=== PATIENT | male | born 1975 | race Caucasian/White ===

== ENCOUNTER 2022-03-26 04:30 | Observation (INO) ==
--- NOTE | 2022-03-26 04:44 | Emergency Department Note ---
History of Present Illness General Chief complaint: Cardiac Assessment Stated complaint: CHEST TIGHTNESS/PAIN RADIATING INTO L ARM Time Seen by Provider: 03/26/22 04:38 History of Present Illness Maximum Pain Intensity: 7 46-year-old male presents emergency department with 1 hour history of increased heart rate palpitations chest pressure that radiates into his left axilla. Patient has a history of sleep apnea and is on CPAP tonight. Patient states he woke up around 3:30 AM with palpitations chest pain that radiated to his left arm and armpit. Patient states that he has tingling and is present as well. Patient denies vomiting diaphoresis. There are no other mitigating or saud viating factors Past Med/Surg History Social History Smoking Status: Former smoker Preferred Language: Filipino Feels Safe at Home: Yes Review of Systems A total of 10 systems reviewed and were otherwise negative Constitutional: no fever Respiratory: no cough Cardiovascular: + chest pain and + palpitations Gastrointestinal: no abdominal pain Physical Exam Vital Signs Vital Signs - 24 hr 03/26/22 04:34 03/26/22 05:13 03/26/22 04:31 Temperature 36.3 C L Temperature Source Temporal Artery Scan Pulse Rate 121 H Pulse Rate from SpO2 Sensor Respiratory Rate 24 Respiratory Effort / Characteristics Non-Labored Spontaneous Respiratory Depth Normal Blood Pressure 166/96 H Blood Pressure Mean 119 Pulse Oximetry 96 95 Oxygen Delivery Method Room Air Sepsis New/Unexplained Change in Mental Status N/A Sepsis Action Taken by Nursing No Action Required 03/26/22 04:53 03/26/22 05:00 03/26/22 05:10 Temperature Temperature Source Pulse Rate 106 H 102 H 105 H Pulse Rate from SpO2 Sensor Respiratory Rate 13 22 Respiratory Effort / Characteristics Respiratory Depth Blood Pressure Blood Pressure Mean Pulse Oximetry Oxygen Delivery Method Sepsis New/Unexplained Change in Mental Status Sepsis Action Taken by Nursing 03/26/22 05:20 03/26/22 05:30 03/26/22 05:30 Temperature Temperature Source Pulse Rate 101 H 101 H Pulse Rate from SpO2 Sensor 99 H 102 H Respiratory Rate 14 14 Respiratory Effort / Characteristics Respiratory Depth Blood Pressure 155/91 H Blood Pressure Mean 112 Pulse Oximetry 94 95 Oxygen Delivery Method Sepsis New/Unexplained Change in Mental Status Sepsis Action Taken by Nursing VITAL SIGNS - Vital signs and nursing notes were reviewed. GENERAL - no acute distress. Communicates well with provider and answers questions appropriately. SKIN - Without rashes. HEAD - NC/AT. EYES - PERRL with EOMI bilaterally. Sclera anicteric. Palpebral conjunctiva pink and moist with no injection noted. EARS - No deformities of external structures noted on gross examination bilaterally. NOSE - Midline and without cyanosis. No epistaxis or purulent drainage noted. Septum midline without deviation or septal hematoma noted. MOUTH/OROPHARYNX - Without perioral cyanosis. Buccal mucosa pink and moist and without leukoplakia. Tongue midline with equal elevation of palate bilaterally. No tonsillar hypertrophy, erythema, or exudates noted. NECK - Neck with FROM. Supple to palpation; No nuchal rigidity. LUNGS - Chest wall symmetric without accessory muscle use, intercostals retractions, or central cyanosis. Normal vesicular breath sounds CTA B/L. No wheezes, rales, or rhonchi appreciated. CARDIAC - Tachycardic with S1/S2. No murmur, rubs, or gallops appreciated. ABDOMEN - Abdominal contour soft without pulsations or visible masses. BS normoactive all four quadrants. No tenderness, palpable masses, hepatosplenom egaly, or ascites noted. EXTREMITIES - No clubbing or peripheral cyanosis. No pretibial edema present. Calves are nontender. +5/5 strength noted in UE/LE bilaterally. NEUROLOGIC - Cranial nerves II through XII grossly intact. . PSYCH - A&Ox3 and cooperates fully with examiner. Pt is very pleasant and interacts well with examiner. Course Reevaluation(s) Reevaluation #1: Patient's heart rate is less than 100. Patient had intermittent chest tightness at times. Patient's INR is 2.0. I discussed evaluation with the patient the patient's family at bedside Time: 06:29 Consultations [facility] Administered Medications Discontinued Medications Aspirin (Aspirin Chew 324 Mg) 324 mg PO NOW STA Stop: 03/26/22 04:54 Last Admin: 03/26/22 05:20 Dose: 324 mg Documented By: ROBERTO Medical Decision Making Medical Records Attestation: I reviewed the patient's medical records. Home Medications Current Medication List: was personally reviewed by me Laboratory Data Attestation: I reviewed the patient's lab results. Result diagrams: 03/26/22 05:10 03/26/22 05:10 Lab Results 03/26/22 03/26/22 03/26/22 Range/Units 05:10 05:10 05:10 WBC 8.42 (4.8-10.8) K/ul RBC 4.52 L (4.63-6.08) M/uL Hgb 14.6 (14.0-18.0) g/dl Hct 42.5 (40.1-51.0) % MCV 94.0 (80.0-100.0) fL MCH 32.3 (25.0-34.0) pg MCHC 34.4 (32.0-36.0) g/dL RDW Std Deviation 58.3 H (36.4-46.3) fL RDW Coeff of Nba 16.8 H (11.5-14.5) % Plt Count 234 (130-400) K/uL MPV 10.4 (9.4-12.4) fL Immature Gran % (Auto) 2.6 % Neut % (Auto) 65.6 % Lymph % (Auto) 16.2 % [place] % (Auto) 10.8 % Eos % (Auto) 3.4 % Baso % (Auto) 1.4 % Neut # (Auto) 5.52 (1.4-6.5) K/uL Lymph # (Auto) 1.36 (1.2-3.4) K/uL [place] # (Auto) 0.91 H (0.24-0.82) K/uL Eos # (Auto) 0.29 (0-0.50) K/uL Baso # (Auto) 0.12 (0-0.2) K/uL Immature Gran # (Auto) 0.22 H (0.00-0.02) K/uL PT 20.3 H (9.0-12.0) Seconds INR 2.0 H (0.9-1.1) APTT 38.6 H (21.0-31.0) Seconds PTT Ratio 1.4 Sodium 135 L (136-145) mmol/L Potassium 4.1 (3.5-5.1) mmol/L Chloride 103 (98-107) mmol/L Carbon Dioxide 22 (21-32) mmol/L Anion Gap 10 (3-11) BUN 21 (6-23) mg/dl Creatinine 1.19 (0.6-1.4) mg/dl Est Cr Clr Drug Dosing Not Reportable Est GFR ( Amer) 84.4 ml/min Est GFR (Non-Af Amer) 72.8 ml/min BUN/Creatinine Ratio 17.6 (10-20) Glucose 101 H (70-99(Fasting)) mg/dl Calcium 9.0 (8.5-10.1) mg/dl Total Bilirubin 0.5 (0.2-1.0) mg/dl AST 17 (13-39) U/L ALT 37 (7-52) U/L Alkaline Phosphatase 74 (34-104) U/L Troponin I High Sens 5.8 (0-20) pg/ml Total Protein 7.3 (6.0-8.3) gm/dl Albumin 4.1 (3.4-5.0) gm/dl Globulin 3.2 (2.5-4.0) gm/dl Albumin/Globulin Ratio 1.3 (0.9-2) Lipase 60 (11-82) U/L Imaging Data Attestation: I personally reviewed and interpreted this imaging study as follows: My Impression: Chest x-ray negative for infiltrate MDM Narrative Medical decision making differential diagnosis angina unstable angina acute ME acute coronary syndrome cardiac dysrhythmia metabolic derangement anxiety. Plan is to check cardiac work-up Impression & Plan Chest pain Discharge Plan Visit Data Chief Complaint: Cardiac Assessment Stated Complaint: CHEST TIGHTNESS/PAIN RADIATING INTO L ARM ED Provider: Kan Olea Discharge Problem: Chest pain Patient Disposition: Being Evaluated by Hospitalist Forms Stand Alone Forms: My [facility] Referrals Referrals: PCP,NO [Primary Care Provider] -
[2022-03-26] MEDS ORDERED: ASPIRIN CHEW 324 MG PO STA (04:53)
[2022-03-26 05:43] LABS: Basophils # (auto) 0.12 K/uL (0-0.2); Basophils % (auto) 1.4 %; Eosinophils # (auto) 0.29 K/uL (0-0.50); Eosinophils % (auto) 3.4 %; Hematocrit (blood only) 42.5 % (40.1-51.0); Hemoglobin 14.6 g/dl (14.0-18.0); Immature Granulocytes # (auto) 0.22 K/uL (0.00-0.02); Immature Granulocytes % (auto) 2.6 %; Lymphocytes # (auto) 1.36 K/uL (1.2-3.4); Lymphocytes % (auto) 16.2 %; Mean Corpuscular Hemoglobin 32.3 pg (25.0-34.0); Mean Corpuscular Hgb Conc 34.4 g/dL (32.0-36.0); Mean Platelet Volume 10.4 fL (9.4-12.4); Monocytes # (auto) 0.91 K/uL (0.24-0.82); Monocytes % (auto) 10.8 %; Neutrophils # (auto) 5.52 K/uL (1.4-6.5); Neutrophils % (auto) 65.6 %; Platelet Count 234 K/uL (130-400); RDW Coefficient of Variation 16.8 % (11.5-14.5); RDW Standard Deviation 58.3 fL (36.4-46.3); Red Blood Count 4.52 M/uL (4.63-6.08); White Blood Count 8.42 K/ul (4.8-10.8)
[2022-03-26 05:44] LABS: Partial Thromboplastin Ratio 1.4; Partial Thromboplastin Time 38.6 Seconds (21.0-31.0); Prothrombin Time 20.3 Seconds (9.0-12.0)
[2022-03-26 05:53] LABS: Alanine Aminotransferase 37 U/L (7-52); Albumin Globulin Ratio 1.3 (0.9-2); Albumin Level 4.1 gm/dl (3.4-5.0); Alkaline Phosphatase 74 U/L (34-104); Anion Gap 10 (3-11); Aspartate Aminotransferase 17 U/L (13-39); BUN Creatinine Ratio 17.6 (10-20); Bilirubin,Total 0.5 mg/dl (0.2-1.0); Blood Urea Nitrogen 21 mg/dl (6-23); Carbon Dioxide 22 mmol/L (21-32); Chloride 103 mmol/L (98-107); Est GFR (African American) 84.4 ml/min; Est GFR (Non-African American) 72.8 ml/min; Globulin 3.2 gm/dl (2.5-4.0); Glucose 101 mg/dl (70-99(Fasting)); Lipase 60 U/L (11-82); Potassium 4.1 mmol/L (3.5-5.1); Sodium 135 mmol/L (136-145); Total Protein 7.3 gm/dl (6.0-8.3)
[2022-03-26 06:00] LABS: Troponin I High Sensitivity 5.8 pg/ml (0-20)
--- NOTE | 2022-03-26 06:29 | XRay Report ---
XR chest 1V portable CLINICAL HISTORY: Atypical chest pain. COMPARISON STUDY: No previous studies for comparison. FINDINGS: Lung volumes are normal. Lungs are clear. There is no pneumothorax or pleural effusion. The re is borderline cardiomegaly. Mediastinal contours are normal. There is no evidence for pulmonary ed arthur. IMPRESSION: No acute cardiopulmonary findings. ACT 112: Negative or not required by law. Electronically signed by: Alec Agee M.D. 03/26/2022 6:28 AM
[2022-03-26] MEDS ORDERED: lisinopril 2.5 MG TAB PO ONE (06:31)
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
[2022-03-26] MEDS ORDERED: LORazepam 0.5 MG TAB PO PRN (07:27)
[2022-03-26] MEDS ORDERED: oxyCODONE HCL IR 5 MG TAB (IMMEDIATE RELEASE) PO PRN (07:27)
[2022-03-26] MEDS ORDERED: MoRPHine SULFATE 4 MG/ML 1 ML CARP\\VIAL IV PRN (07:27)
[2022-03-26] MEDS ORDERED: PROMETHAZINE HCL 12.5 MG in SODIUM CHLORIDE 0.9% 50 ML IV PRN (07:27)
[2022-03-26] MEDS ORDERED: SODIUM CHLORIDE 0.9% 1000ML 1,000 ML IV ONE (07:27)
[2022-03-26 07:46] LABS: Troponin I High Sensitivity 6.3 pg/ml (0-20)
[2022-03-26] MEDS ORDERED: GLUCOSE 10 TAB/TUBE PO PRN (07:52)
[2022-03-26] MEDS ORDERED: DEXTROSE 50% 50 ML SYRINGE IV PRN (07:52)
[2022-03-26] MEDS ORDERED: GLUCAGON FOR INJ 1 MG VIAL SQ PRN (07:52)
[2022-03-26] MEDS ORDERED: CARBOHYDRATES FOR HYPOGLYCEMIA PO PRN (07:52)
[2022-03-26] MEDS ORDERED: GLUCOSE 40% GEL 15 GM TUBE PO PRN (07:52)
[2022-03-26 08:29] LABS: Estimated Average Glucose 123 mg/dl; Hemoglobin A1C 5.9 % (4.5-5.6)
[2022-03-26] MEDS ORDERED: NITROGLYCERIN SL 0.4 MG/TAB TAB SL PRN (08:56)
[2022-03-26] MEDS ORDERED: ACETAMINOPHEN 325 MG TAB PO PRN (08:56)
[2022-03-26] MEDS: ATORVASTATIN 40 MG TAB PO SCH (10:21)
--- NOTE | 2022-03-26 11:22 | Cardiology Consultation ---
Date of Consultation March 26, 2022 Assessment & Plan (1) Palpitation: (2) Chest pain at rest: (3) Family history of ischemic heart disease: (4) Obesity: (5) Dyslipidemia: Plan 46-year-old male seen in consultation, evaluation of palpitations awaking patient from sleep with associated upper chest/jaw discomfort. EKG without acute changes. High-sensitivity troponin negative x2. Troponin #3 pending along with resting echocardiography which will likely be limited technically as discussed. Outpatient Sleep Medicine referral, likely requiring adjustment to PAP treatment Serial high-sensitivity Troponins x 3 Resting echocardiography Bilateral carotid duplex Trial low-dose beta-jimena therapy while an inpatient, metoprolol succinate 12.5 mg once per day, for heart rate and blood pressure. Continue aspirin, statin, risk factor, and lifestyle modification Supervising Physician Co-Signing Physician Notes Patient seen and examined with Gerald Drake PA-C. Agree with findings and assessment as above. History of Present Illness Reason for Consultation: Chest pain Requesting Physician: Oliver Attending Physician: [place] History of Present Illness Mr. Nicola Pineda is a pleasant 46-year-old male who presented to the [facility] emergency room after awaking from sleep around 3 AM with a feeling of his heart pounding fast that was associated with some upper anterior chest/anterior neck pain that seemed radiate into the jaw. He notes sitting on the edge of the bed, removing his CPAP mask, and wondering if he was having a crazy dream. 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 She checked his pulse and noted it to be fast, recommending further evaluation. He also notes having some pain in the left axilla/left shoulder, fingers falling asleep on the left side, and his toes falling asleep last couple of days. He reports a history of CVA in 2017, prescribed chronic Coumadin anticoagulation for factor V. INRs have been therapeutic with patient reporting an INR 3.1 last month, 2.0 on presentation today. Patient reports a history of asthma that requires regular use of inhaler regimen. Notes increased exertional dyspnea especially when hot and humid. No exertional chest pain. No other bouts of palpitations. No difficulty breathing at rest. No significant fluid retention. No dizziness or syncope. No fevers or chills. No melena or hematochezia. Past Medical and Surgical History Central venous thrombosis, January 2017 Factor V Leiden mutation Chronic Coumadin anticoagulation COPD/asthma Hypertension Dyslipidemia Depression Morbid obesity Right heart failure Type 2 diabetes mellitus Vertigo Obstructive sleep apnea, prescribed CPAP therapy 5 or 6 years ago, without ongoing evaluation Restless leg syndrome Degenerative joint disease, bilateral knees Family History: Father had CAD/NC, passing after a second CVA at the age of 73. Mother is alive with "everything under the sun." Only child. Social History: Smoked in his 20s. No significant alcohol. No illegal drug use. Originally from [facility]. 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 Allergies Allergy/AdvReac Type Severity Reaction Status Date / Time No Known Allergies Allergy Verified 03/26/22 06:35 Home Medications Medication Instructions Recorded Confirmed Type Lipitor 40 mg PO DAILY 03/26/22 03/26/22 History Requip 4 mg PO HS 03/26/22 03/26/22 History Trulicity 0.75 mg SC WK 03/26/22 03/26/22 History albuterol 2 puff inhalation QID PRN 03/26/22 03/26/22 History Bronchospasm bupropion HCl 150 mg PO DAILY 03/26/22 03/26/22 History celecoxib 200 mg PO DAILY 03/26/22 03/26/22 History furosemide 40 mg PO BID 03/26/22 03/26/22 History lisinopril 2.5 mg PO DAILY 03/26/22 03/26/22 History metformin 500 mg PO DAILY 03/26/22 03/26/22 History warfarin 10 mg PO HS 03/26/22 03/26/22 History Patient History Social History Smoking Status: Former smoker Second Hand Exposure: No; Do You Dip or Chew Tobacco: No; Hx Alcohol Use: No Hx Substance Use: No Preferred Language: Slovenian Communication Ability: Effective Marketing Clerk Required: No Beliefs That Will Affect Care: None Current Living Situation: Family Other Information That Helps Us Care for You: No Feels Safe at Home: Yes Safety Concerns: Feels Safe At This Time Assistive Devices: CPAP and Walker Review of Systems Review of Systems: Complete review of systems is otherwise as stated above, negative, noncontributory Physical Exam Physical Exam: General: A&Ox3. NAD. Elevated BMI HEENT: Normocephalic. Atraumatic. PER. Conjunctiva pink, sclera clear. Neck: No carotid bruits. Veins not appreciated. Heart: Regular at 96 bpm. No murmurs appreciated. No rub. Lungs: Faint right lower expiratory wheeze. No Rales. No rhonchi. Abdomen: +BS. Soft. Nontender. No masses or organomegaly. Extremities: Thick, with mild lymphedematous changes, without overt edema. No clubbing. No cyanosis. Limited neurological examination is without focal deficits. Pulses: radial=2/4, posterior tibial=2/4. Results & Data ([facility]) Vital Signs (Past 12 Hours) Vital Signs Temp Pulse Pulse Resp BP BP Pulse Ox 03/26/22 09:18 95 H 03/26/22 08:58 36.4 C L 90 18 152/85 H 94 03/26/22 08:07 36.6 C 95 H 18 160/95 H 96 03/26/22 05:30 101 H 14 95 03/26/22 05:30 155/91 H 03/26/22 05:20 101 H 14 94 03/26/22 05:10 105 H 22 03/26/22 05:00 102 H 03/26/22 04:53 106 H 13 03/26/22 04:31 95 03/26/22 04:34 36.3 C L 121 H 24 166/96 H 96 O2 Del Method 03/26/22 09:18 03/26/22 08:58 Room Air 03/26/22 08:07 Room Air 03/26/22 05:30 03/26/22 05:30 03/26/22 05:20 03/26/22 05:10 03/26/22 05:00 03/26/22 04:53 03/26/22 04:31 Room Air 03/26/22 04:34 Laboratory Results Cardiac Enzymes 03/26/22 03/26/22 Range/Units 05:10 07:13 AST 17 (13-39) U/L Troponin I High Sens 5.8 6.3 (0-20) pg/ml Coagulation 03/26/22 Range/Units 05:10 PT 20.3 H (9.0-12.0) Seconds APTT 38.6 H (21.0-31.0) Seconds CBC 03/26/22 Range/Units 05:10 WBC 8.42 (4.8-10.8) K/ul RBC 4.52 L (4.63-6.08) M/uL Hgb 14.6 (14.0-18.0) g/dl Hct 42.5 (40.1-51.0) % Plt Count 234 (130-400) K/uL Neut # (Auto) 5.52 (1.4-6.5) K/uL Lymph # (Auto) 1.36 (1.2-3.4) K/uL [place] # (Auto) 0.91 H (0.24-0.82) K/uL Eos # (Auto) 0.29 (0-0.50) K/uL Baso # (Auto) 0.12 (0-0.2) K/uL Comprehensive Metabolic Panel 03/26/22 Range/Units 05:10 Sodium 135 L (136-145) mmol/L Potassium 4.1 (3.5-5.1) mmol/L Chloride 103 (98-107) mmol/L Carbon Dioxide 22 (21-32) mmol/L BUN 21 (6-23) mg/dl Creatinine 1.19 (0.6-1.4) mg/dl Glucose 101 H (70-99(Fasting)) mg/dl Calcium 9.0 (8.5-10.1) mg/dl AST 17 (13-39) U/L ALT 37 (7-52) U/L Alkaline Phosphatase 74 (34-104) U/L Total Protein 7.3 (6.0-8.3) gm/dl Albumin 4.1 (3.4-5.0) gm/dl Intake and Output 03/25/22 03/26/22 03/26/22 22:59 06:59 14:59 Other: Weight 187 kg 186.2 kg Weight Measurement [facility] Patient Weight 03/27/22 06:59 Weight 186.2 kg Diagnostic Findings EKG on presentation revealed sinus tachycardia at 112 bpm with left axis dev iation, pulmonary disease pattern. Cannot rule out an old inferior infarct. QTc 434 ms. Continuous telemetry monitoring since admission has revealed sinus rhythm, currently in the 90s. Chest x-ray on admission showed no acute cardiopulmonary findings.
[2022-03-26] MEDS ORDERED: INSULIN ASPART PER UNIT SC SCH (12:00)
[2022-03-26] MEDS: METOPROLOL SUCC 25MG EXT REL TAB PO SCH (12:44)
[2022-03-26] MEDS: buPROPion XL 150 MG TABCR PO SCH (12:44)
--- NOTE | 2022-03-26 14:28 | Electrocardiogram Report ---
Test Reason : Blood Pressure : / mmHG Vent. Rate : 112 BPM Atrial Rate : 112 BPM P-R Int : 146 ms QRS Dur : 092 ms QT Int : 318 ms P-R-T Axes : 063 -41 018 degrees QTc Int : 434 ms Sinus tachycardia Left axis deviation Inferior infarct , age undetermined Abnormal ECG No previous ECGs available Confirmed by Anuel Narvaez ([id number]) on 03/26/2022 2:28:37 PM Referred By: Confirmed By:Anuel Narvaez
--- NOTE | 2022-03-26 14:29 | Ultrasound Report ---
CAROTID ARTERY ULTRASOUND CLINICAL HISTORY: left sided numbness COMPARISON STUDY: None. TECHNIQUE: Real-time, grayscale, and color Doppler sonography of the carotid and vertebral arteries w as performed. Images were viewed in the transverse and longitudinal planes. FINDINGS: This study is compromised by suboptimal penetration. There is no significant atherosclerotic plaque. Velocity measurements are listed below. COMMON CAROTID PEAK SYSTOLIC VELOCITY (CM/S): RIGHT 109 LEFT 100 ICA PEAK SYSTOLIC VELOCITY (CM/S): RIGHT 108 LEFT 96 Systolic ratios between the internal to common carotid arteries are normal. Antegrade flow is seen in the vertebral arteries. The external carotid arteries are patent. IMPRESSION: No evidence for a hemodynamically significant stenosis. Exam mildly compromised by subop timal penetration. ACT 112: Negative or not required by law. Electronically signed by: Alec Agee M.D. 03/26/2022 2:27 PM
[2022-03-26] MEDS ORDERED: Nursing to Pharmacy Communication SCH (14:45)
--- NOTE | 2022-03-26 16:52 | Communication Note ---
Date of Service: March 26, 2022 Patient seen and examined at bedside. He is comfortable; not in any distress. Still has chest pain but pain is improved compared to presentation. Troponin negative X 3. Echo- EF of 60-65%; no wall montion abnormalities. Lisinopril increased to 10mg for high BP. Also on metoprolol fo hypertension. plan is to monitor on tele overnight. Possible DC in am.
[2022-03-26] MEDS ORDERED: WARFARIN SOD 10 MG TAB PO SCH (17:00)
[2022-03-26] MEDS: INSULIN ASPART PER UNIT SC SCH ×2 (17:50→20:27)
[2022-03-26] MEDS ORDERED: rOPINIRole HCL 2 MG TABLET PO SCH (21:00)
[2022-03-27 06:20] LABS: Basophils % (auto) 1.3 %; Eosinophils # (auto) 0.33 K/uL (0-0.50); Eosinophils % (auto) 4.4 %; Hematocrit (blood only) 41.2 % (40.1-51.0); Hemoglobin 13.9 g/dl (14.0-18.0); Immature Granulocytes # (auto) 0.16 K/uL (0.00-0.02); Immature Granulocytes % (auto) 2.1 %; Lymphocytes # (auto) 1.45 K/uL (1.2-3.4); Lymphocytes % (auto) 19.2 %; Mean Corpuscular Hemoglobin 31.7 pg (25.0-34.0); Mean Corpuscular Hgb Conc 33.7 g/dL (32.0-36.0); Mean Corpuscular Volume 94.1 fL (80.0-100.0); Mean Platelet Volume 10.5 fL (9.4-12.4); Monocytes # (auto) 0.79 K/uL (0.24-0.82); Monocytes % (auto) 10.5 %; Neutrophils # (auto) 4.72 K/uL (1.4-6.5); Neutrophils % (auto) 62.5 %; Platelet Count 232 K/uL (130-400); RDW Coefficient of Variation 16.8 % (11.5-14.5); RDW Standard Deviation 57.8 fL (36.4-46.3); Red Blood Count 4.38 M/uL (4.63-6.08); White Blood Count 7.55 K/ul (4.8-10.8)
[2022-03-27 06:49] LABS: BUN Creatinine Ratio 16.1 (10-20); Calcium 8.9 mg/dl (8.5-10.1); Chol HDL Ratio 5.6 (0-5); Creatinine Clr Calc Pharmacy 120.2 ml/min; Est GFR (African American) 80.3 ml/min; Est GFR (Non-African American) 69.3 ml/min; Potassium 4.1 mmol/L (3.5-5.1)
[2022-03-27 07:05] LABS: INR 1.9 (0.9-1.1); Prothrombin Time 19.7 Seconds (9.0-12.0)
[2022-03-27] MEDS: INSULIN ASPART PER UNIT SC SCH (08:11)
[2022-03-27] MEDS: METOPROLOL SUCC 25MG EXT REL TAB PO SCH (08:17)
[2022-03-27] MEDS: buPROPion XL 150 MG TABCR PO SCH (08:18)
[2022-03-27] MEDS: ATORVASTATIN 40 MG TAB PO SCH (08:18)
[2022-03-27] MEDS ORDERED: lisinopril 10 MG TAB PO SCH (09:00)
[2022-03-27] MEDS ORDERED: lisinopril 2.5 MG TAB PO SCH (09:00)
[2022-03-27] MEDS ORDERED: ASPIRIN 81 MG ECTAB PO SCH (09:00)
--- NOTE | 2022-03-27 09:56 | Cardiology Progress Note ---
Date of Service March 27, 2022 Assessment & Plan (1) Palpitation: (2) Chest pain at rest: (3) Family history of ischemic heart disease: (4) Obesity: (5) Dyslipidemia: Plan 46-year-old male admitted after experiencing tachypalpitations awaking patient from sleep, with associated upper chest/jaw discomfort. EKG without acute changes. High-sensitivity troponin negative x3. Limited resting echocardiography without wall motions abnormalities, preserved LV systolic function. Continue low-dose beta-jimena therapy, aspirin, statin, risk factor, and lifestyle modification Outpatient two day Lexiscan nuclear stress test; consider ongoing use of ASA pending stress test results. Outpatient Sleep Medicine referral, likely requiring adjustment to PAP treatment Admission and Anticipated Discharge Date Admission Date: March 26, 2022 Supervising Physician Co-Signing Physician Notes Patient seen and examined with Gerald Drake PA-C. Agree with findings and assessment as above. Subjective Patient seen and examined. Chart, medications, and telemetry reviewed. Feeling better. No complaints or concerns. No chest pain, palpitations, unusual shortness of breath, orthopnea, PND, edema, or dizziness. March 26, 2022 TTE Interpretation Summary ([facility], Dr. Fan): Normal LV chamber size. Mild concentric LVH. Normal LV systolic function. EF 60-65%. No segmental LV WMA's. Grade I diastolic dysfunction. Poorly visualized valvular structures without significant stenosis or regurgitation by Doppler. Telemetry: Sinus rhythm in the 70's and 80's. March 26, 2022 Carotid Duplex: No evidence for hemodynamically significant stenosis. Exam mildly compromised by suboptimal penetration. Review of Systems Review of Systems: Complete review of systems is otherwise as stated above, negative, noncontributory Physical Exam Physical Exam: General: NAD. HEENT: Normocephalic. Atraumatic. PER. Conjunctiva pink, sclera clear. Neck: Veins not appreciated. Heart: Regular at 80 bpm. Lungs: Clear. No audible wheeze. Extremities: Thick, with mild lymphedematous changes, without overt edema. No clubbing. No cyanosis. Limited neurological examination is without focal deficits. Results & Data ([facility]) Vital Signs (Past 12 Hours) Vital Signs Temp Pulse Pulse Resp BP BP Pulse Ox 03/27/22 08:56 89 03/27/22 08:56 03/27/22 07:16 36.4 C L 83 20 123/76 96 03/27/22 03:13 36.3 C L 82 20 120/80 97 03/27/22 03:40 80 19 95 03/26/22 22:30 87 03/26/22 22:55 36.4 C L 82 18 129/79 95 O2 Del Method FiO2 03/27/22 08:56 03/27/22 08:56 Room Air 03/27/22 07:16 Room Air 03/27/22 03:13 CPAP 03/27/22 03:40 21 03/26/22 22:30 03/26/22 22:55 CPAP Laboratory Results Cardiac Enzymes 03/26/22 03/26/22 Range/Units 12:20 12:59 Troponin I High Sens Cancelled 6.4 Coagulation 03/27/22 Range/Units 05:33 PT 19.7 H (9.0-12.0) Seconds Lipids 03/27/22 Range/Units 05:33 Triglycerides 348 H (0-150) mg/dl Cholesterol 161 (0-200) mg/dl HDL Cholesterol 29 mg/dl Cholesterol/HDL Ratio 5.6 H (0-5) CBC 03/27/22 Range/Units 05:33 WBC 7.55 (4.8-10.8) K/ul RBC 4.38 L (4.63-6.08) M/uL Hgb 13.9 L (14.0-18.0) g/dl Hct 41.2 (40.1-51.0) % Plt Count 232 (130-400) K/uL Neut # (Auto) 4.72 (1.4-6.5) K/uL Lymph # (Auto) 1.45 (1.2-3.4) K/uL [place] # (Auto) 0.79 (0.24-0.82) K/uL Eos # (Auto) 0.33 (0-0.50) K/uL Baso # (Auto) 0.10 (0-0.2) K/uL Comprehensive Metabolic Panel 03/27/22 Range/Units 05:33 Sodium 135 L (136-145) mmol/L Potassium 4.1 (3.5-5.1) mmol/L Chloride 103 (98-107) mmol/L Carbon Dioxide 23 (21-32) mmol/L BUN 20 (6-23) mg/dl Creatinine 1.24 (0.6-1.4) mg/dl Glucose 89 (70-99(Fasting)) mg/dl Calcium 8.9 (8.5-10.1) mg/dl Intake and Output 03/26/22 03/27/22 03/27/22 22:59 06:59 14:59 Intake Total 1270.833 / 1320.833 50 / 1320.833 Balance 1270.833 / 1320.833 50 / 1320.833 Intake: IV 570.833 / 570.833 Sodium Chloride 0.9% 1000ML 1, 570.833 / 570.833 000 ml @ 50 mls/hr IV .Q20H ONE Rx#:[id number] Oral 700 / 750 50 / 750 Other: # Unmeasured Voids 2 1 Weight 186.2 kg Weight Measurement Method Standing Scale
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
== END 2022-03-27 13:00 | disposition home health service (06) ==
LOC: 4W 04:30 → ED 04:30 → 4W 08:07

== ENCOUNTER 2022-10-09 06:21 | Inpatient (IN) ==
--- NOTE | 2022-10-09 07:07 | Emergency Department Note ---
Impression & Plan AMS (altered mental status) ADMIT ED Provider Note HPI: The patient is a 47-year-old male with morbid obesity (BMI 57) history of stroke, history of factor V Leiden currently on Eliquis, presents to the emergency department with his son at the bedside over concern for confusion. Patient's son states that when the patient woke up from sleep this morning he was very confused, he did not seem to know where he was, he was giving an coherent history, states he did not remember going to work yesterday. On arrival here to the ED the patient is oriented to place, alert to self, he is unsure what the year is, he does not know how old he is. Patient's son states that he went to bed last night and seemed to be in his normal state of health. On arrival here to the ED the patient is hypertensive at 174/92, he is otherwise saturating well on room air, heart rate is within normal limits, he does not have any focal motor deficits on arrival. ROS: - Per HPI *Outpatient medications and allergy history reviewed. *Pertinent external medical records reviewed. PE: General: Alert oriented to place but not time HEENT: Normocephalic, trachea midline Eyes: Extraocular eye movement is intact, no scleral erythema Pulmonary: Clear to auscultation bilaterally, no wheezing Cardio: Regular rate and rhythm GI: Abdomen is soft to palpation : No suprapubic tenderness MSK: No evidence of trauma or malformation of the extremities, no edema Skin: No evidence of rash Neuro: Alert, no focal deficits, follows commands appropriately, symmetrical facial movements are appreciated, ambulates all extremities spontaneously without issue Psychiatric: Cooperative, not aggressive case monitor: (As interpreted by myself): - An order was placed for continuous cardiac monitoring - Patient was noted to be in sinus rhythm with a rate of 90 EKG: (As interpreted by myself): Rate: 98 Rhythm: Normal sinus rhythm Intervals: QTc 45 ms, otherwise within normal limits ST changes: No ST elevation Time: 06 Interventions provided in ED: -IV labetalol, BiPAP, DuoNeb breathing treatment, IV Tylenol Differential Diagnosis: Hypertensive encephalopathy, hypertensive emergency, acute ischemic stroke, subarachnoid hemorrhage, epidural hematoma, intraparenchymal bleed, meningitis, encephalitis, dural venous sinus thrombosis, COVID-19 encephalopathy, amongst other potential pathologies. Medical Decision Making: Patient presented to the emergency department with altered mentation, last noted to be well last night before he went to bed according to his son. He does live with his son who is at the bedside. Patient's son states that the patient seemed very confused this morning, on arrival here to the ED the patient does exhibit confusion, he is oriented to place but he cannot tell me the year, he does not know how old he is. He is able to follow commands appropriately and does not exhibit any focal deficits. Patient is afebrile on arrival. IV was established and lab work obtained, patient was given labetalol for hypertension, Tylenol for headache, CT imaging of the head and neck were obtained with angiography that did not show any evidence of intracranial bleeding, no evidence of large vessel occlusion. Patient's lab work does not show any leukocytosis, hemoglobin is stable, venous blood gas does not show any evidence of hypercarbic respiratory failure. Patient was placed on BiPAP while here in the ED as he did exhibit some wheezing, he was given a dose of IV steroids as well. On my reassessment the patient remains at his baseline on BiPAP, he remains alert to verbal stimuli and still responds to commands, his COVID-19 testing did return positive. I suspect this might be playing a role in his altered mentation. Given his age and comorbidities, I did recommend admission and family is in agreement. He has been compliant with his Eliquis therefore I have low suspicion for intracranial venous thrombosis however he may benefit from MRI despite his COVID-19 test being positive as he does have a history of altered mentation and CVA. Case was discussed with the [facility] midlevel provider, Gianna Ochoa, and the patient was placed for admission in stable condition to the care of Dr. Ballesteros. Consultants: Hospitalist service, Dr. Ballesteros Disposition discussion held by myself with: Patient and son at the bedside Diagnosis: 1. COVID-19 infection 2. Altered mental status, acute 3. Morbid obesity with BMI greater than 57 Disposition: Admission Gerald Pérez DO Emergency Medicine Past Med/Surg History Medical History (Updated 10/09/22 @ 10:52 by Paulina Ochoa PA-C) Chest pain at rest Factor V Leiden Hx of cerebral thrombosis Morbid obesity with BMI of 50.0-59.9, adult QUENTIN on CPAP Osteoarthritis Palpitation Surgical History (Updated 10/09/22 @ 10:43 by Paulina Ochoa PA-C) Hx of eye surgery Left eyelid surgery Family History Other Asthma COPD (chronic obstructive pulmonary disease) Heart disease Hypertension Social History (Updated 10/09/22 @ 10:45 by Paulina Ochoa PA-C) Smoking Status: Former smoker Tobacco Type: Cigarettes Age Started Using Tobacco: 17; Age Quit Using Tobacco: 25; packs per day: 1; Second Hand Exposure: No; Hx Alcohol Use: No Hx Substance Use: No Preferred Language: Bengali Communication Ability: Effective Tumor Registrar Required: No Beliefs That Will Affect Care: None Current Living Situation: Family Feels Safe at Home: Yes Assistive Devices: Walker Allergies Allergies Allergy/AdvReac Type Severity Reaction Status Date / Time No Known Allergies Allergy Verified 03/26/22 06:35 Home Meds Home Medications Medication Instructions Recorded Confirmed Lipitor 40 mg PO DAILY 03/26/22 10/09/22 Requip 4 mg PO HS 03/26/22 10/09/22 Trulicity 0.75 mg SC WK 03/26/22 10/09/22 albuterol 2 puff inhalation QID PRN 03/26/22 10/09/22 Bronchospasm bupropion HCl 150 mg PO DAILY 03/26/22 10/09/22 furosemide 40 mg PO BID 03/26/22 10/09/22 lisinopril 2.5 mg PO DAILY 03/26/22 10/09/22 metformin 500 mg PO BID 03/26/22 10/09/22 apixaban 5 mg tablet (Eliquis) 5 mg PO BID 10/09/22 10/09/22 celecoxib 200 mg capsule (Celebrex) 200 mg PO DAILY 10/09/22 10/09/22 fenofibrate nanocrystallized 48 mg 48 mg PO DAILY 10/09/22 10/09/22 tablet multivitamin 1 tab PO DAILY 10/09/22 10/09/22 vitamin B complex 1 cap PO DAILY 10/09/22 10/09/22 Results & Data (ED) Vital Signs Vital Signs - 24 hr 10/09/22 06:25 10/09/22 06:33 10/09/22 06:44 Temperature 36.5 C Temperature Source Oral Pulse Rate 100 H 96 H 70 Pulse Rate [Apical] Pulse Rhythm Regular Regular Pulse Strength Normal Respiratory Rate 18 18 Respiratory Effort / Characteristics Non-Labored Spontaneous Respiratory Depth Normal Respiratory Pattern Regular Blood Pressure 174/92 H Blood Pressure [Left Arm] Blood Pressure Mean 119 Blood Pressure Mean [Left Arm] Pulse Oximetry 97 97 Oxygen Delivery Method Room Air Room Air Fraction of Inspired Oxygen Sepsis Recent Fever Within 48 Hours No Sepsis New/Unexplained Change in Mental Status N/A Sepsis Action Taken by Nursing No Action Required 10/09/22 07:31 10/09/22 08:30 10/09/22 09:00 Temperature Temperature Source Pulse Rate 84 Pulse Rate [Apical] 84 Pulse Rhythm Pulse Strength Respiratory Rate 16 27 H 14 Respiratory Effort / Characteristics Spontaneous Labored Short of Breath Respiratory Depth Normal Respiratory Pattern Tachypnea Blood Pressure Blood Pressure [Left Arm] 181/83 H Blood Pressure Mean Blood Pressure Mean [Left Arm] 115 Pulse Oximetry 94 99 Oxygen Delivery Method Fraction of Inspired Oxygen 30 Sepsis Recent Fever Within 48 Hours Sepsis New/Unexplained Change in Mental Status Sepsis Action Taken by Nursing 10/09/22 10:22 10/09/22 10:24 10/09/22 10:38 Temperature Temperature Source Pulse Rate 89 86 Pulse Rate [Apical] 88 Pulse Rhythm Pulse Strength Respiratory Rate 20 20 Respiratory Effort / Characteristics Respiratory Depth Respiratory Pattern Blood Pressure Blood Pressure [Left Arm] 170/87 H Blood Pressure Mean Blood Pressure Mean [Left Arm] 114 Pulse Oximetry 96 97 Oxygen Delivery Method CPAP Fraction of Inspired Oxygen 28 Sepsis Recent Fever Within 48 Hours Sepsis New/Unexplained Change in Mental Status Sepsis Action Taken by Nursing Laboratory Data 10/09/22 06:59 10/09/22 06:59 Lab Results 10/09/22 10/09/22 10/09/22 Range/Units 06:59 06:59 06:59 WBC 8.10 (4.8-10.8) K/ul RBC 3.94 L (4.70-6.10) M/uL Hgb 12.9 L (14.0-18.0) g/dl Hct 37.5 L (42.0-52.0) % MCV 95.2 (80.0-100.0) fL MCH 32.7 (25.0-34.0) pg MCHC 34.4 (32.0-36.0) g/dL RDW Std Deviation 58.8 H (36.4-46.3) fL RDW Coeff of Nba 16.9 H (11.5-14.5) % Plt Count 238 (130-400) K/uL MPV 10.3 (9.4-12.4) fL Immature Gran % (Auto) 2.0 % Neut % (Auto) 67.5 % Lymph % (Auto) 13.6 % [place] % (Auto) 11.0 % Eos % (Auto) 4.8 % Baso % (Auto) 1.1 % Neut # (Auto) 5.47 (1.40-6.50) K/uL Lymph # (Auto) 1.10 L (1.2-3.4) K/uL [place] # (Auto) 0.89 H (0.11-0.59) K/uL Eos # (Auto) 0.39 (0-0.50) K/uL Baso # (Auto) 0.09 (0-0.2) K/uL Immature Gran # (Auto) 0.16 (0.01-0.20) K/uL PT 11.1 (9.0-12.0) Seconds INR 1.0 (0.9-1.1) VBG pH (7.36-7.41) VBG pCO2 (38-50) mmHg VBG pO2 mmHg VBG HCO3 mmol/L VBG O2 Saturation % VBG Base Excess mEq/L Sodium 136 (136-145) mmol/L Potassium 3.4 L (3.5-5.1) mmol/L Chloride 103 (98-107) mmol/L Carbon Dioxide 23 (21-32) mmol/L Anion Gap 10 (3-11) BUN 25 H (6-23) mg/dl Creatinine 1.35 (0.6-1.4) mg/dl Est Cr Clr Drug Dosing 118.4 ml/min Est GFR ( Amer) 71.9 ml/min Est GFR (Non-Af Amer) 62.1 ml/min BUN/Creatinine Ratio 18.5 (10-20) Glucose 127 H (70-99(Fasting)) mg/dl Calcium 8.5 (8.5-10.1) mg/dl Total Bilirubin 0.7 (0.2-1.0) mg/dl AST 26 (13-39) U/L ALT 39 (7-52) U/L Alkaline Phosphatase 59 (34-104) U/L Ammonia (18-72) umol/L Troponin I High Sens 8.9 (0-20) pg/ml Total Protein 6.8 (6.0-8.3) gm/dl Albumin 4.0 (3.4-5.0) gm/dl Globulin 2.8 (2.5-4.0) gm/dl Albumin/Globulin Ratio 1.4 (0.9-2) Lipase 21 (11-82) U/L Ethyl Alcohol mg/dL (<10.0) mg/dl SARS-CoV-2 (PCR) (Negative) Influenza Type A (PCR) (Neg) Influenza Type B (PCR) (Neg) RSV (RT-PCR) (Neg) 10/09/22 10/09/22 10/09/22 Range/Units 06:59 07:08 08:20 WBC (4.8-10.8) K/ul RBC (4.70-6.10) M/uL Hgb (14.0-18.0) g/dl Hct (42.0-52.0) % MCV (80.0-100.0) fL MCH (25.0-34.0) pg MCHC (32.0-36.0) g/dL RDW Std Deviation (36.4-46.3) fL RDW Coeff of Nba (11.5-14.5) % Plt Count (130-400) K/uL MPV (9.4-12.4) fL Immature Gran % (Auto) % Neut % (Auto) % Lymph % (Auto) % [place] % (Auto) % Eos % (Auto) % Baso % (Auto) % Neut # (Auto) (1.40-6.50) K/uL Lymph # (Auto) (1.2-3.4) K/uL [place] # (Auto) (0.11-0.59) K/uL Eos # (Auto) (0-0.50) K/uL Baso # (Auto) (0-0.2) K/uL Immature Gran # (Auto) (0.01-0.20) K/uL PT (9.0-12.0) Seconds INR (0.9-1.1) VBG pH 7.42 H (7.36-7.41) VBG pCO2 37 L (38-50) mmHg VBG pO2 55 mmHg VBG HCO3 24 mmol/L VBG O2 Saturation 91.6 % VBG Base Excess -0.2 mEq/L Sodium (136-145) mmol/L Potassium (3.5-5.1) mmol/L Chloride (98-107) mmol/L Carbon Dioxide (21-32) mmol/L Anion Gap (3-11) BUN (6-23) mg/dl Creatinine (0.6-1.4) mg/dl Est Cr Clr Drug Dosing ml/min Est GFR ( Amer) ml/min Est GFR (Non-Af Amer) ml/min BUN/Creatinine Ratio (10-20) Glucose (70-99(Fasting)) mg/dl Calcium (8.5-10.1) mg/dl Total Bilirubin (0.2-1.0) mg/dl AST (13-39) U/L ALT (7-52) U/L Alkaline Phosphatase (34-104) U/L Ammonia 38.0 (18-72) umol/L Troponin I High Sens (0-20) pg/ml Total Protein (6.0-8.3) gm/dl Albumin (3.4-5.0) gm/dl Globulin (2.5-4.0) gm/dl Albumin/Globulin Ratio (0.9-2) Lipase (11-82) U/L Ethyl Alcohol mg/dL < 10.0 (<10.0) mg/dl SARS-CoV-2 (PCR) (Negative) Influenza Type A (PCR) (Neg) Influenza Type B (PCR) (Neg) RSV (RT-PCR) (Neg) 10/09/22 Range/Units 09:04 WBC (4.8-10.8) K/ul RBC (4.70-6.10) M/uL Hgb (14.0-18.0) g/dl Hct (42.0-52.0) % MCV (80.0-100.0) fL MCH (25.0-34.0) pg MCHC (32.0-36.0) g/dL RDW Std Deviation (36.4-46.3) fL RDW Coeff of Nba (11.5-14.5) % Plt Count (130-400) K/uL MPV (9.4-12.4) fL Immature Gran % (Auto) % Neut % (Auto) % Lymph % (Auto) % [place] % (Auto) % Eos % (Auto) % Baso % (Auto) % Neut # (Auto) (1.40-6.50) K/uL Lymph # (Auto) (1.2-3.4) K/uL [place] # (Auto) (0.11-0.59) K/uL Eos # (Auto) (0-0.50) K/uL Baso # (Auto) (0-0.2) K/uL Immature Gran # (Auto) (0.01-0.20) K/uL PT (9.0-12.0) Seconds INR (0.9-1.1) VBG pH (7.36-7.41) VBG pCO2 (38-50) mmHg VBG pO2 mmHg VBG HCO3 mmol/L VBG O2 Saturation % VBG Base Excess mEq/L Sodium (136-145) mmol/L Potassium (3.5-5.1) mmol/L Chloride (98-107) mmol/L Carbon Dioxide (21-32) mmol/L Anion Gap (3-11) BUN (6-23) mg/dl Creatinine (0.6-1.4) mg/dl Est Cr Clr Drug Dosing ml/min Est GFR ( Amer) ml/min Est GFR (Non-Af Amer) ml/min BUN/Creatinine Ratio (10-20) Glucose (70-99(Fasting)) mg/dl Calcium (8.5-10.1) mg/dl Total Bilirubin (0.2-1.0) mg/dl AST (13-39) U/L ALT (7-52) U/L Alkaline Phosphatase (34-104) U/L Ammonia (18-72) umol/L Troponin I High Sens (0-20) pg/ml Total Protein (6.0-8.3) gm/dl Albumin (3.4-5.0) gm/dl Globulin (2.5-4.0) gm/dl Albumin/Globulin Ratio (0.9-2) Lipase (11-82) U/L Ethyl Alcohol mg/dL (<10.0) mg/dl SARS-CoV-2 (PCR) POSITIVE A* (Negative) Influenza Type A (PCR) Negative (Neg) Influenza Type B (PCR) Negative (Neg) RSV (RT-PCR) Negative (Neg) Administered Medications Discontinued Medications Acetaminophen (Ofirmev) 1,000 mg in 100 mls @ 400 mls/hr IV NOW STA Stop: 10/09/22 08:45 Last Infusion: 10/09/22 09:13 Dose: 0 mls/hr Documented By: Admin: 10/09/22 08:46 Dose: 400 mls/hr Documented By: MANI Ioversol (Optiray 320 500ml) 108 ml IV ONCE ONE Stop: 10/09/22 08:18 Last Admin: 10/09/22 08:18 Dose: 108 ml Documented By: BUD Labetalol HCl (Labetalol Hcl Iv 5 Mg/Ml 20ml) 10 mg IV NOW STA Stop: 10/09/22 07:09 Last Admin: 10/09/22 07:15 Dose: 10 mg Documented By: MANI Co-signed By: THEA Methylprednisolone (Methylprednisolone 125 Mg/2 Ml Vial) 125 mg IV NOW STA Stop: 10/09/22 08:16 Last Admin: 10/09/22 08:24 Dose: 125 mg Documented By: MANI Imaging Data Radiologist's Impression: Chest X-Ray 10/09/22 06:39 XR chest 1V portable CLINICAL HISTORY: Chest pain, nonspecific COMPARISON STUDY: Chest radiograph March 26, 2022. FINDINGS: Cardiomegaly is noted. There is no pneumothorax or pleural effusion. There is no consolidation to suggest pneumonia. No evidence for overt pulmonary edema. IMPRESSION: No acute cardiopulmonary findings. Cardiomegaly. ACT 112: Negative or not required by law. Electronically signed by: Alec Agee M.D. 10/09/2022 8:13 AM Head CTA 10/09/22 07:05 HEAD & NECK CTA HISTORY: Altered mental status. TECHNIQUE: Multiaxial CT images of the head were performed both before and after the intravenous administration of contrast to evaluate the major cerebral vessels. Multiaxial CT images of the neck were also performed following the intravenous administration of contrast to evaluate the major cervical vessels. Maximum intensity projection images were also obtained. A dose lowering technique was utilized adhering to the principles of ALARA. COMPARISON: Carotid Doppler 03/26/2022. FINDINGS: HEAD CT: There is no mass, hematoma, midline shift, or acute infarct. The calvarium and skull base are intact. The paranasal sinuses and mastoid air cells are clear. HEAD CTA: Visualized intracranial internal carotid arteries, distal vertebral arteries, and basilar artery are widely patent. There is no significant stenosis, occlusion, or aneurysm seen within the bilateral ACAs, MCAs, or lighting specialist. The major dural venous sinuses are patent. NECK CTA: The aortic arch and proximal great vessels are widely patent. There is no significant stenosis, occlusion, or dissection identified within the bilateral common carotid, internal carotid, or vertebral arteries. IMPRESSION: 1. No significant stenosis, occlusion, or aneurysm within the [place]. 2. No significant stenosis, occlusion, or dissection identified within the carotid or vertebral arteries. 3. No acute intracranial abnormality. ACT 112: Negative or not required by law. Electronically signed by: Arsenio Torres M.D. 10/09/2022 8:33 AM Neck CTA 10/09/22 07:05 HEAD & NECK CTA HISTORY: Altered mental status. TECHNIQUE: Multiaxial CT images of the head were performed both before and after the intravenous administration of contrast to evaluate the major cerebral vessels. Multiaxial CT images of the neck were also performed following the intravenous administration of contrast to evaluate the major cervical vessels. Maximum intensity projection images were also obtained. A dose lowering technique was utilized adhering to the principles of ALARA. COMPARISON: Carotid Doppler 03/26/2022. FINDINGS: HEAD CT: There is no mass, hematoma, midline shift, or acute infarct. The calvarium and skull base are intact. The paranasal sinuses and mastoid air cells are clear. HEAD CTA: Visualized intracranial internal carotid arteries, distal vertebral arteries, and basilar artery are widely patent. There is no significant stenosis, occlusion, or aneurysm seen within the bilateral ACAs, MCAs, or lighting specialist. The major dural venous sinuses are patent. NECK CTA: The aortic arch and proximal great vessels are widely patent. There is no significant stenosis, occlusion, or dissection identified within the bilateral common carotid, internal carotid, or vertebral arteries. IMPRESSION: 1. No significant stenosis, occlusion, or aneurysm within the [place]. 2. No significant stenosis, occlusion, or dissection identified within the carotid or vertebral arteries. 3. No acute intracranial abnormality. ACT 112: Negative or not required by law. Electronically signed by: Arsenio Torres M.D. 10/09/2022 8:33 AM Discharge Plan Visit Data Chief Complaint: Altered Mental Status Stated Complaint: ALTERED, HEAD PAIN ED Provider: Gerald Pérez Discharge Problem: AMS (altered mental status) Forms Stand Alone Forms: My [facility] Prescriptions Prescriptions: No Action Lipitor 40 mg PO DAILY Requip 4 mg PO HS Trulicity 0.75 mg SC WK albuterol 2 puff inhalation QID PRN (Reason: Bronchospasm) bupropion HCl 150 mg PO DAILY furosemide 40 mg PO BID lisinopril 2.5 mg PO DAILY metformin 500 mg PO BID multivitamin Tablet 1 tab PO DAILY celecoxib [Celebrex] 200 mg Capsule 200 mg PO DAILY vitamin B complex [B Complex] Capsule 1 cap PO DAILY fenofibrate nanocrystallized 48 mg Tablet 48 mg PO DAILY Eliquis 5 mg Tablet 5 mg PO BID Referrals Referrals: Massiel Hansen PA-C [Primary Care Provider] - AMS (altered mental status) Qualifiers: Altered mental status type: unspecified Qualified Code(s): R41.82 - Altered mental status, unspecified
[2022-10-09] MEDS ORDERED: LABETALOL HCL IV 5 MG/ML 20ML IV STA (07:08)
[2022-10-09 07:23] LABS: Basophils # (auto) 0.09 K/uL (0-0.2); Basophils % (auto) 1.1 %; Eosinophils # (auto) 0.39 K/uL (0-0.50); Eosinophils % (auto) 4.8 %; Hematocrit (blood only) 37.5 % (42.0-52.0); Hemoglobin 12.9 g/dl (14.0-18.0); Immature Granulocytes # (auto) 0.16 K/uL (0.01-0.20); Lymphocytes % (auto) 13.6 %; Mean Corpuscular Hemoglobin 32.7 pg (25.0-34.0); Mean Corpuscular Hgb Conc 34.4 g/dL (32.0-36.0); Mean Corpuscular Volume 95.2 fL (80.0-100.0); Mean Platelet Volume 10.3 fL (9.4-12.4); Monocytes # (auto) 0.89 K/uL (0.11-0.59); Neutrophils # (auto) 5.47 K/uL (1.40-6.50); Neutrophils % (auto) 67.5 %; Platelet Count 238 K/uL (130-400); RDW Coefficient of Variation 16.9 % (11.5-14.5); RDW Standard Deviation 58.8 fL (36.4-46.3); Red Blood Count 3.94 M/uL (4.70-6.10)
[2022-10-09 07:43] LABS: Albumin Globulin Ratio 1.4 (0.9-2); BUN Creatinine Ratio 18.5 (10-20); Bilirubin,Total 0.7 mg/dl (0.2-1.0); Calcium 8.5 mg/dl (8.5-10.1); Creatinine Clr Calc Pharmacy 118.4 ml/min; Est GFR (African American) 71.9 ml/min; Est GFR (Non-African American) 62.1 ml/min; Globulin 2.8 gm/dl (2.5-4.0); Potassium 3.4 mmol/L (3.5-5.1); Total Protein 6.8 gm/dl (6.0-8.3)
[2022-10-09 07:49] LABS: Troponin I High Sensitivity 8.9 pg/ml (0-20)
[2022-10-09 07:52] LABS: Prothrombin Time 11.1 Seconds (9.0-12.0)
[2022-10-09] MEDS ORDERED: methylPREDNISolone 125 MG/2 ML VIAL IV STA (08:15)
--- NOTE | 2022-10-09 08:15 | XRay Report ---
XR chest 1V portable CLINICAL HISTORY: Chest pain, nonspecific COMPARISON STUDY: Chest radiograph March 26, 2022. FINDINGS: Cardiomegaly is noted. There is no pneumothorax or pleural effusion. There is no consolidat ion to suggest pneumonia. No evidence for overt pulmonary edema. IMPRESSION: No acute cardiopulmonary findings. Cardiomegaly. ACT 112: Negative or not required by law. Electronically signed by: Alec Agee M.D. 10/09/2022 8:13 AM
[2022-10-09] MEDS ORDERED: OPTIRAY 320 500ml IV ONE (08:17)
[2022-10-09] MEDS ORDERED: ACETAMINOPHEN 1,000 MG/100 ML VIAL IV STA (08:31)
--- NOTE | 2022-10-09 08:35 | CT Scan Report ---
HEAD & NECK CTA HISTORY: Altered mental status. TECHNIQUE: Multiaxial CT images of the head were performed both before and after the intravenous admi nistration of contrast to evaluate the major cerebral vessels. Multiaxial CT images of the neck were also performed following the intravenous administration of contrast to evaluate the major cervical ve ssels. Maximum intensity projection images were also obtained. A dose lowering technique was utilized adhering to the principles of ALARA. COMPARISON: Carotid Doppler 03/26/2022. FINDINGS: HEAD CT: There is no mass, hematoma, midline shift, or acute infarct. The calvarium and skull base ar e intact. The paranasal sinuses and mastoid air cells are clear. HEAD CTA: Visualized intracranial internal carotid arteries, distal vertebral arteries, and basilar a rtery are widely patent. There is no significant stenosis, occlusion, or aneurysm seen within the [place] ateral ACAs, MCAs, or zig zag spring machine operator. The major dural venous sinuses are patent. NECK CTA: The aortic arch and proximal great vessels are widely patent. There is no significant breanna nosis, occlusion, or dissection identified within the bilateral common carotid, internal carotid, or vertebral arteries. IMPRESSION: 1. No significant stenosis, occlusion, or aneurysm within the [place]. 2. No significant stenosis, occlusion, or dissection identified within the carotid or vertebral arter ies. 3. No acute intracranial abnormality. ACT 112: Negative or not required by law. Electronically signed by: Arsenio Torres M.D. 10/09/2022 8:33 AM
--- NOTE | 2022-10-09 08:35 | CT Scan Report ---
HEAD & NECK CTA HISTORY: Altered mental status. TECHNIQUE: Multiaxial CT images of the head were performed both before and after the intravenous admi nistration of contrast to evaluate the major cerebral vessels. Multiaxial CT images of the neck were also performed following the intravenous administration of contrast to evaluate the major cervical ve ssels. Maximum intensity projection images were also obtained. A dose lowering technique was utilized adhering to the principles of ALARA. COMPARISON: Carotid Doppler 03/26/2022. FINDINGS: HEAD CT: There is no mass, hematoma, midline shift, or acute infarct. The calvarium and skull base ar e intact. The paranasal sinuses and mastoid air cells are clear. HEAD CTA: Visualized intracranial internal carotid arteries, distal vertebral arteries, and basilar a rtery are widely patent. There is no significant stenosis, occlusion, or aneurysm seen within the [place] ateral ACAs, MCAs, or dispensing optician. The major dural venous sinuses are patent. NECK CTA: The aortic arch and proximal great vessels are widely patent. There is no significant breanna nosis, occlusion, or dissection identified within the bilateral common carotid, internal carotid, or vertebral arteries. IMPRESSION: 1. No significant stenosis, occlusion, or aneurysm within the [place]. 2. No significant stenosis, occlusion, or dissection identified within the carotid or vertebral arter ies. 3. No acute intracranial abnormality. ACT 112: Negative or not required by law. Electronically signed by: Arsenio Torres M.D. 10/09/2022 8:33 AM
[2022-10-09 08:51] LABS: Base Excess VBG -0.2 mEq/L; HCO3 VBG 24 mmol/L; Oxygen Saturation VBG 91.6 %; PCO2 VBG 37 mmHg (38-50); PO2 VBG 55 mmHg; pH VBG 7.42 (7.36-7.41)
--- NOTE | 2022-10-09 09:43 | History & Physical Report ---
Date of Service October 09, 2022 Assessment & Plan (1) COVID-19: (2) AMS (altered mental status): Plan: Metabolic encephalopathy likely due to Covid (3) QUENTIN on CPAP: Plan: - Admit to PCU -COVID-19 positive - Pt is currently on bipap which we can maintain for now - CXR reviewed without acute abnormalities, consider CTA chest for eval of covid and to r/o PE with being on eliquis, possible eliquis failure with BME of 57.7 - O2 sats 88%, titrate for 92-94% - WBC8.10 - Decadron 6 mg IV daily. - Alcohol, ammonia negative on admission. Checking urine drug screen to rule out - CT head and neck negative - MRI of the brain ordered to r/o acute CVA with hx of such in the thalamic and cerebral artery in 2017 - ABG appeared within normal limits, no hypercarbia (4) Factor V Leiden: Plan: - Hx of such, continue eliquis for now (5) Morbid obesity with BMI of 50.0-59.9, adult: Plan: - BMI of 57.5, weight of 425 lbs - Diet and exercise will need to be encouraged (6) Dyslipidemia: Plan: - Increase statin therapy to atorvastatin 80 mg daily DVT ppx - teds, scds, Eliquis CODE: Full code Dispo: From home, likely to remain in the hospital x 1-2 days A total of 78 minutes were spent with greater than 50% of that time face to face with the patient, personally reviewing all current laboratories, imaging studies, past medication reconciliation, outpatient chart review, and discussion with specialists to collaborate care for the patient with attending. Please see attending documentation for corrections and/or additions. History of Present Illness Chief Complaint: Altered Mental Status Primary Care Provider: Massiel Hansen PA-C This is a 47-year-old male with PMHx of morbid obesity with a BMI of 57.7, Factor V Leiden on Eliquis, history of cerebral venous thrombosis ( bilateral thalamic and basal ganglia infarcts) in January 2017, CHF, obstructive sleep apnea with CPAP, restless leg syndrome, who presents to the hospital today with altered mental status. Pt is unable to participate in conversation as he is on Bipap, and also unable to tell me the name of the town, year, or the president. His son and daughter in law are present at bedside and supports the history. Reports are that he has had increasing cough and congestion for the past 3 days, feeling increased fatigue. 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 This morning upon waking at 4:30a he was very confused, thinking it was night time, couldnt remember he was working yesterday, and had difficulty lifting his legs complaining of feeling lightheaded and dizziness. Allergies Allergy/AdvReac Type Severity Reaction Status Date / Time No Known Allergies Allergy Verified 03/26/22 06:35 Home Medications Medication Instructions Recorded Confirmed Type Lipitor 40 mg PO DAILY 03/26/22 10/09/22 History Requip 4 mg PO HS 03/26/22 10/09/22 History Trulicity 0.75 mg SC WK 03/26/22 10/09/22 History albuterol 2 puff inhalation QID PRN 03/26/22 10/09/22 History Bronchospasm bupropion HCl 150 mg PO DAILY 03/26/22 10/09/22 History furosemide 40 mg PO BID 03/26/22 10/09/22 History lisinopril 2.5 mg PO DAILY 03/26/22 10/09/22 History metformin 500 mg PO BID 03/26/22 10/09/22 History apixaban 5 mg tablet (Eliquis) 5 mg PO BID 10/09/22 10/09/22 History celecoxib 200 mg capsule (Celebrex) 200 mg PO DAILY 10/09/22 10/09/22 History fenofibrate nanocrystallized 48 mg 48 mg PO DAILY 10/09/22 10/09/22 History tablet multivitamin 1 tab PO DAILY 10/09/22 10/09/22 History vitamin B complex 1 cap PO DAILY 10/09/22 10/09/22 History Past Med/Surg History Medical History (Updated 10/09/22 @ 10:52 by Paulina Ochoa PA-C) Chest pain at rest Factor V Leiden Hx of cerebral thrombosis Morbid obesity with BMI of 50.0-59.9, adult QUENTIN on CPAP Osteoarthritis Palpitation Surgical History (Updated 10/09/22 @ 10:43 by Paulina Ochoa PA-C) Hx of eye surgery Left eyelid surgery Family History Other Asthma COPD (chronic obstructive pulmonary disease) Heart disease Hypertension Social History (Updated 10/09/22 @ 10:45 by Paulina Ochoa PA-C) Smoking Status: Former smoker Tobacco Type: Cigarettes Age Started Using Tobacco: 17; Age Quit Using Tobacco: 25; packs per day: 1; Second Hand Exposure: No; Hx Alcohol Use: No Hx Substance Use: No Preferred Language: Persian Communication Ability: Effective 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: No Beliefs That Will Affect Care: None Current Living Situation: Spouse Other Information That Helps Us Care for You: No Feels Safe at Home: Yes Safety Concerns: Feels Safe At This Time Assistive Devices: Cane and CPAP Review of Systems Review of Systems: Unobtainable due to cognitive status Physical Exam Physical Exam: General: awake, alert, no apparent distress, + morbidly obese BMI 57.7 Head: Normocephalic, atraumatic ENT: PERRL, EOMI, no pharyngeal exudate, mucous membranes moist Chest: On Bipap, + coarse breath sounds throughout, no wheeze or rales Cardiac: Regular rate and rhythm, no murmur, no JVD, normal peripheral pulses, good capillary refill Abdominal: NABS x 4 quadrants, morbidly obese, soft, nondistended, nontender to palpation, no rebound or guarding Extremities: Normal inspection, +cracked and calloused feet, no signs of infection, no peripheral edema or erythema, calfs nontender to palpation Psych: Normal mood and affect Neuro: awake, oriented to self and family but not to place, time, or president, strength intact bilaterally and rated 4/5, no motor deficits, speech is clear, no peripheral sensory deficits Results & Data Results & Data ([facility]) Vital Signs (Past 12 Hours) Vital Signs Temp Pulse Pulse Resp BP BP Pulse Ox 10/09/22 09:00 14 10/09/22 08:30 84 27 H 99 10/09/22 07:31 84 16 181/83 H 94 10/09/22 06:44 70 18 97 10/09/22 06:33 96 H 10/09/22 06:25 36.5 C 100 H 18 174/92 H 97 O2 Del Method FiO2 10/09/22 09:00 10/09/22 08:30 30 10/09/22 07:31 10/09/22 06:44 Room Air 10/09/22 06:33 10/09/22 06:25 Room Air Laboratory Results 10/09/22 07:27 Aerobic Blood Culture - Pending Blood Anaerobic Blood Culture - Pending 10/09/22 07:31 Aerobic Blood Culture - Pending Blood Anaerobic Blood Culture - Pending 10/09/22 10/09/22 10/09/22 09:04 08:20 07:08 WBC RBC Hgb Hct MCV MCH MCHC RDW Std Deviation RDW Coeff of Nba Plt Count MPV Immature Gran % (Auto) Neut % (Auto) Lymph % (Auto) King % (Auto) Eos % (Auto) Baso % (Auto) Neut # (Auto) Lymph # (Auto) King # (Auto) Eos # (Auto) Baso # (Auto) Immature Gran # (Auto) PT INR VBG pH 7.42 H VBG pCO2 37 L VBG pO2 55 VBG HCO3 24 VBG O2 Saturation 91.6 VBG Base Excess -0.2 Sodium Potassium Chloride Carbon Dioxide Anion Gap BUN Creatinine Est Cr Clr Drug Dosing Est GFR ( Amer) Est GFR (Non-Af Amer) BUN/Creatinine Ratio Glucose Calcium Total Bilirubin AST ALT Alkaline Phosphatase Ammonia 38.0 Troponin I High Sens Total Protein Albumin Globulin Albumin/Globulin Ratio Lipase Ethyl Alcohol mg/dL SARS-CoV-2 (PCR) POSITIVE A* Influenza Type A (PCR) Negative Influenza Type B (PCR) Negative RSV (RT-PCR) Negative 10/09/22 10/09/22 10/09/22 06:59 06:59 06:59 WBC RBC Hgb Hct MCV MCH MCHC RDW Std Deviation RDW Coeff of Nba Plt Count MPV Immature Gran % (Auto) Neut % (Auto) Lymph % (Auto) King % (Auto) Eos % (Auto) Baso % (Auto) Neut # (Auto) Lymph # (Auto) King # (Auto) Eos # (Auto) Baso # (Auto) Immature Gran # (Auto) PT 11.1 INR 1.0 VBG pH VBG pCO2 VBG pO2 VBG HCO3 VBG O2 Saturation VBG Base Excess Sodium 136 Potassium 3.4 L Chloride 103 Carbon Dioxide 23 Anion Gap 10 BUN 25 H Creatinine 1.35 Est Cr Clr Drug Dosing 118.4 Est GFR ( Amer) 71.9 Est GFR (Non-Af Amer) 62.1 BUN/Creatinine Ratio 18.5 Glucose 127 H Calcium 8.5 Total Bilirubin 0.7 AST 26 ALT 39 Alkaline Phosphatase 59 Ammonia Troponin I High Sens 8.9 Total Protein 6.8 Albumin 4.0 Globulin 2.8 Albumin/Globulin Ratio 1.4 Lipase 21 Ethyl Alcohol mg/dL < 10.0 SARS-CoV-2 (PCR) Influenza Type A (PCR) Influenza Type B (PCR) RSV (RT-PCR) 10/09/22 06:59 WBC 8.10 RBC 3.94 L Hgb 12.9 L Hct 37.5 L MCV 95.2 MCH 32.7 MCHC 34.4 RDW Std Deviation 58.8 H RDW Coeff of Nba 16.9 H Plt Count 238 MPV 10.3 Immature Gran % (Auto) 2.0 Neut % (Auto) 67.5 Lymph % (Auto) 13.6 King % (Auto) 11.0 Eos % (Auto) 4.8 Baso % (Auto) 1.1 Neut # (Auto) 5.47 Lymph # (Auto) 1.10 L King # (Auto) 0.89 H Eos # (Auto) 0.39 Baso # (Auto) 0.09 Immature Gran # (Auto) 0.16 PT INR VBG pH VBG pCO2 VBG pO2 VBG HCO3 VBG O2 Saturation VBG Base Excess Sodium Potassium Chloride Carbon Dioxide Anion Gap BUN Creatinine Est Cr Clr Drug Dosing Est GFR ( Amer) Est GFR (Non-Af Amer) BUN/Creatinine Ratio Glucose Calcium Total Bilirubin AST ALT Alkaline Phosphatase Ammonia Troponin I High Sens Total Protein Albumin Globulin Albumin/Globulin Ratio Lipase Ethyl Alcohol mg/dL SARS-CoV-2 (PCR) Influenza Type A (PCR) Influenza Type B (PCR) RSV (RT-PCR) Diagnostic Findings Chest X-Ray 10/09/22 06:39 XR chest 1V portable CLINICAL HISTORY: Chest pain, nonspecific COMPARISON STUDY: Chest radiograph March 26, 2022. FINDINGS: Cardiomegaly is noted. There is no pneumothorax or pleural effusion. There is no consolidation to suggest pneumonia. No evidence for overt pulmonary edema. IMPRESSION: No acute cardiopulmonary findings. Cardiomegaly. ACT 112: Negative or not required by law. Electronically signed by: Alec Agee M.D. 10/09/2022 8:13 AM Head CTA 10/09/22 07:05 HEAD & NECK CTA HISTORY: Altered mental status. TECHNIQUE: Multiaxial CT images of the head were performed both before and after the intravenous administration of contrast to evaluate the major cerebral vessels. Multiaxial CT images of the neck were also performed following the intravenous administration of contrast to evaluate the major cervical vessels. Maximum intensity projection images were also obtained. A dose lowering technique was utilized adhering to the principles of ALARA. COMPARISON: Carotid Doppler 03/26/2022. FINDINGS: HEAD CT: There is no mass, hematoma, midline shift, or acute infarct. The calvarium and skull base are intact. The paranasal sinuses and mastoid air cells are clear. HEAD CTA: Visualized intracranial internal carotid arteries, distal vertebral arteries, and basilar artery are widely patent. There is no significant stenosis, occlusion, or aneurysm seen within the bilateral ACAs, MCAs, or operations support representative. The major dural venous sinuses are patent. NECK CTA: The aortic arch and proximal great vessels are widely patent. There is no significant stenosis, occlusion, or dissection identified within the bilateral common carotid, internal carotid, or vertebral arteries. IMPRESSION: 1. No significant stenosis, occlusion, or aneurysm within the [place]. 2. No significant stenosis, occlusion, or dissection identified within the carotid or vertebral arteries. 3. No acute intracranial abnormality. ACT 112: Negative or not required by law. Electronically signed by: Arsenio Torres M.D. 10/09/2022 8:33 AM Neck CTA 10/09/22 07:05 HEAD & NECK CTA HISTORY: Altered mental status. TECHNIQUE: Multiaxial CT images of the head were performed both before and after the intravenous administration of contrast to evaluate the major cerebral vessels. Multiaxial CT images of the neck were also performed following the intravenous administration of contrast to evaluate the major cervical vessels. Maximum intensity projection images were also obtained. A dose lowering technique was utilized adhering to the principles of ALARA. COMPARISON: Carotid Doppler 03/26/2022. FINDINGS: HEAD CT: There is no mass, hematoma, midline shift, or acute infarct. The calvarium and skull base are intact. The paranasal sinuses and mastoid air cells are clear. HEAD CTA: Visualized intracranial internal carotid arteries, distal vertebral arteries, and basilar artery are widely patent. There is no significant stenosis, occlusion, or aneurysm seen within the bilateral ACAs, MCAs, or operations support representative. The major dural venous sinuses are patent. NECK CTA: The aortic arch and proximal great vessels are widely patent. There is no significant stenosis, occlusion, or dissection identified within the bilateral common carotid, internal carotid, or vertebral arteries. IMPRESSION: 1. No significant stenosis, occlusion, or aneurysm within the [place]. 2. No significant stenosis, occlusion, or dissection identified within the carotid or vertebral arteries. 3. No acute intracranial abnormality. ACT 112: Negative or not required by law. Electronically signed by: Arsenio Torres M.D. 10/09/2022 8:33 AM Code Status & VTE Plan Code Status Full code - discussed with family at bedside Supervising Physician Co-Signing Physician Notes Patient is a 47-year-old male with history of right-sided heart failure, COPD, restrictive lung disease secondary to morbid obesity, diabetes mellitus, obstructive sleep apnea on CPAP, factor V Leiden, history of CVA with no significant focal deficits and other medical problems presents with history of altered mental status since 1 day duration. Patient unable to provide any history currently, currently on CPAP and most of the history is obtained from patient's family at bedside. Patient has been unwell since about 1 week duration as per family. He has been not been working for a couple of years but started to work yesterday and had significant generalized weakness yesterday. His mental status was at baseline yesterday night at bedtime. Patient/family admits to have some cough, shortness of breath with exertion and headache. Headache currently improving as per patient. Patient's son was sick with similar respiratory symptoms 2 weeks ago. Patient is vaccinated for COVID X2 per family. Currently he is on CPAP and feels his breathing is better. Please review HPI for complete details of presentation. I personally reviewed blood work, imaging studies, EKG. Urinalysis currently pending. Is tested positive for COVID. Negative for influenza, RSV. Chest x-ray showed no acute cardiopulmonary findings. Head/Neck CTA showed no acute findings. On exam patient is morbidly obese, no apparent distress, normocephalic/atraumatic, EOMI, decreased breath sounds, clear to auscultation, S1-S2, no murmur, no pedal edema, abdomen soft, nontender, normal bowel sounds, alert, awake, oriented to person and place only, grossly moves all extremities. Patient is admitted for management of altered mental status likely acute metabolic encephalopathy secondary to COVID-19 infection, ? Hypoxic state, hypertensive encephalopathy. Will obtain MRI brain to rule out CVA. Started on dexamethasone, nebs. Continue CPAP with 2 L supplemental oxygen(uses at baseline) at bedtime. Check CRP, procalcitonin. Empirically will start on doxycycline. No indication for remdesivir given symptom onset about 1 week ago. Blood cultures obtained. We will request neurology evaluation. Neurochecks requested. Obtain tox screen, TSH, B12 levels. Ammonia within normal limits. VBG not suggestive of hypercarbia. Urine analysis currently pending. We will hold ropinirole, bup ropion for now as could contribute to confusion. We will increase lisinopril to 5 mg daily. IV labetalol as needed for hypertensive urgency. I personally reviewed the record. Patient is interviewed and examined at bedside. Patient's care is coordinated with Paulina Ochoa PA-C. Please refer to the documentation above for details of patient's presentation and for discussion of other issues. (2) AMS (altered mental status) Altered mental status type: unspecified Qualified Code(s): R41.82 - Altered mental status, unspecified
[2022-10-09 09:57] LABS: Influenza A virus by PCR Negative (Neg); Influenza B virus by PCR Negative (Neg); RSV by PCR Negative (Neg)
[2022-10-09 10:02] LABS: SARS CoV2 RNA(COVID-19) Ceph POSITIVE (Negative)
[2022-10-09] MEDS ORDERED: GLUCOSE 10 TAB/TUBE PO PRN (12:13)
[2022-10-09] MEDS ORDERED: GLUCOSE 40% GEL 15 GM TUBE PO PRN (12:13)
[2022-10-09] MEDS ORDERED: LABETALOL HCL IV 5 MG/ML 20ML IV PRN (12:13)
[2022-10-09] MEDS ORDERED: ACETAMINOPHEN 325 MG TAB PO PRN (12:13)
[2022-10-09] MEDS ORDERED: POTASSIUM CHLORIDE CRTAB 20 MEQ TABCR PO ONE (12:13)
[2022-10-09] MEDS ORDERED: CARBOHYDRATES FOR HYPOGLYCEMIA PO PRN (12:13)
[2022-10-09] MEDS ORDERED: DEXTROSE 50% 50 ML SYRINGE IV PRN (12:13)
[2022-10-09] MEDS ORDERED: PHARMACIST DISCHARGE MED REC CONSULT PRN (12:13)
[2022-10-09] MEDS ORDERED: GLUCAGON FOR INJ 1 MG VIAL SQ PRN (12:13)
[2022-10-09] MEDS ORDERED: ONDANSETRON INJ 2 MG/ML 2 ML VIAL IV PRN (12:13)
--- NOTE | 2022-10-09 12:49 | Neurology Consultation ---
Date of Consultation October 09, 2022 Assessment & Plan (1) COVID-19: Plan NEUROLOGY CONSULTATION Assessment & Plan: Impression: pt with transient confusion in setting of covid infection and severe QUENTIN/respiratory difficulty. ddx including TIA vs respiratory distress causing his symptoms. Recommendations: -agree with mri brain, if negative, no need for further stroke evaluation. ok with continuing eliquis. avoid hypoxia continue tx for covid. continue supportive care as now. Dr. Antony Medina MD [facility] Neurology Chief Complaint: confusion History of Present Illness: pt with brief confusion. this morning much better. able to speak and recognize . CT head negative. pt with +covid infection. pt with severe QUENTIN. no limb weakness. Admission/Initial HPI documentation: This is a 47-year-old male with PMHx of morbid obesity with a BMI of 57.7, Factor V Leiden on Eliquis, history of cerebral venous thrombosis ( bilateral thalamic and basal ganglia infarcts) in January 2017, CHF, obstructive sleep apnea with CPAP, restless leg syndrome, who presents to the hospital today with altered mental status. Pt is unable to participate in conversation as he is on Bipap, and also unable to tell me the name of the town, year, or the president. His son and daughter in law are present at bedside and supports the history. Reports are that he has had increasing cough and congestion for the past 3 days, feeling increased fat igue. 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 This morning upon waking at 4:30a he was very confused, thinking it was night time, couldnt remember he was working yesterday, and had difficulty lifting his legs complaining of feeling lightheaded and dizziness. Past Medical History: See chart Meds: See chart I personally reviewed all of the medications Social & Family History: See chart Review of Systems: Per initial HPI on admission. Physical Exam: GEN: NAD HEENT: Normocephalic Neuro: Mental status:A & O x 3.No dysarthria or aphasia.No neglect. Fluent speech. No apraxia. pt with SOB, on bipap. Cranial Nerves:II-XII intact Motor:Normal bulk and tone,5/5 strength x 4 extremities grossly. Coordination:Intact grossly. Reflexes: down going toes gerson Sensation: Intact x 4 extremities to touch Chart reviewed I have spent more than 50% educating patient about potential diagnosis and neurological evaluation and coordinating care with patient's treatment team. Total time spent (including chart review and coordination of care): 80 min (this includes chart review). History of Present Illness Attending Physician: Colton Ballesteros MD Allergies Allergy/AdvReac Type Severity Reaction Status Date / Time No Known Allergies Allergy Verified 03/26/22 06:35 Home Medications Medication Instructions Recorded Confirmed Type Lipitor 40 mg PO DAILY 03/26/22 10/09/22 History Requip 4 mg PO HS 03/26/22 10/09/22 History Trulicity 0.75 mg SC WK 03/26/22 10/09/22 History albuterol 2 puff inhalation QID PRN 03/26/22 10/09/22 History Bronchospasm bupropion HCl 150 mg PO DAILY 03/26/22 10/09/22 History furosemide 40 mg PO BID 03/26/22 10/09/22 History lisinopril 2.5 mg PO DAILY 03/26/22 10/09/22 History metformin 500 mg PO BID 03/26/22 10/09/22 History apixaban 5 mg tablet (Eliquis) 5 mg PO BID 10/09/22 10/09/22 History celecoxib 200 mg capsule (Celebrex) 200 mg PO DAILY 10/09/22 10/09/22 History fenofibrate nanocrystallized 48 mg 48 mg PO DAILY 10/09/22 10/09/22 History tablet multivitamin 1 tab PO DAILY 10/09/22 10/09/22 History vitamin B complex 1 cap PO DAILY 10/09/22 10/09/22 History Patient History Medical History (Updated 10/09/22 @ 10:52 by Paulina Ochoa PA-C) Chest pain at rest Factor V Leiden Hx of cerebral thrombosis Morbid obesity with BMI of 50.0-59.9, adult QUENTIN on CPAP Osteoarthritis Palpitation Surgical History (Updated 10/09/22 @ 10:43 by Paulina Ochoa PA-C) Hx of eye surgery Left eyelid surgery Family History Other Asthma COPD (chronic obstructive pulmonary disease) Heart disease Hypertension Social History (Updated 10/09/22 @ 10:45 by Paulina Ochoa PA-C) Smoking Status: Former smoker Tobacco Type: Cigarettes Age Started Using Tobacco: 17; Age Quit Using Tobacco: 25; packs per day: 1; Second Hand Exposure: No; Hx Alcohol Use: No Hx Substance Use: No Preferred Language: Pashto Communication Ability: Effective Data Management Required: No Beliefs That Will Affect Care: None Current Living Situation: Spouse Other Information That Helps Us Care for You: No Feels Safe at Home: Yes Safety Concerns: Feels Safe At This Time Assistive Devices: Cane and CPAP Results & Data Vital Signs (Past 12 Hours) Vital Signs Temp Pulse Pulse Resp BP BP Pulse Ox 10/09/22 12:31 36.6 C 90 20 146/75 H 10/09/22 11:35 91 H 19 96 10/09/22 11:00 91 H 19 95 10/09/22 11:00 150/69 H 10/09/22 10:50 90 24 97 10/09/22 10:40 88 23 97 10/09/22 10:30 87 19 95 10/09/22 10:30 170/87 H 10/09/22 10:20 88 22 97 10/09/22 10:10 88 21 97 10/09/22 10:00 86 22 98 10/09/22 10:00 175/86 H 10/09/22 09:50 89 21 98 10/09/22 09:40 86 19 98 10/09/22 09:30 83 21 97 10/09/22 09:30 160/75 H 10/09/22 09:20 82 20 97 10/09/22 09:10 84 21 98 10/09/22 09:00 82 20 97 10/09/22 09:00 149/80 H 10/09/22 08:50 83 20 97 10/09/22 08:40 82 25 H 99 10/09/22 08:30 85 29 H 98 10/09/22 08:30 168/78 H 10/09/22 08:20 86 20 93 10/09/22 08:14 85 20 94 10/09/22 08:14 148/58 H 10/09/22 08:12 96 10/09/22 07:50 83 16 93 10/09/22 07:40 83 26 H 96 03/15/23 07:38 129/54 L 10/09/22 07:38 85 26 H 95 10/09/22 07:30 84 25 H 96 10/09/22 07:20 92 H 27 H 97 10/09/22 07:10 91 H 17 96 10/09/22 07:00 95 H 26 H 98 10/09/22 07:00 181/83 H 10/09/22 06:51 162/86 H 10/09/22 06:51 107 H 35 H 94 10/09/22 06:50 108 H 24 96 10/09/22 06:40 94 H 13 95 10/09/22 06:32 97 H 19 97 10/09/22 11:06 10/09/22 10:38 88 20 170/87 H 97 10/09/22 10:24 86 20 96 10/09/22 10:22 89 10/09/22 09:00 14 10/09/22 08:30 84 27 H 99 10/09/22 07:31 84 16 181/83 H 94 10/09/22 06:44 70 18 97 10/09/22 06:33 96 H 10/09/22 06:25 36.5 C 100 H 18 174/92 H 97 O2 Del Method O2 Flow Rate FiO2 10/09/22 12:31 CPAP 10/09/22 11:35 2 10/09/22 11:00 10/09/22 11:00 10/09/22 10:50 10/09/22 10:40 10/09/22 10:30 10/09/22 10:30 10/09/22 10:20 10/09/22 10:10 10/09/22 10:00 10/09/22 10:00 10/09/22 09:50 10/09/22 09:40 10/09/22 09:30 10/09/22 09:30 10/09/22 09:20 10/09/22 09:10 10/09/22 09:00 10/09/22 09:00 10/09/22 08:50 10/09/22 08:40 10/09/22 08:30 10/09/22 08:30 10/09/22 08:20 10/09/22 08:14 10/09/22 08:14 10/09/22 08:12 10/09/22 07:50 10/09/22 07:40 10/09/22 07:38 10/09/22 07:38 10/09/22 07:30 10/09/22 07:20 10/09/22 07:10 10/09/22 07:00 10/09/22 07:00 10/09/22 06:51 10/09/22 06:51 10/09/22 06:50 10/09/22 06:40 10/09/22 06:32 10/09/22 11:06 CPAP 10/09/22 10:38 CPAP 10/09/22 10:24 28 10/09/22 10:22 10/09/22 09:00 10/09/22 08:30 30 10/09/22 07:31 10/09/22 06:44 Room Air 10/09/22 06:33 10/09/22 06:25 Room Air
[2022-10-09] MEDS: INSULIN ASPART PER UNIT SC SCH ×3 (14:12→20:29)
[2022-10-09] MEDS: DOXYCYCLINE HYCLATE 100 MG CAP PO SCH ×2 (14:12→22:01)
[2022-10-09] MEDS: buPROPion HCl 75 MG TABLET PO SCH (14:12)
[2022-10-09] MEDS: ALBUTEROL HFA 8 GM INHALER INH SCH (14:13)
[2022-10-09] MEDS: ALBUT/IPRATROP 3MG/0.5MG NEB 3 ML VIAL NEB SCH ×2 (14:32→19:28)
[2022-10-09 15:09] LABS: Creatinine Clr Calc Pharmacy 136.6 ml/min; Est GFR (African American) 85.5 ml/min; Est GFR (Non-African American) 73.8 ml/min
[2022-10-09] MEDS: FUROSEMIDE 40 MG TAB PO SCH (17:40)
[2022-10-09] MEDS ORDERED: REQUIP 4 MG PO SCH (21:00)
[2022-10-09] MEDS ORDERED: FUROSEMIDE 40 MG TAB PO SCH (21:00)
--- NOTE | 2022-10-09 21:41 | Magnetic Resonance Report ---
MRI OF THE BRAIN WITHOUT IV CONTRAST CLINICAL HISTORY: Strokelike symptoms. COMPARISON STUDY: CT of the brain dated 10/09/2022. TECHNIQUE: MRI of the brain was performed utilizing various T1 and T2-weighted sequences in the axial , sagittal, and coronal planes. IV contrast was not administered for this examination. FINDINGS: Brain parenchyma: Foci of hemosiderin deposition are noted in the bilateral thalami and in the right periventricular white matter. This is likely chronic. There is a small chronic lacunar infarct in the left thalamus. No acute hemorrhage or mass effect is seen. There is no restricted diffusion to sugge st acute ischemia. Romero-white matter differentiation is preserved. No extra-axial fluid collection is seen. The cerebellar tonsils are normal in configuration. Ventricles, sulci, and cisterns: Normal in configuration. Pituitary and sella: Unremarkable. Intracranial vasculature: Normal flow voids are maintained at the skull base. Orbits: The bony orbits are grossly intact. Orbital contents are normal in appearance. Sinuses and mastoids: Clear. Calvarium: Unremarkable. Cervical cord: Partially visualized cervical spinal cord is normal in morphology and signal intensity . IMPRESSION: Chronic changes as above with no acute intracranial abnormality identified. ACT 112: Negative or not required by law. Electronically signed by: Carmelo Kohler M.D. 10/09/2022 9:39 PM
[2022-10-09] MEDS: POTASSIUM CHLORIDE 10 MEQ TABCR PO SCH (22:02)
[2022-10-09] MEDS: rOPINIRole HCL 2 MG TABLET PO SCH (22:02)
[2022-10-09] MEDS: APIXABAN 5 MG TABLET PO SCH (22:03)
[2022-10-09] MEDS: guaiFENesin 600 MG TABCR PO SCH (22:03)
[2022-10-10] MEDS: ALBUT/IPRATROP 3MG/0.5MG NEB 3 ML VIAL NEB SCH ×4 (03:20→11:33)
[2022-10-10 08:13] LABS: Hematocrit (blood only) 37.4 % (42.0-52.0); Hemoglobin 12.9 g/dl (14.0-18.0); Mean Corpuscular Hemoglobin 32.8 pg (25.0-34.0); Mean Corpuscular Hgb Conc 34.5 g/dL (32.0-36.0); Mean Corpuscular Volume 95.2 fL (80.0-100.0); Mean Platelet Volume 10.5 fL (9.4-12.4); Platelet Count 247 K/uL (130-400); RDW Standard Deviation 59.1 fL (36.4-46.3); Red Blood Count 3.93 M/uL (4.70-6.10); White Blood Count 11.17 K/ul (4.8-10.8)
[2022-10-10 08:21] LABS: Base Excess VBG 1.7 mEq/L; HCO3 VBG 27 mmol/L; Oxygen Saturation VBG 84.3 %; PCO2 VBG 42 mmHg (38-50); PO2 VBG 46 mmHg; pH VBG 7.41 (7.36-7.41)
[2022-10-10] MEDS: buPROPion HCl 75 MG TABLET PO SCH (08:32)
[2022-10-10] MEDS: guaiFENesin 600 MG TABCR PO SCH ×2 (08:32→20:27)
[2022-10-10] MEDS: POTASSIUM CHLORIDE 10 MEQ TABCR PO SCH ×2 (08:32→20:27)
[2022-10-10] MEDS: APIXABAN 5 MG TABLET PO SCH ×2 (08:32→20:27)
[2022-10-10] MEDS: DOXYCYCLINE HYCLATE 100 MG CAP PO SCH ×2 (08:33→20:28)
[2022-10-10] MEDS: ATORVASTATIN 40 MG TAB PO SCH (08:33)
[2022-10-10] MEDS: FUROSEMIDE 40 MG TAB PO SCH ×2 (08:33→17:07)
[2022-10-10] MEDS: lisinopril 5 MG TAB PO SCH (08:33)
[2022-10-10] MEDS: VITAMIN B COMPLEX TAB PO SCH (08:33)
[2022-10-10] MEDS: INSULIN ASPART PER UNIT SC SCH ×4 (08:34→20:30)
[2022-10-10 08:45] LABS: Estimated Average Glucose 120 mg/dl; Hemoglobin A1C 5.8 % (4.5-5.6)
[2022-10-10 08:51] LABS: A calco-baum cmplx NotReported Not Detected (NotDetected); Bact fragilis Not Reported Not Detected (NotDetected); C auris Not Reported Not Detected (NotDetected); Calbicans Not Reported Not Detected (NotDetected); Candida glabrata Not Reported Not Detected (NotDetected); Candida krusei Not Reported Not Detected (NotDetected); Cneoformans/gatti Not Reported Not Detected (NotDetected); Cparapsilosis Not Reported Not Detected (NotDetected); Ctropicalis Not Reported Not Detected (NotDetected); E cloacae compx Not Reported Not Detected (NotDetected); Efaecalis Not Reported Not Detected (NotDetected); Efaecium Not Reported Not Detected (NotDetected); Enterobacterales Not Reported Not Detected (NotDetected); Escherichia coli Not Reported Not Detected (NotDetected); H influenzae Not Reported Not Detected (NotDetected); K aerogenes Not Reported Not Detected (NotDetected); Koxytoca Not Reported Not Detected (NotDetected); Kpneumoniae grp Not Reported Not Detected (NotDetected); Lmonocyt Not Reported Not Detected (NotDetected); N meningitidis Not Reported Not Detected (NotDetected); P aeruginosa Not Reported Not Detected (NotDetected); Proteus spp Not Reported Not Detected (NotDetected); Salmonella spp Not Reported Not Detected (NotDetected); Smarcescens Not Reported Not Detected (NotDetected); Staph lugdunensis Not Reported Not Detected (NotDetected); Staph spp. Not Reported DETECTED (NotDetected); Staphaureus Not Reported Not Detected (NotDetected); Staphepi Not Reported DETECTED (NotDetected); Staphylococcus spp. DETECTED (NotDetected); Stenmaltophilia Not Reported Not Detected (NotDetected); Strep agal(GrpB) Not Reported Not Detected (NotDetected); Strep pneum Not Reported Not Detected (NotDetected); Strep pyog (GrpA) Not Reported Not Detected (NotDetected); Strep spp Not Reported Not Detected (NotDetected); mecAC Resistant Gene DETECTED (NotDetected)
[2022-10-10 09:00] LABS: Staphylococcus epidermidis DETECTED (NotDetected)
[2022-10-10] MEDS ORDERED: dexAMETHasone 6 MG in SYRINGE 0 ML IV SCH (09:00)
[2022-10-10] MEDS ORDERED: FUROSEMIDE 40 MG TAB PO SCH (09:00)
[2022-10-10] MEDS ORDERED: NON-FORMULARY MEDICATION (Bupropion Hcl 150 MG) PO SCH (09:00)
[2022-10-10] MEDS ORDERED: LIPITOR 40 MG PO SCH (09:00)
[2022-10-10 09:04] LABS: BUN Creatinine Ratio 19.7 (10-20); C Reactive Protein 2.61 mg/dl (0-0.5); Calcium 8.7 mg/dl (8.5-10.1); Est GFR (African American) 81.3 ml/min; Est GFR (Non-African American) 70.2 ml/min; Magnesium 2.3 mg/dl (1.7-2.4); Potassium 3.6 mmol/L (3.5-5.1)
[2022-10-10] MEDS: ALBUTEROL HFA 8 GM INHALER INH SCH (11:30)
--- NOTE | 2022-10-10 12:06 | Hospitalist Progress Note ---
Date of Service October 10, 2022 Assessment & Plan (1) COVID-19: (2) AMS (altered mental status): Plan: Metabolic encephalopathy likely due to Covid (3) QUENTIN on CPAP: Plan: Past medical history of morbid obesity, QUENTIN on CPAP, factor V Leiden on Eliquis Presents to the hospital with altered mental status. Reports recent cough and congestion and increasing fatigue. He also returned back to work a day prior to presentation Found to be COVID-positive in the ED Chest x-rayno infiltrates. CTA chestno PE. ABG does not show any hypercarbia MRI brain does not show any stroke. Blood culture 1 out of 4 bottles showed Staph epidermidis; likely contaminant. Monitor for now. Repeat cultures ordered. PT OT pending. Discontinue Decadron as this x-ray does not show any infiltrate; Maintain CPAP at bedtime. (4) Factor V Leiden: Plan: - Hx of such, continue eliquis for now (5) Morbid obesity with BMI of 50.0-59.9, adult: Plan: - BMI of 57.5, weight of 425 lbs - Diet and exercise encouraged (6) Dyslipidemia: Plan: - Increase statin therapy to atorvastatin 80 mg daily DVT ppx - teds, scds, Eliquis CODE: Full code Dispo: From home, likely to remain in the hospital x 1-2 days Admission and Anticipated Discharge Date Admission Date: October 09, 2022 Subjective Patient seen and examined at bedside. He is awake, alert orient x3. He says that he remembers bits and pieces of the events yesterday. He reports that he had chest congestion recently and has been feeling very tired. He also returned back to work recently. He denies any fever, chills, chest pain, abdominal pain or urinary symptoms Review of Systems Review of Systems: All systems reviewed & are unremarkable except as noted in Subjective Physical Exam Physical Exam: Constitutional: Awake, alert orient x3; not in any distress. Morbidly obese. Respiratory: normal respiratory effort, lungs clear to auscultation, no wheeze, rales, rhonchi. Normal insp/exp effort, no accessory muscle use Cardiovascular: RRR, no murmur, no edema Vessels: no JVD or carotid bruit Chest: normal inspection of chest Abdomen: normal bowel sounds, soft, nontender, no hepatosplenomegaly Musculoskeletal: no cyanosis or clubbing, extremities motor strength 5/5 Skin: no rashes, warm and dry normal turgor Neurologic: PERRL, EOMI, accommodation nl, no face palsy, no dysarthria CN's II- XI intact bilaterally and moves all extremities Psychiatric: A+Ox3, euthymic affect Lymphatic: no cervical or axillary lymphadenopathy : deferred Results & Data Results & Data Vital Signs (Past 12 Hours) Vital Signs Temp Pulse Pulse Pulse Resp BP BP 10/10/22 11:41 36.6 C 93 H 18 133/74 10/10/22 11:33 87 14 10/10/22 08:00 88 10/10/22 07:55 36.8 C 92 H 20 122/61 10/10/22 07:27 95 H 15 10/10/22 03:22 87 19 10/10/22 03:21 87 19 10/10/22 02:50 37.1 C 85 20 150/95 H Pulse Ox O2 Del Method O2 Flow Rate FiO2 10/10/22 11:41 95 Room Air 10/10/22 11:33 94 Room Air 21 10/10/22 08:00 10/10/22 07:55 99 Room Air 10/10/22 07:27 99 Room Air 21 10/10/22 03:22 95 CPAP 2 10/10/22 03:21 95 2 10/10/22 02:50 96 CPAP 3 Laboratory Results Laboratory Results WBC 11.17 K/ul (4.8-10.8) H 10/10/22 07:49 RBC 3.93 M/uL (4.70-6.10) L 10/10/22 07:49 Hgb 12.9 g/dl (14.0-18.0) L 10/10/22 07:49 Hct 37.4 % (42.0-52.0) L 10/10/22 07:49 MCV 95.2 fL (80.0-100.0) 10/10/22 07:49 MCH 32.8 pg (25.0-34.0) 10/10/22 07:49 MCHC 34.5 g/dL (32.0-36.0) 10/10/22 07:49 RDW Std Deviation 59.1 fL (36.4-46.3) H 10/10/22 07:49 RDW Coeff of Nba 17.0 % (11.5-14.5) H 10/10/22 07:49 Plt Count 247 K/uL (130-400) 10/10/22 07:49 MPV 10.5 fL (9.4-12.4) 10/10/22 07:49 Immature Gran % (Auto) 2.0 % 10/09/22 06:59 Neut % (Auto) 67.5 % 10/09/22 06:59 Lymph % (Auto) 13.6 % 10/09/22 06:59 Whiteside % (Auto) 11.0 % 10/09/22 06:59 Eos % (Auto) 4.8 % 10/09/22 06:59 Baso % (Auto) 1.1 % 10/09/22 06:59 Neut # (Auto) 5.47 K/uL (1.40-6.50) 10/09/22 06:59 Lymph # (Auto) 1.10 K/uL (1.2-3.4) L 10/09/22 06:59 Whiteside # (Auto) 0.89 K/uL (0.11-0.59) H 10/09/22 06:59 Eos # (Auto) 0.39 K/uL (0-0.50) 10/09/22 06:59 Baso # (Auto) 0.09 K/uL (0-0.2) 10/09/22 06:59 Immature Gran # (Auto) 0.16 K/uL (0.01-0.20) 10/09/22 06:59 PT 11.1 Seconds (9.0-12.0) 10/09/22 06:59 INR 1.0 (0.9-1.1) 10/09/22 06:59 VBG pH 7.41 (7.36-7.41) 10/10/22 07:49 VBG pCO2 42 mmHg (38-50) 10/10/22 07:49 VBG pO2 46 mmHg 10/10/22 07:49 VBG HCO3 27 mmol/L 10/10/22 07:49 VBG O2 Saturation 84.3 % 10/10/22 07:49 VBG Base Excess 1.7 mEq/L 10/10/22 07:49 Sodium 138 mmol/L (136-145) 10/10/22 07:49 Potassium 3.6 mmol/L (3.5-5.1) 10/10/22 07:49 Chloride 104 mmol/L (98-107) 10/10/22 07:49 Carbon Dioxide 22 mmol/L (21-32) 10/10/22 07:49 Anion Gap 12 (3-11) H 10/10/22 07:49 BUN 24 mg/dl (6-23) H 10/10/22 07:49 Creatinine 1.22 mg/dl (0.6-1.4) 10/10/22 07:49 Est Cr Clr Drug Dosing 131.0 ml/min 10/10/22 07:49 Est GFR ( Amer) 81.3 ml/min 10/10/22 07:49 Est GFR (Non-Af Amer) 70.2 ml/min 10/10/22 07:49 BUN/Creatinine Ratio 19.7 (10-20) 10/10/22 07:49 Glucose 116 mg/dl (70-99(Fasting)) H 10/10/22 07:49 POC Glucose 165 mg/dl (70-99) H 10/10/22 11:40 Estimat Average Glucose 120 mg/dl 10/10/22 07:49 Hemoglobin A1c 5.8 % (4.5-5.6) H 10/10/22 07:49 Calcium 8.7 mg/dl (8.5-10.1) 10/10/22 07:49 Magnesium 2.3 mg/dl (1.7-2.4) 10/10/22 07:49 Total Bilirubin 0.7 mg/dl (0.2-1.0) 10/09/22 06:59 AST 26 U/L (13-39) 10/09/22 06:59 ALT 39 U/L (7-52) 10/09/22 06:59 Alkaline Phosphatase 59 U/L (34-104) 10/09/22 06:59 Ammonia 38.0 umol/L (18-72) 10/09/22 07:08 Troponin I High Sens 8.9 pg/ml (0-20) 10/09/22 06:59 C-Reactive Protein 2.61 mg/dl (0-0.5) H 10/10/22 07:49 Total Protein 6.8 gm/dl (6.0-8.3) 10/09/22 06:59 Albumin 4.0 gm/dl (3.4-5.0) 10/09/22 06:59 Globulin 2.8 gm/dl (2.5-4.0) 10/09/22 06:59 Albumin/Globulin Ratio 1.4 (0.9-2) 10/09/22 06:59 Triglycerides 324 mg/dl (0-150) H 10/10/22 07:49 Cholesterol 170 mg/dl (0-200) 10/10/22 07:49 LDL Cholesterol, Calc 71 mg/dl 10/10/22 07:49 VLDL Cholesterol, Calc 65 mg/dl (0-30) H 10/10/22 07:49 HDL Cholesterol 34 mg/dl 10/10/22 07:49 Cholesterol/HDL Ratio 5.0 (0-5) 10/10/22 07:49 Lipase 21 U/L (11-82) 10/09/22 06:59 Vitamin B12 714 pg/ml (180-914) 10/10/22 07:49 Procalcitonin 0.20 ng/ml (0-0.5) 10/10/22 07:49 TSH 2.248 uIu/ml (0.300-4.500) 10/10/22 07:48 Ethyl Alcohol mg/dL < 10.0 mg/dl (<10.0) 10/09/22 06:59 SARS-CoV-2 (PCR) POSITIVE (Negative) A* 10/09/22 09:04 Influenza Type A (PCR) Negative (Neg) 10/09/22 09:04 Influenza Type B (PCR) Negative (Neg) 10/09/22 09:04 RSV (RT-PCR) Negative (Neg) 10/09/22 09:04 Staphylococcus sp PCR DETECTED (NotDetected) A 10/09/22 07:27 mecA/C-Methicil Resis Gene DETECTED (NotDetected) A 10/09/22 07:27 Staph epidermidis (PCR) DETECTED (NotDetected) A 10/09/22 07:27 Bld Cult ID Panel PCR See PCR Comment (NotDetected) 10/09/22 07:27 Impressions Chest X-Ray 10/09/22 06:39 XR chest 1V portable CLINICAL HISTORY: Chest pain, nonspecific COMPARISON STUDY: Chest radiograph March 26, 2022. FINDINGS: Cardiomegaly is noted. There is no pneumothorax or pleural effusion. There is no consolidation to suggest pneumonia. No evidence for overt pulmonary edema. IMPRESSION: No acute cardiopulmonary findings. Cardiomegaly. ACT 112: Negative or not required by law. Electronically signed by: Alec Agee M.D. 10/09/2022 8:13 AM Head CTA 10/09/22 07:05 HEAD & NECK CTA HISTORY: Altered mental status. TECHNIQUE: Multiaxial CT images of the head were performed both before and after the intravenous administration of contrast to evaluate the major cerebral vessels. Multiaxial CT images of the neck were also performed following the intravenous administration of contrast to evaluate the major cervical vessels. Maximum intensity projection images were also obtained. A dose lowering technique was utilized adhering to the principles of ALARA. COMPARISON: Carotid Doppler 03/26/2022. FINDINGS: HEAD CT: There is no mass, hematoma, midline shift, or acute infarct. The calvarium and skull base are intact. The paranasal sinuses and mastoid air cells are clear. HEAD CTA: Visualized intracranial internal carotid arteries, distal vertebral arteries, and basilar artery are widely patent. There is no significant stenosis, occlusion, or aneurysm seen within the bilateral ACAs, MCAs, or urban and regional planner. The major dural venous sinuses are patent. NECK CTA: The aortic arch and proximal great vessels are widely patent. There is no significant stenosis, occlusion, or dissection identified within the bilateral common carotid, internal carotid, or vertebral arteries. IMPRESSION: 1. No significant stenosis, occlusion, or aneurysm within the [place]. 2. No significant stenosis, occlusion, or dissection identified within the carotid or vertebral arteries. 3. No acute intracranial abnormality. ACT 112: Negative or not required by law. Electronically signed by: Arsenio Torres M.D. 10/09/2022 8:33 AM Neck CTA 10/09/22 07:05 HEAD & NECK CTA HISTORY: Altered mental status. TECHNIQUE: Multiaxial CT images of the head were performed both before and after the intravenous administration of contrast to evaluate the major cerebral vessels. Multiaxial CT images of the neck were also performed following the intravenous administration of contrast to evaluate the major cervical vessels. Maximum intensity projection images were also obtained. A dose lowering technique was utilized adhering to the principles of ALARA. COMPARISON: Carotid Doppler 03/26/2022. FINDINGS: HEAD CT: There is no mass, hematoma, midline shift, or acute infarct. The calvarium and skull base are intact. The paranasal sinuses and mastoid air cells are clear. HEAD CTA: Visualized intracranial internal carotid arteries, distal vertebral arteries, and basilar artery are widely patent. There is no significant stenosis, occlusion, or aneurysm seen within the bilateral ACAs, MCAs, or urban and regional planner. The major dural venous sinuses are patent. NECK CTA: The aortic arch and proximal great vessels are widely patent. There is no significant stenosis, occlusion, or dissection identified within the bilateral common carotid, internal carotid, or vertebral arteries. IMPRESSION: 1. No significant stenosis, occlusion, or aneurysm within the [place]. 2. No significant stenosis, occlusion, or dissection identified within the carotid or vertebral arteries. 3. No acute intracranial abnormality. ACT 112: Negative or not required by law. Electronically signed by: Arsenio Torres M.D. 10/09/2022 8:33 AM Brain MRI 10/09/22 11:30 MRI OF THE BRAIN WITHOUT IV CONTRAST CLINICAL HISTORY: Strokelike symptoms. COMPARISON STUDY: CT of the brain dated 10/09/2022. TECHNIQUE: MRI of the brain was performed utilizing various T1 and T2-weighted sequences in the axial, sagittal, and coronal planes. IV contrast was not administered for this examination. FINDINGS: Brain parenchyma: Foci of hemosiderin deposition are noted in the bilateral thalami and in the right periventricular white matter. This is likely chronic. There is a small chronic lacunar infarct in the left thalamus. No acute hemorrhage or mass effect is seen. There is no restricted diffusion to suggest acute ischemia. Romero-white matter differentiation is preserved. No extra-axial fluid collection is seen. The cerebellar tonsils are normal in configuration. Ventricles, sulci, and cisterns: Normal in configuration. Pituitary and sella: Unremarkable. Intracranial vasculature: Normal flow voids are maintained at the skull base. Orbits: The bony orbits are grossly intact. Orbital contents are normal in appearance. Sinuses and mastoids: Clear. Calvarium: Unremarkable. Cervical cord: Partially visualized cervical spinal cord is normal in morphology and signal intensity. IMPRESSION: Chronic changes as above with no acute intracranial abnormality identified. ACT 112: Negative or not required by law. Electronically signed by: Carmelo Kohler M.D. 10/09/2022 9:39 PM (2) AMS (altered mental status) Altered mental status type: unspecified Qualified Code(s): R41.82 - Altered mental status, unspecified
[2022-10-10] MEDS ORDERED: ALBUTEROL HFA 8 GM INHALER INH PRN (12:46)
[2022-10-10] MEDS: rOPINIRole HCL 2 MG TABLET PO SCH (20:26)
--- NOTE | 2022-10-11 06:17 | Electrocardiogram Report ---
Test Reason : Blood Pressure : / mmHG Vent. Rate : 098 BPM Atrial Rate : 098 BPM P-R Int : 140 ms QRS Dur : 100 ms QT Int : 380 ms P-R-T Axes : 052 006 011 degrees QTc Int : 485 ms Normal sinus rhythm Prolonged QT Nonspecific T wave abnormality Abnormal ECG When compared with ECG of 26-MAR-2022 04:41, Minimal criteria for Inferior infarct are no longer Present QT has lengthened Confirmed by Anuel Narvaez ([id number]) on 10/11/2022 6:17:08 AM Referred By: REFERRED SELF Confirmed By:Anuel Narvaez
[2022-10-11 07:27] LABS: Basophils # (auto) 0.11 K/uL (0-0.2); Basophils % (auto) 1.2 %; Eosinophils # (auto) 0.09 K/uL (0-0.50); Hemoglobin 13.9 g/dl (14.0-18.0); Immature Granulocytes # (auto) 0.18 K/uL (0.01-0.20); Lymphocytes # (auto) 1.84 K/uL (1.2-3.4); Mean Corpuscular Hemoglobin 32.7 pg (25.0-34.0); Mean Corpuscular Hgb Conc 33.9 g/dL (32.0-36.0); Mean Corpuscular Volume 96.5 fL (80.0-100.0); Mean Platelet Volume 10.5 fL (9.4-12.4); Monocytes # (auto) 0.79 K/uL (0.11-0.59); Monocytes % (auto) 8.6 %; Neutrophils # (auto) 6.21 K/uL (1.40-6.50); Neutrophils % (auto) 67.2 %; Platelet Count 256 K/uL (130-400); RDW Coefficient of Variation 17.2 % (11.5-14.5); RDW Standard Deviation 60.2 fL (36.4-46.3); Red Blood Count 4.25 M/uL (4.70-6.10); White Blood Count 9.22 K/ul (4.8-10.8)
[2022-10-11 07:50] LABS: Albumin Globulin Ratio 1.5 (0.9-2); Albumin Level 4.5 gm/dl (3.4-5.0); BUN Creatinine Ratio 17.6 (10-20); Bilirubin,Total 0.6 mg/dl (0.2-1.0); Calcium 8.8 mg/dl (8.5-10.1); Creatinine Clr Calc Pharmacy 117.5 ml/min; Est GFR (African American) 71.3 ml/min; Est GFR (Non-African American) 61.5 ml/min; Globulin 3.1 gm/dl (2.5-4.0); Potassium 3.6 mmol/L (3.5-5.1); Total Protein 7.6 gm/dl (6.0-8.3)
[2022-10-11] MEDS: INSULIN ASPART PER UNIT SC SCH (08:19)
[2022-10-11] MEDS: buPROPion HCl 75 MG TABLET PO SCH (08:25)
[2022-10-11] MEDS: ATORVASTATIN 40 MG TAB PO SCH (08:25)
[2022-10-11] MEDS: APIXABAN 5 MG TABLET PO SCH (08:25)
[2022-10-11] MEDS: DOXYCYCLINE HYCLATE 100 MG CAP PO SCH (08:26)
[2022-10-11] MEDS: guaiFENesin 600 MG TABCR PO SCH (08:27)
[2022-10-11] MEDS: FUROSEMIDE 40 MG TAB PO SCH (08:27)
[2022-10-11] MEDS: POTASSIUM CHLORIDE 10 MEQ TABCR PO SCH (08:28)
[2022-10-11] MEDS: lisinopril 5 MG TAB PO SCH (08:28)
[2022-10-11] MEDS: VITAMIN B COMPLEX TAB PO SCH (08:29)
[2022-10-11] MEDS ORDERED: STROKE PATIENT DISCHARGE STA (09:19)
--- NOTE | 2022-10-11 16:07 | Discharge Summary ---
Date of Service October 11, 2022 Admission HPI Per Admitting Provider This is a 47-year-old male with PMHx of morbid obesity with a BMI of 57.7, Factor V Leiden on Eliquis, history of cerebral venous thrombosis ( bilateral thalamic and basal ganglia infarcts) in January 2017, CHF, obstructive sleep apnea with CPAP, restless leg syndrome, who presents to the hospital today with altered mental status. Pt is unable to participate in conversation as he is on Bipap, and also unable to tell me the name of the town, year, or the president. His son and daughter in law are present at bedside and supports the history. Reports are that he has had increasing cough and congestion for the past 3 days, feeling increased fatigue. 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 This morning upon waking at 4:30a he was very confused, thinking it was night time, couldnt remember he was working yesterday, and had difficulty lifting his legs complaining of feeling lightheaded and dizziness. Admission Exam Per Admitting Provider General: awake, alert, no apparent distress, + morbidly obese BMI 57.7 Head: Normocephalic, atraumatic ENT: PERRL, EOMI, no pharyngeal exudate, mucous membranes moist Chest: On Bipap, + coarse breath sounds throughout, no wheeze or rales Cardiac: Regular rate and rhythm, no murmur, no JVD, normal peripheral pulses, good capillary refill Abdominal: NABS x 4 quadrants, morbidly obese, soft, nondistended, nontender to palpation, no rebound or guarding Extremities: Normal inspection, +cracked and calloused feet, no signs of infection, no peripheral edema or erythema, calfs nontender to palpation Psych: Normal mood and affect Neuro: awake, oriented to self and family but not to place, time, or president, strength intact bilaterally and rated 4/5, no motor deficits, speech is clear, no peripheral sensory deficits Principal Diagnosis COVID-19 infection Altered mental status; metabolic encephalopathy likely due to COVID. Discharge Exam Constitutional: Alert orient x3; morbidly obese. Respiratory: normal respiratory effort, lungs clear to auscultation, no wheeze, rales, rhonchi. Normal insp/exp effort, no accessory muscle use Cardiovascular: RRR, no murmur, no edema Vessels: no JVD or carotid bruit Chest: normal inspection of chest Abdomen: normal bowel sounds, soft, nontender, no hepatosplenomegaly Musculoskeletal: no cyanosis or clubbing, extremities motor strength 5/5 Skin: no rashes, warm and dry normal turgor Neurologic: PERRL, EOMI, accommodation nl, no face palsy, no dysarthria CN's II- XI intact bilaterally and moves all extremities Psychiatric: A+Ox3, euthymic affect Lymphatic: no cervical or axillary lymphadenopathy : deferred Discharge Data Allergies Allergy/AdvReac Type Severity Reaction Status Date / Time No Known Allergies Allergy Verified 03/26/22 06:35 Consultations 10/09/22 09:37 ED Decision to Admit Stat 10/09/22 12:13 Consult Neurology Routine Ordered Studies 10/09/22 07:05 CT angio head wo/w Stat CT angio neck with con Stat 10/09/22 11:30 MR brain wo con Routine Hospital Course (1) COVID-19: (2) AMS (altered mental status): Metabolic encephalopathy likely due to Covid (3) QUENTIN on CPAP: (4) Factor V Leiden: (5) Morbid obesity with BMI of 50.0-59.9, adult: (6) Dyslipidemia: Plan Patient is a 47-year-old male past medical history of morbid obesity, QUENTIN on CPAP, factor V Leiden on Eliquis. He presented to the hospital with altered mental status. He reported reports recent cough and congestion and increasing fatigue. He also returned back to work a day prior to presentation. He was found to be COVID-positive in the ED. Chest x-ray did not show no infiltrates.. CTA chest did not show no PE..ABG does not show any hypercarbia. He was then admitted to PCU for closer monitoring. MRI brain does not show any stroke. Neurology was consulted; no further neurologic work-up was recommended. Patient mentation improved overnight. 1 out of 4 bottle on admission of blood cultures were positive for Staph epidermidis. Repeat blood culture negative at discharge. Patient was discharged home with instruction to follow-up with his primary care doctor. Total Time Total Time Spent Total Time Spent (In Minutes): 35 Total Time Includes: Examination of the Patient, Discharge Planning, Medication Reconciliation, Communication With Other Providers and Other Discharge Plan Discharge Items Patient Disposition: Home - Self-Care Reason For Visit: AMS Discharge Diagnosis: (1) COVID-19: (2) AMS (altered mental status): Activity: Resume your previous activity Non-emergency contact: Primary Care Provider Call non-emergency contact if: you have any medication questions and your symptoms worsen Follow-up/Referrals: Massiel Hansen PA-C [Primary Care Provider] - (Date & Time 10/15/2022 9:00 AM Provider Massiel Hansen PA-C Department [facility] ) Diet: Regular Addtl Attending Provider Instructions: You were admitted here with altered mental status. The likely reason for it is combination of COVID 19 infection and fatigue. Please continue to take all your medication as prescribed before. A prescription for albuterol inhaler and nebulization solution is sent to your pharmacy. Please follow-up with your primary care doctor. An appointment will be set up for you. Pending Studies at Discharge: No Stand-Alone Forms: My [facility] [employer], Work/School Release, Smoking Cessation Medications and DC Order Prescriptions: New albuterol sulfate [Ventolin HFA] 90 mcg/actuation Hfa Aerosol Inhaler 2 puff inhalation QIDR PRN (Reason: shortness of breath or wheezing) Qty: 6.7 0RF ipratropium-albuterol 0.5 mg-3 mg(2.5 mg base)/3 mL solution for nebulization 3 ml inhalation Q8H PRN (Reason: wheezing) Qty: 90 0RF Continued Lipitor 40 mg PO DAILY Requip 4 mg PO HS Trulicity 0.75 mg SC WK albuterol 2 puff inhalation QID PRN (Reason: Bronchospasm) bupropion HCl 150 mg PO DAILY furosemide 40 mg PO BID lisinopril 2.5 mg PO DAILY metformin 500 mg PO BID multivitamin Tablet 1 tab PO DAILY celecoxib [Celebrex] 200 mg Capsule 200 mg PO DAILY vitamin B complex Capsule 1 cap PO DAILY fenofibrate nanocrystallized 48 mg Tablet 48 mg PO DAILY Eliquis 5 mg Tablet 5 mg PO BID Discharge Orders: Discharge Order (Routine); Ordered 10/11/22 Ordered By: Robert Mcmanus Admission Data Admit Date/Time: 10/09/22 10:20 Attending Provider: Devkota,Robert Admit Provider: Colton Ballesteros Primary Care Provider: Massiel Hansen Other Providers: Colton Ballesteros ; Antony Medina Other Interventions: Discharge Summary Assessment (RN) Last Done: 10/11/22 09:55
== END 2022-10-11 10:37 | disposition home or self-care (01) | DRG 177 ==
LOC: ED 06:21 → 2S 10:20 → SUATTDRO 10:20 → 2S 11:06

== ENCOUNTER 2023-02-25 10:48 | Inpatient (IN) ==
[2023-02-25] MEDS ORDERED: FUROSEMIDE 40 MG/4 ML VIAL IV STA (12:10)
--- NOTE | 2023-02-25 12:11 | Emergency Department Note ---
Impression & Plan SOB (shortness of breath), Exertional dyspnea, Fluid overload, Pedal edema ED Provider Note NAME: JARON SARGENT AGE: 47 SEX: M : 1975 ARRIVES VIA: Walk-In INFORMANT: [Patient][family] ED PROVIDER(S): [Carmelo Rios MD] CHIEF COMPLAINT: Shortness of breath HISTORY OF PRESENT ILLNESS: The patient is a 47-year-old male who presents to the ER with increasing dyspnea for the last several weeks. The shortness of breath had been with exertion, today, he feels very short of breath even at rest. He was referred in by his sleep physician. The patient states that he did try a nebulizer earlier today, this did not help. He has noticed increasing pedal edema. The patient does take Lasix daily, he is on Eliquis twice a day. He has no history of PE or DVT. He states he is on the Eliquis for a clot that had developed in the brain. The patient denies cough or congestion. There has been no fever. No chest pain. He believes that despite the swelling to the legs, his weight is maintaining. The patient states that he had an issue like this before and had to be hospital ized for diuresis. PMHx/PSHx: See Below SOCIAL HISTORY: See Below. PHYSICAL EXAM: GENERAL: Patient is in mild respiratory distress. HEENT: No acute trauma, normocephalic atraumatic, mucous membranes moist, no nasal congestion. NECK: No stridor, no adenopathy, no meningismus, trachea is midline. LUNGS: Clear to auscultation bilaterally, no wheeze, no rhonchi, breath sounds equal. Increased respiratory rate. Mild respiratory distress noted. HEART: Without murmurs gallops or rubs, regular rate and rhythm. ABDOMEN: Soft, nontender, bowel sounds positive, no peritonitis. EXTREMITIES: No cyanosis, moderate bilateral pedal edema, full range of motion of all the joints without pain or difficulty, no signs for acute trauma. NEUROLOGIC: Oriented x 3, no acute motor or sensory deficits, no focal weakness. SKIN: No rash, no jaundice, no diaphoresis. DIFFERENTIAL DIAGNOSIS: CHF, fluid overload, PE, pneumonia, exacerbation of asthma/COPD, anemia, renal failure, electrolyte imbalance, [place], among others. EMERGENCY DEPARTMENT COURSE/PROCEDURES: Prior/Outside records reviewed: Most recent discharge summary. ECG per my interpretation: Indication was shortness of breath. The ECG shows a sinus tachycardia with a rate of 107. There is no ST elevation, no PVCs. The QTc is 443. Continuous Cardiac Monitoring per my interpretation: An order was placed for continuous cardiac monitoring. The monitor shows a rate of 116 with sinus tachycardia. MEDICAL DECISION MAKING: There is no leukocytosis or concerning anemia. There is a normal platelet count. No coagulopathy. No significant electrolyte abnormality or renal failure. No concerning liver enzyme elevation. BNP was not elevated making CHF less likely. ECG shows a sinus tachycardia, no obvious ischemia. Cardiac enzyme testing x1 was not consistent with acute cardiac injury. COVID test returned negative. Chest film per my review did not show mediastinal widening, CHF or pneumonia. Chest CT did not show PE or pneumonia, no CHF. On exam, the patient appeared short of breath, he was tachypneic. There was pedal edema noted. Patient received IV Lasix, 60 mg, he has diuresed significantly. Patient is still dyspneic. He has had worsening shortness of breath over the last month. I believe he is quite fluid overloaded. He has had issues like this in the past and has done well with hospitalization and diuresis. I did speak with the patient at length, I spoke with case management, the on- call hospitalist was consulted. DISPOSITION: Patient's presentation and findings warrant a hospital stay. Past Med/Surg History Medical History Chest pain at rest Depression Diastolic CHF DM type 2 (diabetes mellitus, type 2) Factor V Leiden Hx of cerebral thrombosis Morbid obesity with BMI of 50.0-59.9, adult QUENTIN on CPAP Osteoarthritis Palpitation Surgical History (Updated 10/09/22 @ 10:43 by Paulina Ochoa PA-C) Hx of eye surgery Left eyelid surgery Family History Other Asthma COPD (chronic obstructive pulmonary disease) Heart disease Hypertension Social History Smoking Status: Former smoker Tobacco Type: Cigarettes Age Started Using Tobacco: 17; Age Quit Using Tobacco: 25; packs per day: 1; Second Hand Exposure: No; Do You Dip or Chew Tobacco: No; Hx Alcohol Use: No Hx Substance Use: No Preferred Language: [place] Communication Ability: Effective 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 Beliefs That Will Affect Care: None Current Living Situation: Spouse Feels Safe at Home: Yes Assistive Devices: Cane, CPAP and Oxygen - at Night Allergies Allergies Allergy/AdvReac Type Severity Reaction Status Date / Time No Known Allergies Allergy Verified 02/25/23 16:59 Home Meds Home Medications Medication Instructions Recorded Confirmed albuterol sulfate 90 mcg/actuation 2 puff inhalation BID PRN 02/25/23 02/25/23 aerosol inhaler Shortness Of Breath Or Wheezing apixaban 5 mg tablet (Eliquis) 5 mg PO BID 02/25/23 02/25/23 bupropion HCl 150 mg 24 hr tablet, 150 mg PO BID 02/25/23 02/25/23 extended release celecoxib 200 mg capsule 200 mg PO DAILY 02/25/23 02/25/23 dulaglutide 0.75 mg/0.5 mL 0.75 mg subcut WE 02/25/23 02/25/23 subcutaneous pen injector (Trulicity) fenofibrate nanocrystallized 48 mg 48 mg PO DAILY 02/25/23 02/25/23 tablet furosemide 40 mg tablet 40 mg PO BID 02/25/23 02/25/23 ipratropium 0.5 mg-albuterol 3 mg 3 ml inhalation Q8 PRN Wheezing 02/25/23 02/25/23 (2.5 mg base)/3 mL nebulization soln lisinopril 2.5 mg tablet 2.5 mg PO HS 02/25/23 02/25/23 metformin 500 mg tablet 500 mg PO BID 02/25/23 02/25/23 multivitamin 1 tab PO DAILY 02/25/23 02/25/23 ropinirole 4 mg tablet 4 mg PO HS 02/25/23 02/25/23 vitamin B complex 1 tab PO DAILY 02/25/23 02/25/23 Results & Data (ED) Vital Signs Vital Signs - 24 hr 02/25/23 10:52 02/25/23 12:47 02/25/23 14:55 Temperature 36.6 C Temperature Source Temporal Artery Scan Pulse Rate 116 H Pulse Rate [Apical] 96 H Respiratory Rate 28 H 18 Respiratory Effort / Characteristics Labored Short of Breath SOB on Exertion Respiratory Pattern Tachypnea Blood Pressure 149/82 H Blood Pressure [Right Arm] 124/76 Blood Pressure Mean 104 Blood Pressure Mean [Right Arm] 92 Pulse Oximetry 98 96 96 Oxygen Delivery Method Room Air Room Air Room Air Sepsis Recent Fever Within 48 Hours No Sepsis New/Unexplained Change in Mental Status No Sepsis Action Taken by Nursing No Action Required 02/25/23 16:00 Temperature Temperature Source Pulse Rate Pulse Rate [Apical] 86 Respiratory Rate 18 Respiratory Effort / Characteristics Labored Short of Breath SOB on Exertion Respiratory Pattern Tachypnea Blood Pressure Blood Pressure [Right Arm] 124/76 Blood Pressure Mean Blood Pressure Mean [Right Arm] 92 Pulse Oximetry 96 Oxygen Delivery Method Room Air Sepsis Recent Fever Within 48 Hours Sepsis New/Unexplained Change in Mental Status Sepsis Action Taken by Retirement Medications Current Medication List: was personally reviewed by me Laboratory Data Attestation: I reviewed the patient's lab results. 02/25/23 Unknown 02/25/23 Unknown Lab Results 02/25/23 02/25/23 02/25/23 Range/Units 17:02 Unknown Unknown WBC 7.87 (4.8-10.8) K/ul RBC 4.37 L (4.70-6.10) M/uL Hgb 14.0 (14.0-18.0) g/dl Hct 41.6 L (42.0-52.0) % MCV 95.2 (80.0-100.0) fL MCH 32.0 (25.0-34.0) pg MCHC 33.7 (32.0-36.0) g/dL RDW Std Deviation 56.1 H (36.4-46.3) fL RDW Coeff of Nba 16.0 H (11.5-14.5) % Plt Count 243 (130-400) K/uL MPV 10.8 (9.4-12.4) fL Immature Gran % (Auto) 2.2 % Neut % (Auto) 63.3 % Lymph % (Auto) 19.1 % Bollinger % (Auto) 9.5 % Eos % (Auto) 4.6 % Baso % (Auto) 1.3 % Neut # (Auto) 4.99 (1.40-6.50) K/uL Lymph # (Auto) 1.50 (1.2-3.4) K/uL Bollinger # (Auto) 0.75 H (0.11-0.59) K/uL Eos # (Auto) 0.36 (0-0.50) K/uL Baso # (Auto) 0.10 (0-0.2) K/uL Immature Gran # (Auto) 0.17 (0.01-0.20) K/uL PT 10.3 (9.0-12.0) Seconds INR 0.9 (0.9-1.1) APTT 25.6 (21.0-31.0) Seconds PTT Ratio 0.9 ABG pH 7.47 H (7.35-7.45) ABG pCO2 31 L (35-46) mmHg ABG pO2 85 (80-95) mmHg ABG HCO3 23 (19-24) mmol/L ABG O2 Saturation 98.1 H (90-95) % ABG Base Excess -0.2 (-9-1.8) mEq/L Rajat Test POS (Pos) Oxygen Given ROOM AIR Sodium (136-145) mmol/L Potassium (3.5-5.1) mmol/L Chloride (98-107) mmol/L Carbon Dioxide (21-32) mmol/L Anion Gap (3-11) BUN (6-23) mg/dl Creatinine (0.6-1.4) mg/dl Est Cr Clr Drug Dosing Est GFR ( Amer) ml/min Est GFR (Non-Af Amer) ml/min BUN/Creatinine Ratio (10-20) Glucose (70-99(Fasting)) mg/dl Calcium (8.6-10.3) mg/dl Magnesium (1.7-2.4) mg/dl Total Bilirubin (0.2-1.0) mg/dl AST (13-39) U/L ALT (7-52) U/L Alkaline Phosphatase (34-104) U/L Troponin I High Sens (0-20) pg/ml B-Natriuretic Peptide (0-100) pg/ml Total Protein (6.0-8.3) gm/dl Albumin (3.4-5.0) gm/dl Globulin (2.5-4.0) gm/dl Albumin/Globulin Ratio (0.9-2) SARS-CoV-2, RNA, NAAT (NEGATIVE) 02/25/23 02/25/2302/25/23 Range/Units Unknown Unknown Unknown WBC (4.8-10.8) K/ul RBC (4.70-6.10) M/uL Hgb (14.0-18.0) g/dl Hct (42.0-52.0) % MCV (80.0-100.0) fL MCH (25.0-34.0) pg MCHC (32.0-36.0) g/dL RDW Std Deviation (36.4-46.3) fL RDW Coeff of Nba (11.5-14.5) % Plt Count (130-400) K/uL MPV (9.4-12.4) fL Immature Gran % (Auto) % Neut % (Auto) % Lymph % (Auto) % Bollinger % (Auto) % Eos % (Auto) % Baso % (Auto) % Neut # (Auto) (1.40-6.50) K/uL Lymph # (Auto) (1.2-3.4) K/uL Bollinger # (Auto) (0.11-0.59) K/uL Eos # (Auto) (0-0.50) K/uL Baso # (Auto) (0-0.2) K/uL Immature Gran # (Auto) (0.01-0.20) K/uL PT (9.0-12.0) Seconds INR (0.9-1.1) APTT (21.0-31.0) Seconds PTT Ratio ABG pH (7.35-7.45) ABG pCO2 (35-46) mmHg ABG pO2 (80-95) mmHg ABG HCO3 (19-24) mmol/L ABG O2 Saturation (90-95) % ABG Base Excess (-9-1.8) mEq/L Rajat Test (Pos) Oxygen Given Sodium 134 L (136-145) mmol/L Potassium 4.1 (3.5-5.1) mmol/L Chloride 102 (98-107) mmol/L Carbon Dioxide 24 (21-32) mmol/L Anion Gap 8 (3-11) BUN 18 (6-23) mg/dl Creatinine 1.22 (0.6-1.4) mg/dl Est Cr Clr Drug Dosing Not Reportable Est GFR ( Amer) 81.3 ml/min Est GFR (Non-Af Amer) 70.2 ml/min BUN/Creatinine Ratio 14.8 (10-20) Glucose 174 H (70-99(Fasting)) mg/dl Calcium 9.5 (8.6-10.3) mg/dl Magnesium 1.9 (1.7-2.4) mg/dl Total Bilirubin 0.4 (0.2-1.0) mg/dl AST 23 (13-39) U/L ALT 51 (7-52) U/L Alkaline Phosphatase 70 (34-104) U/L Troponin I High Sens 5.0 (0-20) pg/ml B-Natriuretic Peptide 5 (0-100) pg/ml Total Protein 7.9 (6.0-8.3) gm/dl Albumin 4.4 (3.4-5.0) gm/dl Globulin 3.5 (2.5-4.0) gm/dl Albumin/Globulin Ratio 1.3 (0.9-2) SARS-CoV-2, RNA, NAAT NEGATIVE (NEGATIVE) Administered Medications Discontinued Medications Furosemide (Furosemide 40 Mg/4 Ml Vial) 60 mg IV NOW STA Stop: 02/25/23 12:11 Last Admin: 02/25/23 13:47 Dose: 60 mg Documented By: SUZY Ioversol (Ioversol 350 Mg 125ml Prefilled Syringe) 119 ml IV ONCE ONE Stop: 02/25/23 16:14 Last Admin: 02/25/23 16:13 Dose: 119 ml Documented By: CTF Imaging Data Radiologist's Impression: Chest X-Ray 02/25/23 10:56 XR chest 1V portable CLINICAL HISTORY: Chest pain, nonspecific COMPARISON STUDY: Chest radiograph October 09, 2022. FINDINGS: Lung volumes are normal. Lungs are clear. There is no pneumothorax or pleural effusion. Cardiomegaly is unchanged. Mediastinal contours are normal. There is no evidence for pulmonary edema. IMPRESSION: No acute cardiopulmonary findings. No change in appearance of the chest. ACT 112: Negative or not required by law. Electronically signed by: Alec Agee M.D. 02/25/2023 12:41 PM Chest CTA 02/25/23 12:10 CT ANGIOGRAM OF THE CHEST CLINICAL HISTORY: Dyspnea. COMPARISON STUDY: Chest x-ray dated 02/25/2023. TECHNIQUE: Following the IV administration of 119 cc of Optiray 350, CT angiogram of the chest was performed from the upper abdomen to the thoracic inlet utilizing the pulmonary embolus protocol. Images are reviewed in the axial, sagittal, and coronal planes. 3-D MIPS images are created and assessed. IV contrast was administered without complication. A dose lowering technique was utilized adhering to the principles of ALARA. The examination is degraded by motion artifact. CT DOSE: 1124.31 mGy.cm FINDINGS: Thyroid: Imaged portions of the thyroid gland are normal in size and attenuation. Thoracic aorta: The thoracic aorta is normal in caliber and demonstrates standard 3-vessel arch anatomy. No dissection is seen. Pulmonary vasculature: The pulmonary trunk is normal in caliber. There are no filling defects identified in main, lobar, or segmental pulmonary branches to suggest pulmonary embolus. Evaluation of the peripheral branches is degraded by motion artifact. Heart: The heart is top normal in size and without pericardial effusion. Lungs and pleural spaces: Evaluation of the lung parenchyma is degraded by motion artifact. Dependent atelectasis is seen bilaterally. No airspace consolidation or pleural effusion is identified. The trachea and central airways are clear. Mediastinum: There is no mediastinal lymphadenopathy. Lissy: Clear. Axillae: There is no axillary lymphadenopathy. Upper abdomen: The liver is enlarged and steatotic. A small hiatal hernia is noted. Skeletal structures: Degenerative change and mild scoliosis is noted in the thoracic spine. Arthritic change is seen in the shoulders. No lytic or blastic b cal lesions are seen. IMPRESSION: 1. There is no evidence of pulmonary embolus in the main, lobar, or segmental pulmonary arteries. 2. There is no airspace consolidation typical for pneumonia or pleural effusion. 3. Severe hepatic steatosis. ACT 112: Negative or not required by law. Electronically signed by: Carmelo Kohler M.D. 02/25/2023 4:21 PM Discharge Plan Visit Data Chief Complaint: Shortness of Breath/Dyspnea Stated Complaint: DOC REF,SOB, ED Provider: Carmelo Rios Discharge Problem: SOB (shortness of breath), Exertional dyspnea, Fluid overload, Pedal edema Patient Disposition: Admitted As Inpatient Condition: Fair Forms Stand Alone Forms: My [facility] Prescriptions Prescriptions: No Action multivitamin Tablet 1 tab PO DAILY celecoxib 200 mg capsule 200 mg PO DAILY furosemide 40 mg tablet 40 mg PO BID metformin 500 mg tablet 500 mg PO BID ipratropium-albuterol 0.5 mg-3 mg(2.5 mg base)/3 mL solution for nebulization 3 ml INHALATION Q8 PRN (Reason: Wheezing) vitamin B complex Tablet 1 tab PO DAILY albuterol sulfate 90 mcg/actuation HFA aerosol inhaler 2 puff INHALATION BID PRN (Reason: Shortness Of Breath Or Wheezing) lisinopril 2.5 mg tablet 2.5 mg PO HS ropinirole 4 mg tablet 4 mg PO HS bupropion HCl 150 mg tablet extended release 24 hr 150 mg PO BID fenofibrate nanocrystallized 48 mg tablet 48 mg PO DAILY Eliquis 5 mg tablet 5 mg PO BID Trulicity 0.75 mg/0.5 mL pen injector 0.75 mg SUBCUT WE Rx Instructions: Sat Referrals Referrals: Massiel Hansen PA-C [Primary Care Provider] -
--- NOTE | 2023-02-25 12:43 | XRay Report ---
XR chest 1V portable CLINICAL HISTORY: Chest pain, nonspecific COMPARISON STUDY: Chest radiograph October 09, 2022. FINDINGS: Lung volumes are normal. Lungs are clear. There is no pneumothorax or pleural effusion. Car diomegaly is unchanged. Mediastinal contours are normal. There is no evidence for pulmonary edema. IMPRESSION: No acute cardiopulmonary findings. No change in appearance of the chest. ACT 112: Negative or not required by law. Electronically signed by: Alec Agee M.D. 02/25/2023 12:41 PM
[2023-02-25 13:48] LABS: Basophils % (auto) 1.3 %; Eosinophils # (auto) 0.36 K/uL (0-0.50); Eosinophils % (auto) 4.6 %; Hematocrit (blood only) 41.6 % (42.0-52.0); Immature Granulocytes # (auto) 0.17 K/uL (0.01-0.20); Immature Granulocytes % (auto) 2.2 %; Lymphocytes % (auto) 19.1 %; Mean Corpuscular Hgb Conc 33.7 g/dL (32.0-36.0); Mean Corpuscular Volume 95.2 fL (80.0-100.0); Mean Platelet Volume 10.8 fL (9.4-12.4); Monocytes # (auto) 0.75 K/uL (0.11-0.59); Monocytes % (auto) 9.5 %; Neutrophils # (auto) 4.99 K/uL (1.40-6.50); Neutrophils % (auto) 63.3 %; Platelet Count 243 K/uL (130-400); RDW Standard Deviation 56.1 fL (36.4-46.3); Red Blood Count 4.37 M/uL (4.70-6.10); White Blood Count 7.87 K/ul (4.8-10.8)
[2023-02-25 14:04] LABS: Alanine Aminotransferase 51 U/L (7-52); Albumin Globulin Ratio 1.3 (0.9-2); Albumin Level 4.4 gm/dl (3.4-5.0); Alkaline Phosphatase 70 U/L (34-104); Anion Gap 8 (3-11); Aspartate Aminotransferase 23 U/L (13-39); BUN Creatinine Ratio 14.8 (10-20); Bilirubin,Total 0.4 mg/dl (0.2-1.0); Blood Urea Nitrogen 18 mg/dl (6-23); Calcium 9.5 mg/dl (8.6-10.3); Carbon Dioxide 24 mmol/L (21-32); Chloride 102 mmol/L (98-107); Est GFR (African American) 81.3 ml/min; Est GFR (Non-African American) 70.2 ml/min; Globulin 3.5 gm/dl (2.5-4.0); Glucose 174 mg/dl (70-99(Fasting)); Magnesium 1.9 mg/dl (1.7-2.4); Potassium 4.1 mmol/L (3.5-5.1); Sodium 134 mmol/L (136-145); Total Protein 7.9 gm/dl (6.0-8.3)
[2023-02-25 14:23] LABS: INR 0.9 (0.9-1.1); Partial Thromboplastin Ratio 0.9; Partial Thromboplastin Time 25.6 Seconds (21.0-31.0); Prothrombin Time 10.3 Seconds (9.0-12.0)
[2023-02-25] MEDS ORDERED: IOVERSOL 350 MG 125mL Prefilled Syringe IV ONE (16:13)
--- NOTE | 2023-02-25 16:21 | History & Physical Report ---
Date of Service February 25, 2023 Assessment & Plan (1) Diastolic CHF: Plan: -Admit to [facility] telemetry -Check 2D echo -Trend troponins -Patient weight of 215 kg on admission, daily weights ordered, strict I's and O's, heart healthy diet with a fluid restriction of 1200 mL/day -Lasix 60 mg IV given in the ER, outs of 650 mL so far, continue with Lasix 40 mg IV push twice daily as he takes p.o. at home -Consider cardiology consultation pending echo results -Education on heart healthy diet and sodium restriction, diet modification was held at bedside with the patient -Encouraged exercise and ambulation with activity modification held at bedside -Patient may continue lisinopril 2.5 mg at bedtime -Creatinine of 1.2 on admission, trend with a.m. labs with aggressive diuresis and receiving contrast today -Consider initiation of Jardiance for cardioprotective effects as well as diabetes (2) DM type 2 (diabetes mellitus, type 2): Plan: -Hold metformin 500 twice daily, holding Trulicity which he takes on Saturdays -ISS with Accu-Cheks ACHS -A1c ordered with a.m. labs (3) Morbid obesity with BMI of 50.0-59.9, adult: Plan: -Diet and exercise encouraged as above (4) QUENTIN on CPAP: Plan: -Patient uses 2L with CPAP at bedtime, reports that he has been using it for 1 to 2 hours/day secondary to progressive shortness of breath over the past 3 weeks -Follows with sleep study at [facility] routinely, was sent there from routine office visit this morning (5) Factor V Leiden: Plan: -History of such, continue Eliquis 5 mg twice daily -CT of the chest is negative for acute PE (6) Dyslipidemia: Plan: -Continue fenofibrate (7) Depression: Plan: -May continue Wellbutrin 150 mg twice daily DVT PPx: - teds, scds, Eliquis CODE: Conditional, agreeable to intubation in the setting of acute respiratory decompensation but no CPR Dispo: From home, likely to remain in the hospital x 1-2 days A total of 77 minutes were spent with greater than 50% of that time face to face with the patient, personally reviewing all current laboratories, imaging stud ies, past medication reconciliation, outpatient chart review, and discussion with specialists to collaborate care for the patient with attending. Please see attending documentation for corrections and/or additions. History of Present Illness Chief Complaint: Shortness of breath Primary Care Provider: Massiel Hansen PA-C This is a 47 yo M with PMhx of morbid obesity with a BMI of 57.7, diastolic CHF with LVEF of 60-65%, Factor V Leiden on Eliquis, history of cerebral venous thrombosis ( bilateral thalamic and basal ganglia infarcts) in January 2017, Dm II, obstructive sleep apnea with CPAP, restless leg syndrome, depression, who presents to the hospital today with worsening shortness of breath. He was hospitalized earlier this year due to metabolic encephalopathy from COVID, hypercarbia and required being placed on Bipap which resulted in improvement after a overnight stay. He follows with sleep study group at [facility] and saw them this morning as routinely scheduled for sleep apnea and then was sent here to the ER due to tachypnea, RR in the 30s, edema in BLE. Pt was given lasix 60 mg IV in the ER with 650 mL out so far. He wears 2 L O2 with CPAP HS, but does not have a prescription to wear it during the day. In the past month he has needed to wear CPAP during the day for about 1-2 hrs daily due to increased shortness of breath and he rests during this timeframe. He admits to chest heaviness and radiates into the left armpit with exertion in the past 1-2 days. He has temporal headache for the past 1-2 days as well. Weight today at outpatient sleep study clinic was 424 lbs, he thinks he is maintaining his weight, does not weigh himself daily due to being too heavy for in home scales. He feels swollen in his abdomen as well as his legs. Pt has been taking lasix 40 mg BID and has not missed meds. Pt reports trying to loose weight but has not been dieting or exercising routinely due to SOB. He does not drink soda, and states he tries to limit salt consumption as well as some sugar. He does not smoke. Pt lives at home with his and son. Allergies Allergy/AdvReac Type Severity Reaction Status Date / Time No Known Allergies Allergy Verified 02/25/23 16:59 Home Medications Medication Instructions Recorded Confirmed Type albuterol sulfate 90 mcg/actuation 2 puff inhalation BID PRN 02/25/23 02/25/23 History aerosol inhaler Shortness Of Breath Or Wheezing apixaban 5 mg tablet (Eliquis) 5 mg PO BID 02/25/23 02/25/23 History bupropion HCl 150 mg 24 hr tablet, 150 mg PO BID 02/25/23 02/25/23 History extended release celecoxib 200 mg capsule 200 mg PO DAILY 02/25/23 02/25/23 History dulaglutide 0.75 mg/0.5 mL 0.75 mg subcut WE 02/25/23 02/25/23 History subcutaneous pen injector (Trulicity) fenofibrate nanocrystallized 48 mg 48 mg PO DAILY 02/25/23 02/25/23 History tablet furosemide 40 mg tablet 40 mg PO BID 02/25/23 02/25/23 History ipratropium 0.5 mg-albuterol 3 mg 3 ml inhalation Q8 PRN Wheezing 02/25/23 02/25/23 History (2.5 mg base)/3 mL nebulization soln lisinopril 2.5 mg tablet 2.5 mg PO HS 02/25/23 02/25/23 History metformin 500 mg tablet 500 mg PO BID 02/25/23 02/25/23 History multivitamin 1 tab PO DAILY 02/25/23 02/25/23 History ropinirole 4 mg tablet 4 mg PO HS 02/25/23 02/25/23 History vitamin B complex 1 tab PO DAILY 02/25/23 02/25/23 History Past Med/Surg History Medical History (Updated 02/25/23 @ 17:36 by Paulina Ochoa PA-C) Chest pain at rest Depression Diastolic CHF DM type 2 (diabetes mellitus, type 2) Factor V Leiden Hx of cerebral thrombosis Morbid obesity with BMI of 50.0-59.9, adult QUENTIN on CPAP Osteoarthritis Palpitation Surgical History (Updated 10/09/22 @ 10:43 by Paulina Ochoa PA-C) Hx of eye surgery Left eyelid surgery Family History Other Asthma COPD (chronic obstructive pulmonary disease) Heart disease Hypertension Social History (Updated 10/09/22 @ 10:45 by Paulina Ochoa PA-C) Smoking Status: Former smoker Tobacco Type: Cigarettes Age Started Using Tobacco: 17; Age Quit Using Tobacco: 25; packs per day: 1; Second Hand Exposure: No; Do You Dip or Chew Tobacco: No; Hx Alcohol Use: No Hx Substance Use: No Preferred Language: Arabic Communication Ability: Effective Rehabilitation Services Counselor Required: No Beliefs That Will Affect Care: None Current Living Situation: Spouse Feels Safe at Home: Yes Assistive Devices: Cane, CPAP and Oxygen - at Night Review of Systems Review of Systems: Constitutional: No fever, sweats or chills Eyes: No diplopia, no worsening or blurred vision ENT: normal hearing, no trouble swallowing Respiratory: No cough, sputum, +dyspnea at rest and with minimal exertion Cardiovascular: As per HPI with intermittent chest heaviness, no tightness or palpitations currently Abdomen: No pain, nausea, vomiting, diarrhea or constipation Musculoskeletal: No joint pain, calf pain, swelling Neurologic: No weakness, numbness/tingling, or balance problems Psychiatric: +depression on wellbutrin Skin: No rash or itch Physical Exam Physical Exam: General: awake, alert, no apparent distress, morbidly obese, weight 215 kg Head: Normocephalic, atraumatic ENT: PERRL, EOMI, no pharyngeal exudate, mucous membranes moist, Chest: Clear to auscultation, on room air, respiratory rate in mid 30s sitting at rest, no adventitious breath sounds Cardiac: Regular rate and rhythm, no murmur, cannot assess JVD secondary to neck habitus, normal peripheral pulses, good capillary refill Abdominal: NABS x 4 quadrants, morbidly obese abdomen, soft, nondistended, nontender to palpation, no rebound or guarding Extremities: Normal inspection, + nonpitting peripheral edema, no erythema, calfs nontender to palpation Psych: Normal mood and affect Neuro: AAO x 3, strength intact bilaterally and rated 5/5, no motor deficits, speech is clear, no peripheral sensory deficits Results & Data Results & Data Vital Signs (Past 12 Hours) Vital Signs Temp Pulse Pulse Resp BP BP Pulse Ox 02/25/23 16:00 86 18 124/76 96 02/25/23 14:55 96 H 18 124/76 96 02/25/23 12:47 96 02/25/23 10:52 36.6 C 116 H 28 H 149/82 H 98 O2 Del Method 02/25/23 16:00 Room Air 02/25/23 14:55 Room Air 02/25/23 12:47 Room Air 02/25/23 10:52 Room Air Laboratory Results 02/25/23 02/25/23 02/25/23 Unknown Unknown Unknown WBC RBC Hgb Hct MCV MCH MCHC RDW Std Deviation RDW Coeff of Nba Plt Count MPV Immature Gran % (Auto) Neut % (Auto) Lymph % (Auto) Villalba % (Auto) Eos % (Auto) Baso % (Auto) Neut # (Auto) Lymph # (Auto) Villalba # (Auto) Eos # (Auto) Baso # (Auto) Immature Gran # (Auto) PT INR APTT PTT Ratio ABG pH ABG pCO2 ABG pO2 ABG HCO3 ABG O2 Saturation ABG Base Excess Rajat Test Oxygen Given Sodium 134 L Potassium 4.1 Chloride 102 Carbon Dioxide 24 Anion Gap 8 BUN 18 Creatinine 1.22 Est Cr Clr Drug Dosing Not Reportable Est GFR ( Amer) 81.3 Est GFR (Non-Af Amer) 70.2 BUN/Creatinine Ratio 14.8 Glucose 174 H Calcium 9.5 Magnesium 1.9 Total Bilirubin 0.4 AST 23 ALT 51 Alkaline Phosphatase 70 Troponin I High Sens 5.0 B-Natriuretic Peptide 5 Total Protein 7.9 Albumin 4.4 Globulin 3.5 Albumin/Globulin Ratio 1.3 SARS-CoV-2, RNA, NAAT NEGATIVE 02/25/23 02/25/23 02/25/23 Unknown Unknown 17:02 WBC 7.87 RBC 4.37 L Hgb 14.0 Hct 41.6 L MCV 95.2 MCH 32.0 MCHC 33.7 RDW Std Deviation 56.1 H RDW Coeff of Nba 16.0 H Plt Count 243 MPV 10.8 Immature Gran % (Auto) 2.2 Neut % (Auto) 63.3 Lymph % (Auto) 19.1 Villalba % (Auto) 9.5 Eos % (Auto) 4.6 Baso % (Auto) 1.3 Neut # (Auto) 4.99 Lymph # (Auto) 1.50 Villalba # (Auto) 0.75 H Eos # (Auto) 0.36 Baso # (Auto) 0.10 Immature Gran # (Auto) 0.17 PT 10.3 INR 0.9 APTT 25.6 PTT Ratio 0.9 ABG pH 7.47 H ABG pCO2 31 L ABG pO2 85 ABG HCO3 23 ABG O2 Saturation 98.1 H ABG Base Excess -0.2 Rajat Test POS Oxygen Given ROOM AIR Sodium Potassium Chloride Carbon Dioxide Anion Gap BUN Creatinine Est Cr Clr Drug Dosing Est GFR ( Amer) Est GFR (Non-Af Amer) BUN/Creatinine Ratio Glucose Calcium Magnesium Total Bilirubin AST ALT Alkaline Phosphatase Troponin I High Sens B-Natriuretic Peptide Total Protein Albumin Globulin Albumin/Globulin Ratio SARS-CoV-2, RNA, NAAT Diagnostic Findings Chest X-Ray 02/25/23 10:56 XR chest 1V portable CLINICAL HISTORY: Chest pain, nonspecific COMPARISON STUDY: Chest radiograph October 09, 2022. FINDINGS: Lung volumes are normal. Lungs are clear. There is no pneumothorax or pleural effusion. Cardiomegaly is unchanged. Mediastinal contours are normal. There is no evidence for pulmonary edema. IMPRESSION: No acute cardiopulmonary findings. No change in appearance of the chest. ACT 112: Negative or not required by law. Electronically signed by: Alec Agee M.D. 02/25/2023 12:41 PM Chest CTA 02/25/23 12:10 CT ANGIOGRAM OF THE CHEST CLINICAL HISTORY: Dyspnea. COMPARISON STUDY: Chest x-ray dated 02/25/2023. TECHNIQUE: Following the IV administration of 119 cc of Optiray 350, CT angiogram of the chest was performed from the upper abdomen to the thoracic inlet utilizing the pulmonary embolus protocol. Images are reviewed in the axial, sagittal, and coronal planes. 3-D MIPS images are created and assessed. IV contrast was administered without complication. A dose lowering technique was utilized adhering to the principles of ALARA. The examination is degraded by motion artifact. CT DOSE: 1124.31 mGy.cm FINDINGS: Thyroid: Imaged portions of the thyroid gland are normal in size and attenuation. Thoracic aorta: The thoracic aorta is normal in caliber and demonstrates standard 3-vessel arch anatomy. No dissection is seen. Pulmonary vasculature: The pulmonary trunk is normal in caliber. There are no filling defects identified in main, lobar, or segmental pulmonary branches to suggest pulmonary embolus. Evaluation of the peripheral branches is degraded by motion artifact. Heart: The heart is top normal in size and without pericardial effusion. Lungs and pleural spaces: Evaluation of the lung parenchyma is degraded by motion artifact. Dependent atelectasis is seen bilaterally. No airspace consolidation or pleural effusion is identified. The trachea and central airways are clear. Mediastinum: There is no mediastinal lymphadenopathy. Lissy: Clear. Axillae: There is no axillary lymphadenopathy. Upper abdomen: The liver is enlarged and steatotic. A small hiatal hernia is noted. Skeletal structures: Degenerative change and mild scoliosis is noted in the thoracic spine. Arthritic change is seen in the shoulders. No lytic or blastic bony lesions are seen. IMPRESSION: 1. There is no evidence of pulmonary embolus in the main, lobar, or segmental pulmonary arteries. 2. There is no airspace consolidation typical for pneumonia or pleural effusion. 3. Severe hepatic steatosis. ACT 112: Negative or not required by law. Electronically signed by: Carmelo Kohler M.D. 02/25/2023 4:21 PM ECG Additional Comments: Reviewed personally, no acute EKG changes or ST wave inversions or signs of ischemia 25-FEB-2023 11:22:00 [facility]-EDSTAT ROUTINE RETRIEVAL Sinus tachycardia Otherwise normal ECG When compared with ECG of 09-OCT-2022 06:26, QRS axis Shifted left Nonspecific T wave abnormality no longer evident in Anterior leads 25mm/s10mm/[id number] 243CID: 19Unconfirmed Vent. rate 107 BPM NE interval 150 ms QRS duration 90 ms QT/QTc 332/443 ms Code Status & VTE Plan Code Status Conditional -Patient is agreeable to intubation in the setting of shortness of breath -No CPR Supervising Physician Co-Signing Physician Notes I have seen and examined the patient and have discussed the case with the provider above. I agree with the assessment and plan as stated with the following exceptions. 47-year-old man who is morbidly obese with a history of diastolic CHF, factor V Leiden on Eliquis with history of VTE, diabetes, obstructive sleep apnea with CPAP, depression presenting with worsening dyspnea on exertion over 3 weeks. He describes the exhaustion he has been experiencing just by taking a shower states that his has to have his CPAP ready for him to use and help him recover. He used to be able to walk across his house and is now no longer able to walk 10 steps without becoming significantly short of breath. He does report some chest discomfort when he becomes very short of breath. He is not sure of any weight gain or swelling as he is not able to regularly check his weight. He does report paroxysmal nocturnal dyspnea despite CPAP use and has a 2 pillow orthopnea. Today he was sent in from his follow-up with his sleep physician. In the ER a chest CTA revealed no evidence of pulmonary embolus and no airspace consolidation or pleural effusion. There is no evidence of pulmonary edema. He was started on Lasix IV 60 mg and feels about the same. He denies any active chest pain and troponin is negative with no acute changes on EKG. He is a former smoker with no active wheezing on exam. He denies any other respiratory symptoms. On exam he is morbidly obese and significantly short of breath with minimal exertion mild conversational dyspnea. Lungs are clear to auscultation throughout. There is no significant pitting edema in the lower extremities however this is difficult to gauge given level of obesity. He also has a very protuberant abdomen that is soft nontender nondistended. Cardiac exam reveals S1-S2 heard with no evidence of murmur. Regular rate and rhythm was observed. He is mentating clearly and oxygenating well on room air. Work-up includes a CBC within normal limits, CHEM panel that is unremarkable with a creatinine at baseline. Liver panel is unremarkable. CT scan did reveal severe hepatic steatosis and patient was counseled about fatty liver disease and how this can transition into cirrhosis. Chest x-ray was clear as noted above. 1. Acute diastolic CHF 2. DM 2, controlled 3. Obstructive sleep apnea on CPAP 4. Morbid obesity 5. Factor V Leiden on anticoagulation 6. Depression 7. Obstructive sleep apnea on CPAP 8. Morbid obesity 9. Factor V Leiden. 10. Severe hepatic steatosis Patient was extensively counseled by the provider above and myself regarding the importance of treating his morbid obesity. He is on Trulicity, but has not been counseled about using a GLP-1 agonist for weight loss. He is planning to request a referral for bariatric surgery consideration. He does report that his depression is not well controlled and has contributed to 100 pound weight gain after the loss of his second . He is not in counseling and was encouraged to consider this. He describes a CHF picture for the last 3 weeks. He does appear fluid overloaded although this is difficult to ascertain given his level of obesity. His lungs are clear, updated echocardiogram pending. If no improvement with diuresis, consider pulmonology consult. DO Dennis
[2023-02-25 17:12] LABS: Base Excess ABG -0.2 mEq/L (-9-1.8); HCO3 ABG 23 mmol/L (19-24); Oxygen Saturation ABG 98.1 % (90-95); PCO2 ABG 31 mmHg (35-46); PO2 ABG 85 mmHg (80-95); pH ABG 7.47 (7.35-7.45)
[2023-02-25 17:13] LABS: Allen Test POS (Pos)
[2023-02-25] MEDS ORDERED: ALBUTEROL HFA 8 GM INHALER INH PRN (22:40)
[2023-02-25] MEDS ORDERED: ACETAMINOPHEN 325 MG TAB PO PRN (22:40)
[2023-02-25] MEDS ORDERED: ONDANSETRON INJ 2 MG/ML 2 ML VIAL IV PRN (22:40)
[2023-02-25] MEDS ORDERED: CARBOHYDRATES FOR HYPOGLYCEMIA PO PRN (22:40)
[2023-02-25] MEDS ORDERED: GLUCAGON FOR INJ 1 MG VIAL SQ PRN (22:40)
[2023-02-25] MEDS ORDERED: DEXTROSE 50% 50 ML SYRINGE IV PRN (22:40)
[2023-02-25] MEDS ORDERED: ALBUT/IPRATROP 3MG/0.5MG NEB 3 ML VIAL INH PRN (22:40)
[2023-02-25] MEDS ORDERED: GLUCOSE 10 TAB/TUBE PO PRN (22:40)
[2023-02-25] MEDS ORDERED: GLUCOSE 40% GEL 15 GM TUBE PO PRN (22:40)
[2023-02-25] MEDS: FUROSEMIDE 40 MG/4 ML VIAL IV SCH (23:54)
[2023-02-25] MEDS: INSULIN ASPART PER UNIT CHARGE SC SCH (23:55)
[2023-02-25] MEDS: lisinopril 2.5 MG TAB PO SCH (23:55)
[2023-02-25] MEDS: rOPINIRole HCL 2 MG TABLET PO SCH (23:56)
[2023-02-25] MEDS: APIXABAN 5 MG TABLET PO SCH (23:56)
[2023-02-26 07:10] LABS: Hematocrit (blood only) 41.5 % (42.0-52.0); Hemoglobin 14.3 g/dl (14.0-18.0); Mean Corpuscular Hemoglobin 32.4 pg (25.0-34.0); Mean Corpuscular Hgb Conc 34.5 g/dL (32.0-36.0); Mean Corpuscular Volume 94.1 fL (80.0-100.0); Mean Platelet Volume 11.1 fL (9.4-12.4); Platelet Count 239 K/uL (130-400); RDW Coefficient of Variation 16.5 % (11.5-14.5); RDW Standard Deviation 57.1 fL (36.4-46.3); Red Blood Count 4.41 M/uL (4.70-6.10)
[2023-02-26 07:24] LABS: Anion Gap 10 (3-11); BUN Creatinine Ratio 15.2 (10-20); Blood Urea Nitrogen 21 mg/dl (6-23); Calcium 9.1 mg/dl (8.6-10.3); Carbon Dioxide 23 mmol/L (21-32); Chloride 104 mmol/L (98-107); Cholesterol 158 mg/dl (0-200); Creatinine Clr Calc Pharmacy 108.1 ml/min; Est GFR (African American) 70.1 ml/min; Est GFR (Non-African American) 60.5 ml/min; Glucose 145 mg/dl (70-99(Fasting)); HDL Cholesterol 30 mg/dl; Potassium 3.9 mmol/L (3.5-5.1); Sodium 137 mmol/L (136-145); Triglycerides 473 mg/dl (0-150)
[2023-02-26 08:32] LABS: Estimated Average Glucose 143 mg/dl; Hemoglobin A1C 6.6 % (4.5-5.6)
[2023-02-26] MEDS: INSULIN ASPART PER UNIT CHARGE SC SCH ×4 (08:42→20:37)
[2023-02-26] MEDS: APIXABAN 5 MG TABLET PO SCH ×2 (08:43→20:37)
[2023-02-26] MEDS: buPROPion XL 150 MG TABCR PO SCH ×3 (08:43→20:36)
[2023-02-26] MEDS: VITAMIN B COMPLEX TAB PO SCH (08:43)
[2023-02-26] MEDS: FUROSEMIDE 40 MG/4 ML VIAL IV SCH ×2 (08:44→16:59)
[2023-02-26] MEDS: CeleBREX 200 MG CAP PO SCH (08:44)
[2023-02-26] MEDS: MULTIVITAMIN TAB PO SCH (08:44)
[2023-02-26] MEDS: FENOFIBRATE NANOCRYSTALLIZED 48 MG TABLET PO SCH (08:44)
[2023-02-26 10:50] LABS: Chol HDL Ratio 5.3 (0-5)
--- NOTE | 2023-02-26 15:37 | Hospitalist Progress Note ---
Date of Service February 26, 2023 Assessment & Plan (1) Diastolic CHF: Plan: -Remains stable in medical telemetry unit -Serial troponins have been negative for any ACS -Patient weight of 215 kg on admission, daily weights ordered, strict I's and O's, heart healthy diet with a fluid restriction of 1200 mL/day -Lasix 60 mg IV given in the ER, outs of 650 mL so far, continue with Lasix 40 mg IV push twice daily as he takes p.o. at home -Education on heart healthy diet and sodium restriction, diet modification was held at bedside with the patient -Encouraged exercise and ambulation with activity modification held at bedside -Patient may continue lisinopril 2.5 mg at bedtime -Has been feeling much better since admission with a negative balance of 3219 mL so far -Echo of the heart showed: Mild concentric LVH with hyperdynamic left ventricle, EF of more than 70%, no regional motion abnormalities, RV is normal in size, RV is hyperdynamic, grade 1 diastolic dysfunction and mild tricuspid regurgitation -We will continue current furosemide of 40 mg IV twice daily -Continue intake output and monitor electrolytes (2) DM type 2 (diabetes mellitus, type 2): Plan: -Hold metformin 500 twice daily, holding Trulicity which he takes on Saturdays -ISS with Accu-Cheks ACHS -A1c ordered with a.m. labs--hemoglobin A1c 6.6 -Discussed with the patient about Jardiance (3) Morbid obesity with BMI of 50.0-59.9, adult: Plan: -Diet and exercise encouraged as above (4) QUENTIN on CPAP: Plan: -Patient uses 2L with CPAP at bedtime, reports that he has been using it for 1 to 2 hours/day secondary to progressive shortness of breath over the past 3 weeks -Follows with sleep study at [facility] routinely, was sent there from routine office visit this morning (5) Factor V Leiden: Plan: -History of such, continue Eliquis 5 mg twice daily -CT of the chest is negative for acute PE (6) Dyslipidemia: Plan: -Continue fenofibrate (7) Depression: Plan: -May continue Wellbutrin 150 mg twice daily DVT PPx: - teds, scds, Eliquis CODE: Conditional, agreeable to intubation in the setting of acute respiratory decompensation but no CPR Dispo: From home, likely to remain in the hospital x 1-2 days Admission and Anticipated Discharge Date Admission Date: February 25, 2023 Subjective 02/26/2023 The patient was seen and examined in medical telemetry unit He was admitted with increasing shortness of breath for the last 2-month Noted to have acute diastolic failure and has been getting better since admission Denies any significant symptoms at rest Review of Systems Review of Systems: All systems reviewed and are unremarkable except as noted below Physical Exam Physical Exam: Lying in bed comfortably Constitutional: well developed, well nourished, + ill appearing and + morbidly obese Eyes: PERRL, conjunctivae normal, anicteric sclerae ENMT: external ear and nose normal, oropharynx normal Neck: trachea midline, no thyromegaly Respiratory: no respiratory distress Auscultation: + diminished lung sounds and + crackles (At the bases) Cardiovascular: Rate/Rhythm: regular rate, regular rhythm and + tachycardic Heart Sounds: normal S1 and normal S2; no murmur Extremities: + edema (1+ edema bilaterally) Gastrointestinal (Abdomen): Inspection/Auscultation: normal bowel sounds; abdomen not distended Percussion/Palpation: abdomen soft; abdomen nontender Musculoskeletal: No acute arthritis involving any joint Neurologic: normal touch/pain/proprioception and moves all extremities; no focal motor deficits Psychiatric: A+Ox3, euthymic affect Lymphatic: no cervical or axillary lymphadenopathy Results & Data Results & Data Vital Signs (Past 12 Hours) Vital Signs Temp Pulse Pulse Pulse Resp BP Pulse Ox 02/26/23 14:57 02/26/23 11:32 36.3 C L 105 H 16 108/75 94 02/26/23 07:40 36.6 C 108 H 18 108/68 95 02/26/23 07:48 109 H 02/26/23 05:59 105 H 02/26/23 07:12 108 H Pulse Ox Pulse Ox O2 Del Method 02/26/23 14:57 92 94 02/26/23 11:32 Room Air 02/26/23 07:40 Room Air 02/26/23 07:48 02/26/23 05:59 02/26/23 07:12 Laboratory Results Short CBC 02/26/23 Range/Units 06:02 WBC 8.00 (4.8-10.8) K/ul Hgb 14.3 (14.0-18.0) g/dl Hct 41.5 L (42.0-52.0) % Plt Count 239 (130-400) K/uL BMP 02/26/23 06:02 Sodium 137 Potassium 3.9 Chloride 104 Carbon Dioxide 23 BUN 21 Creatinine 1.38 Glucose 145 H Calcium 9.1 Medications Administered Current Inpatient Medications Acetaminophen (Acetaminophen 325 Mg Tab) 650 mg PO Q4H PRN PRN Reason: Moderate Pain (Scale 4, 5, 6) Stop: 03/27/23 22:39 Albuterol (Albuterol Hfa 8 Gm Inhaler) 2 puffs INH BID PRN PRN Reason: Shortness Of Breath Or Wheezin Stop: 03/27/23 22:39 Albuterol (Albut/Ipratrop 3mg/0.5mg Neb 3 Ml Vial) 3 ml INH Q8 PRN; Protocol PRN Reason: Wheezing Stop: 03/27/23 22:39 Apixaban (Apixaban 5 Mg Tablet) 5 mg PO BID MIRIAM Stop: 03/27/23 22:39 Last Admin: 02/26/23 08:43 Dose: 5 mg Bupropion HCl (Bupropion Xl 150 Mg Tabcr) 150 mg PO BID MIRIAM Stop: 03/27/23 22:39 Last Admin: 02/26/23 08:43 Dose: 150 mg Celecoxib (Celebrex 200 Mg Cap) 200 mg PO DAILY MIRIAM Stop: 03/28/23 08:59 Last Admin: 02/26/23 08:44 Dose: 200 mg Dextrose (Dextrose 50% 50 Ml Syringe) 25 - 50 ml IV UD PRN; Protocol PRN Reason: Hypoglycemia Protocol Stop: 03/27/23 22:39 Fenofibrate (Fenofibrate Nanocrystallized 48 Mg Tablet) 48 mg PO DAILY MIRIAM Stop: 03/28/23 08:59 Last Admin: 02/26/23 08:44 Dose: 48 mg Furosemide (Furosemide 40 Mg/4 Ml Vial) 40 mg IV [id number] MIRIAM Stop: 03/27/23 22:39 Last Admin: 02/26/23 08:44 Dose: 40 mg Glucagon (Glucagon For Inj 1 Mg Vial) 1 mg SQ UD PRN; Protocol PRN Reason: Hypoglycemia Protocol Stop: 03/27/23 22:39 Glucose (Glucose 10 Tab/Tube) 4 - 8 tab PO UD PRN; Protocol PRN Reason: Hypoglycemia Treatment Stop: 03/27/23 22:39 Glucose (Glucose 40% Gel 15 Gm Tube) 15 - 30 gm PO UD PRN; Protocol PRN Reason: Hypoglycemia Protocol Stop: 03/27/23 22:39 Insulin Aspart (Insulin Aspart Per Unit Charge) 0 units SC ACHS [facility] Stop: 03/27/23 22:39 Last Admin: 02/26/23 12:42 Dose: 4 units Lisinopril (Lisinopril 2.5 Mg Tab) 2.5 mg PO HS [facility] Stop: 03/27/23 22:39 Last Admin: 02/25/23 23:55 Dose: 2.5 mg Miscellaneous (Carbohydrates For Hypoglycemia ) 15 - 30 gm PO UD PRN PRN Reason: Hypoglycemia Protocol Stop: 03/27/23 22:39 Multivitamins (Multivitamin Tab) 1 tab PO DAILY [facility] Stop: 03/28/23 08:59 Last Admin: 02/26/23 08:44 Dose: 1 tab Ondansetron HCl (Ondansetron Inj 2 Mg/Ml 2 Ml Vial) 4 mg IV Q4H PRN PRN Reason: Nausea And Vomiting Stop: 03/27/23 22:39 Ropinirole HCl (Ropinirole Hcl 2 Mg Tablet) 4 mg PO HS MIRIAM Stop: 03/27/23 22:39 Last Admin: 02/25/23 23:56 Dose: 4 mg Vitamin B Complex (Vitamin B Complex Tab) 1 tab PO DAILY [facility] Stop: 03/28/23 08:59 Last Admin: 02/26/23 08:43 Dose: 1 tab
[2023-02-26] MEDS: lisinopril 2.5 MG TAB PO SCH (20:36)
[2023-02-26] MEDS: rOPINIRole HCL 2 MG TABLET PO SCH (20:36)
--- NOTE | 2023-02-27 06:11 | Electrocardiogram Report ---
Test Reason : Blood Pressure : / mmHG Vent. Rate : 107 BPM Atrial Rate : 107 BPM P-R Int : 150 ms QRS Dur : 090 ms QT Int : 332 ms P-R-T Axes : 046 -29 010 degrees QTc Int : 443 ms Sinus tachycardia Inferior infarct When compared with ECG of 09-OCT-2022 06:26, QRS axis Shifted left Nonspecific T wave abnormality no longer evident in Anterior leads Inferior infarct is now present Confirmed by Anuel Narvaez ([id number]) on 02/27/2023 6:10:55 AM Referred By: Confirmed By:Anuel Narvaez
[2023-02-27 08:08] LABS: BUN Creatinine Ratio 18.9 (10-20); Calcium 9.3 mg/dl (8.6-10.3); Est GFR (African American) 73.9 ml/min; Est GFR (Non-African American) 63.8 ml/min; Magnesium 2.3 mg/dl (1.7-2.4); Potassium 3.6 mmol/L (3.5-5.1)
[2023-02-27] MEDS: FENOFIBRATE NANOCRYSTALLIZED 48 MG TABLET PO SCH (08:45)
[2023-02-27] MEDS: FUROSEMIDE 40 MG/4 ML VIAL IV SCH (08:45)
[2023-02-27] MEDS: APIXABAN 5 MG TABLET PO SCH (08:45)
[2023-02-27] MEDS: buPROPion XL 150 MG TABCR PO SCH (08:45)
[2023-02-27] MEDS: INSULIN ASPART PER UNIT CHARGE SC SCH ×2 (08:45→12:53)
[2023-02-27] MEDS: CeleBREX 200 MG CAP PO SCH (08:45)
[2023-02-27] MEDS: MULTIVITAMIN TAB PO SCH (08:46)
[2023-02-27] MEDS: VITAMIN B COMPLEX TAB PO SCH (08:46)
--- NOTE | 2023-02-27 12:34 | Hospitalist Progress Note ---
Date of Service February 27, 2023 Assessment & Plan (1) Diastolic CHF: Plan: -Remains stable in medical telemetry unit -Serial troponins have been negative for any ACS -Patient weight of 215 kg on admission, daily weights ordered, strict I's and O's, heart healthy diet with a fluid restriction of 1200 mL/day -Lasix 60 mg IV given in the ER, outs of 650 mL so far, continue with Lasix 40 mg IV push twice daily as he takes p.o. at home -Education on heart healthy diet and sodium restriction, diet modification was held at bedside with the patient -Encouraged exercise and ambulation with activity modification held at bedside -Patient may continue lisinopril 2.5 mg at bedtime -Has been feeling much better since admission with a negative balance of 3219 mL so far -Echo of the heart showed: Mild concentric LVH with hyperdynamic left ventricle, EF of more than 70%, no regional motion abnormalities, RV is normal in size, RV is hyperdynamic, grade 1 diastolic dysfunction and mild tricuspid regurgitation -We will continue current furosemide of 40 mg IV twice daily -Continue intake output and monitor electrolytes -Clinically much better and denies any symptoms at rest or with ambulation -Will be discharged home this afternoon (2) DM type 2 (diabetes mellitus, type 2): Plan: -Hold metformin 500 twice daily, holding Trulicity which he takes on Saturdays -ISS with Accu-Cheks ACHS -A1c ordered with a.m. labs--hemoglobin A1c 6.6 -Discussed with the patient about Jardiance -Advised to discuss about Jardiance with his primary care physician (3) Morbid obesity with BMI of 50.0-59.9, adult: Plan: -Diet and exercise encouraged as above (4) QUENTIN on CPAP: Plan: -Patient uses 2L with CPAP at bedtime, reports that he has been using it for 1 to 2 hours/day secondary to progressive shortness of breath over the past 3 weeks -Follows with sleep study at [facility] routinely, was sent there from routine office visit this morning (5) Factor V Leiden: Plan: -History of such, continue Eliquis 5 mg twice daily -CT of the chest is negative for acute PE (6) Dyslipidemia: Plan: -Continue fenofibrate (7) Depression: Plan: -May continue Wellbutrin 150 mg twice daily DVT PPx: - teds, scds, Eliquis CODE: Conditional, agreeable to intubation in the setting of acute respiratory decompensation but no CPR Dispo: From home, likely to remain in the hospital x 1-2 days Has had 2 steps O2 saturation test and he does not need any oxygen To be discharged home this afternoon Admission and Anticipated Discharge Date Admission Date: February 25, 2023 Subjective 02/26/2023 The patient was seen and examined in medical telemetry unit He was admitted with increasing shortness of breath for the last 2-month Noted to have acute diastolic failure and has been getting better since admission Denies any significant symptoms at rest 02/27/2023 The patient was seen and examined in medical telemetry unit He has been feeling much better and denies any shortness of breath at rest He has had physical therapy and recommended home with home PT but the patient declined He wants to go home this afternoon Review of Systems Review of Systems: All systems reviewed and are unremarkable except as noted below Physical Exam Physical Exam: Lying in bed comfortably Constitutional: well developed, well nourished and + morbidly obese; not ill appearing Eyes: PERRL, conjunctivae normal, anicteric sclerae ENMT: external ear and nose normal, oropharynx normal Neck: trachea midline, no thyromegaly Respiratory: no respiratory distress Auscultation: + diminished lung tate nds; no crackles (At the bases) Cardiovascular: Rate/Rhythm: regular rate, regular rhythm and + tachycardic Heart Sounds: normal S1 and normal S2; no murmur Extremities: + edema (1+ edema bilaterally) Gastrointestinal (Abdomen): Inspection/Auscultation: normal bowel sounds; abdomen not distended Percussion/Palpation: abdomen soft; abdomen nontender Musculoskeletal: No acute arthritis involving any joint Neurologic: normal touch/pain/proprioception and moves all extremities; no focal motor deficits Psychiatric: A+Ox3, euthymic affect Lymphatic: no cervical or axillary lymphadenopathy Results & Data Results & Data Vital Signs (Past 12 Hours) Vital Signs Temp Pulse Pulse Pulse Pulse Pulse Resp 02/27/23 11:35 109 H 138 H 113 H 02/27/23 11:22 36.9 C 101 H 20 02/27/23 08:00 97 H 02/27/23 07:36 36.3 C L 99 H 16 02/27/23 03:32 36.9 C 102 H 20 Resp Resp Resp BP Pulse Ox Pulse Ox Pulse Ox 02/27/23 11:35 22 20 18 95 96 02/27/23 11:22 129/85 93 02/27/23 08:00 02/27/23 07:36 127/78 95 02/27/23 03:32 165/72 H 95 Pulse Ox O2 Del Method 02/27/23 11:35 95 02/27/23 11:22 Room Air 02/27/23 08:00 02/27/23 07:36 Room Air 02/27/23 03:32 Room Air, CPAP Laboratory Results [facility] 02/27/23 06:58 Sodium 138 Potassium 3.6 Chloride 105 Carbon Dioxide 23 BUN 25 H Creatinine 1.32 Glucose 136 H Calcium 9.3 Medications Administered Current Inpatient Medications Acetaminophen (Acetaminophen 325 Mg Tab) 650 mg PO Q4H PRN PRN Reason: Moderate Pain (Scale 4, 5, 6) Stop: 03/27/23 22:39 Albuterol (Albuterol Hfa 8 Gm Inhaler) 2 puffs INH BID PRN PRN Reason: Shortness Of Breath Or Wheezin Stop: 03/27/23 22:39 Albuterol (Albut/Ipratrop 3mg/0.5mg Neb 3 Ml Vial) 3 ml INH Q8 PRN; Protocol PRN Reason: Wheezing Stop: 03/27/23 22:39 Apixaban (Apixaban 5 Mg Tablet) 5 mg PO BID MIRIAM Stop: 03/27/23 22:39 Last Admin: 02/27/23 08:45 Dose: 5 mg Bupropion HCl (Bupropion Xl 150 Mg Tabcr) 150 mg PO BID MIRIAM Stop: 03/27/23 22:39 Last Admin: 02/27/23 08:45 Dose: 150 mg Celecoxib (Celebrex 200 Mg Cap) 200 mg PO DAILY MIRIAM Stop: 03/28/23 08:59 Last Admin: 02/27/23 08:45 Dose: 200 mg Dextrose (Dextrose 50% 50 Ml Syringe) 25 - 50 ml IV UD PRN; Protocol PRN Reason: Hypoglycemia Protocol Stop: 03/27/23 22:39 Fenofibrate (Fenofibrate Nanocrystallized 48 Mg Tablet) 48 mg PO DAILY MIRIAM Stop: 03/28/23 08:59 Last Admin: 02/27/23 08:45 Dose: 48 mg Furosemide (Furosemide 40 Mg/4 Ml Vial) 40 mg IV BID17 MIRIAM Stop: 03/27/23 22:39 Last Admin: 02/27/23 08:45 Dose: 40 mg Glucagon (Glucagon For Inj 1 Mg Vial) 1 mg SQ UD PRN; Protocol PRN Reason: Hypoglycemia Protocol Stop: 03/27/23 22:39 Glucose (Glucose 10 Tab/Tube) 4 - 8 tab PO UD PRN; Protocol PRN Reason: Hypoglycemia Treatment Stop: 03/27/23 22:39 Glucose (Glucose 40% Gel 15 Gm Tube) 15 - 30 gm PO UD PRN; Protocol PRN Reason: Hypoglycemia Protocol Stop: 03/27/23 22:39 Insulin Aspart (Insulin Aspart Per Unit Charge) 0 units SC ACHS MIRIAM Stop: 03/27/23 22:39 Last Admin: 02/27/23 08:45 Dose: 5 units Lisinopril (Lisinopril 2.5 Mg Tab) 2.5 mg PO HS MIRIAM Stop: 03/27/23 22:39 Last Admin: 02/26/23 20:36 Dose: 2.5 mg Miscellaneous (Carbohydrates For Hypoglycemia ) 15 - 30 gm PO UD PRN PRN Reason: Hypoglycemia Protocol Stop: 03/27/23 22:39 Multivitamins (Multivitamin Tab) 1 tab PO DAILY MIRIAM Stop: 03/28/23 08:59 Last Admin: 02/27/23 08:46 Dose: 1 tab Ondansetron HCl (Ondansetron Inj 2 Mg/Ml 2 Ml Vial) 4 mg IV Q4H PRN PRN Reason: Nausea And Vomiting Stop: 03/27/23 22:39 Ropinirole HCl (Ropinirole Hcl 2 Mg Tablet) 4 mg PO HS MIRIAM Stop: 03/27/23 22:39 Last Admin: 02/26/23 20:36 Dose: 4 mg Vitamin B Complex (Vitamin B Complex Tab) 1 tab PO DAILY MIRIAM Stop: 03/28/23 08:59 Last Admin: 02/27/23 08:46 Dose: 1 tab
--- NOTE | 2023-02-28 17:14 | Discharge Summary ---
Date of Service February 27, 2023 Admission HPI Per Admitting Provider This is a 47 yo M with PMhx of morbid obesity with a BMI of 57.7, diastolic CHF with LVEF of 60-65%, Factor V Leiden on Eliquis, history of cerebral venous thrombosis ( bilateral thalamic and basal ganglia infarcts) in January 2017, Dm II, obstructive sleep apnea with CPAP, restless leg syndrome, depression, who presents to the hospital today with worsening shortness of breath. He was hospitalized earlier this year due to metabolic encephalopathy from COVID, hypercarbia and required being placed on Bipap which resulted in improvement after a overnight stay. He follows with sleep study group at [facility] this morning as routinely scheduled for sleep apnea and then was sent here to the ER due to tachypnea, RR in the 30s, edema in BLE. Pt was given lasix 60 mg IV in the ER with 650 mL out so far. He wears 2 L O2 with CPAP HS, but does not have a prescription to wear it during the day. In the past month he has needed to wear CPAP during the day for about 1-2 hrs daily due to increased shortness of breath and he rests during this timeframe. He admits to chest heaviness and radiates into the left armpit with exertion in the past 1-2 days. He has temporal headache for the past 1-2 days as well. Weight today at outpatient sleep study clinic was 424 lbs, he thinks he is maintaining his weight, does not weigh himself daily due to being too heavy for in home scales. He feels swollen in his abdomen as well as his legs. Pt has been taking lasix 40 mg BID and has not missed meds. Pt reports trying to loose weight but has not been dieting or exercising routinely due to SOB. He does not drink soda, and states he tries to limit salt consumption as well as some sugar. He does not smoke. Pt lives at home with his and son. Admission Exam Per Admitting Provider Physical Exam: General: awake, alert, no apparent distress, morbidly obese, weight 215 kg Head: Normocephalic, atraumatic ENT: PERRL, EOMI, no pharyngeal exudate, mucous membranes moist, Chest: Clear to auscultation, on room air, respiratory rate in mid 30s sitting at rest, no adventitious breath sounds Cardiac: Regular rate and rhythm, no murmur, cannot assess JVD secondary to neck habitus, normal peripheral pulses, good capillary refill Abdominal: NABS x 4 quadrants, morbidly obese abdomen, soft, nondistended, nontender to palpation, no rebound or guarding Extremities: Normal inspection, + nonpitting peripheral edema, no erythema, calfs nontender to palpation Psych: Normal mood and affect Neuro: AAO x 3, strength intact bilaterally and rated 5/5, no motor deficits, speech is clear, no peripheral sensory deficits Principal Diagnosis Acute diastolic CHF, type 2 diabetes, QUENTIN, factor V Leiden with, obesity Discharge Exam Lying in bed comfortably Constitutional well developed, well nourished and + morbidly obese; not ill appearing Eyes PERRL, conjunctivae normal, anicteric sclerae ENMT external ear and nose normal, oropharynx normal Neck trachea midline, no thyromegaly Respiratory no respiratory distress Auscultation: + diminished lung sounds; no crackles (At the bases) Cardiovascular Rate/Rhythm: regular rate, regular rhythm and + tachycardic Heart Sounds: normal S1 and normal S2; no murmur Extremities: + edema (1+ edema bilaterally) Gastrointestinal (Abdomen) Inspection/Auscultation: normal bowel sounds; abdomen not distended Percussion/Palpation: abdomen soft; abdomen nontender Neurologic normal touch/pain/proprioception and moves all extremities; no focal motor deficits Psychiatric A+Ox3, euthymic affect Lymphatic no cervical or axillary lymphadenopathy Discharge Data Allergies Allergy/AdvReac Type Severity Reaction Status Date / Time No Known Allergies Allergy Verified 02/25/23 16:59 Consultations 02/25/23 16:23 ED Decision to Admit Stat Ordered Studies 02/25/23 12:10 CT angio chest PE protocol Stat Hospital Course (1) Diastolic CHF: -Remains stable in medical telemetry unit -Serial troponins have been negative for any ACS -Patient weight of 215 kg on admission, daily weights ordered, strict I's and O's, heart healthy diet with a fluid restriction of 1200 mL/day -Lasix 60 mg IV given in the ER, outs of 650 mL so far, continue with Lasix 40 mg IV push twice daily as he takes p.o. at home -Education on heart healthy diet and sodium restriction, diet modification was held at bedside with the patient -Encouraged exercise and ambulation with activity modification held at bedside -Patient may continue lisinopril 2.5 mg at bedtime -Has been feeling much better since admission with a negative balance of 3219 mL so far -Echo of the heart showed: Mild concentric LVH with hyperdynamic left ventricle, EF of more than 70%, no regional motion abnormalities, RV is normal in size, RV is hyperdynamic, grade 1 diastolic dysfunction and mild tricuspid regurgitation -We will continue current furosemide of 40 mg IV twice daily -Continue intake output and monitor electrolytes -Clinically much better and denies any symptoms at rest or with ambulation -Will be discharged home this afternoon (2) DM type 2 (diabetes mellitus, type 2): -Hold metformin 500 twice daily, holding Trulicity which he takes on Saturdays -ISS with Accu-Cheks ACHS -A1c ordered with a.m. labs--hemoglobin A1c 6.6 -Discussed with the patient about Jardiance -Advised to discuss about Jardiance with his primary care physician (3) Morbid obesity with BMI of 50.0-59.9, adult: -Diet and exercise encouraged as above (4) QUENTIN on CPAP: -Patient uses 2L with CPAP at bedtime, reports that he has been using it for 1 to 2 hours/day secondary to progressive shortness of breath over the past 3 weeks -Follows with sleep study at [facility] routinely, was sent there from routine office visit this morning (5) Factor V Leiden: -History of such, continue Eliquis 5 mg twice daily -CT of the chest is negative for acute PE (6) Dyslipidemia: -Continue fenofibrate (7) Depression: -May continue Wellbutrin 150 mg twice daily DVT PPx: - teds, scds, Eliquis CODE: Conditional, agreeable to intubation in the setting of acute respiratory decompensation but no CPR Dispo: From home, likely to remain in the hospital x 1-2 days Has had 2 steps O2 saturation test and he does not need any oxygen To be discharged home this afternoon Total Time Total Time Spent Total Time Spent (In Minutes): 35 minutes Discharge Plan Discharge Items Patient Disposition: Home - Self-Care Reason For Visit: SHORTNESS OF BREATH Discharge Diagnosis: Acute diastolic CHF, type 2 diabetes, QUENTIN, factor V Leiden with, obesity Condition on Discharge: Fair Activity: Resume your previous activity Non-emergency contact: Primary Care Provider Call non-emergency contact if: you have any medication questions and your symptoms worsen Follow-up/Referrals: Massiel Hansen PA-C [Primary Care Provider] - (Date & Time 03/05/2023 11:40 AM Provider Massiel Hansen PA-C Department [facility] ) Diet: Carb Consistent or DM2 and Heart Healthy Addtl Attending Provider Instructions: Please take precautions to avoid falls Take your medications as advised Please a follow-up appointment with your healthcare providers You can discuss with your PCP about taking Jardiance for diabetes which will help your heart problem Pending Studies at Discharge: No Stand-Alone Forms: My [facility] [employer], Smoking Cessation Medications and DC Order Prescriptions: Continued multivitamin Tablet 1 tab PO DAILY celecoxib 200 mg capsule 200 mg PO DAILY furosemide 40 mg tablet 40 mg PO BID metformin 500 mg tablet 500 mg PO BID ipratropium-albuterol 0.5 mg-3 mg(2.5 mg base)/3 mL solution for nebulization 3 ml INHALATION Q8 PRN (Reason: Wheezing) vitamin B complex Tablet 1 tab PO DAILY albuterol sulfate 90 mcg/actuation HFA aerosol inhaler 2 puff INHALATION BID PRN (Reason: Shortness Of Breath Or Wheezing) lisinopril 2.5 mg tablet 2.5 mg PO HS ropinirole 4 mg tablet 4 mg PO HS bupropion HCl 150 mg tablet extended release 24 hr 150 mg PO BID fenofibrate nanocrystallized 48 mg tablet 48 mg PO DAILY Eliquis 5 mg tablet 5 mg PO BID Trulicity 0.75 mg/0.5 mL pen injector 0.75 mg SUBCUT WE Rx Instructions: Sat Discharge Orders: Discharge Order (Routine); Ordered 02/27/23 Ordered By: Todd Caceres/Other Patient Handouts: Managing Type 2 Diabetes, Special Foot Care for Diabetes Admission Data Admit Date/Time: 02/25/23 17:28 Attending Provider: Todd Peacock Admit Provider: Paulina Ochoa Primary Care Provider: Massiel Hansen Other Providers: Analilia Collins Other Interventions: Discharge Summary Assessment (RN) Last Done: 02/27/23 13:16
== END 2023-02-27 14:09 | disposition home or self-care (01) | DRG 292 ==
LOC: ED 10:48 → 2N 17:28 → SUATTDRO 17:28 → 2N 21:59

== ENCOUNTER 2023-10-12 18:53 | Inpatient (IN) ==
--- OUTSIDE RECORDS SUMMARY | 2023-10-12 18:58 | External Medical Summary | Summary of Care ---
Author Name Unknown Organization [facility] Address [address] [place] [address] Phone [phone] Care Team Providers Care Contracting Officer Name Role Phone Massiel Solorio PA-C Primary Care Provider [phone] Reason for Visit * Reason Onset Date Comments Medication Refill 09/11/2023 Encounter Details Date Type Department Care Team (Late st Contact Info) Description 09/11/2023 Refill Family Practice [facility] [address] [place] [address] Massiel Solorio PA-C [address] [place] [address] Systolic heart failure, unspecified HF chronicity (HCC); Hypertriglyceridemia Allergies No known active allergiesdocumented as of this encounter (statuses as of 09/11/2023) Medications Medication Sig Dispensed Refills Start Date End Date Status Aspirin-Acetaminoph en-Caffeine 250-250-65 MG Oral Tablet Take 2 Tablets by mouth daily as needed. Per 24 hours 0 Active B Complex Vitamins (VITAMIN B COMPLEX) Tablet Take 1 Tablet by mouth in the morning. 0 Active Melatonin 5 MG Oral Tablet Take 2 Tablets by mouth at bedtime. 0 Active oxygen IN GAS 2 LPM bled through CPAP during all hours of sleep 1 Each 0 05/03/2022 Active Albuterol Sulfate HFA 108 (90 Base) MCG/ACT Inhalation Aerosol SolutionIndications :Wheezing Inhale 2 Puffs by mouth 4 times a day as needed for Shortness of Breath. 54 g 1 10/20/2022 Active Ipratropium-Albuter ol 0.5-2.5 (3) MG/3ML Inhalation Solution (Duoneb) 3 mL. 0 10/11/2022 Active Multivitamin Adult Oral Tablet Chewable 1 Tablet. 0 10/09/2022 Active FreeStyle Abdulkadir 2 [place] DeviceIndications:T ype 2 diabetes mellitus without complication, without long-term current use of insulin (HCC) Use as directed. 1 Each 0 03/05/2023 Active predniSONE 20 MG Oral Tablet (Deltasone) NEEDED RESCUE KIT. Take 2 tabs by mouth for 5 days 10 Tablet 1 05/29/2023 Active metOLazone 2.5 MG Oral Tablet (Zaroxolyn)Indicati ons:Chronic heart failure with preserved ejection fraction (HCC) Take 1 Tablet by mouth in the morning. As needed for weight gain protocol. 90 Tablet 5 06/17/2023 Active metFORMIN HCl 500 MG Oral Tablet (Glucophage)Indicat ions:Type 2 diabetes mellitus without complication, unspecified whether adjunct faculty for medical terminology insulin use (HCC) TAKE 1 TABLET BY MOUTH TWICE A DAY WITH MORNING AND EVENING MEALS 180 Tablet 2 08/06/2023 Active FreeStyle Abdulkadir 2 SensorIndications:T ype 2 diabetes mellitus without complication, without long-term current use of insulin (HCC) Use as directed. 3 Each 3 08/06/2023 Active Empagliflozin 25 MG Oral Tablet (Jardiance)Indicati ons:Type 2 diabetes mellitus without complication, without long-term current use of insulin (HCC) Take 1 Tablet by mouth in the morning. 90 Tablet 2 08/06/2023 Active Potassium Chloride ER 10 MEQ Oral Capsule Extended Release Take 1 Capsule by mouth in the morning and 1 Capsule before bedtime. 60 Capsule 5 08/12/2023 Active Ozempic (1 MG/DOSE) 4 MG/3ML Subcutaneous Solution Pen-injector (Semaglutide (1 MG/DOSE))Indication s:Type 2 diabetes mellitus without complication, without long-term current use of insulin (HCC) Inject 1 mg under the skin once a week. 9 mL 1 08/13/2023 Active Atorvastatin Calcium 40 MG Oral Tablet (Lipitor) Take 1 Tablet by mouth in the morning. 30 Tablet 8 08/18/2023 Active rOPINIRole HCl 2 MG Oral Tablet (Requip) Take 1 Tablet by mouth every night at bedtime. 0 08/20/2023 Active Diclofenac Sodium 1 % External Gel (Voltaren)Indicatio ns:Primary osteoarthritis of both knees Apply 4 g topically to affected area 4 times a day as needed (pain). To knees as needed 350 g 1 08/22/2023 Active Acetaminophen 325 MG Oral Tablet (Tylenol)Indication s:Primary osteoarthritis of both knees Take 2 Tablets by mouth in the morning and 2 Tablets at noon and 2 Tablets before bedtime. 0 08/22/2023 Active DIURETIC TITRATION PLANIndications:Chr onic diastolic CHF (congestive heart failure) (HCC) If no improvement on day 3, contact heart failure managing provider. 1 Each 0 08/22/2023 Active Gabapentin 100 MG Oral Capsule (Neurontin) Take 1 Capsule by mouth in the morning and 1 Capsule at noon and 1 Capsule before bedtime. 90 Capsule 1 08/27/2023 Active Furosemide 40 MG Oral Tablet (Lasix) Take 1 tablet by mouth twice daily in the morning and at bedtime. 180 Tablet 1 09/01/2023 Active Eliquis 5 MG Oral Tablet (Apixaban) Take 1 tablet by mouth in the morning and 1 tablet before bedtime. 180 Tablet 1 09/01/2023 Active Lisinopril 2.5 MG Oral Tablet (Prinivil)Indicatio ns:Systolic heart failure, unspecified HF chronicity (HCC) TAKE 1 TABLET BY MOUTH EVERY DAY BEFORE BEDTIME 90 Tablet 2 09/11/2023 Active Fenofibrate 48 MG Oral Tablet (Tricor)Indications :Hypertriglyceridem ia Take 1 Tablet by mouth in the morning. 90 Tablet 2 09/11/2023 Active Lisinopril 2.5 MG Oral Tablet (Prinivil)Indicatio ns:Systolic heart failure, unspecified HF chronicity (HCC) TAKE 1 TABLET BY MOUTH EVERY DAY BEFORE BEDTIME 90 Tablet 2 08/06/2023 4 Discontinu ed(Refill) Fenofibrate 48 MG Oral Tablet (Tricor)Indications :Hypertriglyceridem ia Take 1 Tablet by mouth in the morning. 90 Tablet 2 08/06/2023 4 Discontinu ed(Refill) documented as of this encounter (statuses as of 09/11/2023) Active Problems Problem Noted Date Diagnosed Date Food insecurity 09/08/2023 Overview: Per [facility] Protocol Chronic diastolic CHF (congestive heart failure) 08/22/2023 Last Assessment & Plan: "RED FLAG" HF Symptoms: Leg Swelling (Examples: "I can't wear certain socks or shoes", "My pants feel tight") Increased dyspnea on exertion (Example: "I can't walk to the kitchen or up the stairs") Medication Regimen: Beta Ming Therapy: No beta-ming JO Inhibitor/ARB Therapy: Lisinopril Diuretic therapy: Lasix SGLT2 Inhibitor: empagliflozin (ex. Jardiance) Remote Patient Monitoring Vendor: [facility] Device(s): Connected Scale Connected Pulse Ox Connected BP Cuff Self - Management Plan Add metolazone (Zaroxolyn) 2.5-5mg for 1 days. If using a potassium supplement, double the dose of the supplement will be given on the day of and on the day after the metolazone Exacerbation Plan BMP Additional Comments: Euvolemic today [facility] ordered Rewiewed red flag reportable symptoms. History of stroke 08/22/2023 Last Assessment & Plan: No residuals BP at goal Hgba1c at goal Following wt mgmt/nutrition for wt loss Continue eliquis, atorvastatin and apixaban Type 2 diabetes mellitus wit h hemoglobin A1c goal of less than 7.0% 08/22/2023 Last Assessment & Plan: "RED FLAG" Diabetic symptoms: Generalized Weakness Goal HgbA1c <7 Diabetic Complications Vascular (examples: PVD, PAD, CAD, CVA) Medication Regimen Metformin GLP-1 Agonist (ex: Victoza, Trulicity, Ozempic) SGLT (ex: Jardiance) DM Secondary Prevention JO Inhibitor / ARB Moderate-High Intensity Statin Additional Comments Hgba1c 7.0 Moderate persistent asthma without complication 08/22/2023 Last Assessment & Plan: No recent PFTs--last done in 2017. Consider updating test in future. Has rescue inhaler to use prn. Had pred rescue kit in the past. Advised to call [facility] immediately for eval if he feels he is having exac. Consider maintenance inhaler in future if needed. Fatty (change of) liver, not elsewhere classifie d 07/29/2023 Right heart failure, unspecified 12/21/2021 Mixed dyslipidemia 11/17/2020 Last Assessment & Plan: Atorvastatin 40mg daily and fenofibrate Due for lipid recheck--ordered Body mass index (BMI) of 60.0 to 69.9 in adult 0 11/06/2020 Overview: Per Obesity protocol - Major depressive disorder wi th single episode, in full remission 04/17/2018 Chronic nonspecific lung disease 04/17/2018 Abnormal PFT 06/20/2017 Overview: Restrictive spirometry with normal TLC. + Air trapping. Vertigo 06/07/2017 Heterozygous factor V Leiden mutation 02/14/2017 Last Assessment & Plan: Continues apixaban Anticoagulated by anticoagulation treatment 01/26 Cerebral vein thrombosis 02/05/2017 Osteoarthritis of both knees 12/20/2016 Last Assessment & Plan: Discussed risk vs benefit celebrex (CHF and on AC) Willing to try topical diclofenac to knees and tylenol 650mg q8hrs. Stop celebrex for now. Will have nurse follow up. 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 12/21/2021 08/22/2023 Type 2 diabetes mellitus without complication 12/22/19 22 08/22/2023 Food insecurity 03/05/2021 01/10/2022 Overview: Per [facility] Protocol Prediabetes 11/06/2020 01/10/2022 Overview: Per Prediabetes protocol COPD, group B, by GOLD 2017 classification 10/02/2020 08/22/2023 Overview: Per COPD GOLD Classification Obstructive lung disease 07/20/201805/2021 Overview: Per COPD GOLD Classification Hemiplegia and hemiparesis f ollowing unspecified cerebrovascular disease affecting unspecified side 04/17/2018 07/20/2018 DAY (dyspnea on exertion) 06/20/2017 Body mass index (BMI) of 50. 0 to 59.9 in adult 04/28/2017 11/09/2020 Overview: Per Obesity protocol #1 Vasogenic cerebral edema 02/10/201704/2017 Encephalopathy acute 02/05/2017 017 Acute respiratory failure 02/05/2017 Major depressive disorder wi th single episode, in full remission 12/27/2015 03/06/2017 Morbid obesity due to excess calories 12/27/2015 04/17/2018 documented as of this encounter (statuses as of 09/11/2023) Immunizations Name Administration Dates Next Due COVID-19 mRNA, LNP-s, No Pre serve, 2-Dose Series (Nephros) 11/30/2020,11/06/2020 Pneumococcal Polysaccharide PPV23 (Pneumovax) 05/22/2021 Seasonal Influenza Virus Vac cine, Unspecified Formulation 04/10/2022,05/22/2021,04/07/2020,05/28,05/28/2017,05/28/2016,10/03/2015 ,05/25/2012 Seasonal Influenza, PF, 6 M & above, IM , (FluLaval or Fluzone) 04/10/2022,05/22/2021,04/07/2020 Seasonal Influenza, Quadriva lent, No Preserve, IM 05/28/2017 Seasonal Influenza, Split, I IV3, With Preserve, Inj 05/28/2018,05/28/2016,05/25/2012 TDAP (age 10 and older)(Boostrix) 05/25/2012 documented as of this encounter Social History Tobacco Use Types Packs/Day Years Used Date Smoking Tobacco: Former Cigarettes 1 Smokeless Tobacco: Never Comments:Quit at age 24 Alcohol Use Standard Drinks/Week Comments No 0 (1 standard drink = 0.6 oz pur e alcohol) PHQ-2 Answer Date Recorded PHQ Adult Total Score 2 08/15/2023 Hunger Vital Sign Answer Date Recorded Within the past 12 months, y ou worried that your food would run out before you got the money to buy more. Sometimes true Within the past 12 months, t he food you bought just didn't last and you didn't have money to get more. Never true 03/2024 Sex and Gender Information Value Date Recorded Sex Assigned at Male 02/21/2021 10:55 AM EDT Gender Identity Male 02/21/2021 10:55 AM EDT Sexual Orientation Straight 02/21/2021 10 :55 AM EDT Job Start Date Occupation Industry Not on file Not on file Not on file documented as of this encounter Functional Status Functional Status Response Date of Assess ment Are you deaf or do you have serious difficulty h earing? No 05/16/2017 Are you blind or do you have serious difficulty seeing, even when wearing glasses? No 05/16/2017 Do you have serious difficul ty walking or climbing stairs? (5 years old or older) No 05/16/2017 Do you have difficulty dress ing or bathing? (5 years old or older) No 05/16/2017 Because of a physical, menta l, or emotional condition, do you have difficulty doing errands alone such as visiting a doctor s office or shopping? (15 years old or older) No 05/16/20 17 Cognitive Status Response Date of Assessm ent Because of a physical, menta l, or emotional condition, do you have serious difficulty concentrating, remembering, or making decisions? (5 years old or older) Yes 05/16/2017 documented as of this encounter Miscellaneous Notes * Telephone Encounter - Massiel Solorio PA-C - 09/11/2023 8:43 PM ESTSigned Prescriptions: Disp Refills Lisinopril 2.5 MG Oral Tablet (Prinivil) 90 Tab*2 Sig: TAKE 1 TABLET BY MOUTH EVERY DAY BEFORE BEDTIME Authorizing Provider: MASSIEL SOLORIO Fenofibrate 48 MG Oral Tablet (Tricor) 90 Tab*2 Sig: Take 1 Tablet by mouth in the morning. Authorizing Provider: MASSIEL SOLORIO - * Telephone Encounter - Toya Jackson MED ASSIST - 09/11/2023 3:06 PM EST Pending Prescriptions: Disp Refills Lisinopril 2.5 MG Oral Tablet (Prinivil) 90 Tab*2 Sig: TAKE 1 TABLET BY MOUTH EVERY DAY BEFORE BEDTIME Fenofibrate 48 MG Oral Tablet (Tricor) 90 Tab*2 Sig: Take 1 Tablet by mouth in the morning. * Telephone Encounter - Toya Jackson MED ASSIST - 09/11/2023 3:05 PM EST Did you pend patient's preferred pharmacy and medication before forwarding?yes Pharmacy: [facility] [address] Pending Prescriptions: Disp Refills Lisinopril 2.5 MG Oral Tablet (Prinivil) 90 Tab*2 Sig: TAKE 1 TABLET BY MOUTH EVERY DAY BEFORE BEDTIME Fenofibrate 48 MG Oral Tablet (Tricor) 90 Tab*2 Sig: Take 1 Tablet by mouth in the morning. Last Visit: 03/05/2023 (in office), 07/29/2023 (telemedicine) Next Visit: Visit date not found If no future appointments scheduled, and last appointment is greater than a year ago, please schedule patient for a follow-up appointment Last date the medication was ordered: Is this request for a controlled substance?No Urine Drug Screen: Results for orders placed or performed during the hospital encounter of 02/05/17 TOX SCREEN, URINE, W/O CONFIRMATION Result Value Amphetamine NEGATIVE Barbiturates NEGATIVE Benzodiazepines NEGATIVE Cannabinoids NEGATIVE Cocaine Metabolite NEGATIVE Morphine / Codeine NEGATIVE METHADONE METABOLITE NEGATIVE OXYCODONE NEGATIVE NOTE: THE ABOVE SCREENING RESULTS ARE PRESUMPTIVE AND CAN ONLY BE USED FOR MEDICAL PURPOSES. CONFIRMATORY TESTING IS AVAILABLE UPON REQUEST. Cutoff Concentration Patient Phone Numbers Labs: Lab Results Component Value Date/Time CREAT 1.5 (H) 08/11/2023 08:51 AM CREAT 1.1 06/16/2020 04:11 PM POTASSIUM 3.9 08/11/2023 08:51 AM POTASSIUM 4.2 06/16/2020 04:11 PM TSH 2.08 02/06/2017 02:50 AM LDLCALC 84 02/06/2017 02:50 AM LDLDIRECT 97 07/16/2022 09:19 AM ALT 49 07/16/2022 09:19 AM ALT 41 06/16/2020 04:11 PM HGBA1C 7.0 (H) 03/05/2023 08:44 AM HGBA1C 5.8 (H) 06/16/2020 04:11 PM * Telephone Encounter - Michele Arias OSA - 09/11/2023 1:55 PM EST Did you pend patient's preferred pharmacy and medication before forwarding?yes Pharmacy: [facility] [address] Pending Prescriptions: Disp Refills Lisinopril 2.5 MG Oral Tablet (Prinivil) 90 Tab*2 Sig: TAKE 1 TABLET BY MOUTH EVERY DAY BEFORE BEDTIME Fenofibrate 48 MG Oral Tablet (Tricor) 90 Tab*2 Sig: Take 1 Tablet by mouth in the morning. Last Visit: 03/05/2023 (in office), 07/29/2023 (telemedicine) Next Visit: Visit date not found If no future appointments scheduled, and last appointment is greater than a year ago, please schedule patient for a follow-up appointment Last date the medication was ordered: 08/06/2023 Is this request for a controlled substance?No Urine Drug Screen: Results for orders placed or performed during the hospital encounter of 02/05/17 TOX SCREEN, URINE, W/O CONFIRMATION Result Value Amphetamine NEGATIVE Barbiturates NEGATIVE Benzodiazepines NEGATIVE Cannabinoids NEGATIVE Cocaine Metabolite NEGATIVE Morphine / Codeine NEGATIVE METHADONE METABOLITE NEGATIVE OXYCODONE NEGATIVE NOTE: THE ABOVE SCREENING RESULTS ARE PRESUMPTIVE AND CAN ONLY BE USED FOR MEDICAL PURPOSES. CONFIRMATORY TESTING IS AVAILABLE UPON REQUEST. Cutoff Concentration Patient Phone Numbers Labs: Lab Results Component Value Date/Time CREAT 1.5 (H) 08/11/2023 08:51 AM CREAT 1.1 06/16/2020 04:11 PM POTASSIUM 3.9 08/11/2023 08:51 AM POTASSIUM 4.2 06/16/2020 04:11 PM TSH 2.08 02/06/2017 02:50 AM LDLCALC 84 02/06/2017 02:50 AM LDLDIRECT 97 07/16/2022 09:19 AM ALT 49 07/16/2022 09:19 AM ALT 41 06/16/2020 04:11 PM HGBA1C 7.0 (H) 03/05/2023 08:44 AM HGBA1C 5.8 (H) 06/16/2020 04:11 PM documented in this encounter Plan of Treatment Upcoming Encounters Date Type Department Care Team (Late st Contact Info) Description 09/17/2023 7:00 AM EST Telemedicine Sleep Disorders Ctr [facility] [address] [place] [phone] Kelly Moore CRNP [address] [id number] 09/24/2023 1:00 PM EST Telemedicine [facility] [address] [place] [address] Tatyana Lawson CRNP [address] [place] [address] Celia Weems, Community Health Loss Prevention Leader [address] [place] [id number] 09/29/2023 10:30 AM EST Office Visit Cardiology, [facility] [address] [place] [address] Lauren Song CRNP [address] [place] [address] 10/07/2023 8:00 AM EDT Office Visit Nutrition & Weight Management, [facility] [address] [place] [address] Chelsea Wolfe [facility] [address] [place] [address] Annie Jones PA-C [address] [place] [address] Lluvia Plaza RDN [address] [place] [address] 10/07/2023 2:30 PM EDT Home Visit [facility], [facility] [address] [place] [address] Liya Jc, RN [address] [place] [address] 10/17/2023 2:30 PM EDT Telemedicine Psychology, [place] [address] [place] [address] Lynette Carpenter, TANKAGE SUPERVISOR [address] [facility] [place] [address] 12/03/2023 9:00 AM EDT Procedure Only Endoscopy, [place] [address] [facility] [place] [address] Berenice Chiu MD [address] [place] [address] Health Maintenance Due Date Last Done Comments Hepatitis B (1 of 3 - 3-dose series) 1975 Diabetic Foot Exam 1993 Cologuard 2020 Colonoscopy 2020 Colorectal Cancer Screening 2020 Fecal Occult Blood Test 2020 Sigmoidoscopy 2020 Pneumococcal Vaccine: Pediatrics (0 to 5 Years) and At-Risk Patients (6 to 64 Years) (2 - PCV) 05/22/2022 05/22/2021 DTaP,Tdap,and Td Vaccines (2 - Td or Tdap) 05/25/2022 05/25/2012 COVID-19 Vaccine (3 - 2022- season) 2023 11/30/2020, 11/06/2020 Influenza Vaccine (FLU shot) (#1) 2023 04/10/2022, 04/10/2022, 05/22/2021, Additional history exists Albumin/Creatinine Ratio 07/16/2023 07/16/2022 HbA1c 09/05/2023 03/05/2023, 06/28, 09/05/2021, Additional history exists Diabetic Eye Exam 12/20/2023 12/19/2022, , 12/21/2021 GFR 08/11/2024 08/11/2023, 08/0 03/2023, 07/16/2022, Additional history exists Depression Screening 08/15/2024 08/15/2023 Lipid Panel 07/16/2027 07/16/2022, 02/0 03/2022, 10/24/2020, Additional history exists GARDASIL-HPV IMMUNIZATION SERIES Aged Out No longer eligible based on patient's age to complete this topic MENINGOCOCCAL (MENACTRA/MENVEO) Aged Out No longer eligible based on patient's age to complete this topic documented as of this encounter Medical Devices Not on filedocumented as of this encounter Visit Diagnoses Diagnosis Systolic heart failure, unspecified HF chronicity (HCC) Hypertriglyceridemia Pure hyperglyceridemia documented in this encounter Advance Directives Latest Code Status on File Code Status Date Activated Date Inactivated Comments Full Code 06/07/2017 9:31 PM 06/08/2017 8:03 PM Thi s order reflects the patients wishes and were consensually agreed upon. Question Answer Comments Discussion of Advance Directives occurred with: Patient Does the patient have a Living Will? No Does the patient have Health Care Power of Party Supply Specialist? No Code Status History Code Status Date Activated Date Inactivated Comments Full Code 02/05/2017 7:44 PM 02/19/2017 10:16 PM This order reflects the patients wishes and were consensually agreed upon. Question Answer Comments Discussion of Advance Directives occurred with: Not Discussed Care Teams Contracting Officer Relationship Specialty Start Date End Date Massiel Solorio PA-C [address] [place] [address] PCP - General Physician Loss Prevention Leader 04/03/22 documented as of this encounter
--- OUTSIDE RECORDS SUMMARY | 2023-10-12 18:58 | External Medical Summary | Summary of Care ---
Author Name Unknown Organization [facility] Address [address] [place] [address] Phone [phone] Care Team Providers Care Case Reviewer Name Role Phone Danielle October PAAnilC Primary Care Provider [phone] Reason for Visit * Reason Onset Date Comments [facility]: Maintenance 10/05/2023 Encounter Details Date Type Department Care Team (Late st Contact Info) Description 10/05/2023 Telephone [facility], [facility] [address] [place] [address] Tatyana Lawson CRNP [address] [place] [address] [facility]: Maintenance Allergies No known active allergiesdocumented as of this encounter (statuses as of 10/06/2023) Medications Medication Sig Dispensed Refills Start Date End Date Status Aspirin-Acetaminophe n-Caffeine 250-250-65 MG Oral Tablet Take 2 Tablets [...] HFA 108 (90 Base) MCG/ACT Inhalation Aerosol SolutionIndications: Wheezing Inhale 2 Puffs by mouth 4 times a day as needed for Shortness of Breath. 54 g 1 10/20/2022 Active Ipratropium-Albutero l 0.5-2.5 (3) MG/3ML Inhalation Solution (Duoneb) 3 mL. 0 10/11/2022 Active Multivitamin Adult Oral Tablet Chewable 1 Tablet. 0 10/09/2022 Acti ve FreeStyle Abdulkadir 2 [place] DeviceIndications:Ty pe 2 diabetes mellitus without complication, without long-term current use of insulin (HCC) Use as directed. 1 Each 0 03/05/2023 Active predniSONE 20 MG Oral Tablet (Deltasone) NEEDED RESCUE KIT. Take 2 tabs by mouth for 5 days 10 Tablet 1 05/29/2023 Active metOLazone 2.5 MG Oral Tablet (Zaroxolyn)Indicatio ns:Chronic heart failure with preserved ejection fraction (HCC) Take 1 Tablet by mouth in the morning. As needed for weight gain protocol. 90 Tablet 5 06/17/2023 Active FreeStyle Abdulkadir 2 SensorIndications:Ty pe 2 diabetes mellitus without complication, without long-term current use of insulin (HCC) Use as directed. 3 Each 3 08/06/2023 Active Empagliflozin 25 MG Oral Tablet (Jardiance)Indicatio ns:Type 2 diabetes mellitus without complication, without long-term current use of insulin (HCC) Take 1 Tablet by mouth in the morning. 90 Tablet 2 08/06/2023 Active Potassium Chloride ER 10 MEQ Oral Capsule Extended Release Take 1 Capsule by mouth in the morning and 1 Capsule before bedtime. 60 Capsule 5 08/12/2023 Active Ozempic (1 MG/DOSE) 4 MG/3ML Subcutaneous Solution Pen-injector (Semaglutide (1 MG/DOSE))Indications :Type 2 diabetes mellitus without complication, without long-term current use of insulin (HCC) Inject 1 mg under the skin once a week. 9 mL 1 08/13/2023 Active Atorvastatin Calcium 40 MG Oral Tablet (Lipitor) Take 1 Tablet by mouth in the morning. 30 Tablet 8 08/18/2023 Active Diclofenac Sodium 1 % External Gel (Voltaren)Indication s:Primary osteoarthritis of both knees Apply 4 g topically to affected area 4 times a day as needed (pain). To knees as needed 350 g 1 08/22/2023 Active Acetaminophen 325 MG Oral Tablet (Tylenol)Indications :Primary osteoarthritis of both knees Take 2 Tablets by mouth in the morning and 2 Tablets at noon and 2 Tablets before bedtime. 0 08/22/2023 Active DIURETIC TITRATION PLANIndications:Belt Cutter ethan diastolic CHF (congestive heart failure) (HCC) If [...] 09/01/2023 Active Lisinopril 2.5 MG Oral Tablet (Prinivil)Indication s:Systolic heart failure, unspecified HF chronicity (HCC) TAKE 1 TABLET BY MOUTH EVERY DAY BEFORE BEDTIME 90 Tablet 2 09/11/2023 Active Fenofibrate 48 MG Oral Tablet (Tricor)Indications: Hypertriglyceridemia Take 1 Tablet by mouth in the morning. 90 Tablet 2 09/11/2023 Active Potassium Chloride ER 10 MEQ Oral Capsule Extended Release take 1 capsule by mouth twice a day in the morning and before bedtime 60 Capsule 4 08/12/2023 Active CPAP every night at bedtime. 0 Active rOPINIRole HCl 3 MG Oral Tablet Take one-half tablet (1.5 mg) 60-90 minutes prior to typical onset of RLS nightly. Take with 0.25 mg dose as prescribed. 45 Tablet 1 09/17/2023 Active rOPINIRole HCl 0.25 MG Oral Tablet (Requip) Take one tablet (0.25mg) nightly with 1.5 mg dose (to total 1.75 mg) 60-90 minutes prior to typical onset of RLS nightly. Take an additional 0.25mg tablet at night as needed. 120 Tablet 0 09/17/2023 Active metFORMIN HCl ER 500 MG Oral Tablet Extended Release 24 Hour (Glucophage XR) Take 1 Tablet by mouth in the morning. 90 Tablet 1 09/24/2023 Active Vitamin D3 1.25 MG (89459 UT) Oral Capsule (Cholecalciferol) Take 1 Capsule by mouth once a week. 8 Capsule 0 10/05/2023 4 Active documented as of this encounter (statuses as of 10/06/2023) Active Problems Problem Noted Date Diagnosed Date Type 2 diabetes mellitus with diabetic mononeuro mathew 09/24/2023 Last Assessment & Plan: Improved on gabapentin Diarrhea 09/24/2023 Last Assessment & Plan: Suspect this could be secondary to metformin-as noted he will stop short-acting formulation for now. Will start ER formulation when he receives it via mail order pharmacy. Can not rule out infectious process-orders placed for C diff culture/SOLITARIO we will leave specimen cup. If diarrhea persists or worsens through the end of the week or next week despite stopping metformin we will need to get C diff culture and consider complete stool cultures. Contusion of left great toe without damage to na il 09/24/2023 Last Assessment & Plan: Appears nail plate likely cut into the nail fold causing some bleeding. Advised to monitor closely, apply topical antibiotic ointment. If develops any redness or swelling to contact [place] right away. Food insecurity 09/08/2023 Overview: Per [employer] [...] empagliflozin (ex. Jardiance) Remote Patient [place] Vendor[place] [facility] [place](s): Connected Scale Connected Pulse Ox Connected BP Cuff Self - Management Plan Add metolazone (Zaroxolyn) 2.5-5mg for 1 days. If using a potassium supplement, double the dose of the supplement will be given on the day of and on the day after the metolazone Exacerbation Plan BMP Additional Comments: Euvolemic today Needs large BP cuff, RPM referral placed with request History of stroke 08/22/2023 Last Assessment & [...] Moderate-High Intensity Statin Additional Comments Hgba1c 7.0 Reports diarrhea for the past 3 weeks and feels it secondary to metformin. We will hold metformin for now. Extended-release formulation sent to mail order. He will start that when he med arrives at 500 mg at supper to see if this helps. Continue to monitor blood sugars. May need med adjustment if he continues to have hypoglycemia in the evening. Mobile lab unsuccessful with getting his blood with last visit. Placed another referral to try to get blood again to get updated hemoglobin A1c. Moderate persistent asthma without complication 08/22/2023 Last Assessment & Plan: No recent PFTs--last done in 2017. Consider updating test in future. Has rescue inhaler to use prn. Had pred rescue kit in the past. Advised to call [facility] immediately for eval if he feels he [...] as of this encounter (statuses as of 10/06/2023) Resolved Problems Problem Noted Date Diagnosed Date [...] as of this encounter (statuses as of 10/06/2023) Immunizations Name Administration Dates Next Due COVID-19 mRNA, LNP-s, No Pre serve, 2-Dose Series ([employer]) 11/30/2020,11/06/2020 Pneumococcal Polysaccharide PPV23 (Pneumovax) 05/22/2021 Seasonal [...] Years Used Date Smoking Tobacco: Former Cigarettes Smokeless Tobacco: Never Comments:Quit at age 24 [...] encounter Miscellaneous Notes * Telephone Encounter - Ladan Rosenbaum RN - 10/06/2023 9:49 AM EDT Called patient, aware of lab results and medication orders. Reviewed meds and need to purchase OTC Vit D 2000 units and take one daily after the 8 weeks of prescription is completed Padmini Rosenbaum RN, BSN [facility] Intake Triage Coordinator [phone] * Telephone Encounter - Tatyana Lawson CRNP - 10/05/2023 8:41 AM EDT Intake, Please notify pt that his Vit D level is low at 12. I sent Vit D 21969 to be taken ONCE WEEKLY for 8 weeks. When he completes this 8 weeks, he will then start Vit D 2000 units daily (can be purchasedOT.) TSH normal ISII Liya documented in this encounter Plan of Treatment Upcoming Encounters Date Type Department Care Team (Late st Contact Info) Description 10/06/2023 2:15 PM EDT Scheduled Telephone [facility], [facility] [address] [place] [address] Coordinator, [facility] [address] [place] [address] 10/07/2023 2:30 PM EDT Home Visit [facility], [facility] [address] [place] [address] Liya Jc RN [address] [place] [address] 10/17/2023 2:30 PM EDT Telemedicine [facility] [address] [place] [address] Lynette Carpenter LCSW [address] [place] [address] 11/25/2023 1:00 PM EDT Telemedicine [facility], [facility] [address] [place] [address] Tatyana Lawson CRNP [address] [place] [address] Celia Weems, Community Health Laboratory Courier [address] [place] [address] 12/03/2023 9:00 AM EDT Procedure Only Endoscopy, [facility] [address] [place] [address] Berenice Chiu MD [address] [place] [address] Health Maintenance Due Date Last Done Comments Diabetic Foot Exam 1993 Hepatitis B (1 of 3 - 19+ 3-dose series) 1994 Cologuard 2020 Colonoscopy 2020 Colorectal Cancer Screening 2020 Fecal Occult Blood Test 2020 Sigmoidoscopy 2020 Pneumococcal Vaccine: Pediatrics (0 to 5 Years) and At-Risk Patients (6 to 64 Years) (2 of 2 - PCV) 05/22/2022 05/22/2021 DTaP,Tdap,and Td Vaccines (2 - Td or Tdap) 05/25/2022 05/25/2012 COVID-19 Vaccine (3 - season) 2023 11/30/2020, 11/06/2020 Influenza Vaccine (FLU [...] Not on filedocumented as of this encounter Advance Directives Latest Code Status on File Code Status Date Activated Date Inactivated Comments Full Code 06/07/2017 9:31 PM 06/08/2017 8:03 PM Thi s order reflects the patients wishes and were consensually agreed upon. Question Answer Comments Discussion of Advance Directives occurred with: Patient Does the patient have a Living Will? No Does the patient have Health Care Power of Steam Roller Operator? No Code Status History Code Status Date Activated Date Inactivated Comments Full Code 02/05/2017 7:44 PM 02/19/2017 10:16 PM This order reflects the patients wishes and were consensually agreed upon. Question Answer Comments Discussion of Advance Directives occurred with: Not Discussed Care Teams Case Reviewer Relationship Specialty Start Date End Date Tyrone Massiel CELENA Soriano [address] [place] [address] PCP - General Physician Laboratory Courier 04/03/22 documented as of this encounter
--- OUTSIDE RECORDS SUMMARY | 2023-10-12 18:58 | External Medical Summary | Summary of Care ---
Author Name Unknown Organization [facility] Address [address] [place] [address] Phone [phone] Care Team Providers Care Black And White Printer Operator Name Role Phone Danielleoctober PAAnilC Primary Care Provider [phone] Reason for Visit * Reason Onset Date Comments Follow Up 10/06/2023 Encounter Details Date Type Department Care Team (Late st Contact Info) Description 10/06/2023 2:15 PM EDT Scheduled Telephone [facility], [facility] [address] [place] [address] Coordinator, [facility] [address] [place] [address] Allergies No known active allergiesdocumented as of [...] 0 10/09/2022 Acti ve FreeStyle Abdulkadir 2 [place] DeviceIndications:Ty pe 2 diabetes mellitus without complication, [...] before bedtime. 0 08/22/2023 Active DIURETIC TITRATION PLANIndications:Nail Expert ethan diastolic CHF (congestive heart failure) (HCC) [...] 1 09/24/2023 Active Vitamin D3 1.25 MG (45338 UT) Oral Capsule (Cholecalciferol) Take 1 Capsule [...] develops any redness or swelling to contact [facility] right away. Food insecurity 09/08/2023 Overview: Per [...] empagliflozin (ex. Jardiance) Remote Patient Monitoring Vendor: [facility] Device(s): Connected Scale Connected Pulse Ox Connected [...] kit in the past. Advised to call [facility] immediately for eval if he feels [...] mRNA, LNP-s, No Pre serve, 2-Dose Series ([employer]) 11/30/2020,11/06/2020 Pneumococcal Polysaccharide PPV23 (Pneumovax) 05/22/2021 Seasonal [...] encounter Miscellaneous Notes * Telephone Encounter - Larry Castillo RN - 10/06/2023 3:34 PM EDT Follow up phone call to patient, spoke with Nicola, he tells me he does not have diarrhea anymore. He stopped ozempic this weekend and that is when diarrhea stopped. He states his blood sugar this morning was 99. He tells me he received his [facility] cuff but he is not sure if it is transmitting. Will send an email to [facility] to troubleshoot. Nicola made aware of same. documented in this encounter Plan of Treatment Upcoming Encounters Date Type Department Care Team (Late st Contact Info) Description 10/07/2023 2:30 PM EDT Home Visit [facility], [facility] [address] [place] [address] Liya Jc RN [address] [place] [address] 10/17/2023 2:30 PM EDT Telemedicine [facility], [place] [address] [place] [address] Lynette Carpenter, MANAGER RESEARCH [address] [place], [place] [id number] 11/25/2023 1:00 PM EDT Telemedicine [facility], [facility] [address] [place] [address] Tatyana Lawson CRNP [address] [place] [address] Celia Weems, Community Health Desk Reporter [address] [place] [address] 12/03/2023 9:00 AM EDT Procedure Only Endoscopy, [facility] [address] [place] [address] Berenice Chiu MD [address] [place] [address] Health Maintenance Due Date Last Done Comments [...] the patient have Health Care Power of Labor Utilization Superintendent? No Code Status History Code Status Date Activated Date Inactivated Comments Full Code 02/05/2017 7:44 PM 02/19/2017 10:16 PM This order reflects the patients wishes and were consensually agreed upon. Question Answer Comments Discussion of Advance Directives occurred with: Not Discussed Care Teams Black And White Printer Operator Relationship Specialty Start Date End Date Massiel Hansen PA-C [address] [place] [address] PCP - General Physician Desk Reporter 04/03/22 documented as of this encounter
--- OUTSIDE RECORDS SUMMARY | 2023-10-12 18:58 | External Medical Summary ---
Author Name Unknown Address Unknown Organization K01:[facility] [place] - [address] [place] [address] Laboratory Report Ordering Provider Test Date Status MARYCHUY HERNÁNDEZ 09/30/2023 09:23:00 Final Deficient: <20 ng/mL
Ins ufficient: 20-29 ng/mL
Recommended/Optimum:30-50 ng/mL

Vitamin D intoxication is rare. If suspicious of Vitamin D toxicity, evaluation of serum Calcium and PTH is recommended. Observation Date Value Abnormality Reference (Units ) Status 25-OH Vitamin D total 09/30/2023 09:23:00 12 Below low normal >19 (ng/mL) Final Performing Location [facility] [place] - [address] [place] [address]
--- OUTSIDE RECORDS SUMMARY | 2023-10-12 18:58 | External Medical Summary | Summary of Care ---
Author Name Unknown Organization [facility] Address [address] [place] [address] Phone [phone] Care Team Providers Care Electrocardiogram Technician Name Role Phone Daniellelaura October ANMOLC Primary Care Provider [phone] Reason for Referral * Ancillary Services (Within 10 days (routine)) - Pending Review Specialty Diagnoses / Procedures Referred By Susie garvey Referred To Contact Torch Shearer Diagnoses Type 2 diabetes mellitus with diabetic mononeuropathy, unspecified whether terminal carman insulin use (HCC) Tatyana Lawson CRNP [address] [place] [address] Referral ID Status Reason Start Date Expiration Date Visits Requested Visits Authorized [id number] Pending Review Ancillary Services Required 09/24/[phone] Question Answer Referral Priority Within 10 days (routine) Where should this appointment be scheduled? Yosvany Comments Is Patient homebound? Yes All sections of this form must be filled out completely. Forms with missing or illegible information will be returned for completion. This form should not be modified in any way. Forms that have been modified will be returned. This form may not be submitted by a home health agency. It must be complete and submitted by the ordering provider. One full business day lead time is required and service will be scheduled based on the next service day for the [facility] Home Phlebotomy does not service every geographical location on a daily basis. Contact [facility] Client Services at to find out service days for a specific location. Medical Laboratory [address] [place] [id number] [address] Maguire M.D. Director and Accounting Methods Analyst Patient Name: Nicola Pineda : 1975 Sex: male Address [address] [place] [address] [place] [address] Provider: Self? Massiel Hansen PA-C? Diagnosis: R19.7 Diarrhea, unspecified type (primary encounter diagnosis) E11.41 Type 2 diabetes mellitus with diabetic mononeuropathy, unspecified whether assisted insulin use (HCC) Tests Requested CMP, CBC, hgba1c,lipids in 2 weeks * Evaluate & Treat - Unlimited Visits (Within 3 days (urgent)) - Pending Review Specialty Diagnoses / Procedures Referred By Susie garvey Referred To Contact Store Gift Wrap Associate Diagnoses Type 2 diabetes mellitus with diabetic mononeuropathy, unspecified whether terminal carman insulin use (HCC) Tatyana Lawson CRNP [address] [place] [address] Referral ID Status Reason Start Date Expiration Date Visits Requested Visits Authorized [id number] Pending Review Specialty Services Required 09/24/[phone] Question Answer Referral Priority Within 3 days (urgent) Program Type [facility] Health Device(s) Requested Pulse Ox, BP Cuff, Scale Where should this appointment be scheduled? [facility] Standard per protocol Comments Pt need large BP cuff (has small,please send.) Reason for Visit * Reason Comments [facility]: Telehealth Encounter Details Date Type Department Care Team (Late st Contact Info) Description 09/24/2023 1:00 PM EST [facility]medicine [facility], [facility] [address] [place] [address] Tatyana Lawson CRNP [address] [employer] [place] [address] Celia Weems, [facility] Floor Tech [address] [place] [address] Diarrhea, unspecified type*; Type 2 diabetes mellitus with diabetic mononeuropathy, unspecified whether assisted insulin use ([facility]); Chronic diastolic CHF (congestive heart failure) ([facility]); Type 2 diabetes mellitus with hemoglobin A1c goal of less than 7.0% ([facility]); Screening for thyroid disorder; Encounter for vitamin deficiency screening; Contusion of left great toe without damage to nail, initial encounter Allergies No known active allergiesdocumented as of this encounter (statuses as of 09/24/2023) Medications Medication Sig Dispensed Refills Start Date [...] Tablet. 0 10/09/2022 Active FreeStyle Abdulkadir 2 [place] DeviceIndications:T ype 2 diabetes mellitus without complication, without long-term current use of insulin ([facility]) Use as directed. 1 Each 0 03/05/2023 [...] Tablet 5 06/17/2023 Active FreeStyle Abdulkadir 2 SensorIndications:T ype 2 [...] the morning. 90 Tablet 1 09/24/2023 Active metFORMIN HCl 500 MG Oral Tablet (Glucophage)Indicat ions:Type 2 diabetes mellitus without complication, unspecified whether terminal carman insulin use (HCC) TAKE 1 TABLET BY MOUTH TWICE A DAY WITH MORNING AND EVENING MEALS 180 Tablet 2 08/06/2023 4 Discontinu ed(Medicat ion/Dose Changed) documented as of this encounter (statuses as of 09/24/2023) Active Problems Problem Noted Date Diagnosed Date [...] empagliflozin (ex. Jardiance) Remote Patient Monitoring Vendor: [facility] Device(s): Connected Scale Connected Pulse Ox Connected [...] & Plan: No recent PFTs--last done in 2016. Consider updating test in future. Has rescue inhaler to use prn. Had pred rescue kit in the past. 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 12/21/2021 08/22/2023 Type 2 diabetes mellitus without complication 12/22/1908/22/2023 Food insecurity 03/05/2021 01/10/2022 Overview: Per Fresh [...] as of this encounter (statuses as of 09/24/2023) Immunizations Name Administration Dates Next Due COVID-19 mRNA, LNP-s, No Pre serve, 2-Dose Series (Pfizer) 11/30/2020,11/06/2020 Pneumococcal Polysaccharide PPV23 (Pneumovax) 05/22/2021 Seasonal [...] on file documented as of this encounter Last Filed Vital Signs Vital Sign Reading Time Taken Comments Blood Pressure 120/60 09/24/2023 1:09 PM EST Pulse 82 09/24/2023 1:09 PM EST Temperature 35.9 C (96.7 F) 09/24/2023 1:09 PM ES T Respiratory Rate - - Oxygen Saturation 97% 09/24/2023 1:09 PM EST Inhaled Oxygen Concentration - - Weight 173.3 kg (382 lb) 09/24/2023 1:09 PM EST Height - - Body Mass Index 59.83 09/17/2023 6:48 AM EST documented in this encounter Functional Status Functional Status Response [...] Yes 05/16/2017 documented as of this encounter Progress Notes * Jacinda Childers, RN - 09/24/2023 3:42 PM EST Follow up phone call scheduled for next week to see if diarrhea improved from stopping metformin, or does pt need stool specimen for C diff? Jacinda Childers tyre builderCt Technician [facility] * Celia Weems, [facility] Floor Tech - 09/24/2023 1:08 PM EST Telemedicine visit: Yes Patient location: HOME. I was not in a hospital or clinic location. After connecting through televideo, patient was verified with two unique identifiers. Patient (or authorized legal installation service representative) was then informed that this was a Telemedicine visit and being conducted confidentially over secure lines. Methods to assure confidentiality were taken. Patient acknowledged consent and understanding of privacy and security of the Telemedicine visit. The patient agreed to participate. [facility] Floor Tech (SOLITAR[employer]) documentation: [employer] facilitated telehealth visit with provider Tatyana Weems- [facility] Support Services/[facility] [employer] Plan [email or web address] Electronically signed by Celia Weems [facility] Floor Tech at 09/24/2023 2:03 PM EST * Tatyana Lawson CRNP - 09/24/2023 1:00 PM EST Images from the original note were not included. [facility] Problem Oriented Charting Provider Visit Date: 09/24/2023 Time: 1:21 PM [facility] Sub-Program: Focused Care Management (3-9 months) Assessment and Plan #1 Diarrhea, unspecified type (Primary) - Clostridium Difficile, PCR; Future; Expected date: 10/01/2023 #2 Type 2 diabetes mellitus with diabetic mononeuropathy, unspecified whether assisted insulin use([facility]) Assessment & Plan: Improved on gabapentin Orders: - Remote Patient Monitoring Referral - Home Phlebotomy Referral OP #3 Chronic diastolic CHF (congestive heart failure) ([facility]) Assessment & Plan: "RED FLAG" HF Symptoms: Leg Swelling (Examples: "I can't wear certain socks or shoes", "My pants feel tight") Increased dyspnea on exertion (Example: "I can't walk to the kitchen or up the stairs") Medication Regimen: Beta Ming Therapy: No beta-ming JO Inhibitor/ARB Therapy: Lisinopril Diuretic therapy: Lasix SGLT2 Inhibitor: empagliflozin (ex. Jardiance) Remote Patient Monitoring Vendor: [facility] Device(s): Connected Scale Connected Pulse Ox Connected BP Cuff Self - Management Plan Add metolazone (Zaroxolyn) 2.5-5mg for 1 days. If using a potassium supplement, double the dose of the supplement will be given on the day of and on the day after the metolazone Exacerbation Plan BMP Additional Comments: Euvolemic today Needs large BP cuff, RPM referral placed with request #4 Type 2 diabetes mellitus with hemoglobin A1c goal of less than 7.0% ([facility]) Assessment & Plan: "RED FLAG" Diabetic symptoms: [...] blood again to get updated hemoglobin A1c. #5 Screening for thyroid disorder - TSH with Free T4 if indicated; Future; Expected date: 09/24/2023 #6 Encounter for vitamin deficiency screening - 25-Hydroxy Vitamin D; Future; Expected date: 09/24/2023 Other orders - metFORMIN HCl ER; Take 1 Tablet by mouth in the morning. Dispense: 90 Tablet; Refill: 1 Additional Medical Decision Making: Stable. Plan as above. RN will continue to monitor and will recheck again in October. Check-out note: [facility] scheduling--please schedule telemedicine recheck end of October [facility] intake--please call pt next week and follow up if diarrhea improved with stopping short acting meformin. If not, needs stool for C diff (order placed) may also need complete stool cx. LIN Nickerson This dictation was verbally transcribed via Dictation system. Occasional Errors, spelling flaws andomissions are inherent in digital transcriptions. Please contact the undersigned for any clarification/correction in the dictated transcript as needed. Scheduled appointments in the next 60 days: Future Appointments-next 60 days Date/Time Provider Specialty Dept Phone 09/24/2023 1:00 PM Celia Weems, [facility] Floor Tech; Tatyana Lawson CRNP [facility] [phone] 09/29/2023 10:30 AM (Arrive by 10:15 AM) Lauren Song CRNP Cardiology [phone] 10/07/2023 8:00 AM (Arrive by 7:45 AM) Lluvia Plaza RDN; Annie Jones PA-C; Chelsea Wolfe; DAHIANA GAVIRIA EVAL EXC HANNA MCCOY Gastroenterology [phone] 10/07/2023 2:30 PM Liya Jc RN [facility] [phone] 10/17/2023 2:30 PM Lynette Carpenter LCSW Psychology [phone] 12/03/2023 9:00 AM Berenice Chiu MD Endoscopy [phone] A total of 27 minutes was spent face to face (via video-based telemedicine if designated as a telemedicine visit) Subjective Subjective Is this a Telemedicine Visit? Yes, Patient location: HOME. I was not in a hospital or clinic location. After connecting through televideo, patient was verified with two unique identifiers. Patient (or authorized legal installation service representative) was then informed that this was a Telemedicine visit and being conducted confidentially over secure lines. Methods to assure confidentiality were taken. Patient acknowledged consent and understanding of privacy and security of the Telemedicine visit. The patient agreed to participate. Reason For [facility] Visit: Follow-Up one month Current Concerns: Nicola Pineda is a 48 year old male seen today for a [facility] provider visit. PMH--morbid obesity, chronic diastolic CHF, LVEF 60-65%, Factor V Leiden on eliquis, h/o cerebral venous thrombosis, DM 2, QUENTIN on CPAP, mod persistent asthma At last visit, meloxicam was stopped and added diclofenac for bilateral knee pain. RN did follow-up call on 08/27 and patient reported the pain in his knees and legs was worse and reported it felt like bugs running around in his feet and some pinching. He was started on gabapentin Following with comprehensive weight management clinic with last appointment 09/02. Also followed by psych as well. Follow-up with sleep medicine 09/17 Today's concerns are: Lowering requip per sleep medicine. Checking wt daily via [facility]--running 380lb. Reports he used to be 450lb. Denies any swelling. Gabapentin helped pain 50%. Also reports diarrhea past 3 weeks-had incontinence during night. 4-5 times a day "and that is conservative." No recent antibiotic use. No N/V. He thinks related to metformin because he forgot to take it one day and did not have diarrhea. Also reports blood sugars dropping low at night 50-60. Drinks apple juice and feels better. Hit the L great toe on bedpost on Friday and bled. No redness or swelling. cuts toenails. Mobile lab came to draw his blood and were unsuccessful with venipuncture. Additional Review of Systems Constitutional: Negative for activity change, appetite change and chills. Respiratory: Positive for shortness of breath. Cardiovascular: Negative for chest pain and leg swelling. Gastrointestinal: Positive for diarrhea. Negative for abdominal pain and nausea. Genitourinary: Negative for difficulty urinating. Musculoskeletal: Positive for arthralgias. Skin: Positive for wound. Neurological: Negative for dizziness and light-headedness. Objective Objective Vitals: 09/24/23 1309 Temp: 35.9 C (96.7 F) Pulse: 82 SpO2: 97% BP: 120/60 Last Weights: Wt Readings from Last 3 Encounters: 09/24/23 (!) 173.3 kg (382 lb) 09/01/23 (!) 176.4 kg (389 lb) 08/20/23 (!) 174.8 kg (385 lb 4.8 oz) Last BPs: BP Readings from Last 4 Encounters: 09/24/23 120/60 09/01/23 118/70 08/20/23 130/80 08/19/23 102/60 Physical Exam Constitutional: General: He is not in acute distress. Appearance: He is not toxic-appearing. HENT: Head: Normocephalic. Cardiovascular: Rate and Rhythm: Normal rate and regular rhythm. Pulmonary: Effort: Pulmonary effort is normal. No respiratory distress. Breath sounds: Normal breath sounds. Musculoskeletal: Right lower leg: No edema. Left lower leg: No edema. Feet: Comments: L great toenail medial fold with dried blood., no redness or swelling. Skin: Coloration: Skin is not pale. Neurological: General: No focal deficit present. Mental Status: He is alert. Psychiatric: Mood and Affect: Mood normal. Thought Content: Thought content normal. Judgment: Judgment normal. Lab Review: I have reviewed the following results: [facility] results Recent Labs Units 08/11/23 0851 03/05/23 0844 07/16/22 0919 SODIUM - [facility] mmol/L 136 136 139 POTASSIUM - [facility] mmol/L 3.9 4.8 4.7 CHLORIDE - [facility] mmol/L 90* 102 103 CO2 - [facility] mmol/L 26 20* 22 CREATININE - [facility] mg/dL 1.5* 1.3* 1.1 BUN - [facility] mg/dL 38* 18 28* Component Latest Ref Rng 07/16/2022 LDL Cholesterol (Direct Measure) <=129 mg/dL 97 Lipid panel results Recent Labs Units 07/16/22 0919 CHOLESTEROL - [facility] mg/dL 210* HDL CHOLESTEROL - [facility] mg/dL 38* TRIGLYCERIDES - [facility] mg/dL 509* CBC results Recent Labs Units 07/16/22 0919 HGB - [facility] g/dL 14.6 HbA1c results Recent Labs Units 03/05/23 0844 07/16/22 0919 HEMOGLOBIN A1C - [facility] % 7.0* 5.8* TSH results No results for input(s): "TSH" in the last 84251 hours. Vitamin D results No results for input(s): "25OHVITAMIND" in the last 22461 hours. Hepatic panel results Recent Labs Units 07/16/22 0919 PROTEIN - [facility] g/dL 7.4 BILIRUBIN, TOTAL - [facility] mg/dL 0.3 ALKALINE PHOSPHATASE - [facility] U/L 94 AST - [facility] U/L 24 ALT - [facility] U/L 49 Protein/cr ratio results No results for input(s): "PROCRRATIO" in the last 30337 hours. Medication Review "Bottles Out" medication review not performed today SALLY Cade 9:06 AM *Communication sent to PCP (via autofax if [facility]), [facility] [place] [facility] Care Team members,relevant Specialty Care Physicians* documented in this encounter Miscellaneous Notes * Assessment & Plan Note - Tatyana Lawson CRNP - 09/24/2023 2:02 PM EST Associated Problem(s): Contusion of left great toe without damage to nail Appears nail plate likely cut into the nail fold causing some bleeding. Advised to monitor closely,apply topical antibiotic ointment. If develops any redness or swelling to contact [facility] right away. * Assessment & Plan Note - Tatyana Lawson CRNP - 09/24/2023 2:02 PM EST Associated Problem(s): Diarrhea Suspect this could be secondary to metformin-as [...] diff culture and consider complete stool cultures. * Assessment & Plan Note - Tatyana Lawson CRNP - 09/24/2023 1:56 PM EST Associated Problem(s): Type 2 diabetes mellitus with hemoglobin A1c goal of less than 7.0% (HCC) "RED FLAG" Diabetic symptoms: Generalized Weakness Goal [...] blood again to get updated hemoglobin A1c. * Assessment & Plan Note - Tatyana Lawson CRNP - 09/24/2023 1:55 PM EST Associated Problem(s): Type 2 diabetes mellitus with diabetic mononeuropathy (HCC) Improved on gabapentin * Assessment & Plan Note - Tatyana Lawson CRNP - 09/24/2023 1:54 PM EST Associated Problem(s): Chronic diastolic CHF (congestive heart failure) (HCC) "RED FLAG" HF Symptoms: Leg Swelling (Examples: "I can't wear certain socks or shoes", "My pants feel tight") Increased dyspnea on exertion (Example: "I can't walk to the kitchen or up the stairs") Medication Regimen: Beta Ming Therapy: No beta-ming JO Inhibitor/ARB Therapy: Lisinopril Diuretic therapy: Lasix SGLT2 Inhibitor: empagliflozin (ex. Jardiance) Remote Patient Monitoring Vendor: [facility] Device(s): Connected Scale Connected Pulse Ox Connected BP Cuff Self - Management Plan Add metolazone (Zaroxolyn) 2.5-5mg for 1 days. If using a potassium supplement, double the dose of the supplement will be given on the day of and on the day after the metolazone Exacerbation Plan BMP Additional Comments: Euvolemic today Needs large BP cuff, RPM referral placed with request documented in this encounter Plan of Treatment Upcoming Encounters Date Type Department Care Team (Late st Contact Info) Description 09/29/2023 10:30 AM EST Office Visit Cardiology, [facility] [address] [place] [address] Lauren Song CRNP [address] [place] [address] 10/06/2023 2:15 PM EDT Scheduled Telephone [facility] [place], [facility] [address] [place] [address] Coordinator, [facility] [address] [place] [address] 10/07/2023 8:00 AM EDT Office Visit Nutrition & Weight Management, [facility] [address] [place] [address] EvinstveeChelsea Sonja [facility] [address] [place] [address] Annie Jones PA-C [address] [place] [address] Lluvia Plaza RDN [address] [place] [address] 10/07/2023 2:30 PM EDT Home Visit [facility] [place], [facility] [address] [place] [address] Liya Jc RN [address] [place] [place] [address] 10/17/2023 2:30 PM EDT Telemedicine [facility] [address] [place] [address] Lynette Carpenter LCSW [address], [place] [id number] 11/25/2023 1:00 PM EDT [facility] [address] [facility] [place] [address] Tatyana Lawson CRNP [address] [place] [address] Celia Weems, [facility] Floor Tech [address] [place] [address] 12/03/2023 9:00 AM EDT Procedure Only Endoscopy, [facility] [address] [place] [address] Berenice Chiu MD [address] [place] [address] Scheduled Orders Name Type Priority Associated Diagnoses Orde r Schedule CLOSTRIDIUM DIFFICILE, PCR Lab Routine Diarrhea, unspecified type Expected: 10/01/2023 (Approximate), Expires: 09/23/2024 TSH WITH FREE T4 IF INDICATED Lab Routine Screening for thyroid disorder Expected: 09/24/2023 (Approximate), Expires: 09/23/2024 25-HYDROXY VITAMIN D Lab Routine Encounter for vitamin deficiency screening Expected: 09/24/2023 (Approximate), Expires: 09/23/2024 Scheduled Referrals Name Type Priority Associated Diagnoses Orde r Schedule REMOTE PATIENT MONITORING REFERRAL Referral Within 3 days (urgent) Type 2 diabetes mellitus with diabetic mononeuropathy, unspecified whether terminal carman insulin use (HCC) Ordered: 09/24/2023 HOME PHLEBOTOMY REFERRAL OP Referral Within 10 days (routine) Type 2 diabetes mellitus with diabetic mononeuropathy, unspecified whether assisted insulin use (HCC) Ordered: 09/24/2023 Health Maintenance Due Date Last Done Comments [...] as of this encounter Visit Diagnoses Diagnosis Diarrhea, unspecified type- Primary Type 2 diabetes mellitus with diabetic mononeuropathy, unspecified whether terminal carman insulin use (HCC) Chronic diastolic CHF (congestive heart failure) (HCC) Chronic diastolic heart failure Screening for thyroid disorder Encounter for vitamin deficiency screening Screening for other and unspecified endocrine, nutritional, metabolic, and immunity disorders Contusion of left great toe without damage to nail, initial encounter documented in this encounter Advance Directives Latest [...] the patient have Health Care Power of Lathe Mechanic? No Code Status History Code Status Date Activated Date Inactivated Comments Full Code 02/05/2017 7:44 PM 02/19/2017 10:16 PM This order reflects the patients wishes and were consensually agreed upon. Question Answer Comments Discussion of Advance Directives occurred with: Not Discussed Care Teams Electrocardiogram Technician Relationship Specialty Start Date End Date Tyrone Massiel CELENA Soriano [address] [facility] [place] [address] PCP - General Physician Environmental Services Floor Tech 04/03/22 documented as of this encounter
--- OUTSIDE RECORDS SUMMARY | 2023-10-12 18:58 | External Medical Summary | Summary of Care ---
Author Name Unknown Organization [facility] Address [address] [place] [address] Phone [phone] Care Team Providers Care Case Preparer And Liner Name Role Phone Tyrone October CELENA Primary Care Provider [phone] Reason for Visit * Reason Onset Date Comments Appointment 09/24/2023 Encounter Details Date Type Department Care Team (Late st Contact Info) Description 09/24/2023 Telephone [facility], [facility] [address] [facility] [place] [address] Nessa Nguyen, Community Health Campus Supervisor [address] [place] [address] Appointment Allergies No known active allergiesdocumented as of [...] 0 10/09/2022 Acti ve FreeStyle Abdulkadir 2 [place] DeviceIndications:Ty pe 2 diabetes mellitus without complication, [...] before bedtime. 0 08/22/2023 Active DIURETIC TITRATION PLANIndications:Systems Development Manager ethan diastolic CHF (congestive heart failure) (HCC) [...] the morning. 90 Tablet 1 09/24/2023 Active documented as of this encounter (statuses [...] develops any redness or swelling to contact [facility] right away. Food insecurity 09/08/2023 Overview: [...] empagliflozin (ex. Jardiance) Remote Patient Monitoring Vendor: [facility] Device(s): Connected Scale Connected Pulse Ox Connected [...] kit in the past. Advised to call [facility] immediately for eval if he feels [...] mRNA, LNP-s, No Pre serve, 2-Dose Series ([employer]) 11/30/2020,11/06/2020 Pneumococcal Polysaccharide PPV23 (Pneumovax) 05/22/2021 Seasonal [...] encounter Miscellaneous Notes * Telephone Encounter - Nessa Nguyen Community Health Assistant - 09/24/2023 2:35 PM EST Per request from Elsie Lawson to schedule a telemed appt for the end october. Scheduled for 11/25/23 @1pm with Giovanny. Called and left detailed message for Pt asking to call back to confirm appt. documented in this encounter Plan of Treatment Upcoming Encounters Date Type Department Care Team (Late st Contact Info) Description 09/29/2023 10:30 AM EST Office Visit Cardiology, [facility] [address] [place] [address] Lauren Song CRNP [address] [place] [address] 10/07/2023 8:00 AM EDT Office Visit Nutrition & Weight Management, [facility] [address] [place] [address] [facility] [address] [place] [address] Annie Jones PA-C [address] [place] [address] Lluvia Plaza RDN [address] [place] [address] 10/07/2023 2:30 PM EDT [facility] Visit [facility], [facility] [address] [facility] [place] [address] Liya Jc RN [address] [place] [address] 10/17/2023 2:30 PM EDT Telemedicine [facility] [address] [place] [address] Lynette Carpenter, [facility] [address] [place], [place] [id number] 11/25/2023 1:00 PM EDT Telemedicine [facility] [place], [facility] [address] [facility] [place] [address] Tatyana Lawson CRNP [address] [place] [address] Celia Weems, Community Health Campus Supervisor [address] [place] [address] 12/03/2023 9:00 AM EDT Procedure Only Endoscopy, [...] the patient have Health Care Power of Store Clerk Checker? No Code Status History Code Status Date Activated Date Inactivated Comments Full Code 02/05/2017 7:44 PM 02/19/2017 10:16 PM This order reflects the patients wishes and were consensually agreed upon. Question Answer Comments Discussion of Advance Directives occurred with: Not Discussed Care Teams Case Preparer And Liner Relationship Specialty Start Date End Date Tyrone October CELENA Soriano [address] [place] [address] PCP - General Physician Campus Supervisor 04/03/22 documented as of this encounter
--- OUTSIDE RECORDS SUMMARY | 2023-10-12 18:58 | External Medical Summary | Summary of Care ---
Author Name Unknown Organization [facility] Address [address] [place] [address] Phone [phone] Care Team Providers Care Rotary Driller Prospecting Name Role Phone Massiel Hansen PA-C Primary Care Provider [phone] Reason for Visit * Reason Onset Date Comments Med Request 06/17/2023 Encounter Details Date Type Department Care Team (Late st Contact Info) Description 06/17/2023 Telephone Family Practice [facility] [address] [facility] [address] Massiel Hansen PA-C [address] [place] [place] [address] Med Request Allergies No known active allergiesdocumented as of this encounter (statuses as of 09/16/2023) Medications Medication Sig Dispensed Refills Start Date [...] 0 10/09/2022 Acti ve FreeStyle Abdulkadir 2 [place] DeviceIndications:Ty pe 2 diabetes mellitus without complication, without long-term current use of insulin (HCC) Use as directed. 1 Each 0 03/05/2023 Active predniSONE 20 MG Oral Tablet (Deltasone) NEEDED RESCUE KIT. Take 2 tabs by mouth for 5 days 10 Tablet 1 05/29/2023 Active documented as of this encounter (statuses as of 09/16/2023) Active Problems Problem Noted Date Diagnosed Date Food insecurity 09/08/2023 Overview: Per [facility] Protocol Chronic diastolic CHF (congestive [...] empagliflozin (ex. Jardiance) Remote Patient Monitoring Vendor: [facility] Device(s): Connected Scale Connected Pulse Ox Connected BP Cuff Self - Management Plan Add metolazone (Zaroxolyn) 2.5-5mg for 1 days. If using a potassium supplement, double the dose of the supplement will be given on the day of and on the day after the metolazone Exacerbation Plan BMP Additional Comments: Euvolemic today [facility] ordered Rewiewed red flag reportable symptoms. History [...] kit in the past. Advised to call [facility] immediately for eval if he feels [...] as of this encounter (statuses as of 09/16/2023) Resolved Problems Problem Noted Date Diagnosed Date [...] as of this encounter (statuses as of 09/16/2023) Immunizations Name Administration Dates Next Due COVID-19 [...] encounter Miscellaneous Notes * Telephone Encounter - Phyllis Resendez CPhT - 06/17/2023 11:26 AM EST [employer] pill pack calling for a refill, transferred to speciality line. Thank you, Phyllis Resendez, [facility] [employer] [facility]Former[facility]pharm[facility]) 06/17/2023, 11:26 AM documented in this encounter Plan of Treatment Upcoming Encounters Date Type Department Care Team (Late st Contact Info) Description 09/17/2023 7:00 AM EST Telemedicine [facility] [address] [facility] [place] [address] Kelly Moore CRNP [address] [facility] [place] [address] 09/24/2023 1:00 PM EST Telemedicine [facility], [facility] [address] [facility] [place] [address] Tatyana Lawson CRNP [address] [facility] [place] [address] Celia Weems, Community Health Psychiatric Nurse [facility] [place] [address] 09/29/2023 10:30 AM EST Office Visit Cardiology, [facility] [address] [facility] [place] [address] Lauren Song CRNP 132 [facility] [place] [address] 10/07/2023 8:00 AM EDT Office Visit Nutrition & Weight Management, [facility] [address] [facility] [place] [address] Chelsea Wolfe [facility] [place] [phone] Annie Jones PA-C [facility] [place] [address] Lluvia Plaza RDN [address] [facility] [place] [phone] 10/07/2023 2:30 PM EDT Home [facility], [facility] [address] [facility] [place] [address] Liya Jc, RN [address] [facility] [phone] 10/17/2023 2:30 PM EDT Telemedicine Psychology, [place] [address] [place] [address] Lynette Carpenter, [facility] [address] [place] [address] 12/03/2023 9:00 AM EDT Procedure Only Endoscopy, [facility] [address] [facility] [place] [address] Berenice Chiu MD [address] [place] [address] [place] [address] Health Maintenance Due Date Last Done Comments [...] the patient have Health Care Power of Systems Designer? No Code Status History Code Status Date Activated Date Inactivated Comments Full Code 02/05/2017 7:44 PM 02/19/2017 10:16 PM This order reflects the patients wishes and were consensually agreed upon. Question Answer Comments Discussion of Advance Directives occurred with: Not Discussed Care Teams Rotary Driller Prospecting Relationship Specialty Start Date End Date Tyrone October CELENA Soriano [facility] [address] [place] [address] PCP - General Physician Psychiatric Nurse 04/03/22 documented as of this encounter
--- OUTSIDE RECORDS SUMMARY | 2023-10-12 18:58 | External Medical Summary ---
Author Name Unknown Address Unknown Organization K01:[facility] [place] [address] [place] [address] Laboratory Report Ordering Provider Test Date Status [id number] 09/30/2023 09:23:00 Final Observation Date Value Abnormality Reference (Units ) Status TSH 09/30/2023 09:23:00 1.74 0.27-4.20 (uIU/mL) Final Performing Location [facility] [place] [address] [place] [address]
--- OUTSIDE RECORDS SUMMARY | 2023-10-12 18:58 | External Medical Summary | Summary of Care ---
Author Name Unknown Organization [facility] Address [address] [place] [address] Phone [phone] Care Team Providers Care Smoke Inspector Name Role Phone Danielle October ANMOLC Primary Care Provider [phone] Encounter Details Date Type Department Care Team (Late st Contact Info) Description 09/19/2023 Population Health External Data Unspecified Department Allergies No known active allergiesdocumented as of this encounter (statuses as of 09/19/2023) Medications Medication Sig Dispensed Refills Start Date [...] 0 10/09/2022 Acti ve FreeStyle Abdulkadir 2 [place] DeviceIndications:Ty pe 2 diabetes mellitus without complication, [...] Active metFORMIN HCl 500 MG Oral Tablet (Glucophage)Indicati ons:Type 2 diabetes mellitus without complication, unspecified whether buttermaker helper insulin use (HCC) TAKE 1 TABLET BY MOUTH TWICE A DAY WITH MORNING AND EVENING MEALS 180 Tablet 2 08/06/2023 Active FreeStyle Abdulkadir 2 SensorIndications:Ty pe 2 [...] before bedtime. 0 08/22/2023 Active DIURETIC TITRATION PLANIndications:Accredited Pharmacy Technician ethan diastolic CHF (congestive heart failure) (HCC) [...] as needed. 120 Tablet 0 09/17/2023 Active documented as of this encounter (statuses as of 09/19/2023) Active Problems Problem Noted Date Diagnosed Date Food insecurity 09/08/2023 Overview: Per [facility] Protocol Chronic diastolic CHF (congestive [...] empagliflozin (ex. Jardiance) Remote Patient Monitoring Vendor: [facility] Device(s): Connected Scale Connected Pulse Ox Connected BP Cuff Self - Management Plan Add metolazone (Zaroxolyn) 2.5-5mg for 1 days. If using a potassium supplement, double the dose of the supplement will be given on the day of and on the day after the metolazone Exacerbation Plan BMP Additional Comments: Euvolemic today [facility] ordered Rewiewed red flag reportable symptoms. History [...] kit in the past. Advised to call [facility] immediately for eval if he feels he [...] as of this encounter (statuses as of 09/19/2023) Resolved Problems Problem Noted Date Diagnosed Date [...] as of this encounter (statuses as of 09/19/2023) Immunizations Name Administration Dates Next Due COVID-19 mRNA, LNP-s, No Pre serve, 2-Dose Series ([employer] [place] [employer]) 11/30/2020,11/06/2020 Pneumococcal Polysaccharide PPV23 (Pneumovax) 05/22/2021 Seasonal [...] Yes 05/16/2017 documented as of this encounter Plan of Treatment Upcoming Encounters Date Type Department Care Team (Late st Contact Info) Description 09/24/2023 1:00 PM EST Telemedicine [facility] [address] [place] [address] Tatyana Lawson CRNP [address] [place] [address] Celia Weems, Community Health Management Consultant [address] [place] [address] 09/29/2023 10:30 AM EST Office Visit Cardiology, [facility] [address] [place] [address] Lauren Song CRNP [address] [place] [address] 10/07/2023 8:00 AM EDT Office Visit Nutrition & Weight Management, [facility] [address] [place] [address] Chelsea Wolfe [facility] [address] [place] [address] Annie Jones PA-C [address] [place] [address] Lluvia Plaza RDN [address] [place] [address] 10/07/2023 2:30 PM EDT [facility], [facility] [address] [place] [address] Liya Jc, RN [address] [place] [address] 10/17/2023 2:30 PM EDT Telemedicine Psychology, [place] [address] [place], [place] [id number] Lynette Carpenter LCSW [address] [place] [address] 12/03/2023 9:00 AM EDT Procedure Only Endoscopy, [place] [facility] [address] [facility] [place] [address] Berenice Chiu MD [address] [place] [...] the patient have Health Care Power of Liquid Waste Treatment Plant Operator? No Code Status History Code Status Date Activated Date Inactivated Comments Full Code 02/05/2017 7:44 PM 02/19/2017 10:16 PM This order reflects the patients wishes and were consensually agreed upon. Question Answer Comments Discussion of Advance Directives occurred with: Not Discussed Care Teams Smoke Inspector Relationship Specialty Start Date End Date Tyrone October CELENA Soriano [address] [place] [address] PCP - General Physician Management Consultant 04/03/22 documented as of this encounter
--- OUTSIDE RECORDS SUMMARY | 2023-10-12 18:58 | External Medical Summary | Summary of Care ---
Author Name Unknown Organization [facility] Address [address] [place] [address] Phone [phone] Care Team Providers Care Corporate Executive Name Role Phone Daniellelaura October ANMOLC Primary Care Provider [phone] Reason for Referral * Ancillary Services (Within 10 days (routine)) - Pending Review Specialty Diagnoses / Procedures Referred By Susie garvey Referred To Contact Insulation Board Calender Operator Diagnoses Type 2 diabetes mellitus with diabetic mononeuropathy, unspecified whether predatory animal exterminator insulin use (HCC) Tatyana Lawson CRNP [address] [place] [address] Referral ID Status Reason Start Date Expiration Date Visits Requested Visits Authorized [id number] Pending Review Ancillary Services Required 09/24/2023 999 [...] on the next service day for the [facility] Home Phlebotomy does not service every geographical location on a daily basis. Contact [facility] Client Services at to find out service days for a specific location. Medical Laboratory [address] [place] [id number] Main Maguire M.D. Director and [place] Dental Lab Technician Patient Name: Nicola Pineda : 1975 Sex: male Address [address] [place] [address] [place] [address] Provider: Self? Massiel Hansen PA-C? Diagnosis: R19.7 Diarrhea, unspecified type (primary encounter diagnosis) E11.41 Type 2 diabetes mellitus with diabetic mononeuropathy, unspecified whether predatory animal exterminator insulin use (HCC) Tests Requested CMP, CBC, hgba1c,lipids in 2 weeks * Evaluate & Treat - Unlimited Visits (Within 3 days (urgent)) - Pending Review Specialty Diagnoses / Procedures Referred By Susie garvey Referred To Contact Email Deployment Specialist Diagnoses Type 2 diabetes mellitus with diabetic mononeuropathy, unspecified whether detention insulin use (HCC) Tatyana Lawson CRNP [address] [place] [address] Referral ID Status Reason Start Date Expiration Date Visits Requested Visits Authorized [id number] Pending Review Specialty Services Required 09/24/2023 999 999 Question Answer Referral Priority Within 3 days (urgent) Program Type [facility] Health Device(s) Requested Pulse Ox, BP Cuff, Scale Where should this appointment be scheduled? [facility] Standard per protocol Comments Pt need large BP cuff (has small,please send.) Reason for Visit * Reason Comments [facility]: Telehealth Encounter Details Date Type Department Care Team (Late st Contact Info) Description 09/24/2023 1:00 PM EST Telemedicine [facility], [facility] [address] [place] [address] Tatyana Lawson CRNP [address] [place] [address] Celia Weems, Community Health Beauty Sales Consultant [address] [place] [address] Diarrhea, unspecified type*; Type 2 diabetes mellitus with diabetic mononeuropathy, unspecified whether detention insulin use ([facility]); Chronic diastolic CHF (congestive heart failure) ([facility]); Type 2 diabetes mellitus with hemoglobin A1c goal of less than 7.0% ([facility]); Screening for thyroid disorder; Encounter for [...] Tablet. 0 10/09/2022 Active FreeStyle Abdulkadir 2 [place] DeviceIndications:T ype 2 diabetes mellitus without complication, without long-term current use of insulin ([facility]) Use as directed. 1 Each 0 [...] 2 diabetes mellitus without complication, unspecified whether predatory animal exterminator insulin use (HCC) TAKE 1 TABLET BY [...] empagliflozin (ex. Jardiance) Remote Patient Monitoring Vendor: [facility] Device(s): Connected Scale Connected Pulse [...] kit in the past. Advised to call [facility] immediately for eval if he feels [...] as of this encounter Progress Notes * Celia Weems, Community Health Beauty Sales Consultant - 09/24/2023 1:08 PM EST Telemedicine visit: Yes Patient location: HOME. I was not in a hospital or clinic location. After connecting through televideo, patient was verified with two unique identifiers. Patient (or authorized legal community engagement representative)was then informed that this was a Telemedicine visit and being conducted confidentially over securelines. Methods to assure confidentiality were taken. Patient acknowledged consent and understanding of privacy and security of the Telemedicine visit. The patient agreed to participate. Community Health Beauty Sales Consultant ([facility]) documentation: [facility] facilitated telehealth visit with provider Tatyana Weems- [facility] Support Services/[facility] [employer] Plan [email or web address] [email or web address] TatyanaSALLY Sexton - 09/24/2023 1:00 PM EST Images from the original note were not included. [facility] Problem Oriented Charting Provider Visit Date: 09/24/2023 Time: 1:21 PM [facility] Sub-Program: Focused Care Management (3-9 months) Assessment and Plan #1 Diarrhea, unspecified type (Primary) - Clostridium Difficile, PCR; Future; Expected date: 10/01/2023 #2 Type 2 diabetes mellitus with diabetic mononeuropathy, unspecified whether predatory animal exterminator insulin use([facility]) Assessment & Plan: Improved on gabapentin Orders: - Remote Patient Monitoring Referral - Home Phlebotomy Referral OP #3 Chronic diastolic CHF (congestive heart failure) ([facility]) Assessment & Plan: "RED FLAG" HF Symptoms: Leg Swelling (Examples: "I can't wear certain socks or shoes", "My pants feel tight") Increased dyspnea on exertion (Example: "I can't walk to the kitchen or up the stairs") Medication Regimen: Beta Ming Therapy: No beta-ming JO Inhibitor/ARB Therapy: Lisinopril Diuretic therapy: Lasix SGLT2 Inhibitor: empagliflozin (ex. Jardiance) Remote Patient Monitoring Vendor: [facility] Device(s): Connected Scale Connected Pulse [...] goal of less than 7.0% ([facility]) Assessment & Plan: "RED FLAG" Diabetic [...] will recheck again in October. Check-out note: [facility] scheduling--please schedule telemedicine recheck end of October [facility] intake--please call pt next week and follow [...] 09/24/2023 1:00 PM Celia Weems, Community Health Beauty Sales Consultant; Tatyana Lawson CRNP [facility] [phone] 09/29/2023 10:30 AM (Arrive by 10:15 AM) Lauren Song CRNP Cardiology [phone] 10/07/2023 8:00 AM (Arrive by 7:45 AM) Lluvia Plaza RDN; Annie Jones PA-C; Chelsea Wolfe; DAHIANA MCCOY Gastroenterology [phone] 10/07/2023 2:30 PM Liya Jc RN [facility] [phone] 10/17/2023 2:30 PM Lynette CarpenterMANPREETW Psychology [phone] 12/03/2023 9:00 AM Berenice Chiu MD Endoscopy [phone] A total of 27 minutes was spent face to face (via video-based telemedicine if designated as a telemedicine visit) Subjective Subjective Is this a Telemedicine Visit? Yes, Patient location: HOME. I was not in a hospital or clinic location. After connecting through televideo, patient was verified with two unique identifiers. Patient (or authorized legal community engagement representative) was then informed that this was a Telemedicine visit and being conducted confidentially over secure lines. Methods to assure confidentiality were taken. Patient acknowledged consent and understan ding of privacy and security of the Telemedicine visit. The patient agreed to participate. Reason For [facility] Visit: Follow-Up one month Current Concerns: Nicola Pineda is a 48 year old male seen today for a [facility] provider visit. PMH--morbid obesity, chronic diastolic CHF, LVEF 60-65%, Factor V Leiden on eliquis, h/o cerebral venous thrombosis, DM 2, QUENTIN on CPAP, mod persistent asthma At last visit, meloxicam was stopped and added diclofenac for bilateral knee pain. RN did follow-upcall on 08/27 and patient reported the pain [...] per sleep medicine. Checking wt daily via [facility]--running 380lb. Reports he used to be 450lb. [...] Review: I have reviewed the following results: BMP results Recent Labs Units 08/11/23 0851 03/05/23 [...] results for input(s): "TSH" in the last 10582 hours. Vitamin D results No results for input(s): "25OHVITAMIND" in the last 49301 hours. Hepatic panel results Recent Labs Units 07/16/22 0919 PROTEIN - [facility] g/dL 7.4 BILIRUBIN, TOTAL - [facility] mg/dL 0.3 ALKALINE PHOSPHATASE - [facility] U/L 94 AST - [facility] U/L 24 ALT - [facility] U/L 49 Protein/cr ratio results No results for input(s): "PROCRRATIO" in the last 99090 hours. Medication Review "Bottles Out" medication review not performed today SALLY Cade 9:06 AM *Communication sent to PCP (via [facility] if [facility]), [facility] Health Care Team members,relevant Specialty Care Physicians* [...] develops any redness or swelling to contact [facility] right away. * Assessment & Plan Note - Tatyana Lawson CRNP - 09/24/2023 2:02 PM EST Associated Problem(s): Diarrhea Suspect this could be secondary to metformin-as noted he will stop short-acting formulation for now. Will start ER formulation when he receives it via mail order pharmacy. Can not rule out infectiousprocess-orders placed for C diff culture/[facility] we will leave specimen cup. If diarrhea persists or worsens through the end of the week or next week despite stopping metformin we will need to get C diffculture and consider complete stool cultures. * Assessment [...] empagliflozin (ex. Jardiance) Remote Patient Monitoring Vendor: [facility] Device(s): Connected Scale Connected Pulse [...] 09/29/2023 10:30 AM EST Office Visit Cardiology, [facility] [address] [place] [address] Lauren Song CRNP [address] [place] [address] 10/07/2023 8:00 AM EDT Office Visit Nutrition & Weight Management, [facility] [address] [place] [address] Chelsea Wolfe [facility] [address] [place] [address] Annie Jones PA-C [address] [place] [address] Lluvia Plaza RDN [address] [place] [address] 10/07/2023 2:30 PM EDT Home Visit [facility], [place] [address] [place] [address] Liya Jc RN [address] [place] [address] 10/17/2023 2:30 PM EDT Telemedicine Psychology, [place] [address] [place] [address] Lynette Carpenter, [facility] [address] [place] [address] 12/03/2023 9:00 AM EDT Procedure Only Endoscopy, [facility] [address] [place] [address] Berenice Chiu MD [address] [place] [address] [place] [address] Scheduled Orders Name Type Priority Associated Diagnoses [...] diabetes mellitus with diabetic mononeuropathy, unspecified whether predatory animal exterminator insulin use (HCC) Ordered: 09/24/2023 HOME PHLEBOTOMY REFERRAL OP Referral Within 10 days (routine) Type 2 diabetes mellitus with diabetic mononeuropathy, unspecified whether detention insulin use (HCC) Ordered: 09/24/2023 Health Maintenance [...] diabetes mellitus with diabetic mononeuropathy, unspecified whether predatory animal exterminator insulin use (HCC) Chronic diastolic CHF (congestive [...] the patient have Health Care Power of Pattern Duplicator? No Code Status History Code Status Date Activated Date Inactivated Comments Full Code 02/05/2017 7:44 PM 02/19/2017 10:16 PM This order reflects the patients wishes and were consensually agreed upon. Question Answer Comments Discussion of Advance Directives occurred with: Not Discussed Care Teams Corporate Executive Relationship Specialty Start Date End Date Tyrone October CELENA Soriano [facility] [address] [place] [address] PCP - General Physician Beauty Sales Consultant 04/03/22 documented as of this encounter
--- OUTSIDE RECORDS SUMMARY | 2023-10-12 18:58 | External Medical Summary | Summary of Care ---
Author Name Unknown Organization [facility] Address [address] [place] [address] Phone [phone] Care Team Providers Care [place] Cutting Machine Operator Name Role Phone Danielle October PAAnilC Primary Care Provider [phone] Reason for Visit * Reason Onset Date Comments [facility]: Maintenance 10/10/2023 Encounter Details Date Type Department Care Team (Late st Contact Info) Description 10/10/2023 Telephone [facility], [facility] [address] [facility] [place] [address] [facility], Nurse [facility] [address] [facility] [place] [id number] [facility]: Maintenance Allergies No known active allergiesdocumented as of this encounter (statuses as of 10/10/2023) Medications Medication Sig Dispensed Refills Start Date [...] 0 10/09/2022 Acti ve FreeStyle Abdulkadir 2 [place] DeviceIndications:Ty pe 2 diabetes mellitus without complication, [...] the morning. 90 Tablet 2 08/06/2023 Active Ozempic (1 MG/DOSE) 4 MG/3ML Subcutaneous [...] before bedtime. 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 90 Tablet 1 09/24/2023 Active Additional Information Patient not taking.Reported on 10/07/2023 Vitamin D3 1.25 MG (69973 UT) Oral Capsule (Cholecalciferol) Take 1 Capsule by mouth once a week. 8 Capsule 0 10/05/2023 4 Active documented as of this encounter (statuses as of 10/10/2023) Active Problems Problem Noted Date Diagnosed Date [...] develops any redness or swelling to contact HEALTH SYSTEM right away. Food insecurity 09/08/2023 Overview: Per [...] empagliflozin (ex. Jardiance) Remote Patient Monitoring Vendor: [facility] Device(s): Connected Scale Connected [...] kit in the past. Advised to call HEALTH SYSTEM immediately for eval if he [...] as of this encounter (statuses as of 10/10/2023) Resolved Problems Problem Noted Date Diagnosed Date [...] as of this encounter (statuses as of 10/10/2023) Immunizations Name Administration Dates Next Due COVID-19 mRNA, LNP-s, No Pre serve, 2-Dose Series ([employer]) 11/30/2020,11/06/2020 Pneumococcal Polysaccharide PPV23 (Pneumovax) 05/22/2021 Seasonal [...] encounter Miscellaneous Notes * Telephone Encounter - Niko Candice, LPN - 10/10/2023 10:18 AM EDT Images from the original note were not included. [facility] Remote Patient Monitoring Able to contact patient: Trigger type: Abnormal reading(s): AMC (Advanced Monitored Caregiving): Pulse Oximeter: Oxygen saturation per oximeter: 93 measured while on room air Pulse rate: Pulse: 111 Trigger priority per AMC: high Symptom review: denies new/worsening symptoms Diet Reviewed: N/A Fluid Intake Reviewed: N/A Self-Management Plan Reviewed: Red Flags: none listed Risk assignment recommendation: Moderate risk findings (check as applicable): [x] Moderate trigger priority on AMC [] Confirmed tympanic equivalent temperature 100.4-101.9 F onehour post administration of antipyretic [] Weight gain of 2.1-4.9 lbs over 1-2 days [x] Confirmed new sustained resting HR greater than 105WITHOUT symptoms [] Weight gain of greater than or equal to 5 lbs in 5 days WITHOUT heart failure symptoms [] Confirmed new sustained resting HRT less than 60 WITHOUT symptoms [] Moderate heart failure symptoms [] Confirmed SBP less than 90 WITHOUT symptoms [] Moderate COPD symptoms [] Confirmed SBP greater than 170 WITHOUT symptoms [x] Confirmed new SpO2 90-93% [] Confirmed DBP greater than 90 WITHOUT symptoms High risk findings (check as applicable): [] High trigger priority on AMC [] Confirmed tympanic equivalent temperature greater than or equal to 102 F on hour post administration of antipyretic [] Weight gain of greater than or equal to 5 lbs over 1-2 days [] Confirmed tympanic equivalent temperature less than 96 F [] Weight gain of greater than or equal to 5 lbs in 5 days WITH heart failure symptoms [] Confirmednew sustained resting HR greater than 105 WITH symptoms [] Severe heart failure symptoms [] Confirmed new sustained resting HR less than 60 WITH symptoms [] Severe COPD symptoms [] Confirmed SBP less than 90 WITH symptoms [] Confirmed new SpO2 less than 90% [] Confirmed SBP greater than 170 WITH symptoms [] Confirmed DBP greater than 90 WITH symptoms Additional risk selection justification: Spoke with pt denies increased SOB, edema, headache, chestdiscomfort. He take his vitals as soon as he wakes up in the morning prior to taking medications. On recheck Spo2 98 HR 79. He will call HEALTH SYSTEM with any concerns. Overall risk and identified plan: Moderate risk: Route to RNCM (Registered Nurse Social Media Marketing Specialist) and Advance Practitioner documented in this encounter Plan of Treatment Upcoming Encounters Date Type Department Care Team (Late st Contact Info) Description 10/31/2023 4:00 PM EDT Home Visit [facility] [place], [facility] [address] [place] [address] Liya Jc RN [address] [facility] [place] [address] 11/25/2023 1:00 PM EDT Telemedicine [facility], [place] [address] [place] [address] Tatyana Lawson CRNP [address] [facility] [place] [address] Celia Weems, Community Health Commercial Plumber [address] [place] [address] Health Maintenance Due Date Last Done Comments [...] 12/20/2023 12/19/2022, , 12/21/2021 GFR 08/11/2024 08/11/2023, 08/03/2023, 07/16/2022, Additional history exists Depression Screening 08/15/2024 [...] the patient have Health Care Power of Dock Or Pier Laborer? No Code Status History Code Status Date Activated Date Inactivated Comments Full Code 02/05/2017 7:44 PM 02/19/2017 10:16 PM Thi s order reflects the patients wishes and were consensually agreed upon. Question Answer Comments Discussion of Advance Directives occurred with: Not Discussed Care Teams [place] Cutting Machine Operator Relationship Specialty Start Date End Date Tyrone October CELENA Soriano [facility] [address] [place] [address] PCP - General Physician Commercial Plumber 04/03/22 documented as of this encounter
--- OUTSIDE RECORDS SUMMARY | 2023-10-12 18:58 | External Medical Summary | Summary of Care ---
Author Name Unknown Organization [facility] Address [address] [place] [address] Phone [phone] Care Team Providers Care Skein Drier Name Role Phone Danielleoctober PAAnilC Primary Care Provider [phone] Reason for Visit * Reason Comments Follow Up Encounter Details Date Type Department Care Team (Late st Contact Info) Description 09/17/2023 7:00 AM EST Telemedicine Sleep [facility] [address] [place] [phone] Kelly Moore CRNP [address] [place] [id number] Restless legs syndrome (RLS)*; QUENTIN (obstructive sleep apnea); Nocturnal hypoxemia; Heart failure, unspecified HF chronicity, unspecified heart failure type (HCC) Allergies No known active allergiesdocumented as of this encounter (statuses as of 09/26/2023) Medications Medication Sig Dispensed Refills Start Date End Date Status Aspirin-Acetaminop hen-Caffeine 250-250-65 MG Oral Tablet Take 2 Tablets [...] all hours of sleep 1 Each 0 2 Active Albuterol Sulfate HFA 108 (90 Base) MCG/ACT Inhalation Aerosol SolutionIndication s:Wheezing Inhale 2 Puffs by mouth 4 times a day as needed for Shortness of Breath. 54 g 1 3 Active Ipratropium-Albute rol 0.5-2.5 (3) MG/3ML Inhalation Solution (Duoneb) 3 mL. 0 3 Active Multivitamin Adult Oral Tablet Chewable 1 Tablet. 0 3 Active FreeStyle Abdulkadir 2 [place] DeviceIndications: Type 2 diabetes mellitus without complication, without long-term current use of insulin ([facility]) Use as directed. 1 Each 0 3 Active predniSONE 20 MG Oral Tablet (Deltasone) NEEDED RESCUE KIT. Take 2 tabs by mouth for 5 days 10 Tablet 1 3 Active metOLazone 2.5 MG Oral Tablet (Zaroxolyn)Indicat ions:Chronic heart failure with preserved ejection fraction (HCC) Take 1 Tablet by mouth in the morning. As needed for weight gain protocol. 90 Tablet 5 3 Active FreeStyle Abdulkadir 2 SensorIndications: Type 2 diabetes mellitus without complication, without long-term current use of insulin ([facility]) Use as directed. 3 Each 3 4 Active Empagliflozin 25 MG Oral Tablet (Jardiance)Indicat ions:Type 2 diabetes mellitus without complication, without long-term current use of insulin ([facility]) Take 1 Tablet by mouth in the morning. 90 Tablet 2 4 Active Potassium Chloride ER 10 MEQ Oral Capsule Extended Release Take 1 Capsule by mouth in the morning and 1 Capsule before bedtime. 60 Capsule 5 4 Active Ozempic (1 MG/DOSE) 4 MG/3ML Subcutaneous Solution Pen-injector (Semaglutide (1 MG/DOSE))Indicatio ns:Type 2 diabetes mellitus without complication, without long-term current use of insulin ([facility]) Inject 1 mg under the skin once a week. 9 mL 1 4 Active Atorvastatin Calcium 40 MG Oral Tablet (Lipitor) Take 1 Tablet by mouth in the morning. 30 Tablet 8 4 Active Diclofenac Sodium 1 % External Gel (Voltaren)Indicati ons:Primary osteoarthritis of both knees Apply 4 g topically to affected area 4 times a day as needed (pain). To knees as needed 350 g 1 4 Active Acetaminophen 325 MG Oral Tablet (Tylenol)Indicatio ns:Primary osteoarthritis of both knees Take 2 Tablets by mouth in the morning and 2 Tablets at noon and 2 Tablets before bedtime. 0 4 Active DIURETIC TITRATION PLANIndications:Ch ronic diastolic CHF (congestive heart failure) (HCC) If no improvement on day 3, contact heart failure managing provider. 1 Each 0 4 Active Gabapentin 100 MG Oral Capsule (Neurontin) Take 1 Capsule by mouth in the morning and 1 Capsule at noon and 1 Capsule before bedtime. 90 Capsule 1 4 Active Furosemide 40 MG Oral Tablet (Lasix) Take 1 tablet by mouth twice daily in the morning and at bedtime. 180 Tablet 1 4 Active Eliquis 5 MG Oral Tablet (Apixaban) Take 1 tablet by mouth in the morning and 1 tablet before bedtime. 180 Tablet 1 4 Active Lisinopril 2.5 MG Oral Tablet (Prinivil)Indicati ons:Systolic heart failure, unspecified HF chronicity (HCC) TAKE 1 TABLET BY MOUTH EVERY DAY BEFORE BEDTIME 90 Tablet 2 4 Active Fenofibrate 48 MG Oral Tablet (Tricor)Indication s:Hypertriglycerid emia Take 1 Tablet by mouth in the morning. 90 Tablet 2 4 Active Potassium Chloride ER 10 MEQ Oral Capsule Extended Release take 1 capsule by mouth twice a day in the morning and before bedtime 60 Capsule 4 4 Active CPAP every night at bedtime. 0 Active rOPINIRole HCl 3 MG Oral Tablet Take one-half tablet (1.5 mg) 60-90 minutes prior to typical onset of RLS nightly. Take with 0.25 mg dose as prescribed. 45 Tablet 1 4 Active rOPINIRole HCl 0.25 MG Oral Tablet (Requip) Take one tablet (0.25mg) nightly with 1.5 mg dose (to total 1.75 mg) 60-90 minutes prior to typical onset of RLS nightly. Take an additional 0.25mg tablet at night as needed. 120 Tablet 0 4 Active metFORMIN HCl 500 MG Oral Tablet (Glucophage)Indica tions:Type 2 diabetes mellitus without complication, unspecified whether roasterman insulin use (HCC) TAKE 1 TABLET BY MOUTH TWICE A DAY WITH MORNING AND EVENING MEALS 180 Tablet 2 4 024 Discontinued(Me dication/Dose Changed) rOPINIRole HCl 2 MG Oral Tablet (Requip) Take 1 Tablet by mouth every night at bedtime. 0 4 024 Discontinued documented as of this encounter (statuses as of 09/26/2023) Active Problems Problem Noted Date Diagnosed Date [...] develops any redness or swelling to contact [facility] right away. Food insecurity 09/08/2023 Overview: Per [...] empagliflozin (ex. Jardiance) Remote Patient Monitoring Vendor: [facility] Device(s): Connected Scale Connected Pulse [...] kit in the past. Advised to call [facility] immediately for eval if he feels [...] as of this encounter (statuses as of 09/26/2023) Resolved Problems Problem Noted Date Diagnosed Date [...] as of this encounter (statuses as of 09/26/2023) Immunizations Name Administration Dates Next Due COVID-19 mRNA, LNP-s, No Pre serve, 2-Dose Series (Teamie) 11/30/2020,11/06/2020 Pneumococcal Polysaccharide PPV23 (Pneumovax) 05/22/2021 Seasonal [...] Smoking Tobacco: Former Cigarettes Smokeless Tobacco: Never Tobacco Cessation:Counseling Given: Not Answered Comments:Quit at age 24 Alcohol Use Standard [...] Sign Reading Time Taken Comments Blood Pressure - - Pulse - - Temperature - - Respiratory Rate - - Oxygen Saturation - - Inhaled Oxygen Concentration - - Weight - - Height 170.2 cm (5' 7") 09/17/2023 6:48 AM EST Body Mass Index - - documented in this encounter Functional Status Functional [...] as of this encounter Progress Notes * Kelly Moore CRNP - 09/17/2023 7:02 AM EST Patient location: HOME. I was in a hospital or clinic location. After connecting through televideo,patient was verified with two unique identifiers. Patient (or authorized legal client relations representative) was then informed that this was a Telemedicine visit and being conducted confidentially over secure lines. Methods to assure confidentiality were taken. Patient acknowledged consent and understanding of pr ivacy and security of the Telemedicine visit. The patient agreed to participate. [facility] Nicola Pineda is a 48 year old male seen in follow-up of QUENTIN with hypoxemia treated on BPAP with oxygen and RLS with augmentation from ropinirole. Sleep History/Testing: Split PSG 10/19/2015 (BMI 49): AHI 59, SpO2 cielo 82%; nasal CPAP to 14 cwp x15 mins TST, AHI 0 Noct ox aPAP/RA 04/25/2022 (wt 407): SpO2 cielo 81% with 4 hrs 56 mins <89%, test time 6 hrs 9 mins Noct ox aPAP 16-20/2 LPM 06/06/2022: SpO2 cielo 91%, test time 7:59 hrs 07/16/2022: CO2 22, ferritin 551, transferrin saturation 21% Interim History: Successfully has weaned from 4 mg ropinirole to 2 mg ropinirole nightly. Gabapentin 100 mg was started TID with stopping Celebrex in anticipation for gastric bypass surgery. He is tolerating it well with no impact on fluid retention. Evening dose taken right before bed, along with ropinirole 2 mg. In bed at 2000. RLS "bugs running around my feet" noted around [id number] waking him from sleep about 3 nights a week with current dosing. He will get up, use restroom and then sit at the edge of he bed for 10-15 minutes before laying down again. No other non pharm measures used. Continues nightly use of CPAP with oxygen at 2 L during all periods of sleep opportunity. He deniesintolerance related to treatment. Continues to receive supplies routinely. Compliance Data: 30 day report ending 09/13/2023 % total days used: 100 % days used > 4 hours: 100 Average hours per day used: 10 hours 49 mins Large leak: 0 mins rAHI: 1.6 Mean pressure 16, p90% 17.7 Equipment: DME Provider: [employer] Device: [employer] Settin-20 cmH20 with 2 LPM bled through Inez Sleepiness Scale Question 09/17/2023 6:11 AM EST - Filed by Patient What is the chance you will doze off in the following situation? Sitting and reading High chance of dozing Watching TV Moderate chance of dozing Sitting inactive in a public place, such as a theater or meeting Slight chance of dozing As a passenger in a car for an hour without a break Slight chance of dozing Lying down to rest in the afternoon when circumstances permit High chance of dozing When sitting and talking to someone Slight chance of dozing When sitting quietly after lunch without alcohol Slight chance of dozing In a car, while stopped for a few minutes in traffic No chance of dozing Score (range: 0 - 24) 12 Restless Leg Syndrome Rating Scale Question 09/17/2023 6:13 AM EST - Filed by Patient Please complete the following questions. In the past week... Overall, how would you rate the RLS discomfort in your legs or arms? Severe Overall, how would you rate the need to move around because of your RLS symptoms? Severe How severe was your sleep disturbance due to your RLS symptoms? Severe How severe was your tiredness or sleepiness during the day due to your RLS symptoms? Severe How severe was your RLS as a whole? Severe Overall, how severe was the impact of your RLS symptoms on your ability to carry out your daily affairs, for example, carrying out a satisfactory family, home, social, school, or work? Severe How severe was your mood disturbance due to your RLS symptoms, for example, angry, depressed, sad, anxious, or irritable? Severe In the past week, Overall, how much relief of your RLS arm or leg discomfort did you get from moving around? No relief How often did you get RLS symptoms? Often (4 to 5 days in 1 week) When you had RLS symptoms, how severe were they on average? Severe (3 to 8 hours per 24 hours) Score (range: 1 - 40) 31 (Very Severe) Problem List: Patient Active Problem List Diagnosis Code Restless legs syndrome G25.81 QUENTIN on CPAP G47.33 HTN, goal below 130/80 I10 Osteoarthritis of both knees M17.0 Cerebral vein thrombosis G08 Heterozygous factor V Leiden mutation (HCC) D68.51 Anticoagulated by anticoagulation treatment Z79.01 Vertigo R42 Abnormal PFT R94.2 Major depressive disorder with single episode, in full remission ([facility]) F32.5 Chronic nonspecific lung disease J98.4 Body mass index (BMI) of 60.0 to 69.9 in adult ([facility]) Z68.44 Mixed dyslipidemia E78.2 Right heart failure, unspecified ([facility]) I50.810 Fatty (change of) liver, not elsewhere classified K76.0 Chronic diastolic CHF (congestive heart failure) ([facility]) I50.32 History of stroke Z86.73 Type 2 diabetes mellitus with hemoglobin A1c goal of less than 7.0% ([facility]) E11.9 Moderate persistent asthma without complication J45.40 Food insecurity Z59.41 Current Medications: Outpatient Medications Marked as Taking for the 09/17/23 encounter (Telemedicine) with Kelly Moore CRNP Medication Sig CPAP every night at bedtime. Potassium Chloride ER 10 MEQ Oral Capsule Extended Release take 1 capsule by mouth twice a day in the morning and before bedtime Fenofibrate 48 MG Oral Tablet (Tricor) Take 1 Tablet by mouth in the morning. Lisinopril 2.5 MG Oral Tablet (Prinivil) TAKE 1 TABLET BY MOUTH EVERY DAY BEFORE BEDTIME Eliquis 5 MG Oral Tablet (Apixaban) Take 1 tablet by mouth in the morning and 1 tablet before bedtime. Furosemide 40 MG Oral Tablet (Lasix) Take 1 tablet by mouth twice daily in the morning and at bedtime. Gabapentin 100 MG Oral Capsule (Neurontin) Take 1 Capsule by mouth in the morning and 1 Capsule at noon and 1 Capsule before bedtime. Acetaminophen 325 MG Oral Tablet (Tylenol) Take 2 Tablets by mouth in the morning and 2 Tablets at noon and 2 Tablets before bedtime. Diclofenac Sodium 1 % External Gel (Voltaren) Apply 4 g topically to affected area 4 times a day asneeded (pain). To knees as needed DIURETIC TITRATION PLAN If no improvement on day 3, contact heart failure managing provider. rOPINIRole HCl 2 MG Oral Tablet (Requip) Take 1 Tablet by mouth every night at bedtime. Atorvastatin Calcium 40 MG Oral Tablet (Lipitor) Take 1 Tablet by mouth in the morning. Potassium Chloride ER 10 MEQ Oral Capsule Extended Release Take 1 Capsule by mouth in the morning and 1 Capsule before bedtime. Empagliflozin 25 MG Oral Tablet (Jardiance) Take 1 Tablet by mouth in the morning. FreeStyle Abdulkadir 2 Sensor Use as directed. metFORMIN HCl 500 MG Oral Tablet (Glucophage) TAKE 1 TABLET BY MOUTH TWICE A DAY WITH MORNING AND EVENING MEALS metOLazone 2.5 MG Oral Tablet (Zaroxolyn) Take 1 Tablet by mouth in the morning. As needed for weight gain protocol. predniSONE 20 MG Oral Tablet (Deltasone) NEEDED RESCUE KIT. Take 2 tabs by mouth for 5 days FreeStyle Abdulkadir 2 [place] Device Use as directed. Ipratropium-Albuterol 0.5-2.5 (3) MG/3ML Inhalation Solution (Duoneb) 3 mL. Multivitamin Adult Oral Tablet Chewable 1 Tablet. Albuterol Sulfate HFA 108 (90 Base) MCG/ACT Inhalation Aerosol Solution Inhale 2 Puffs by mouth 4 times a day as needed for Shortness of Breath. oxygen IN GAS 2 LPM bled through CPAP during all hours of sleep Melatonin 5 MG Oral Tablet Take 2 Tablets by mouth at bedtime. B Complex Vitamins (VITAMIN B COMPLEX) Tablet Take 1 Tablet by mouth in the morning. Physical Exam: Constitutional: Alert, oriented and in no acute distress Skin: No abnormal mask markings on face Chest: Normal respiratory effort at rest Neuro: Fluent speech Psych: Appropriate mood and affect. Assessment & Plan: Restless legs syndrome (RLS) (Primary) Having symptoms that wake him about 3 nights per week. Earlier in the day symptoms have resolved with decreasing ropinirole dose. Continue ropinirole wean as tolerated. Decrease by 0.25 mg every 2-3 months. Likely will need small dose ropinirole roasterman. Try taking mid day gabapentin dose at bedtime since this dose is often forgotten. Non pharmacological measures for RLS include warm baths, massage, light exercise, elevating extremities, compression stockings, or weighted blanket. QUENTIN (obstructive sleep apnea) Nocturnal hypoxemia - DURABLE MEDICAL EQUIPMENT Severe sleep apnea based on AHI criteria. Compliant, therapeutic and benefiting with PAP with oxygen during hours of sleep.. Continue use of CPAP to include all periods of sleep opportunity. Routine cleaning and change of supplies as needed was encouraged. Continue to avoid engaging in activities that require full alertness when feeling sleepy or tired. Heart failure, unspecified HF chronicity, unspecified heart failure type (HCC) Other orders - rOPINIRole HCl 3 MG Oral Tablet; Take 0.5 tablet or 1.5 mg 60-90 minutes prior to typical onset of RLS nightly. Take with 0.25 mg dose as prescribed. - rOPINIRole HCl 0.25 MG Oral Tablet (Requip); Take 0.25 mg nightly with 1.5 mg dose to total 1.75 mg 60-90 minutes prior to typical onset of RLS nightly. Take an additional 0.25 mg at night as needed. Follow-up in 3 months. [facility] I spent a total of 30-39 minutes (exact time 34 mins) on the date of service in preparation, delivery, and documentation of the care provided to Nicola Pineda excluding any time spent in the performance of separately billed services. documented in this encounter Nursing Notes * Massiel Plummer LPN - 09/17/2023 6:50 AM EST Pt for video f/u QUENTIN on CPAP and RLS. DME - [employer] [place] Sleepiness Scale Question 09/17/2023 6:11 AM EST - Filed by Patient What is the chance you will doze off in the following situation? Sitting and reading High chance of dozing Watching TV Moderate chance of dozing Sitting inactive in a public place, such as a theater or meeting Slight chance of dozing As a passenger in a car for an hour without a break Slight chance of dozing Lying down to rest in the afternoon when circumstances permit High chance of dozing When sitting and talking to someone Slight chance of dozing When sitting quietly after lunch without alcohol Slight chance of dozing In a car, while stopped for a few minutes in traffic No chance of dozing Score (range: 0 - 24) 12 Restless Leg Syndrome Rating Scale Question 09/17/2023 6:13 AM EST - Filed by Patient Please complete the following questions. In the past week... Overall, how would you rate the RLS discomfort in your legs or arms? Severe Overall, how would you rate the need to move around because of your RLS symptoms? Severe How severe was your sleep disturbance due to your RLS symptoms? Severe How severe was your tiredness or sleepiness during the day due to your RLS symptoms? Severe How severe was your RLS as a whole? Severe Overall, how severe was the impact of your RLS symptoms on your ability to carry out your daily affairs, for example, carrying out a satisfactory family, home, social, school, or work? Severe How severe was your mood disturbance due to your RLS symptoms, for example, angry, depressed, sad, anxious, or irritable? Severe In the past week, Overall, how much relief of your RLS arm or leg discomfort did you get from moving around? No relief How often did you get RLS symptoms? Often (4 to 5 days in 1 week) When you had RLS symptoms, how severe were they on average? Severe (3 to 8 hours per 24 hours) Score (range: 1 - 40) 31 (Very Severe) documented in this encounter Plan of Treatment Upcoming Encounters Date Type Department Care Team (Late st Contact Info) Description 09/29/2023 10:30 AM EST Office Visit Cardiology, [facility] [address] [address] Lauren Song CRNP [address] [address] 09/30/2023 8:50 AM EST Laboratory Lab Mobile Phlebotomy [facility] [address] [place] [address] [facility], [facility] Mobile Home Draw [address] [place] [address] 10/06/2023 2:15 PM EDT Scheduled Telephone [facility] [address] [address] Coordinator, [facility] [address] [address] 10/07/2023 8:00 AM EDT Office Visit Nutrition & Weight Management, [facility] [address] [facility] [address] [facility] [place] [address] Annie Jones PA-C [address] [facility] [place] [address] Lluvia Plaza RDN [address] [place] [address] 10/07/2023 2:30 PM EDT Home Visit [facility], [facility] [address] [place] [address] Liya Jc RN [address] [place] [address] 10/17/2023 2:30 PM EDT Telemedicine [facility] [place] [address] [place] [address] Lynette Carpenter LCSW [address] [place] [address] 11/25/2023 1:00 PM EDT Telemedicine [facility] [place], [facility] [address] [place] [address] Tatyana Lawson CRNP [address] [place] [address] Celia Weems, [facility] Endodontic Assistant [address] [place] [address] 12/03/2023 9:00 AM EDT Procedure Only Endoscopy, [facility] [address] [place] [address] Berenice Chiu MD [address] [place] [address] [place] [address] Health Maintenance Due Date Last Done Comments [...] as of this encounter Visit Diagnoses Diagnosis Restless legs syndrome (RLS)- Primary QUENTIN (obstructive sleep apnea) Obstructive sleep apnea (adult) (pediatric) Nocturnal hypoxemia Hypoxemia Heart failure, unspecified HF chronicity, unspecified heart failure type (HCC) documented in this encounter Advance Directives Latest [...] the patient have Health Care Power of Commercial Airline Pilot? No Code Status History Code Status Date Activated Date Inactivated Comments Full Code 02/05/2017 7:44 PM 02/19/2017 10:16 PM This order reflects the patients wishes and were consensually agreed upon. Question Answer Comments Discussion of Advance Directives occurred with: Not Discussed Care Teams Skein Drier Relationship Specialty Start Date End Date Danielleoctober CELENA Soriano [address] [place] [address] PCP - General Physician Endodontic Assistant 04/03/22 documented as of this encounter
--- OUTSIDE RECORDS SUMMARY | 2023-10-12 18:58 | External Medical Summary | Summary of Care ---
Author Name Unknown Organization [facility] Address [address] [place] [address] Phone [phone] Care Team Providers Care Senior Linux Unix Administrator Name Role Phone Danielle October PAAnilC Primary Care Provider Reason for Visit * Reason Comments [facility]: Maintenance Encounter Details Date Type Department Care Team (Late st Contact Info) Description 10/07/2023 2:30 PM EDT [facility], [facility] [address] [facility] [place] [address] Liya Jc RN 132 [facility] [place] [address] Allergies No known active allergiesdocumented as of this encounter (statuses as of 10/07/2023) Medications Medication Sig Dispensed Refills Start Date [...] Tablet. 0 10/09/2022 Active FreeStyle Abdulkadir 2 [place] DeviceIndications:T ype 2 diabetes mellitus without complication, [...] taking.Reported on 10/07/2023 Vitamin D3 1.25 MG (63583 UT) Oral Capsule (Cholecalciferol) Take 1 Capsule by mouth once a week. 8 Capsule 0 10/05/2023 4 Active Potassium Chloride ER 10 MEQ Oral Capsule Extended Release Take 1 Capsule by mouth in the morning and 1 Capsule before bedtime. 60 Capsule 5 08/12/2023 4 Discontinu ed(Medicat ion List Clean Up) documented as of this encounter (statuses as of 10/07/2023) Active Problems Problem Noted Date Diagnosed Date [...] empagliflozin (ex. Jardiance) Remote Patient Monitoring Vendor: [facility] Device(s): Connected Scale Connected Pulse Ox Connected [...] kit in the past. Advised to call [facility] immediately for eval if he feels [...] as of this encounter (statuses as of 10/07/2023) Resolved Problems Problem Noted Date Diagnosed Date [...] as of this encounter (statuses as of 10/07/2023) Immunizations Name Administration Dates Next Due COVID-19 mRNA, LNP-s, No Pre serve, 2-Dose Series ([employer]) 11/30/2020,11/06/2020 Pneumococcal Polysaccharide PPV23 (Pneumovax) 05/22/2021 Seasonal [...] Sign Reading Time Taken Comments Blood Pressure 138/70 10/07/2023 1:35 PM EDT Pulse 90 10/07/2023 1:35 PM EDT Temperature 35.8 C (96.5 F) 10/07/2023 1:35 PM ED T Respiratory Rate 18 10/07/2023 1:35 PM EDT Oxygen Saturation 98% 10/07/2023 1:35 PM EDT Inhaled Oxygen Concentration - - Weight 172.3 kg (379 lb 14.4 oz) 10/07/2023 1:35 PM EDT Height - - Body Mass Index 59.5 09/17/2023 6:48 AM EST documented in this [...] as of this encounter Progress Notes * Liya Jc RN - 10/07/2023 1:15 PM EDT Images from the original note were not included. [facility] Engineering Analyst Visit Date: 10/07/2023 Time: 1:16 PM Name: Nicola Pineda : 1975 Current Concerns: Pt seen for return RNCM visit Pt reports he has been feeling Diarrhea resolved when stopped ozempic Weights have been stable Blood sugars have been 91 yesterday and 97 this am Has not been taking metformin since 09/21 and has not restarted any He reports blood sugars are usually in the 90's in the mornings and has been up to 132 but no issues with highs or lows Pt received new bp cuff and pulse ox from [facility] Tested and it was comparable to manual reading Did not seem to be transmitting, lights blinking orange for reading and sending Call placed to [facility] - the bp cuff and pulse ox were not yet set up and registered so that was done over phone - now transmitting Physical Exam: BP 138/70 | Pulse 90 | Temp 35.8 C (96.5 F) | Resp 18 | Wt (!) 172.3 kg (379 lb 14.4 oz) | QrC982% | BMI 59.50 kg/m | BSA 2.85 m Pain 0 Physical Exam Constitutional: General: He is not in acute distress. Cardiovascular: Rate and Rhythm: Normal rate and regular rhythm. Pulses: Normal pulses. Heart sounds: Normal heart sounds. Pulmonary: Effort: Pulmonary effort is normal. Breath sounds: Normal breath sounds. Abdominal: General: Bowel sounds are normal. Palpations: Abdomen is soft. Musculoskeletal: Right lower leg: Edema (+1) present. Left lower leg: Edema (+1) present. Skin: General: Skin is warm and dry. Neurological: Mental Status: He is alert and oriented to person, place, and time. Problems/Symptoms: Review of Systems Constitutional: Negative. Eyes: Negative. Respiratory: Positive for shortness of breath (DAY - at baseline). Cardiovascular: Positive for leg swelling. Gastrointestinal: Negative. Genitourinary: Negative. Musculoskeletal: Positive for arthralgias. Skin: Negative. Neurological: Negative. Psychiatric/Behavioral: Negative. Medication Reconciliation: (See medication list) Does patient take medications as ordered: No Patient is having side effects from medication(s). Patient Well Being: PHQ2/9: No questionnaires available. Recently moved with his family into a new apartment Does have step to get to the second floor - not having issues with these - ambulating independently Denies falls [facility] Completed this Visit: No. Routine visit and No falls since last visit Advanced Care Planning: No documentation, acp on file. Reinforcement/Education: DIABETES: -Blood sugar testing schedule: Twice a day, once in the morning and again 2 hours after a meal. -Blood sugar goals: Less than 120, fasting and less than 180, 2 hours after a meal -Record and take to PCP appointments -Notify your doctor if your blood sugar is consistently above goal -Hypoglycemia (low blood sugar) action plan: If blood sugar is less than 70 or having symptoms of low blood sugar eat or drink a snack of 15gm of carbohydrate (2-3 glucose tablets, glass juice, 1Cnon-fat milk, etc) wait 15 min if blood sugar still low repeat snack, wait 15 minutes if still low call health care provider. Ask provider if a medication adjustment is needed if experiencing low blood sugars frequently, twice a week or more. -Hyperglycemia (high blood sugar) action Plan: Take medications as directed, test blood sugars frequently, if above goal, contact your health care provider. Ask for changes to medication if blood sugars continue to run above goal. -Eat three well balanced meals a day 5 servings fruit/vegetable per day Educated on home safety: Create a fall proof home Clear floors of clutter, loose wires, throw rugs, and cords. Make sure halls, stairways, and entrances are well lit. Install a nightlight in your bedroom, hallway and bathroom. Install grab bars or handrails in the bathroom and on stairs. Use a non-skid tub/shower mat. Avoid climbing on a chair; instead use a step stool with a high handrail. Keep sidewalks and steps in good repair Keep steps and sidewalks free of snow and ice. Using aids to support and prevent falls If you have poor balance or have fallen in the past, consider additional support such as a cane or walker. Use a cane with good support and that is the proper length for you. Use a walker if a cane doesnt provide enough support. Avoid medications that increase the risk of falling by causing dizziness, change in sensation or slowed reflexes. Certain medicines may cause falls - blood pressure pills, heart medicines, water pills, or sleepingpills. Be sure to understand each medicine that you are taking and any side effects that may occur. Improve your balance and flexibility with muscle strengthening exercises. Ask your health care provider for some exercises that will be right for you. Reviewed HF symptom monitoring: -Weigh self daily in am, post-void and record -Do not add salt to food, avoid foods high in sodium -Limit fluids to 2 liters per day -Report the following: ->2 lb weight gain in one day or 5 lbs in a week to PCP -increased edema in feet, abdomen or hands -increased SOB and cough, especially if at night -increased fatigue or vertigo Reinforced safety education and fall prevention. and Reinforced medication regimen. Timing., Dosing., and Purspose. Treatment/Plan: Continue meds as prescribed/reviewed Daily wts, bp and pulse ox reading via [facility] Low Na diet Elevate LE as much as possible Keep all appts as scheduled Home Interventions Provided: Home Intervention: Other; eval Reinforced current Plan of Care, including self-management and medication regimen Patient's 'Red Flags': Increased SOB Wt gain of 3 lbs in 24 hrs or 5 lbs in one week Increased weakness/fatigue Patient Needs to Remember: Call [facility] at with any new or worsening health concerns or problems, red flag symptoms. Referrals Needed: Other none Follow Up: Is there cellular connectivity/connectivity in the home? Yes Does the patient have internet in the home? Yes Patient encouraged to call the intake phone number for all urgent but not emergent issues. Is the patient new to [facility] within the last 30 days? No, Assess appropriateness for upcoming telehealth visits. Cancel telehealth visits & schedule home visit with care project manager/team coach(s)as indicated. Provider is in agreement with Plan of Care: Yes Scheduled to follow up with patient in 3 weeks. Liya Jc RN 10/07/2023 1:16 PM documented in this encounter Plan of Treatment Upcoming Encounters Date Type Department Care Team (Late st Contact Info) Description 10/31/2023 4:00 PM EDT [facility], [facility] [address] [place] [address] Liya Jc RN [address] [place] [address] 11/25/2023 1:00 PM EDT Telemedicine [facility], [facility] [place] [address] Tatyana Lawson CRNP [address] [facility] [place] [address] Celia Weems, Community Health Precinct Captain [place] [address] Health Maintenance Due Date Last Done Comments [...] the patient have Health Care Power of Communications Project Lead? No Code Status History Code Status Date Activated Date Inactivated Comments Full Code 02/05/2017 7:44 PM 02/19/2017 10:16 PM This order reflects the patients wishes and were consensually agreed upon. Question Answer Comments Discussion of Advance Directives occurred with: Not Discussed Care Teams Senior Linux Unix Administrator Relationship Specialty Start Date End Date Massiel aHnsen PA-C [facility] [place] [address] [place] [address] PCP - General Physician Precinct Captain 04/03/22 documented as of this encounter
--- OUTSIDE RECORDS SUMMARY | 2023-10-12 18:58 | External Medical Summary | Summary of Care ---
Author Name Unknown Organization [facility] Address [address] [place] [address] Phone [phone] Care Team Providers Care Correctional Supervisor Name Role Phone Danielleoctober PAAnilC Primary Care Provider [phone] Reason for Visit * Reason Onset Date Comments [facility]: Maintenance 10/09/2023 Encounter Details Date Type Department Care Team (Late st Contact Info) Description 10/09/2023 Telephone [facility], [facility] [address] [place] [address] [facility], Nurse [facility] [address] [place], [place] [id number] [facility]: Maintenance Allergies No known active allergiesdocumented as of this encounter (statuses as of 10/09/2023) Medications Medication Sig Dispensed Refills Start Date [...] 10/09/2022 Acti ve FreeStyle Abdulkadir 2 [place] DeviceIndications:Ty pe 2 diabetes mellitus without complication, [...] before bedtime. 0 08/22/2023 Active DIURETIC TITRATION PLANIndications:Pct ethan diastolic CHF (congestive heart failure) (HCC) [...] taking.Reported on 10/07/2023 Vitamin D3 1.25 MG (21352 UT) Oral Capsule (Cholecalciferol) Take 1 Capsule by mouth once a week. 8 Capsule 0 10/05/2023 4 Active documented as of this encounter (statuses as of 10/09/2023) Active Problems Problem Noted Date Diagnosed Date [...] develops any redness or swelling to contact [facility] right away. Food insecurity 09/08/2023 [...] empagliflozin (ex. Jardiance) Remote Patient Monitoring Vendor: [facility] Device(s): Connected Scale Connected Pulse Ox Connected [...] kit in the past. Advised to call [facility] immediately for eval if he [...] as of this encounter (statuses as of 10/09/2023) Resolved Problems Problem Noted Date Diagnosed Date [...] as of this encounter (statuses as of 10/09/2023) Immunizations Name Administration Dates Next Due COVID-19 mRNA, LNP-s, No Pre serve, 2-Dose Series (EnglishCentral) 11/30/2020,11/06/2020 Pneumococcal Polysaccharide PPV23 (Pneumovax) 05/22/2021 Seasonal [...] encounter Miscellaneous Notes * Telephone Encounter - Nancy Bravo LPN - 10/09/2023 8:36 AM EDT Images from the original note were not included. [facility] Remote Patient Monitoring Able to contact patient: Trigger type: Abnormal reading(s): AMC (Advanced Monitored Caregiving): Pulse rate: Pulse: 101 Symptom review: None Diet Reviewed: N/A Fluid Intake Reviewed: N/A Self-Management Plan Reviewed: Red Flags: None listed Risk assignment recommendation: Moderate risk findings (check as applicable): [x] Moderate trigger priority on AMC [] Confirmed tympanic equivalent temperature 100.4-101.9 F onehour post administration of antipyretic [] Weight gain of 2.1-4.9 lbs over 1-2 days [] Confirmed new sustained resting HR greater than 105 WITHOUT symptoms [] Weight gain of greater than or equal to 5 lbs in 5 days WITHOUT heart failure symptoms [] Confirmed new sustained resting HRT less than 60 WITHOUT symptoms [] Moderate heart failure symptoms [] Confirmed SBP less than 90 WITHOUT symptoms [] Moderate COPD symptoms [] Confirmed SBP greater than 170 WITHOUT symptoms [] Confirmed new SpO2 90-93% [] Confirmed DBP [...] 90 WITH symptoms Additional risk selection justification: spoke to patient denies any headaches chest pain palpitations will call with any issues taking medications as directed had RNCM visit on 10/07/23 Overall risk and identified plan: Moderate risk: Route to RNCM (Registered Nurse Manager Call) and Advance Practitioner documented in this encounter Plan of Treatment Upcoming Encounters Date Type Department Care Team (Late st Contact Info) Description 10/31/2023 4:00 PM EDT [facility] [address] [place] [address] Liya Jc RN [address] [place] [address] 11/25/2023 1:00 PM EDT [facility]icine [facility] [address] [place] [address] Tatyana Lawson CRNP [address] [facility] [address] Celia Weems, Community Health Geothermal Plant Manager Formerly named [facility] [place] [address] Health Maintenance Due Date Last Done Comments [...] the patient have Health Care Power of Customs Patrol Officer? No Code Status History Code Status Date Activated Date Inactivated Comments Full Code 02/05/2017 7:44 PM 02/19/2017 10:16 PM This order reflects the patients wishes and were consensually agreed upon. Question Answer Comments Discussion of Advance Directives occurred with: Not Discussed Care Teams Correctional Supervisor Relationship Specialty Start Date End Date Tyrone October CELENA Soriano [address] [place] [address] PCP - General Physician Geothermal Plant Manager 04/03/22 documented as of this encounter
--- OUTSIDE RECORDS SUMMARY | 2023-10-12 18:59 | External Medical Summary | Summary of Care ---
Author Name Unknown Organization [facility] Address [address] [place] [address] Phone [phone] Care Team Providers Care Scow Captain Name Role Phone Tyrone October CELENA Primary Care Provider [phone] Reason for Visit * Reason Onset Date Comments Appointment 08/27/2023 Encounter Details Date Type Department Care Team (Late st Contact Info) Description 08/27/2023 Telephone [facility], [place] [address] [place], [place] [phone] Services, Scheduling [address] [place] [address] Appointment (//) Allergies No known active allergiesdocumented as of this encounter (statuses as of 08/27/2023) Medications Medication Sig Dispensed Refills Start Date [...] 10/09/2022 Acti ve FreeStyle Abdulkadir 2 [place] DeviceIndications:Ty pe 2 diabetes mellitus without complication, [...] 2 diabetes mellitus without complication, unspecified whether [facility] insulin use (HCC) TAKE 1 TABLET BY MOUTH TWICE A DAY WITH MORNING AND EVENING MEALS 180 Tablet 2 08/06/2023 Active Lisinopril 2.5 MG Oral Tablet (Prinivil)Indication s:Systolic heart failure, unspecified HF chronicity (HCC) TAKE 1 TABLET BY MOUTH EVERY DAY BEFORE BEDTIME 90 Tablet 2 08/06/2023 Active Furosemide 40 MG Oral Tablet (Lasix) TAKE ONE TABLET BY MOUTH TWICE A DAY IN THE MORNING AND AT BEDTIME 180 Tablet 2 08/06/2023 Active FreeStyle Abdulkadir 2 SensorIndications:Ty pe 2 diabetes mellitus without complication, without long-term current use of insulin (HCC) Use as directed. 3 Each 3 08/06/2023 Active Fenofibrate 48 MG Oral Tablet (Tricor)Indications: Hypertriglyceridemia Take 1 Tablet by mouth in the morning. 90 Tablet 2 08/06/2023 Active Empagliflozin 25 MG Oral Tablet (Jardiance)Indicatio ns:Type 2 diabetes mellitus without complication, without long-term current use of insulin (HCC) Take 1 Tablet by mouth in the morning. 90 Tablet 2 08/06/2023 Active Apixaban 5 MG Oral Tablet (Eliquis) Take 1 Tablet by mouth in the morning and 1 Tablet before bedtime. 180 Tablet 2 08/06/2023 Active Potassium Chloride ER [...] before bedtime. 0 08/22/2023 Active DIURETIC TITRATION PLANIndications:Green Building Engineer ethan diastolic CHF (congestive heart failure) ([facility]) If no improvement on day 3, contact heart failure managing provider. 1 Each 0 08/22/2023 Active Gabapentin 100 MG Oral Capsule (Neurontin) Take 1 Capsule by mouth in the morning and 1 Capsule at noon and 1 Capsule before bedtime. 90 Capsule 1 08/27/2023 Active documented as of this encounter (statuses as of 08/27/2023) Active Problems Problem Noted Date Diagnosed Date Chronic diastolic CHF (congestive heart failure) 08/22/2023 [...] empagliflozin (ex. Jardiance) Remote Patient Monitoring Vendor: [facility] Device(s): Connected Scale Connected Pulse Ox Connected BP Cuff Self - Management Plan Add metolazone (Zaroxolyn) 2.5-5mg for 1 days. If using a potassium supplement, double the dose of the supplement will be given on the day of and on the day after the metolazone Exacerbation Plan BMP Additional Comments: Euvolemic today [facility] ordered Rewiewed red flag reportable symptoms. History [...] kit in the past. Advised to call [facility] immediately for eval if he feels he [...] as of this encounter (statuses as of 08/27/2023) Resolved Problems Problem Noted Date Diagnosed Date [...] as of this encounter (statuses as of 08/27/2023) Immunizations Name Administration Dates Next Due COVID-19 [...] you got the money to buy more. Often true 08/20/19 24 Within the past 12 months, t he food you bought just didn't last and you didn't have money to get more. Often true 08/20/2023 Sex and Gender Information Value Date Recorded [...] encounter Miscellaneous Notes * Telephone Encounter - Padmini Gary OSA - 08/27/2023 2:44 PM EST Request from Velma Lawson to moises a 1 mo ret telemed I found 09/24 and called and was agreeable documented in this encounter Plan of Treatment Upcoming Encounters Date Type Department Care Team (Late st Contact Info) Description 09/01/2023 11:00 AM EST Office Visit Cardiology, [facility] [address] [place] [address] Lauren Song CRNP [address] [place] [address] 09/01/2023 2:00 PM EST [facility] Visit [facility], [facility] [address] [facility] [place] [address] Liya Jc, RN 132 [facility] [place] [address] 09/02/2023 12:40 PM EST Telemedicine Nutrition & Weight Management, [facility] [address] [facility] [place] [address] Marycruz Smith PA-C 132 [facility] [place] [address] 09/02/2023 1:30 PM EST Telemedicine Nutrition & Weight Management, [facility] 132 [facility] [place] [address] [facility], Behavior Class 2 [facility] 132 [facility] [place] [address] 09/05/2023 2:30 PM EST Telemedicine Psychology, [place] [address] [place], [place] [id number] Lynette Carpenter, [facility] [address] [place] [address] 09/17/2023 7:00 AM EST Telemedicine Sleep Disorders [facility] 132 [facility] [place] [id number] Kelly Moore CRNP 132 [facility] [place] [address] 09/24/2023 1:00 PM EST Telemedicine [facility], [facility] [address] [facility] [place] [address] Tatyana Lawson CRNP 132 [facility] [place] [address] Celia Weems, Community Health Research Geneticist [address] [facility] [place] [address] 12/03/2023 9:00 AM EDT [facility] [address] [facility] [place] [address] Berenice Chiu MD [address] [place] [address] Health Maintenance Due Date Last Done [...] the patient have Health Care Power of School Age Program Teacher? No Code Status History Code Status Date Activated Date Inactivated Comments Full Code 02/05/2017 7:44 PM 02/19/2017 10:16 PM This order reflects the patients wishes and were consensually agreed upon. Question Answer Comments Discussion of Advance Directives occurred with: Not Discussed Care Teams Scow Captain Relationship Specialty Start Date End Date TyroneOctober CELENA Soriano [address] [place] [address] PCP - General Physician Research Geneticist 04/03/22 documented as of this encounter
--- OUTSIDE RECORDS SUMMARY | 2023-10-12 18:59 | External Medical Summary | Summary of Care ---
Author Name Unknown Organization [facility] Address [address] [place] [address] Phone [phone] Care Team Providers Care Automatic Lathe Operator Name Role Phone Tyrone October CELENA Primary Care Provider [phone] Reason for Visit * Reason Comments Follow Up * - Authorized Specialty Diagnoses / Procedures Referred By Susie garvey Referred To Contact Referral ID Status Reason Start Date Expiration Date V isits Requested Visits Authorized [id number] Authorized 03/18/2023 03/16/2024 [id number] Encounter Details Date Type Department Care Team (Late st Contact Info) Description 09/05/2023 2:[address] PM [address] [facility], [place] [address], [place] [id number] Lynette Carpenter, [facility] [address] [place] [address] Major depressive disorder, recurrent episode, moderate (HCC)*; COMFORT (generalized anxiety disorder) Allergies No known active allergiesdocumented as of this encounter (statuses as of 09/08/2023) Medications Medication Sig Dispensed Refills Start Date [...] 0 10/09/2022 Acti ve FreeStyle Abdulkadir 2 [place] DeviceIndications:Ty pe 2 diabetes mellitus without complication, [...] 2 diabetes mellitus without complication, unspecified whether correction insulin use (HCC) TAKE 1 TABLET BY MOUTH TWICE A DAY WITH MORNING AND EVENING MEALS 180 Tablet 2 08/06/2023 Active Lisinopril 2.5 MG Oral Tablet (Prinivil)Indication s:Systolic heart failure, unspecified HF chronicity (HCC) TAKE 1 TABLET BY MOUTH EVERY DAY BEFORE BEDTIME 90 Tablet 2 08/06/2023 Active FreeStyle Abdulkadir 2 [...] before bedtime. 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 180 Tablet 1 09/01/2023 Active documented as of this encounter (statuses as of 09/08/2023) Active Problems Problem Noted Date Diagnosed Date [...] (ex. Jardiance) Remote Patient Monitoring Vendor: [facility] Device(s): Connected Scale Connected Pulse Ox Connected BP Cuff Self - Management Plan Add metolazone (Zaroxolyn) 2.5-5mg for 1 days. If using a potassium supplement, double the dose of the supplement will be given on the day of and on the day after the metolazone Exacerbation Plan BMP Additional Comments: Euvolemic today [facility] ordered Rewiewed red flag reportable symptoms. History [...] kit in the past. Advised to call [facility] immediately for eval if he feels [...] as of this encounter (statuses as of 09/08/2023) Resolved Problems Problem Noted Date Diagnosed Date [...] as of this encounter (statuses as of 09/08/2023) Immunizations Name Administration Dates Next Due COVID-19 mRNA, LNP-s, No Pre serve, 2-Dose Series ([employer]) 11/30/2020,11/06/2020 Pneumococcal Polysaccharide PPV23 (Pneumovax) 05/22/2021 Seasonal [...] as of this encounter Progress Notes * Lynette Carpenter, PRESIDENT PRACTICING UROLOGIST - 09/05/2023 2:34 PM EST Patient location: HOME. I was not in a hospital or clinic location. After connecting through televideo, patient was verified with two unique identifiers. Patient (or authorized legal environmental marketing representative) was then informed that this was a Telemedicine visit and being conducted confidentially over secure lines. Methods to assure confidentiality were taken. Patient acknowledged consent and understanding of privacy and security of the Telemedicine visit. The patient agreed to participate. My office door was closed. No one else was in the room with me. I informed the patient that I have reviewed their record in [employer] and presented the opportunity for them to ask any questions regarding the visit today. The patient agreed to participate. Provider reviewed elements of Outpatient Services Description including limits of confidentiality, how to contact the department, risks and benefits of treatment and consent for treatment. Start Time: 2:35PM Stop Time: 3:04PM Total direct time: 29 BEHAVIORAL MEDICINE RETURN VISIT PROGRESS NOTE Psychology, [address] [address] 09/05/2023 TYPE OF VISIT: Individual DIAGNOSIS: Major depressive disorder, recurrent episode, moderate (HCC) (Primary) COMFORT (generalized anxiety disorder) REASON FOR SESSION: Individual therapy Session #: 8 SESSION FOCUS: Symptom review, planning NOTES: Pt reports doing better this week. Reports some continued weight loss. Reports DIL admitted to IP again at her request. Reflected this change--typically DIL admitted under 302 however this time she spoke w pt and requested help to go to IP. Pt practicing radical acceptance. Pt discussed previous session topics with son and found validation. Pt continues to practice some self validation and care. Pt's father's birthday is this week/ weekend. Reflected on his passing and sadness. Suggestion to honor father's life and include the struggles over the past year as part of pt, father and family's strength and will and ultimately support for father's transition from life to . Look at positives and strengths as part of the narrative even when sad and difficult. Pt agrees and reports feeling supported in today's session. We will continue to focus on improving pt's sense of self worth in ournext session. Normalized feelings about DIL and concern for son. Pt continues to develop ability to regard himself positively despite automatic beliefs. Trusting his thoughts and feelings, while communicating openly to resolve problems has been successful. Pt will continue to practice self validation and positive self regard. 08/13/2023 Pt returns to therapy today after some number of weeks. I apologized to pt today for failing to follow up previously and ensure he was rescheduled. I also provided the scheduling phone number in casehe needed to schedule directly himself. Pt was agreeable and responded well. PT reports today that sometime around Nov last year he decided to stop taking wellbutrin. He reports significantly improved mood. He reports minimal depression/anxiety since then. PT reports he's regained energy, and feels much more able to bounce back from problems. Pt notes he was surprised aboutthis outcome, but has embraced it and does not plan to resume the medication. He wonders if the wellbutrin had been a crutch. We explore this concept and expand the theory base a bit and consider that perhaps it had helped him establish new patterns of thinking / processing emotions during very difficult times in his life. Pt responds well and would like to continue therapy as he feels it's been effective. He would like to focus on building better lifestyle habits. He would like to continue to monitor his mood with my support. I agree. We also conduct GAD7 and PHQ9 today to review symptoms. Results do appear to indicate relatively low symptomology for both depression and anxiety. We will plan to meet again in a week and build on his goals and monitor stability. 08/21/2023 Pt returns today to follow up from last session and assess mood / depression / anxiety. Pt reports continued success. No instances of depressed mood or anxiety reported. Pt reports putting my advice to action about "not caring what other people think" about weight in public. Pt reports he walked into doctor's office and practiced and felt really good. He said "it works!" He reported not caring ifpeople judged him about his size, reported feeling positive about self and motivated to address hishealth concerns. Pt reports overall that he believes stopping the Wellbutrin was miguel. No other issues reported. Collateral report from is reported to be positive. Pt reports he's been speaking his mind more often and that feels good. Overall we agree that there seems to have been a positive and sustained change. We agree to meet again in two weeks to reassess and consider next steps. Pt responds well and agrees. 09/05/2023 Pt reports continued improvement / stability in mood / depression / anxiety. Reports no problems. Reports moving / downsizing and handles the stress well. Handles conflict with extended family memberwell, does not internalize issue, is able to name the problem take perspective and move forward without self conflict. Pt is proud of himself. I validate and agree, he's made significant progress. Pthas decided to move forward with surgery. Decided he got bad advice from a friend, talked with moreknowledgeable medical personnel and made a decision based on that perspective. Pt shares that his attitude has been much more positive lately. He's been able to go out and enjoy himself in the [facility]. Pt discusses the positive experience he's had with therapy, and expresses a desire to become engaged in the mental health field in some way. I share with him [facility] website information. Pt and I overall agree that we can likely close therapy services for now. We will visit once more as pt moves closer toward surgery. I agree and offer to assess his MH / mood and give my updated impressions as needed. Pt responds well. MENTAL STATUS AND BEHAVIORAL OBSERVATIONS: Appearance: within normal limits Behavior: within normal limits Speech: normal pitch, rate and volume Affect: Bright, cheery Thought Process: within normal limits and goal directed Thought Content: within normal limits Intellectual Function: within normal limits Sensorium: alert and oriented to person, place, time and situation Cognition: grossly intact Insight/Judgment: good PROGRESS TOWARDS GOALS: Goal: Improved self-management of emotional regulation Objective Measures: Patient Health Questionnaire 9 & Generalized Anxiety Disorder 7 Over the last 2 weeks or more, how often have you been bothered by any of the following problems? 0-1-2-3 1. Little interest or pleasure in doing things 1 2. Feeling down, depressed, or hopeless 1 3. Trouble falling asleep, staying asleep, or sleeping too much 2 4. Feeling tired or having little energy 1 5. Poor appetite or overeating 1 6. Feeling bad about yourself -- or that you are a failure or have let yourself or others down 1 7. Trouble concentrating on things, such as reading a book or watching television 0 8. Feeling you were moving or speaking so slowly or were very fidgety and moving around in such a way that you or others could have noticed 0 9. Thoughts that you would be better off or of hurting yourself in some way 0 PHQ-9 TOTAL SCORE 7 1. Feeling nervous, anxious, or on edge 2. Been unable to control or stop worrying 3. Worried too much about different things 4. Trouble relaxing 5. Been so restless that it is hard to sit still 6. Becoming easily annoyed or irritable 7. Feeling afraid as if something awful might happen COMFORT-7 TOTAL SCORE 8 Suicide/Homicidal Assessment [place] Suicide Severity Rating Scale Results 08/21/2023 20:52 [place] SUICIDE SEVERITY RATING SCALE (C-SSRS) Have you wished you were or wished you could go to sleep and not wake up? (In the Past Month or Since Last Visit) No Have you had any actual thoughts of killing yourself? (In the Past Month or Since Last Visit) No Have you been thinking about how you might do this? (In the Past Month or Since Last Visit) No Have you had thoughts and had some intention of acting on them? (In the Past Month or Since Last Visit) No Have you started to work out or worked out the details of how to kill yourself? Do you intend to carry out this plan? (In the Past Month or Since Last Visit) No Have you ever done anything, started to do anything, or prepared to do anything to end your life? (Lifetime) No Was this within the past 3 months? No Level of Risk No Risk Identified - change in risk from last session (see note dated 03/19/2023 for further details) Safety Plan: INTERVENTION: CBT, TFCBT, WI, Psychoeducation TREATMENT PLAN: Outpatient Adult Therapy Treatment Plan Treatment plan was developed on 03/19/23, treatment will continue to focus on goals below; Treatment update will occur when clinically indicated or by 09/24/2023. Patient's goals captured in patient's words: "Open up right away. I have been dealing with anger a lot lately and I would like to be able to not bottle up." Expected family or significant other involvement: Offer Support Type of Service:Individual Patients Strengths and Facilitating Factors to care: Recognizes need for change, Seeking help, GoalOriented, Attempting to realize ones potential, Manages multiple demands in life, Has a purpose in life, Has hobbies, Good support system, Cultural/spiritual/presybeterian and community involvement, Access to housing, Steady employment, Financial stability, Knowledge of medications, Cooperative, Good physical health, Able to care for own personal hygiene, and Abstain from using alcohol and/or drugs Treatment Barriers: none identified Crisis Planning: Suicide Safety Plan Signature Obtained on Treatment Plan Patient/ Family Received Copy of Treatment Plan Duration of Treatment Frequency of Treatment Patient unable to sign Treatment Plan acknowledgement document. Signature will be obtained at the time or before [facility] bulletin extension expires. Patient has access to [employer] 8-11 sessions approximately every 2-4 weeks Patient Identified Needs/Goals Interventions Objective/ Discharge Criteria Problem/Need 1: Anxiety and Depression Cognitive Behavioral Therapy (CBT), which includes psychoeducation, cognitive restructuring, relaxation/diaphragmatic breathing, problem-solving, and behavioralactivation, Motivational interviewing, and Trauma Focused CBT PHQ<5, COMFORT<5, and CSSRS in low risk range Problem/Need 2: Risk of Self Harm Cognitive Behavioral Therapy (CBT), which includes psychoeducation, cognitive restructuring, relaxation/diaphragmatic breathing, problem-solving, and behavioral activation, Motivational interviewing, and Trauma Focused CBT CSSRS in low risk range Please choose a method to track patient's improvement based on clinical assessment: PHQ-9 Adult Data COMFORT-7 Data [place] Suicide Screen Data Discharge Discussed with patient: Patient continues to need treatment Collaboration of Care: Yes, provider within [facility], information is shared automatically in medical record Is this the patients' initial treatment plan? Yes FOLLOW-UP PLAN: Return: 1 weeks Action Plan: 1. Continue Cognitive Behavioral Therapy 2. Reassess mood in two weeks Treatment plan reviewed with the patient. Patient voices understanding and concurs with plan. PATIENT EDUCATION: Verbal & written Lynette Carpenter LCSW Division of Psychiatry & Behavioral Medicine [facility] [phone] National Suicide Prevention Lifeline : 988 Crisis Textline : Text "HOME" to 874891 to connect with a crisis counselor Crisis Numbers by [facility]: [place] [facility] Services - Emergency Services [facility] (8-7-YOU CAN) resolve Crisis Network [place] . The Open Door - Crisis Intervention [facility] Crisis Help-Line [facility] Services - Crisis Intervention Services [facility] Service Access [employer] - Crisis Intervention [place] Choose option 1 - [place] Department of [facility] Care Scheduler John Beck & Alphonso Crisis Intervention [place] [facility] - Mental Health Crisis [facility] - Crisis Intervention [place] [facility] - Crisis Intervention Mahsa Ocampo [place] - Crisis Line Rylee AnandEnedina garcia - Mental Health Crisis Hotline [place] [facility] - Crisis Services [place] [facility] [place] Service Access [employer]. - Crisis Intervention [place] - Mental Health Crisis Intervention Services [place] [facility] MH/ID Program BoyleSerenity, Oliveira, Tee - Crisis System [place] [facility] - Crisis Hotline Osborne & Silvino (0-623-146-FAJE) [facility] - Crisis Intervention [place] [facility] - Crisis Intervention [facility] - Crisis Services Saurabh [facility] - Crisis Center [place] [phone] [facility] - Crisis Hotline Terry & Deion (8:30 am-5:00 pm) OR (after 5:00 pm, weekends & holidays) Sara [facility] Crisis Intervention Program [place] [facility] - Mental Health Crisis Line Lola Quiroga and Katelin - [facility] Crisis Olga & Anupama [facility] - Crisis Intervention [place] [facility] - Mental Health Crisis Service [facility] - Crisis Intervention [place] [facility] - Crisis Intervention [place] & Diane [place] - Help Line [facility] MH/ID Program Cher[facility] - Crisis Intervention [place] [facility] - Crisis Intervention [place] [facility] Emergency Services, [facility] - Crisis Intervention [facility] - Emergency Services [place] [facility] - Crisis Line [place] - DBHIDS - Suicide and Crisis Intervention Hotline [facility] - Crisis/ Emergency Services [place] [facility] - Emergency Contact Line [facility] - Crisis Line Claude ext. 1 [facility] Human Services [facility] Action - Crisis Intervention Hotline [place] [facility] Crisis Intervention Services documented in this encounter Plan of Treatment Upcoming Encounters Date Type Department Care Team (Late st Contact Info) Description 09/17/2023 7:00 AM EST Telemedicine [facility] [address] [facility] [place] [phone] Kelly Moore CRNP [address] [place] [address] 09/24/2023 1:00 PM EST Telemedicine [facility], [facility] [address] [place] [address] Tatyana Lawson CRNP [address] [place] [address] Celia Weems, [facility] [employer] Erector [address] [place] [address] 09/29/2023 10:30 AM EST Office Visit Cardiology, [facility] [address] [place] [address] Lauren Song CRNP [address] [place] [address] 10/07/2023 8:00 AM EDT Office Visit Nutrition & Weight Management, [facility] [address] [place] [address] Chelsea Wolfe [facility] [address] [place] [address] Annie Jones PA-C [address] [place] [address] Lluvia Plaza RDN [address] [place] [address] 10/07/2023 2:30 PM EDT Home Visit [facility], [facility] [address] [place] [address] Liya Jc, RN [address] [place] [address] 10/17/2023 2:30 PM EDT Telemedicine Psychology, [place] [address] [facility] [address] Lynette Carpenter LCSW [address] [facility] [address] 12/03/2023 9:00 AM EDT Procedure Only Endoscopy, [place] [address] [place] [address] Berenice Chiu MD [address] [facility] [place] [address] Health Maintenance Due Date Last Done [...] as of this encounter Visit Diagnoses Diagnosis Major depressive disorder, recurrent episode, moderate (HCC)- Primary Major depressive disorder, recurrent episode, moderate COMFORT (generalized anxiety disorder) Generalized anxiety disorder documented in this encounter Advance Directives Latest [...] the patient have Health Care Power of Water Superintendent? No Code Status History Code Status Date Activated Date Inactivated Comments Full Code 02/05/2017 7:44 PM 02/19/2017 10:16 PM This order reflects the patients wishes and were consensually agreed upon. Question Answer Comments Discussion of Advance Directives occurred with: Not Discussed Care Teams Automatic Lathe Operator Relationship Specialty Start Date End Date Massiel Hansen PA-C [address] [place] [address] PCP - General Physician Lightning Rod Erector 04/03/22 documented as of this encounter
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
--- OUTSIDE RECORDS SUMMARY | 2023-10-12 18:59 | External Medical Summary | Summary of Care ---
Author Name Unknown Organization [facility] Address [address] [place] [address] Phone [phone] Care Team Providers Care Receiving Tank Operator Name Role Phone Massiel Hansen PARonni Primary Care Provider [phone] Encounter Details Date Type Department Care Team (Late st Contact Info) Description 09/02/2023 12:40 PM EST Telemedicine Nutrition & Weight Management, [facility] [address] [place] [address] Marycruz Smith PA-C [address] [place] [address] Morbid obesity due to excess calories (HCC)*; Abnormal weight gain Allergies No known active allergiesdocumented as of this encounter (statuses as of 09/02/2023) Medications Medication Sig Dispensed Refills Start Date [...] 0 10/09/2022 Acti ve FreeStyle Abdulkadir 2 [place] DeviceIndications:Ty pe 2 diabetes mellitus without complication, [...] 2 diabetes mellitus without complication, unspecified whether chcf insulin use (HCC) TAKE 1 TABLET BY [...] before bedtime. 0 08/22/2023 Active DIURETIC TITRATION PLANIndications:Presser First ethan diastolic CHF (congestive heart failure) (HCC) [...] as of this encounter (statuses as of 09/02/2023) Active Problems Problem Noted Date Diagnosed Date [...] empagliflozin (ex. Jardiance) Remote Patient Monitoring Vendor: [facility] Device(s): Connected Scale Connected Pulse Ox Connected BP Cuff Self - Management Plan Add metolazone (Zaroxolyn) 2.5-5mg for 1 days. If using a potassium supplement, double the dose of the supplement will be given on the day of and on the day after the metolazone Exacerbation Plan BMP Additional Comments: Euvolemic today [facility] ordered Rewiewed red flag reportable symptoms. History [...] kit in the past. Advised to call [facility] immediately for eval if he [...] as of this encounter (statuses as of 09/02/2023) Resolved Problems Problem Noted Date Diagnosed Date [...] as of this encounter (statuses as of 09/02/2023) Immunizations Name Administration Dates Next Due COVID-19 [...] as of this encounter Progress Notes * Marycruz Smith PA-C - 09/02/2023 12:42 PM EST Comprehensive Weight Management Clinic Note Behavior class Patient location: HOME. I was in a hospital or clinic location. After connecting through [employer],patient was verified with two unique identifiers. Patient (or authorized legal patient admitting representative) was then informed that this was a Telemedicine visit and being conducted confidentially over secure lines. Methods to assure confidentiality were taken. Patient acknowledged consent and understanding of pr ivacy and security of the Telemedicine visit. The patient agreed to participate. There are no exam notes on file for this visit. Nicola Pineda presents in follow up to the comprehensive weight management clinic. The patient is a 48 year old male Wt Readings from Last 6 Encounters: 09/01/23 (!) 176.4 kg (389 lb) 08/20/23 (!) 174.8 kg (385 lb 4.8 oz) 08/19/23 (!) 181 kg (399 lb) 08/13/23 (!) 183.3 kg (404 lb 3.2 oz) 07/24/23 (!) 179.6 kg (396 lb) 04/14/23 (!) 186 kg (410 lb 1.6 oz) Patient is receiving ongoing education regarding dietary and physical modifications for weight loss. Patient is interested in the following treatment options for obesity: surgical options including Tiny-en-Y gastric bypass, biliopancreatic diversion with duodenal switch, or laparoscopic sleeve gastr ectomy. - Initial clinic visit 04/14/23. Weight 410 lbs Height 67" Body mass index is 64.23 kg/m. -program goal weight: 369 - Today's weight: 389 lbs - Total weight loss of -21 since initial weight in clinic - Patient's last follow up with GI/Nutrition clinic was on 08/13/23 404 - The patient's weight has -15 lbs since the last visit Insurance:The patient has active [facility] Family coverage. Bariatric Surgery is covered based on medicalnecessity. Current BMI 62.02 does meet criteria per medical policy. 09/02/2023 -behavior class -on ozempic 1 mg-- going well -some diarrhea and some sulfur burps -was taken off celebrex and started on gabapentin-- otherwise no changes in medications or medical history 08/13/23 -Nutrition class -on trulicity 3 mg weekly -some constipation and went to the ER and had normal CT -taking metformin BID -- bowels seem to be moving better with this 07/24/23 -on Trulicity 1.5mg -tolerating well -was down to 379lbs but now having some fluid retention - working with nurse signal manager regarding lasix doing -was enrolled in surgery program and had EGD scheduled, cancelled nut class and EGD for concern of payment of $375 Visit 04/14/23 - Overall goal: be healthier - Wt hx: -had a stroke and lost 100lbs in the hospital, gained weight when committed suicide -now remarried - Highest wt as adult: 450lbs - summer 2022 - Lowest wt as adult: 260lbs - Barriers: portions, stress eating Patient Active Problem List Diagnosis Code Restless legs syndrome G25.81 QUENTIN on CPAP G47.33 HTN, goal below 130/80 I10 Osteoarthritis of both knees M17.0 Cerebral vein thrombosis G08 Heterozygous factor V Leiden mutation ([facility]) D68.51 Anticoagulated by anticoagulation treatment Z79.01 Vertigo R42 Abnormal PFT R94.2 Major depressive disorder with single episode, in full remission ([facility]) F32.5 Chronic nonspecific lung disease J98.4 Body mass index (BMI) of 60.0 to 69.9 in adult ([facility]) Z68.44 Mixed dyslipidemia E78.2 Right heart failure, unspecified ([facility]) I50.810 Fatty (change of) liver, not elsewhere classified K76.0 Chronic diastolic CHF (congestive heart failure) ([facility]) I50.32 History of stroke Z86.73 Type 2 diabetes mellitus with hemoglobin A1c goal of less than 7.0% ([facility]) E11.9 Moderate persistent asthma without complication J45.40 Review of Systems: Review of Systems Gastrointestinal: Positive for diarrhea. Negative for abdominal pain, nausea and vomiting. Current Medications: Current Outpatient Medications Medication Sig Dispense Refill Lgpujss-Yvahobdvthtqh-Ovnrbffh 250-250-65 MG Oral Tablet Take 2 Tablets by mouth daily as needed. Per 24 hours (Patient not taking: Reported on 08/19/2023) B Complex Vitamins (VITAMIN B COMPLEX) Tablet Take 1 Tablet by mouth in the morning. Melatonin 5 MG Oral Tablet Take 2 Tablets by mouth at bedtime. oxygen IN GAS 2 LPM bled through CPAP during all hours of sleep 1 Each 0 Albuterol Sulfate HFA 108 (90 Base) MCG/ACT Inhalation Aerosol Solution Inhale 2 Puffs by mouth 4 times a day as needed for Shortness of Breath. 54 g 1 Ipratropium-Albuterol 0.5-2.5 (3) MG/3ML Inhalation Solution (Duoneb) 3 mL. Multivitamin Adult Oral Tablet Chewable 1 Tablet. Video Furnace 2 Clare Device Use as directed. 1 Each 0 predniSONE 20 MG Oral Tablet (Deltasone) NEEDED RESCUE KIT. Take 2 tabs by mouth for 5 days 10 Tablet 1 metOLazone 2.5 MG Oral Tablet (Zaroxolyn) Take 1 Tablet by mouth in the morning. As needed for weight gain protocol. 90 Tablet 5 metFORMIN HCl 500 MG Oral Tablet (Glucophage) TAKE 1 TABLET BY MOUTH TWICE A DAY WITH MORNING AND EVENING MEALS 180 Tablet 2 Lisinopril 2.5 MG Oral Tablet (Prinivil) TAKE 1 TABLET BY MOUTH EVERY DAY BEFORE BEDTIME 90 Tablet 2 FreeStyle Abdulkadir 2 Sensor Use as directed. 3 Each 3 Fenofibrate 48 MG Oral Tablet (Tricor) Take 1 Tablet by mouth in the morning. 90 Tablet 2 Empagliflozin 25 MG Oral Tablet (Jardiance) Take 1 Tablet by mouth in the morning. 90 Tablet 2 Potassium Chloride ER 10 MEQ Oral Capsule Extended Release Take 1 Capsule by mouth in the morning and 1 Capsule before bedtime. 60 Capsule 5 Ozempic (1 MG/DOSE) 4 MG/3ML Subcutaneous Solution Pen-injector (Semaglutide (1 MG/DOSE)) Inject 1 mg under the skin once a week. 9 mL 1 Atorvastatin Calcium 40 MG Oral Tablet (Lipitor) Take 1 Tablet by mouth in the morning. 30 Tablet 8 rOPINIRole HCl 2 MG Oral Tablet (Requip) Take 1 Tablet by mouth every night at bedtime. Diclofenac Sodium 1 % External Gel (Voltaren) Apply 4 g topically to affected area 4 times a day asneeded (pain). To knees as needed 350 g 1 Acetaminophen 325 MG Oral Tablet (Tylenol) Take 2 Tablets by mouth in the morning and 2 Tablets at noon and 2 Tablets before bedtime. DIURETIC TITRATION PLAN If no improvement on day 3, contact heart failure managing provider. 1 Each0 Gabapentin 100 MG Oral Capsule (Neurontin) Take 1 Capsule by mouth in the morning and 1 Capsule at noon and 1 Capsule before bedtime. 90 Capsule 1 Furosemide 40 MG Oral Tablet (Lasix) Take 1 tablet by mouth twice daily in the morning and at bedtime. 180 Tablet 1 Eliquis 5 MG Oral Tablet (Apixaban) Take 1 tablet by mouth in the morning and 1 tablet before bedtime. 180 Tablet 1 No current facility-administered medications for this visit. Current diet: Getting 3 meals per day Weight loss Pharmacotherapy: yes ozempic 1mg weekly There were no vitals taken for this visit. PHYSICAL EXAMINATION: GENERAL: No acute distress, nondiaphoretic, well-developed well-nourished HEAD: Normocephalic. LUNGS: No respiratory distress. NEURO: Patient was alert and oriented to person place and time. Assessment and Plan: Abnormal weight gain / There is no height or weight on file to calculate BMI. / Morbid obesity : - Would like to proceed with possible medication use and surgical options including Tiny-en-Y gastric bypass, biliopancreatic diversion with duodenal switch, or laparoscopic sleeve gastrectomy - Barriers are consistency - Motivators are feeling better overall, avoiding/reducing co-morbid conditions - The patient was encouraged to to avoid all fruit juices and regular sodas, consume at least 64 ounces of water per day, keep food logs and get weighed on a weekly basis. They were encouraged to increase physical activity as prescribed. - Handouts regarding nutrition and physical activity were provided, as appropriate. Goals for next month: - Practice what you learned in the classes - Continue with current diet plan - Continue with your exercises and increase as much as possible Diagnoses and all orders for this visit: Morbid obesity due to excess calories (HCC) -continue surgery program -worried about $375 fee- but can do payment plan Continue ozempic 1mg-- doing really well. Watch portions (sulfur burps) and carbs/sugar (diarrhea) -work on tracking protein intake -can rescheduled EGD at [facility] (interested in BPD) -did have slightly decreased GFR on most recent blood work-- follow up with PCP Abnormal weight gain Type 2 diabetes mellitus without complication, without long-term current use of insulin (HCC) - Ozempic (1 MG/DOSE) 4 MG/3ML Subcutaneous Solution Pen-injector (Semaglutide (1 MG/DOSE)); Inject1 mg under the skin once a week. Continue metformin-- follow up with PCP-- slightly decreased GFR Hemoglobin A1C last 3 results: Lab Results Component Value Date/Time HEMOGLOBIN A1C - [facility] 7.0 (H) 03/05/2023 08:44 AM HEMOGLOBIN A1C - [facility] 5.8 (H) 07/16/2022 09:19 AM HEMOGLOBIN A1C - [facility] 6.4 (H) 09/05/2021 09:42 AM HEMOGLOBIN A1C - [facility] 5.8 (H) 06/16/2020 04:11 PM HEMOGLOBIN A1C - [facility] 5.4 02/06/2017 02:50 AM HEMOGLOBIN, WHOLE BLOOD - [facility] 14.1 02/05/2017 09:18 PM HEMOGLOBIN-OUTSIDE LAB 14.7 02/24/2017 12:00 AM Mixed dyslipidemia -continue statin COPD, group B, by GOLD 2017 classification (HCC) Obstructive sleep apnea of adult -compliant with CPAP, on O2 at night - do not advise stopping CPAP on own--resolution of QUENTIN typically requires significant wt loss; recommend following up with sleep med should CPAP become uncomfortable as settings & mask may need to be adjusted Chronic nonspecific lung disease Cerebrovascular accident (CVA), unspecified mechanism (HCC) -recommend cardiac clearance Essential hypertension -continue current regimen Cerebral vein thrombosis Chronic heart failure, unspecified heart failure type (HCC) -continue current regimen - working with nurse signal manager for fluid overload currently -recommend cardiac clearance Primary osteoarthritis of both knees Heterozygous factor V Leiden mutation ([facility]) -continue Eliquis Major depressive disorder with single episode, in full remission ([facility]) -sees psychiatry -stable The Possibility of bariatric surgery: The patient attended Behavior Class today regarding bariatric surgery. Patients were provided with bariatric educational materials. We reviewed the steps that need to be completed prior to moving on to see the surgeon. These steps include: tobacco cessation, modest weight loss, attendance at 2 support groups, payment of program fee, required educational sessions and completion of all ordered medical testing. The behavioral changes required for success after bariatric surgery were reviewed including: eatingslowly, eating small frequent meals, conversion to sugar-free beverages, drinking sufficient water but never with a meal, and caffeine reduction. Information regarding postoperative diet progression (stages 1 thru 4) was provided. Specifics regarding portion guidelines, fat and sugar restriction, fluid and protein requirements were reviewed. The patient was made aware of the importance of adherence to diet for successful weight loss management and prevention of postoperative complications. The need for vitamin and mineral supplementation postoperatively was reviewed. The 2-week pre-surgery liquid diet was also reviewed. Patients are aware they will need a GREEN LIGHT from the Registered Dietitian to proceed to see the surgeon. Behavioral Medicine evaluation was discussed. The patients are aware of the need for a GREEN light to progress to see the surgeon. The patient agreed to try the plan as discussed and return in 1 month for BME. They were encouragedto call or send a patient portal message in the meantime with any questions or concerns prior to their next clinic visit. I spent a total of 18 minutes on the date of service in preparation, delivery, and documentation ofthe care provided to Nicola W Pineda excluding any time spent in the performance of separately billed services. This included but was no limited to providing counseling about the benefits of weight loss, about their nutritional status, detailed explanations about calorie count, types of nutrients to choose, and composition of the meals. Motivational interview provided in order to prepare the patient to achieve future goals. The patient was instructed to call in the meantime with any concerns or questions prior to patient's upcoming visit. Marycruz Smith PA-C, [facility] documented in this encounter Plan of Treatment Upcoming Encounters Date Type Department Care Team (Late st Contact Info) Description 09/02/2023 1:30 PM EST Telemedicine Nutrition & Weight Management, [facility] [address] [facility] [place] [address] [facility], Behavior Class [address] [place] [address] 09/05/2023 2:30 PM EST Telemedicine Psychology, [place] [address] [place] [address] Lynette Carpenter, [facility] [address] [place] [address] 09/17/2023 7:00 AM EST Telemedicine Sleep Disorders [facility] [address] [facility] [place] [phone] Kelly Moore CRNP 132 [facility] [place] [address] 09/24/2023 1:00 PM EST Telemedicine [facility], [facility] [address] [place] [address] Tatyana Lawson CRNP [address] [place] [address] Celia Weems, Community Health Radiator Specialist [address] [place] [address] 10/07/2023 2:30 PM EDT Home Visit [facility], [place] [address] [facility] [place] [address] Liya Jc, RN [address] [facility] [address] 12/03/2023 9:00 AM EDT Procedure Only Endoscopy, [place] [address] [place] [address] Berenice Chiu MD [address] [place], [place] [address], [place] [id number] Health Maintenance Due Date Last Done Comments [...] as of this encounter Visit Diagnoses Diagnosis Morbid obesity due to excess calories (HCC)- Primary Abnormal weight gain documented in this encounter Advance Directives Latest Code Status on File Code Status Date Activated Date Inactivated Comments Full Code 06/07/2017 9:31 PM 06/08/2017 8:03 PM Th is order reflects the patients wishes and were consensually agreed upon. Question Answer Comments Discussion of Advance Directives occurred with: Patient Does the patient have a Living Will? No Does the patient have Health Care Power of Radiator Specialist? No Code Status History Code Status Date Activated Date Inactivated Comments Full Code 02/05/2017 7:44 PM 02/19/2017 10:16 PM This order reflects the patients wishes and were consensually agreed upon. Question Answer Comments Discussion of Advance Directives occurred with: Not Discussed Care Teams Receiving Tank Operator Relationship Specialty Start Date End Date Tyrone Massiel CELENA Soriano [address] [facility] [place] [address] PCP - General Physician Radiator Specialist 04/03/22 documented as of this encounter
--- OUTSIDE RECORDS SUMMARY | 2023-10-12 18:59 | External Medical Summary | Summary of Care ---
Author Name Unknown Organization [facility] Address [address] [place] [address] Phone [phone] Care Team Providers Care Retail Store Manager Name Role Phone Tyrone October CELENA Primary Care Provider [phone] Encounter Details Date Type Department Care Team (Late st Contact Info) Description 09/03/2023 Telephone Care Coordination and Integration [address], [place] [id number] Claudia Duff, JOSE ANGEL [address] [place] [address] Allergies No known active allergiesdocumented as of this encounter (statuses as of 09/04/2023) Medications Medication Sig Dispensed Refills Start Date [...] 0 10/09/2022 Acti ve FreeStyle Abdulkadir 2 [place] DeviceIndications:Ty pe 2 diabetes mellitus without complication, [...] 2 diabetes mellitus without complication, unspecified whether care home insulin use (HCC) TAKE 1 TABLET BY [...] before bedtime. 0 08/22/2023 Active DIURETIC TITRATION PLANIndications:Family Services Assistant ethan diastolic CHF (congestive heart failure) ([facility]) If no improvement on day 3, contact [...] as of this encounter (statuses as of 09/04/2023) Active Problems Problem Noted Date Diagnosed Date [...] empagliflozin (ex. Jardiance) Remote Patient Monitoring Vendor: [facility] Device(s): Connected Scale Connected Pulse Ox Connected BP Cuff Self - Management Plan Add metolazone (Zaroxolyn) 2.5-5mg for 1 days. If using a potassium supplement, double the dose of the supplement will be given on the day of and on the day after the metolazone Exacerbation Plan BMP Additional Comments: Euvolemic today [facility] ordered Rewiewed red flag reportable symptoms. History [...] kit in the past. Advised to call [facility] immediately for eval if he feels [...] as of this encounter (statuses as of 09/04/2023) Resolved Problems Problem Noted Date Diagnosed Date [...] as of this encounter (statuses as of 09/04/2023) Immunizations Name Administration Dates Next Due COVID-19 [...] Encounter - Claudia Duff RN - 09/03/2023 1:58 PM EST Pt cancelled his appt w/ Lauren last week at [facility]. Can you please call him and help to getit rescheduled? Thanks! documented in this encounter Plan of Treatment Upcoming Encounters Date Type Department Care Team (Late st Contact Info) Description 09/05/2023 2:30 PM EST Telemedicine [facility], [place] [address] [place] [address] Lynette Carpenter [facility] [address] [place] [address] 09/17/2023 7:00 AM EST Telemedicine Sleep Disorders Ctr [facility] [address] [place] [id number] Kelly Moore CRNP [address] [place] [address] 09/24/2023 1:00 PM EST Telemedicine [facility], [facility] [address] [place] [place] [address] Tatyana Lawson CRNP [address] [place] [address] Celia Weems, Community Health News Camera Person [address] [place] [address] 10/07/2023 8:00 AM EDT Office Visit Nutrition & Weight Management, [facility] [address] [place] [address] Chelsea Wolfe [facility] [address] [place] [address] Annie Jones PA-C [address] [place] [address] Lluvia Plaza RDN [address] [place] [address] 10/07/2023 2:30 PM EDT Home Visit [facility], [facility] [address] [facility] [address] Liya Jc, RN [address] [place] [address] 12/03/2023 9:00 AM EDT Procedure Only Endoscopy, [facility] 132 [facility] [place] [address] Berenice Chiu MD [address] [place] [...] the patient have Health Care Power of Utility Lineman? No Code Status History Code Status Date Activated Date Inactivated Comments Full Code 02/05/2017 7:44 PM 02/19/2017 10:16 PM This order reflects the patients wishes and were consensually agreed upon. Question Answer Comments Discussion of Advance Directives occurred with: Not Discussed Care Teams Retail Store Manager Relationship Specialty Start Date End Date Tyrone October CELENA Soriano [address] [place] [address] PCP - General Physician News Camera Person 04/03/22 documented as of this encounter
--- OUTSIDE RECORDS SUMMARY | 2023-10-12 18:59 | External Medical Summary | Summary of Care ---
Author Name Unknown Organization [facility] Address [address] [place] [address] Phone [phone] Care Team Providers Care Elementary [employer] Social Worker Name Role Phone Massiel Hansen CELENA Primary Care Provider [phone] Encounter Details Date Type Department Care Team (Late st Contact Info) Description 08/27/2023 Telephone Care Coordination and Integration [address] [place], [place] [id number] Claudia Duff, JOSE ANGEL [address] [place] [address] Allergies No known active allergiesdocumented [...] 0 10/09/2022 Acti ve FreeStyle Abdulkadir 2 [place] DeviceIndications:Ty pe 2 diabetes mellitus without complication, [...] 2 diabetes mellitus without complication, unspecified whether residential insulin use (HCC) TAKE 1 TABLET BY [...] before bedtime. 0 08/22/2023 Active DIURETIC TITRATION PLANIndications:Public Weigher ethan diastolic CHF (congestive heart failure) (HCC) [...] (ex. Jardiance) Remote Patient Monitoring Vendor: [facility] Device(s): Connected Scale Connected Pulse Ox Connected BP Cuff Self - Management Plan Add metolazone (Zaroxolyn) 2.5-5mg for 1 days. If using a potassium supplement, double the dose of the supplement will be given on the day of and on the day after the metolazone Exacerbation Plan BMP Additional Comments: Euvolemic today [facility] ordered Rewiewed red flag reportable symptoms. History [...] kit in the past. Advised to call [facility] immediately for eval if he [...] Telephone Encounter - Claudia Duff RN - 08/27/2023 2:43 PM EST Called pt w/ instructions and he verbalized understanding. Has had an [facility] scale but is it has not transmitted since he moved it last week after [facility] home visitfor your telemed visit. I will ask [facility] to follow up w/ him. He has not yet received the BP cuff or pulse ox that you ordered. I just got a TT on another pt that BP and pulse ox are on back order so that may be the same case for him. * Addendum Note - Tatyana Lawson CRNP - 08/27/2023 1:28 PM ESTAddended by: TATYANA LAWSON on: 08/27/2023 01:28 PM Modules accepted: Orders * Telephone Encounter - Tatyana Lawson CRNP - 08/27/2023 1:21 PM EST His pain sounds more consistent with neuropathic pain. It looks like there was an EMG ordered 04/10/22 but appears study was cancelled. Order at that time for tingling in legs. I sent gabapentin 100mg TID to take. Have him start 100mg at bedtime day one. Day 2--100mg BID, then start TID on day 3. We need to keep this dose below 900mg d/t CHF but this may help with his pain.I want to avoid him being on celebrex. Claudia--did he get scale/BP/pulse ox that I ordered? Liya--you are seeing 09/01--can you let me know how is feeling on med? [facility] scheduling--please schedule me one month telemedicine follow up * Telephone Encounter - Claudia Duff RN - 08/27/2023 12:46 PM EST Tatyana Since stopping celebrex pt has started w/ stabbing pain in both knees and feels "luz like bugs running around on my feet and occasionally like some is pinching." He report topical cream and [id number] Q 12 hrs for now. CM did educate he is able to take up to 3000mg/ day. Pt will try this until he hears back provider as pt is asking for something else for pain control as it is keeping him awake at night. FYI : He went to visit his mother a few days ago. Noted to feel edema increasing so he did not staylong. Improved w/ elevation. Not using compression. Weight today 386.1lbs and was 385.4 yesterday and was 390lbs once in the last week. documented in this encounter Plan of Treatment Upcoming Encounters Date Type Department Care Team (Late st Contact Info) Description 09/01/2023 11:00 AM EST Office Visit Cardiology, [facility] [address] [facility] [place] [address] Lauren Song CRNP [address] [place] [address] 09/01/2023 2:00 PM EST Home Visit [facility], [facility] [address] [place] [address] Liya Jc RN [address] [place] [address] 09/02/2023 12:40 PM EST Telemedicine Nutrition & Weight Management, [facility] [address] [facility] [place] [address] Marycruz Smith PA-C [facility] [place] [address] 09/02/2023 1:30 PM EST Telemedicine Nutrition & Weight Management, [facility] [address] [facility] [place] [address] [facility], Behavior Class 2 [facility] [address] [facility] [place] [address] 09/05/2023 2:30 PM EST Telemedicine Psychology, [place] [address] [place] [address] Lynette Carpenter, [facility] [address] [place] [address] 09/17/2023 7:00 AM EST Telemedicine Sleep Disorders [facility] [address] [facility] [place] [phone] Kelly Moore CRNP [address] [place] [address] 09/24/2023 1:00 PM EST Telemedicine [facility], [place] [address] [facility] [place] [address] Tatyana Lawson CRNP [address] [place] [place], [place] [address] Celia Weems, Community Health Employee Development Specialist [address] [place] [address] 12/03/2023 9:00 AM EDT Procedure Only Endoscopy, [facility] [address] [place] [address] Berenice Chiu MD [address] [facility] [place] [id number] Health Maintenance Due Date Last Done Comments [...] Albumin/Creatinine Ratio 07/16/2023 07/16/2022 HbA1c 09/05/2023 03/05/2023, 12/, 09/05/2021, Additional history exists Diabetic Eye Exam [...] the patient have Health Care Power of Thread Separator? No Code Status History Code Status Date Activated Date Inactivated Comments Full Code 02/05/2017 7:44 PM 02/19/2017 10:16 PM This order reflects the patients wishes and were consensually agreed upon. Question Answer Comments Discussion of Advance Directives occurred with: Not Discussed Care Teams Elementary School Social Worker Relationship Specialty Start Date End Date Tyrone October CELENA Soriano [address] [place] [address] PCP - General Physician Employee Development Specialist 04/03/22 documented as of this encounter
--- OUTSIDE RECORDS SUMMARY | 2023-10-12 18:59 | External Medical Summary | Summary of Care ---
Author Name Unknown Organization [facility] Address [address] [place] [address] Phone [phone] Care Team Providers Care Hadoop Consultant Name Role Phone Massiel Hansen CELENA Primary Care Provider [phone] Reason for Visit * Reason Onset Date Comments Appointment 09/02/2023 Encounter Details Date Type Department Care Team (Late st Contact Info) Description 09/02/2023 Telephone Nutrition & Weight Management, [facility] [address] [place] [address] Marycruz Smith PA-C [address] [place] [address] Appointment Allergies No known active allergiesdocumented as [...] 0 10/09/2022 Acti ve FreeStyle Abdulkadir 2 [place] DeviceIndications:Ty pe 2 diabetes mellitus without complication, [...] 2 diabetes mellitus without complication, 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 0 08/22/2023 Active DIURETIC TITRATION PLANIndications:Phone Specialist ethan diastolic CHF (congestive heart failure) (HCC) [...] empagliflozin (ex. Jardiance) Remote Patient Monitoring Vendor: [facility] Device(s): Connected Scale Connected Pulse Ox Connected BP Cuff Self - Management Plan Add metolazone (Zaroxolyn) 2.5-5mg for 1 days. If using a potassium supplement, double the dose of the supplement will be given on the day of and on the day after the metolazone Exacerbation Plan BMP Additional Comments: Euvolemic today [facility] ordered Rewiewed red flag reportable symptoms. History [...] kit in the past. Advised to call [facility] immediately for eval if he [...] mRNA, LNP-s, No Pre serve, 2-Dose Series (PayDivvy) 11/30/2020,11/06/2020 Pneumococcal Polysaccharide PPV23 (Pneumovax) 05/22/2021 Seasonal [...] encounter Miscellaneous Notes * Telephone Encounter - Savanah Flores OSA - 09/03/2023 4:02 PM EST Pt is scheduled on 10/07/23 @ 8:00 AM for BME * Telephone Encounter - Savanah Flores OSA - 09/02/2023 4:26 PM EST Check out notes from vv on 09/02/23 with Luis. BME September [facility] to schedule. documented in this encounter Plan of Treatment Upcoming Encounters Date Type Department Care Team (Late st Contact Info) Description 09/05/2023 2:30 PM EST Telemedicine Psychology, [place] [address] [place] [address] Lynette Carpenter, SWIMMING POOL SERVICE TECHNICIAN [address] [place] [address] 09/17/2023 7:00 AM EST Telemedicine Sleep Disorders [facility] [place] [phone] Kelly Moore CRNP [address] [place] [address] 09/24/2023 1:00 PM EST Telemedicine [facility], [facility] [place] [address] Tatyana Lawson CRNP [address] [place] [address] Celia Weems, Community Health Emergency Vehicle Operator [address] [place] [address] 10/07/2023 8:00 AM EDT Office Visit Nutrition & Weight Management, [facility] [address] [facility] [place] [address] Chelsea Wolfe [facility] [address] [place] [address] Annie Jones PA-C [address] [place] [address] Lluvia Plaza RDN [address] [place] [address] 10/07/2023 2:30 PM EDT Home Visit [facility], [place] [address] [place] [address] Liya Jc RN [address] [place] [address] 12/03/2023 9:00 AM EDT Procedure Only Endoscopy, [place] [address] [place] [address] Berenice Chiu MD [address] [place] [address] Health Maintenance Due Date Last Done Comments [...] the patient have Health Care Power of Nursing Center Tutor? No Code Status History Code Status Date Activated Date Inactivated Comments Full Code 02/05/2017 7:44 PM 02/19/2017 10:16 PM This order reflects the patients wishes and were consensually agreed upon. Question Answer Comments Discussion of Advance Directives occurred with: Not Discussed Care Teams Hadoop Consultant Relationship Specialty Start Date End Date Tyrone October CELENA Soriano [address] [facility] [place] [address] PCP - General Physician Emergency Vehicle Operator 04/03/22 documented as of this encounter
--- OUTSIDE RECORDS SUMMARY | 2023-10-12 18:59 | External Medical Summary | Summary of Care ---
Author Name Unknown Organization [facility] Address [address] [place] [address] Phone [phone] Care Team Providers Care Auto Body Repair Teacher Name Role Phone Tyrone October CELENA Primary Care Provider [phone] Encounter Details Date Type Department Care Team (Late st Contact Info) Description 09/03/2023 Telephone Care Coordination and Integration [address] [place], [place] [phone] Claudia Duff, JOSE ANGEL [address] [place] [address] Allergies No known active allergiesdocumented [...] 0 10/09/2022 Acti ve FreeStyle Abdulkadir 2 [place] DeviceIndications:Ty pe 2 diabetes mellitus without complication, [...] 2 diabetes mellitus without complication, unspecified whether long-term insulin use (HCC) TAKE 1 TABLET BY [...] before bedtime. 0 08/22/2023 Active DIURETIC TITRATION PLANIndications:Barrel Raiser ethan diastolic CHF (congestive heart failure) ([facility]) If no improvement on day 3, contact [...] empagliflozin (ex. Jardiance) Remote Patient Monitoring Vendor: [facility] Device(s): Connected Scale Connected Pulse Ox Connected BP Cuff Self - Management Plan Add metolazone (Zaroxolyn) 2.5-5mg for 1 days. If using a potassium supplement, double the dose of the supplement will be given on the day of and on the day after the metolazone Exacerbation Plan BMP Additional Comments: Euvolemic today [facility] ordered Rewiewed red flag reportable symptoms. History [...] kit in the past. Advised to call [facility] immediately for eval if he [...] his appt w/ Lauren last week at [facility]. Can you please call him and help to getit rescheduled? Thanks! documented in this encounter Plan of Treatment Upcoming Encounters Date Type Department Care Team (Late st Contact Info) Description 09/05/2023 2:30 PM EST Telemedicine [facility], [place] [address] [place] [address] Lynette Carpenter [facility] [address] [place] [address] 09/17/2023 7:00 AM EST Telemedicine Sleep Disorders Ctr [facility] 132 [place] [phone] Kelly Moore CRNP [address] [place] [address] 09/24/2023 1:00 PM EST Telemedicine [facility], [facility] 132 [place] [address] Tatyana Lawson CRNP [address] [place] [address] Celia Weems, Community Health Production Consultant [address] [place] [address] 10/07/2023 8:00 AM EDT Office Visit Nutrition & Weight Management, [facility] [address] [facility] [place] [address] Chelsea Wolfe [facility] 132 [place] [address] Annie Jones PA-C 132 [place] [address] Lluvia Plaza RDN [address] [place] [address] 10/07/2023 2:30 PM EDT Home Visit [facility], [facility] [address] [place] [address] Liya Jc, RN [address] [place] [address] 12/03/2023 9:00 AM EDT Procedure Only Endoscopy, [facility] 132 [facility] [place] [address] Berenice Chiu MD [address] [place] [...] the patient have Health Care Power of Primary Care Md? No Code Status History Code Status Date Activated Date Inactivated Comments Full Code 02/05/2017 7:44 PM 02/19/2017 10:16 PM This order reflects the patients wishes and were consensually agreed upon. Question Answer Comments Discussion of Advance Directives occurred with: Not Discussed Care Teams Auto Body Repair Teacher Relationship Specialty Start Date End Date Tyrone October CELENA Soriano [address] [place] [address] PCP - General Physician Production Consultant 04/03/22 documented as of this encounter
--- OUTSIDE RECORDS SUMMARY | 2023-10-12 18:59 | External Medical Summary | Summary of Care ---
Author Name Unknown Organization [facility] Address [address] [place] [address] Phone [phone] Care Team Providers Care Town Marshal Name Role Phone Massiel Hansen PA-C Primary Care Provider [phone] Reason for Visit * Reason Comments [facility]: Maintenance Encounter Details Date Type Department Care Team (Late st Contact Info) Description 09/01/2023 2:00 PM EST [facility] Visit [facility], [facility] [address] [place] [address] Liya Jc, RN 132 [place] [address] Allergies No known active allergiesdocumented as of this encounter (statuses as of 09/01/2023) Medications Medication Sig Dispensed Refills Start Date [...] 0 10/09/2022 Acti ve FreeStyle Abdulkadir 2 [place] DeviceIndications:Ty pe 2 diabetes mellitus without complication, [...] before bedtime. 0 08/22/2023 Active DIURETIC TITRATION PLANIndications:Muck Operator ethan diastolic CHF (congestive heart failure) (HCC) [...] as of this encounter (statuses as of 09/01/2023) Active Problems Problem Noted Date Diagnosed Date [...] (ex. Jardiance) Remote Patient Monitoring Vendor: [facility] Device(s): Connected Scale Connected Pulse Ox Connected BP Cuff Self - Management Plan Add metolazone (Zaroxolyn) 2.5-5mg for 1 days. If using a potassium supplement, double the dose of the supplement will be given on the day of and on the day after the metolazone Exacerbation Plan BMP Additional Comments: Euvolemic today [facility] ordered Rewiewed red flag reportable symptoms. History [...] as of this encounter (statuses as of 09/01/2023) Resolved Problems Problem Noted Date Diagnosed Date [...] as of this encounter (statuses as of 09/01/2023) Immunizations Name Administration Dates Next Due COVID-19 mRNA, LNP-s, No Pre serve, 2-Dose Series (agreement24 [email or web address]) 11/30/2020,11/06/2020 Pneumococcal Polysaccharide PPV23 (Pneumovax) 05/22/2021 Seasonal [...] Sign Reading Time Taken Comments Blood Pressure 118/70 09/01/2023 2:21 PM EST Pulse 80 09/01/2023 2:21 PM EST Temperature 36.4 C (97.5 F) 09/01/2023 2:21 PM ES T Respiratory Rate 18 09/01/2023 2:21 PM EST Oxygen Saturation 97% 09/01/2023 2:21 PM EST Inhaled Oxygen Concentration - - Weight 176.4 kg (389 lb) 09/01/2023 2:21 PM EST Height - - Body Mass Index 60.47 08/13/2023 1:51 PM EST documented in this encounter Functional Status [...] Progress Notes * Liya Jc RN - 09/01/2023 12:05 PM EST Images from the original note were not included. [facility] Executive Secretary Visit Date: 09/01/2023 Time: 12:06 PM Name: Nicola Pineda : 1975 Current Concerns: Pt seen for return RNCM visit/ELZBIETA Wt this am was 389 lbs Cancelled cardio appt this morning d/t diarrhea - had 4 episodes yesterday None today so far Reports son had possible stomach virus last week causing diarrhea and feels he got it as well Doing better today though Denies increased SOB No increased LE edema Blood sugar is 115 Using Chomp abdulkadir device Has been averaging 103 for the past 7 days No issues with highs or lows Has [facility] scale Did not get BP cuff or pulse ox yet - per note they are on back order No [facility] reading since 08/28 Had router reset and pt did weight during visit Reading did go through and multiple other readings came through from the past several days that were not there before router was reset Physical Exam: BP 118/70 | Pulse 80 | Temp 36.4 C (97.5 F) | Resp 18 | Wt (!) 176.4 kg (389 lb) | SpO2 97% | BMI 60.47 kg/m | BSA 2.89 m Pain 0 Physical Exam Constitutional: General: He is not in acute distress. Appearance: He is obese. Cardiovascular: Rate and Rhythm: Normal rate and regular rhythm. Pulses: Normal pulses. Heart sounds: Normal heart sounds. Pulmonary: Effort: Pulmonary effort is normal. Breath sounds: Normal breath sounds. Abdominal: General: Bowel sounds are normal. Palpations: Abdomen is soft. Tenderness: There is no abdominal tenderness. Musculoskeletal: Right lower leg: Edema (mild, nonpitting) present. Left lower leg: Edema (mild, nonpitting) present. Skin: General: Skin is warm and dry. Neurological: Mental Status: He is alert. Problems/Symptoms: Review of Systems Constitutional: Negative. HENT: Negative. Eyes: Negative. Respiratory: Positive for shortness of breath (DAY - at baseline). Cardiovascular: Positive for leg swelling. Gastrointestinal: Negative. Genitourinary: Negative. Musculoskeletal: Positive for arthralgias. Psychiatric/Behavioral: Negative. Medication Reconciliation: (See medication list) Does patient take medications as ordered: Yes Patient Well Being: PHQ2/9: Myc Visit Accident Related Question Question 09/01/2023 10:20 AM EST - Filed by Patient Is this visit related to an accident? (i.e work, motor vehicle) No No change in living situation No falls [facility]-10 Completed this Visit: No. Routine visit and No falls since last visit Advanced Care Planning: No documentation, acp on file. Reinforcement/Education: Educated on home safety: Create a fall [...] and Purspose. Treatment/Plan: Continue meds as prescribed/reviewed Weigh self daily via [facility] - waiting on bp cuff and pulse ox Low Na diet Elevate LE as much as possible Keep all appts as scheduled Home Interventions Provided: Home Intervention: Other; evaluation Reinforced current Plan of Care, including self-management and medication regimen Patient's 'Red Flags': Increased SOB Wt gain of 3 lbs in 24 hrs or 5 lbs in one week Increased weakness/fatigue Patient Needs to Remember: Call [facility] at with any new or worsening health concerns or problems, red flag symptoms. Referrals Needed: Other none Follow Up: Is there cellular connectivity/connectivity in the home? Yes Does the patient have internet in the home? Yes Patient encouraged to call the intake phone number for all urgent but not emergent issues. Is the patient new to [facility] within the last 30 days? Yes, Is this a Transitions of Care visit? Yes, this is the 2nd visit or later, Yes cellular connectivity. Was their Readmission Risk Score less than 18%? Yes Does the patient have any active signs of an exacerbation? No Has the patient had any ED visits since being discharged? No, Please forward to Community Nitroglycerin Nitrator Operator Batch for telehealth scheduling, and indicate appropriate week of Transition of Care. Provider is in agreement with Plan of Care: Yes Scheduled to follow up with patient in 3 weeks with provider, 2 weeks after with RNCM. Liya Jc RN 09/01/2023 12:06 PM documented in this encounter Plan of Treatment Upcoming Encounters Date Type Department Care Team (Late st Contact Info) Description 09/02/2023 12:40 PM EST Telemedicine Nutrition & Weight Management, [facility] [address] [address] Marycruz Smith PA-C [address] [place] [address] 09/02/2023 1:30 PM EST Telemedicine Nutrition & Weight Management, [facility] [address] [address] [place], Behavior Class 2 [facility] [address] [address] 09/05/2023 2:30 PM EST Telemedicine Psychology, [place] [address] [place] [address] Lynette Carpenter, CHIN STRAP SEWER [address] [place] [address] 09/17/2023 7:00 AM EST Telemedicine Sleep Disorders Ctr [facility] [address] [facility] [phone] Kelly Moore CRNP 132 [place] [address] 09/24/2023 1:00 PM EST Telemedicine [facility], [facility] 132 [facility] [place] [address] Tatyana Lawson CRNP 132 [facility] [place] [address] Celia Weems, Community Health Railroad Car Repair Supervisor [address] [place] [address] 10/07/2023 2:30 PM EDT Home Visit [facility], [facility] 132 [facility] [place] [address] Liya Jc, RN 132 [facility] [address] 12/03/2023 9:00 AM EDT Procedure Only Endoscopy, [facility] 132 [facility] [place] [address] Berenice Chiu MD [address] [place], [place] [address] [address] Health Maintenance Due Date Last Done Comments [...] the patient have Health Care Power of Peer Tutor? No Code Status History Code Status Date Activated Date Inactivated Comments Full Code 02/05/2017 7:44 PM 02/19/2017 10:16 PM This order reflects the patients wishes and were consensually agreed upon. Question Answer Comments Discussion of Advance Directives occurred with: Not Discussed Care Teams Town Marshal Relationship Specialty Start Date End Date Massiel Hansen, CELENA [address] [place] [address] [place] [address] PCP - General Physician Railroad Car Repair Supervisor 04/03/22 documented as of this encounter
--- OUTSIDE RECORDS SUMMARY | 2023-10-12 18:59 | External Medical Summary | Summary of Care ---
Author Name Unknown Organization [facility] Address [address] [place] [address] Phone [phone] Care Team Providers Care Field Ironworker Name Role Phone Tyrone October PA-C Primary Care Provider [phone] Encounter Details Date Type Department Care Team (Late st Contact Info) Description 09/02/2023 Population Health External Data Unspecified Department Allergies [...] 0 10/09/2022 Acti ve FreeStyle Abdulkadir 2 [place] DeviceIndications:Ty pe 2 diabetes mellitus without complication, [...] 2 diabetes mellitus without complication, unspecified whether dice person insulin use (HCC) TAKE 1 TABLET BY [...] before bedtime. 0 08/22/2023 Active DIURETIC TITRATION PLANIndications:Spring Assembler Supervisor ethan diastolic CHF (congestive heart failure) (HCC) [...] Exacerbation Plan BMP Additional Comments: Euvolemic today [facility] ordered Rewiewed red flag reportable symptoms. History [...] kit in the past. Advised to call [facility] immediately for eval if he [...] PM EST Telemedicine Nutrition & Weight Management, [facility] 132 [facility] [place] [address] Marycruz Smith PA-C 132 [facility] [place] [address] 09/02/2023 1:30 PM EST Telemedicine Nutrition & Weight Management, [facility] 132 [facility] [place] [address] [facility], Behavior Class 2 [facility] [place] [address] 09/05/2023 2:30 PM EST Telemedicine Psychology, [place] [address] [place] [address] Lynette Carpenter LCSW [address] [place] [address] 09/17/2023 7:00 AM EST Telemedicine Sleep Disorders Ctr [facility] 132 [facility] [place] [phone] Kelly Moore CRNP 132 [place] [address] 09/24/2023 1:00 PM EST [facility]icine [facility] [place], [facility] [address] Tatyana Lawson CRNP 132 [place] [address] Celia Weems, Community Health Crank Hand [address] [place] [address] 10/07/2023 2:30 PM EDT [facility] 132 [place] [address] Liya Jc, RN 132 [place] [address] 12/03/2023 9:00 AM EDT Procedure Only Endoscopy, [facility] 132 [facility] [place] [address] Berenice Chiu MD [address] [place] [address] [place] [address] Health Maintenance Due Date Last Done Comments [...] the patient have Health Care Power of Electronic Equipment Maint Tech? No Code Status History Code Status Date Activated Date Inactivated Comments Full Code 02/05/2017 7:44 PM 02/19/2017 10:16 PM This order reflects the patients wishes and were consensually agreed upon. Question Answer Comments Discussion of Advance Directives occurred with: Not Discussed Care Teams Field Ironworker Relationship Specialty Start Date End Date Massiel Hansen PA-C [address] [place] [address] PCP - General Physician Crank Hand 04/03/22 documented as of this encounter
--- OUTSIDE RECORDS SUMMARY | 2023-10-12 18:59 | External Medical Summary | Summary of Care ---
Author Name Unknown Organization [facility] Address [address] [place] [address] Phone [phone] Care Team Providers Care Senior Software Engineer Analytics Name Role Phone Massiel Solorio PA-C Primary Care Provider [phone] Reason for Visit * Reason Comments eRx-Medication Refill Encounter Details Date Type Department Care Team (Late st Contact Info) Description 08/31/2023 Refill Family Practice [facility] [address] [place] [address] Massiel Solorio PA-C [address] [place] [address] Allergies No known active allergiesdocumented as of [...] of Breath. 54 g 1 3 Active Ipratropium-Albuter ol 0.5-2.5 (3) MG/3ML Inhalation Solution (Duoneb) 3 mL. 0 3 Active Multivitamin Adult Oral Tablet Chewable 1 Tablet. 0 3 Active FreeStyle Abdulkadir 2 [place] DeviceIndications:T ype 2 diabetes mellitus without complication, without long-term current use of insulin (HCC) Use as directed. 1 Each 0 3 Active predniSONE 20 MG Oral Tablet (Deltasone) NEEDED RESCUE KIT. Take 2 tabs by mouth for 5 days 10 Tablet 1 3 Active metOLazone 2.5 MG Oral Tablet (Zaroxolyn)Indicati ons:Chronic heart failure with preserved ejection fraction (HCC) Take 1 Tablet by mouth in the morning. As needed for weight gain protocol. 90 Tablet 5 3 Active metFORMIN HCl 500 MG Oral Tablet (Glucophage)Indicat ions:Type 2 diabetes mellitus without complication, unspecified whether ad terminal makeup operator insulin use (HCC) TAKE 1 TABLET BY MOUTH TWICE A DAY WITH MORNING AND EVENING MEALS 180 Tablet 2 4 Active Lisinopril 2.5 MG Oral Tablet (Prinivil)Indicatio ns:Systolic heart failure, unspecified HF chronicity (HCC) TAKE 1 TABLET BY MOUTH EVERY DAY BEFORE BEDTIME 90 Tablet 2 4 Active FreeStyle Abdulkadir 2 SensorIndications:T ype 2 diabetes mellitus without complication, without long-term current use of insulin (HCC) Use as directed. 3 Each 3 4 Active Fenofibrate 48 MG Oral Tablet (Tricor)Indications :Hypertriglyceridem ia Take 1 Tablet by mouth in the morning. 90 Tablet 2 4 Active Empagliflozin 25 MG Oral Tablet (Jardiance)Indicati [...] complication, without long-term current use of insulin ([facility]) Inject 1 mg under the skin once a week. 9 mL 1 4 Active Atorvastatin Calcium 40 MG Oral Tablet (Lipitor) Take 1 Tablet by mouth in the morning. 30 Tablet 8 4 Active rOPINIRole HCl 2 MG Oral Tablet (Requip) Take 1 Tablet by mouth every night at bedtime. 0 4 Active Diclofenac Sodium 1 % External Gel (Voltaren)Indicatio ns:Primary osteoarthritis of both knees Apply 4 g topically to affected area 4 times a day as needed (pain). To knees as needed 350 g 1 4 Active Acetaminophen 325 MG Oral Tablet (Tylenol)Indication s:Primary osteoarthritis of both knees Take 2 Tablets by mouth in the morning and 2 Tablets at noon and 2 Tablets before bedtime. 0 4 Active DIURETIC TITRATION PLANIndications:Chr onic diastolic CHF (congestive heart failure) ([facility]) If no improvement on day 3, contact [...] before bedtime. 180 Tablet 1 4 Active Furosemide 40 MG Oral Tablet (Lasix) TAKE ONE TABLET BY MOUTH TWICE A DAY IN THE MORNING AND AT BEDTIME 180 Tablet 2 4 09/01/19 24 Discontinued Apixaban 5 MG Oral Tablet (Eliquis) Take 1 Tablet by mouth in the morning and 1 Tablet before bedtime. 180 Tablet 2 4 09/01/19 24 Discontinued documented as of this encounter (statuses [...] Jardiance) Remote Patient Monitoring Vendor: [facility] Device(s): Connected Scale Connected Pulse Ox Connected BP Cuff Self - Management Plan Add metolazone (Zaroxolyn) 2.5-5mg for 1 days. If using a potassium supplement, double the dose of the supplement will be given on the day of and on the day after the metolazone Exacerbation Plan BMP Additional Comments: Euvolemic today [facility] ordered Rewiewed red flag reportable symptoms. History [...] kit in the past. Advised to call [facility] immediately for eval if he feels [...] mRNA, LNP-s, No Pre serve, 2-Dose Series (RPI ([employer])) 11/30/2020,11/06/2020 Pneumococcal Polysaccharide PPV23 (Pneumovax) 05/22/2021 Seasonal [...] encounter Miscellaneous Notes * Telephone Encounter - Ruiz English [facility] - 09/01/2023 11:09 AM EST Signed Prescriptions: Disp Refills Furosemide 40 MG Oral Tablet (Lasix) 180 Ta*1 Sig: Take 1 tabletby mouth twice daily in the morning and at bedtime.Authorizing Provider: MASSIEL SOLORIO AOrdering User: RUIZ ENGLISH Eliquis 5 MG Oral Tablet (Apixaban) 180 Ta*1 Sig: Take 1 tablet by mouth inthe morning and 1 tablet before bedtime.Authorizing Provider: Alon SOLORIO User: RUIZ ENGLISHRefused Prescriptions: Disp Refills Celecoxib 200 MG Oral Capsule (CeleBREX) 90 Cap*0 Sig: Take 1 capsule by mouth daily for pain.Refused By: RUIZ ENGLISHReason for Refusal: Course of treatment complete documented in this encounter Plan of Treatment Upcoming Encounters Date Type Department Care Team (Late st Contact Info) Description 09/01/2023 2:00 PM EST Home Visit [facility] [address] [facility] [address] [place] [address] Liya Jc RN [address] [place] [address] 09/02/2023 12:40 PM EST Telemedicine Nutrition & Weight Management, [facility] [address] [address] Marycruz Smith PA-C [address] [place] [address] 09/02/2023 1:30 PM EST Telemedicine Nutrition & Weight Management, [facility] [address] [address] [facility], [facility] Class 2 [facility] [address] [place] [address] 09/05/2023 2:30 PM EST Telemedicine Psychology, [address] [address] Lynette Carpenter, FINISHING MACHINE OPERATOR AUTOMATIC [address] [place] [address] 09/17/2023 7:00 AM EST Telemedicine Sleep Disorders Ctr [facility] [address] [facility] [phone] Kelly Moore CRNP [address] [place] [address] 09/24/2023 1:00 PM EST [facility]icine [facility], [facility] 132 [place] [address] Tatyana Lawson CRNP [address] [place] [address] Celia Weems, Community Health Data Entry Email Processor [address] [place] [address] 12/03/2023 9:00 AM EDT Procedure Only Endoscopy, [facility] 132 [place] [address] Berenice Chiu MD [address] [facility] [place] [address] Health Maintenance Due Date Last Done Comments [...] the patient have Health Care Power of Brusher Machine? No Code Status History Code Status Date Activated Date Inactivated Comments Full Code 02/05/2017 7:44 PM 02/19/2017 10:16 PM This order reflects the patients wishes and were consensually agreed upon. Question Answer Comments Discussion of Advance Directives occurred with: Not Discussed Care Teams Senior Software Engineer Analytics Relationship Specialty Start Date End Date Massiel Solorio PA-C [address] [facility] [place] [address] PCP - General Physician Data Entry Email Processor 04/03/22 documented as of this encounter
--- OUTSIDE RECORDS SUMMARY | 2023-10-12 18:59 | External Medical Summary | Summary of Care ---
Author Name Unknown Organization [facility] Address [address] [place] [address] Phone [phone] Care Team Providers Care Automotive Service Technician Name Role Phone Massiel Hansen PARonni Primary Care Provider Reason for Visit * Reason Onset Date Comments [facility]: Maintenance 09/01/2023 Encounter Details Date Type Department Care Team (Late st Contact Info) Description 09/01/2023 Telephone [facility], [facility] [place] [address] Liya Jc, RN [facility] [place] [address] [facility]: Maintenance Allergies No known [...] 0 10/09/2022 Acti ve FreeStyle Abdulkadir 2 [place] DeviceIndications:Ty pe 2 diabetes mellitus without complication, [...] 2 diabetes mellitus without complication, unspecified whether intermediate insulin use (HCC) TAKE 1 TABLET BY [...] before bedtime. 0 08/22/2023 Active DIURETIC TITRATION PLANIndications:Computer Hardware Engineer ethan diastolic CHF (congestive heart failure) (HCC) [...] empagliflozin (ex. Jardiance) Remote Patient Monitoring Vendor: [facility] Device(s): Connected Scale Connected Pulse Ox Connected BP Cuff Self - Management Plan Add metolazone (Zaroxolyn) 2.5-5mg for 1 days. If using a potassium supplement, double the dose of the supplement will be given on the day of and on the day after the metolazone Exacerbation Plan BMP Additional Comments: Euvolemic today [facility] ordered Rewiewed red flag reportable symptoms. History [...] kit in the past. Advised to call [facility] immediately for eval if he feels he [...] encounter Miscellaneous Notes * Telephone Encounter - Tatyana Lawson CRNP - 09/02/2023 1:13 PM EST The requip is for RLS. He was going to discuss tapering off with sleep medicine--he told me that they wanted to try to taper him off. He can further discuss with them. * Telephone Encounter - Liya Jc RN - 09/01/2023 2:37 PM EST Tatyana - pt reports he is feeling good on the gabapentin - no side effects He feels the gabapentin is helping better than the celebrex did. He is asking if he is to continue the Requip. Please advise. Thanks! documented in this encounter Plan of Treatment Upcoming Encounters Date Type Department Care Team (Late st Contact Info) Description 09/05/2023 2:30 PM EST Telemedicine Psychology, [place] [address] [place] [address] Lynette Carpenter LCSW [address] [place] [address] 09/17/2023 7:00 AM EST Telemedicine Sleep Disorders Ctr [facility] [address] [facility] [phone] Kelly Moore CRNP 132 [place] [address] 09/24/2023 1:00 PM EST Telemedicine [facility], [facility] 132 [facility] [place] [address] Tatyana Lawson CRNP 132 [facility] [place] [address] Celia Weems, Community Health Cloud Engineer [address] [place] [address] 10/07/2023 2:30 PM EDT [facility] Visit [facility], [facility] 132 [facility] [place] [address] Liya Jc RN 132 [facility] [place] [address] 12/03/2023 9:00 AM EDT Procedure Only Endoscopy, [facility] 132 [facility] [place] [address] Berenice Chiu MD [address] [place] [address] Health Maintenance Due Date Last Done Comments [...] the patient have Health Care Power of Diesel Retrofit Designer? No Code Status History Code Status Date Activated Date Inactivated Comments Full Code 02/05/2017 7:44 PM 02/19/2017 10:16 PM This order reflects the patients wishes and were consensually agreed upon. Question Answer Comments Discussion of Advance Directives occurred with: Not Discussed Care Teams Automotive Service Technician Relationship Specialty Start Date End Date Tyrone October CELENA Soriano [address] [place] [address] PCP - General Physician Cloud Engineer 04/03/22 documented as of this encounter
--- OUTSIDE RECORDS SUMMARY | 2023-10-12 18:59 | External Medical Summary | Summary of Care ---
Author Name Unknown Organization [facility] Address [address] [place] [address] Phone [phone] Care Team Providers Care Contact Lens Lathe Operator Name Role Phone Danielleoctober PAAnilC Primary Care Provider [phone] Reason for Visit * Reason Onset Date Comments [facility]: Maintenance 09/09/2023 Encounter Details Date Type Department Care Team (Late st Contact Info) Description 09/09/2023 Telephone [facility], [address] [place] [address] [facility], Nurse [facility] [address] [place] [address] [facility]: Maintenance Allergies No known active allergiesdocumented as of this encounter (statuses as of 09/09/2023) Medications Medication Sig Dispensed Refills Start Date [...] 0 10/09/2022 Acti ve FreeStyle Abdulkadir 2 Hay DeviceIndications:Ty pe 2 diabetes mellitus without complication, [...] 2 diabetes mellitus without complication, unspecified whether long term care phlebotomist insulin use (HCC) TAKE 1 TABLET BY [...] before bedtime. 0 08/22/2023 Active DIURETIC TITRATION PLANIndications:Automotive Engineering Teacher ethan diastolic CHF (congestive heart failure) [...] as of this encounter (statuses as of 09/09/2023) Active Problems Problem Noted Date Diagnosed Date [...] (ex. Jardiance) Remote Patient Monitoring Vendor: [facility] Device(s): Connected Scale Connected Pulse Ox Connected BP Cuff Self - Management Plan Add metolazone (Zaroxolyn) 2.5-5mg for 1 days. If using a potassium supplement, double the dose of the supplement will be given on the day of and on the day after the metolazone Exacerbation Plan BMP Additional Comments: Euvolemic today [facility] ordered Rewiewed red flag reportable symptoms. History [...] kit in the past. Advised to call [facility] immediately for eval if he [...] as of this encounter (statuses as of 09/09/2023) Resolved Problems Problem Noted Date Diagnosed Date [...] as of this encounter (statuses as of 09/09/2023) Immunizations Name Administration Dates Next Due COVID-19 [...] encounter Miscellaneous Notes * Telephone Encounter - Shima Bentley RN - 09/09/2023 9:14 AM EST Phone call from patient wanting to make [facility] aware of his new address [address] [place] [address] Glenn Berg [address] Demographics updated in [facility] Phone numbers all the same EDEN Saldana Marketing Communications Assistant [facility] documented in this encounter Plan of Treatment Upcoming Encounters Date Type Department Care Team (Late st Contact Info) Description 09/17/2023 7:00 AM EST Telemedicine Sleep Disorders Ctr [facility] 132 [facility] [place] [address] Kelly Moore CRNP 132 [place] [address] 09/24/2023 1:00 PM EST Telemedicine [facility], [facility] 132 [facility] [place] [address] Tatyana Lawson CRNP 132 [place] [address] Celia Weems, Community [facility] Junior Qa Analyst [address] [place] [address] 09/29/2023 10:30 AM EST Office Visit Cardiology, [facility] 132 [facility] [place] [address] Lauren Song CRNP 132 [place] [address] 10/07/2023 8:00 AM EDT Office Visit Nutrition & Weight Management, [facility] 132 [facility] [place] [address] Chelsea Wolfe [facility] 132 [facility] [place] [address] Annie Jones PA-C [address] [place] [address] Lluvia Plaza RDN 132 [place] [address] 10/07/2023 2:30 PM EDT Home Visit [facility], [facility] [address] [place] [address] Liya Jc, RN [address] [place] [address] 10/17/2023 2:30 PM EDT Telemedicine Psychology, [place] [address] [place] [address] Pauline, Lynette, [facility] [address] [place], [place] [id number] 12/03/2023 9:00 AM EDT Procedure Only Endoscopy, [place] [address] [place] [address] Berenice Chiu MD [address] [place] [address] Health Maintenance Due Date Last Done Comments [...] the patient have Health Care Power of Brass Sorter? No Code Status History Code Status Date Activated Date Inactivated Comments Full Code 02/05/2017 7:44 PM 02/19/2017 10:16 PM This order reflects the patients wishes and were consensually agreed upon. Question Answer Comments Discussion of Advance Directives occurred with: Not Discussed Care Teams Contact Lens Lathe Operator Relationship Specialty Start Date End Date Massiel Hansen PA-C [address] [facility] [place] [address] PCP - General Physician Junior Qa Analyst 04/03/22 documented as of this encounter
--- OUTSIDE RECORDS SUMMARY | 2023-10-12 19:00 | External Medical Summary | Summary of Care ---
Author Name Unknown Organization [facility] Address [address] [place] [address] Phone [phone] Care Team Providers Care Stoker Mechanic Name Role Phone Tyrone Massiel Bo CELENA Primary Care Provider [phone] Reason for Visit * Reason Onset Date Comments [facility]: Maintenance 08/20/2023 Encounter Details Date Type Department Care Team (Late st Contact Info) Description 08/20/2023 10:15 AM EST Scheduled Telephone [facility], [facility] 132 [facility] [place] [address] Coordinator, [facility] 132 [facility] [place] [address] Allergies No known active allergiesdocumented as of this encounter (statuses as of 08/20/2023) Medications Medication Sig Dispensed Refills Start Date End Date Status Acetaminophen 325 MG Oral Tablet Take 2 Tablets by mouth every 6 hours as needed for Pain (Do not exceed 3 gm of Tylenol in 24 hours). 0 Active Aspirin-Acetaminoph en-Caffeine 250-250-65 MG Oral Tablet Take [...] Tablet. 0 10/09/2022 Active FreeStyle Abdulkadir 2 Industry DeviceIndications:T ype 2 diabetes mellitus without complication, without long-term current use of insulin ([facility]) Use as directed. 1 Each 0 03/05/2023 Active DIURETIC TITRATION PLAN If no improvement on day 3, contact heart failure managing provider. 1 Each 0 03/18/2023 Active predniSONE 20 MG Oral Tablet (Deltasone) NEEDED RESCUE KIT. Take 2 tabs by mouth for 5 days 10 Tablet 1 05/29/2023 Active rOPINIRole HCl 0.5 MG Oral Tablet (Requip) TAKe 4 tablets BY 8 PM NIGHTLY FOR RLS. Continue slow taper as instructed. 120 Tablet 2 06/17/2023 Active metOLazone 2.5 MG Oral Tablet (Zaroxolyn)Indicati ons:Chronic heart failure with preserved ejection fraction (HCC) Take 1 Tablet by mouth in the morning. As needed for weight gain protocol. 90 Tablet 5 06/17/2023 Active Trulicity 3 MG/0.5ML Subcutaneous Solution Pen-injector (Dulaglutide)Indica tions:Type 2 diabetes mellitus without complication, without long-term current use of insulin ([facility]) Inject 3 mg under the skin once a week. 6 mL 0 07/24/2023 Active metFORMIN HCl 500 MG Oral Tablet (Glucophage)Indicat ions:Type 2 diabetes mellitus without complication, unspecified whether superintendent marine oil terminal insulin use (HCC) TAKE 1 TABLET BY MOUTH TWICE A DAY WITH MORNING AND EVENING MEALS 180 Tablet 2 08/06/2023 Active Lisinopril 2.5 MG Oral Tablet (Prinivil)Indicatio [...] 08/06/2023 Active Fenofibrate 48 MG Oral Tablet (Tricor)Indications :Hypertriglyceridem ia Take 1 Tablet by mouth in the morning. 90 Tablet 2 08/06/2023 Active Empagliflozin 25 MG Oral Tablet (Jardiance)Indicati ons:Type 2 diabetes mellitus without complication, without long-term current use of insulin (HCC) Take 1 Tablet by mouth in the morning. 90 Tablet 2 08/06/2023 Active Celecoxib 200 MG Oral Capsule (CeleBREX) TAKE 1 CAPSULE BY MOUTH EVERY DAY FOR PAIN 90 Capsule 2 08/06/2023 Active Apixaban 5 MG Oral [...] complication, without long-term current use of insulin ([facility]) Inject 1 mg under the skin once a week. 9 mL 1 08/13/2023 Active Atorvastatin Calcium 40 MG Oral Tablet (Lipitor) Take 1 Tablet by mouth in the morning. 30 Tablet 8 08/18/2023 Active documented as of this encounter (statuses as of 08/20/2023) Active Problems Problem Noted Date Diagnosed Date Fatty (change of) liver, not elsewhere classifie d 07/29/2023 Major depressive disorder, recurrent episode, mo derate 07/29/2023 Major depressive disorder with single episode Stroke (cerebrum) 03/05/2023 Heart failure 03/05/2023 Right heart failure, unspecified 12/21/2021 Hereditary deficiency of other clotting factors 12/21/2021 Type 2 diabetes mellitus without complication Mixed dyslipidemia 11/17/2020 Body mass index (BMI) of 60.0 to 69.9 in adult 0 11/06/2020 Overview: Per Obesity protocol - COPD, group B, by GOLD 2017 classification 10/02 Overview: Per COPD GOLD Classification Major depressive disorder wi th single episode, in full remission 04/17/2018 Chronic nonspecific lung disease 04/17/2018 Abnormal PFT 06/20/2017 Overview: Restrictive spirometry with normal TLC. + Air trapping. DAY (dyspnea on exertion) 06/20/2017 Vertigo 06/07/2017 Heterozygous factor V Leiden mutation 02/14/2017 Anticoagulated by anticoagulation treatment 01/26 Cerebral vein thrombosis 02/05/2017 Osteoarthritis of both knees 12/20/2016 Essential hypertension 05/28/2016 Restless legs syndrome 12/27/2015 Obstructive sleep apnea of adult 12/27/2015 documented as of this encounter (statuses as of 08/20/2023) Resolved Problems Problem Noted Date Diagnosed Date Resolved Date Food insecurity 03/05/2021 01/10/2022 Overview: Per [facility] Protocol Prediabetes 11/06/2020 01/10/2022 Overview: Per Prediabetes protocol Obstructive lung disease 07/20/201805/2021 Overview: Per COPD GOLD Classification Hemiplegia and hemiparesis f ollowing unspecified cerebrovascular disease affecting unspecified side 04/17/2018 07/20/2018 Body mass index (BMI) of 50. 0 to 59.9 in adult 04/28/2017 11/09/2020 Overview: Per Obesity protocol #1 Vasogenic cerebral edema 02/10/201704/2017 Encephalopathy acute 02/05/2017 017 Acute respiratory failure 02/05/2017 Major depressive disorder wi th single episode, in full remission 12/27/2015 03/06/2017 Morbid obesity due to excess calories 12/27/2015 04/17/2018 documented as of this encounter (statuses as of 08/20/2023) Immunizations Name Administration Dates Next Due COVID-19 [...] the money to buy more. Often true Within the past 12 months, t he food you bought just didn't last and you didn't have money to get more. Sometimes true Sex and Gender Information Value Date Recorded [...] encounter Miscellaneous Notes * Telephone Encounter - Jacinda Childers RN - 08/20/2023 10:26 AM EST Follow up phone call not needed, patient scheduled with SALLY Meeks today for a telemed visit. Jacinda Childers employment instructional associateBack End Developer [facility] documented in this encounter Plan of Treatment Upcoming Encounters Date Type Department Care Team (Late st Contact Info) Description 08/21/2023 2:30 PM EST Telemedicine Psychology, [place] [address] [place] [address] Lynette Carpenter [facility] [address] [place] [address] 09/01/2023 11:00 AM EST Office Visit Cardiology, [facility] [address] [place] [address] Lauren Song CRNP [address] [place] [address] 09/01/2023 2:00 PM EST [facility] Visit [facility] [address] [place] [address] Liya Jc RN [address] [place] [address] 09/02/2023 12:40 PM EST Telemedicine Nutrition & Weight Management, [facility] 132 [facility] [place] [address] Marycruz Smith PA-C [facility] [place] [address] 09/02/2023 1:30 PM EST Telemedicine Nutrition & Weight Management, [facility] 132 [facility] [place] [address] [facility] Class [address] [place] [address] 09/17/2023 7:00 AM EST Telemedicine Sleep Disorders Ctr [facility] 132 [facility] [place] [phone] Kelly Moore CRNP 132 [facility] [place] [address] 12/03/2023 9:00 AM EDT Procedure Only Endoscopy, [facility] 132 [facility] [place] [address] Berenice Chiu MD [address] [place] [id number] Health Maintenance Due Date Last Done Comments Hepatitis B (1 of 3 - 3-dose series) 1975 Alpha-1 Antitrypsin 1993 Diabetic Foot Exam 1993 Cologuard 2020 Colonoscopy 2020 Colorectal Cancer Screening 2020 Fecal Occult Blood Test 2020 Sigmoidoscopy 2020 Pneumococcal Vaccine: Pediatrics (0 to 5 Years) and At-Risk Patients (6 to 64 Years) (2 - PCV) 05/22/2022 05/22/2021 DTaP,Tdap,and Td Vaccines (2 - Td or Tdap) 05/25/2022 05/25/2012 COVID-19 Vaccine ( season) 2023 11/30/2020, 11/06/2020 Influenza Vaccine (FLU shot) (#1) 2023 04/10/2022, 04/10/2022, 05/22/2021, Additional history exists Albumin/Creatinine Ratio 07/16/2023 07/16/2022 HbA1c 09/05/2023 03/05/2023, 06/28, 09/05/2021, Additional history exists Diabetic Eye Exam 12/20/2023 12/19/2022, 12/21/2021 GFR 08/11/2024 08/11/2023, 08/03/2023, 07/16/2022, Additional history exists Depression Screening 08/15/2024 08/15/2023 O2 ASSESSMENT COMPLETED IN PAST YEAR FOR COPD 08/19/2024 08/19/2023 GARDASIL-HPV IMMUNIZATION SERIES Aged Out No longer [...] the patient have Health Care Power of Vp Product Marketing? No Code Status History Code Status Date Activated Date Inactivated Comments Full Code 02/05/2017 7:44 PM 02/19/2017 10:16 PM This order reflects the patients wishes and were consensually agreed upon. Question Answer Comments Discussion of Advance Directives occurred with: Not Discussed Care Teams Stoker Mechanic Relationship Specialty Start Date End Date Tyrone Massiel CELENA Soriano [address] [place] [address] PCP - General Physician Broadcast Operations Director 04/03/22 documented as of this encounter
--- OUTSIDE RECORDS SUMMARY | 2023-10-12 19:00 | External Medical Summary | Summary of Care ---
Author Name Unknown Organization [facility] Address [address] [place] [address] Phone [phone] Care Team Providers Care Filing And Polishing Supervisor Name Role Phone Massiel Hansen CELENA Primary Care Provider [phone] Encounter Details Date Type Department Care Team (Late st Contact Info) Description 08/27/2023 Telephone Care Coordination and Integration [address] [place], [place] [id number] Claudia Duff, JOSE ANGEL [address] [place] [address] Allergies No known active allergiesdocumented [...] 0 10/09/2022 Acti ve FreeStyle Abdulkadir 2 [place] DeviceIndications:Ty pe 2 diabetes mellitus without complication, [...] before bedtime. 0 08/22/2023 Active DIURETIC TITRATION PLANIndications:Reporter ethan diastolic CHF (congestive heart failure) (HCC) [...] empagliflozin (ex. Jardiance) Remote Patient Monitoring Vendor: [facility] Device(s): Connected Scale Connected Pulse Ox Connected BP Cuff Self - Management Plan Add metolazone (Zaroxolyn) 2.5-5mg for 1 days. If using a potassium supplement, double the dose of the supplement will be given on the day of and on the day after the metolazone Exacerbation Plan BMP Additional Comments: Euvolemic today [facility] ordered Rewiewed red flag reportable symptoms. History [...] kit in the past. Advised to call [facility] immediately for eval if he [...] and he verbalized understanding. Has had an [facility] scale but is it has not transmitted since he moved it last week after [facility] home visitfor your telemed visit. I will ask [facility] to follow up w/ him. He has not yet received the BP cuff or pulse ox that you ordered. * Addendum Note - Tatyana Lawson CRNP [...] me know how is feeling on med? [facility] scheduling--please schedule me one month telemedicine follow up * Telephone Encounter - Claudia Duff, RN - 08/27/2023 12:46 PM EST Tatyana Since stopping celebrex pt has started w/ stabbing pain in both knees and feels "luz like bugs running around on my feet and occasionally like some is pinching." He report topical cream and [id number] Q 12 hrs for now. CM did [...] 09/01/2023 11:00 AM EST Office Visit Cardiology, [facility] 132 [facility] [place] [address] Lauren Song CRNP 132 [facility] [place] [address] 09/01/2023 2:00 PM EST [facility] Visit [facility], [facility] 132 [facility] [place] [address] Liya Jc RN 132 [facility] [place] [address] 09/02/2023 12:40 PM EST Telemedicine Nutrition & Weight Management, [facility] 132 [facility] [place] [address] Marycruz Smith PA-C 132 [facility] [place] [address] 09/02/2023 1:30 PM EST Telemedicine Nutrition & Weight Management, [facility] 132 [facility] [place] [address] [facility] 2 [facility] 132 [facility] [place] [address] 09/05/2023 2:30 PM EST Telemedicine Psychology, [place] [address] [place] [address] Lynette Carpenter, [facility] [address] [place] [address] 09/17/2023 7:00 AM EST Telemedicine Sleep Disorders [facility] 132 [facility] [place] [phone] Kelly Moore CRNP 132 [facility] [place] [address] 09/24/2023 1:00 PM EST Telemedicine [facility], [facility] [address] [facility] [address] Tatyana Lawson CRNP [address] [facility] [place], [place] [address] Celia Weems, Community Health Cobol Application Developer [address] [place] [address] 12/03/2023 9:00 AM EDT Procedure Only Endoscopy, [place] [address] [place] [address] Berenice Chiu MD [address] [place], [place] [address] [address] Health Maintenance Due Date Last Done [...] Albumin/Creatinine Ratio 07/16/2023 07/16/2022 HbA1c 09/05/2023 03/05/2023, 12, 09/05/2021, Additional history exists Diabetic Eye Exam 12/20/2023 12/19/2022, , 12/21/2021 GFR 08/11/2024 08/11/2023, 0803/2023, 07/16/2022, Additional history exists Depression Screening 08/15/2024 08/15/2023 Lipid Panel 07/16/2027 07/16/2022, 03/2022, 10/24/2020, Additional history exists GARDASIL-HPV IMMUNIZATION [...] the patient have Health Care Power of Production Potter? No Code Status History Code Status Date Activated Date Inactivated Comments Full Code 02/05/2017 7:44 PM 02/19/2017 10:16 PM This order reflects the patients wishes and were consensually agreed upon. Question Answer Comments Discussion of Advance Directives occurred with: Not Discussed Care Teams Filing And Polishing Supervisor Relationship Specialty Start Date End Date Massiel Hansen PA-C [address] [place] [address] PCP - General Physician Cobol Application Developer 04/03/22 documented as of this encounter
--- OUTSIDE RECORDS SUMMARY | 2023-10-12 19:00 | External Medical Summary | Summary of Care ---
Author Name Unknown Organization [facility] Address [address] [place] [address] Phone [phone] Care Team Providers Care Reservation Clerk Name Role Phone Massiel Hanesn ANMOLC Primary Care Provider [phone] Reason for Referral * Ancillary Services (Within 3 days (urgent)) - Pending Review Specialty Diagnoses / Procedures Referred By Contac t Referred To Contact Office Runner Diagnoses Chronic diastolic CHF (congestive heart failure) (HCC) Tatyana Lawson CRNP [address] [place] [address] Referral ID Status Reason Start Date Expiration Date Visits Requested Visits Authorized [id number] Pending Review Ancillary Services Required 08/22/[phone] Question Answer Referral Priority Within 3 days (urgent) Where should this appointment be scheduled? Yosvany [...] on the next service day for the area [facility] Home Phlebotomy does not service every geographical location on a daily basis. Contact [facility] Client Services at to find out service days for a specific location. Medical Laboratory [address] [id number] Main Maguire M.D. Director and Leather Sponger Patient Name: Nicola Pineda : 1975 Sex: male Address [address] [place] [phone] Provider: Self? Massiel Hansen PA-C? Diagnosis: I50.32 Chronic diastolic CHF (congestive heart failure) (HCC) (primary encounter diagnosis) Z86.73 History of stroke I10 HTN, goal below 130/80 D68.51 Heterozygous factor V Leiden mutation (HCC) E11.9 Type 2 diabetes mellitus with hemoglobin A1c goal of less than 7.0% (HCC) G47.33 QUENTIN on CPAP J45.40 Moderate persistent asthma without complication M17.0 Primary osteoarthritis of both knees Tests Requested CMP, CBC, lipid panel and hgba1c one week * Evaluate & Treat - Unlimited Visits (Within 3 days (urgent)) - Pending Review Specialty Diagnoses / Procedures Referred By Susie garvey Referred To Contact Film Reproducer Diagnoses Chronic diastolic CHF (congestive heart failure) (HCC) History of stroke Tatyana Lawson CRNP [address] [facility] [place] [address] Referral ID Status Reason Start Date Expiration Date Visits Requested Visits Authorized [id number] Pending Review Specialty Services Required 08/22/[phone] Question Answer Referral Priority Within 3 days (urgent) Program Type [facility] Health Device(s) Requested BP Cuff, Pulse Ox, Scale Where should this appointment be scheduled? [facility] Alarm Settings Standard per protocol Comments Primary Film Reproducer: Liya Jc Is the patient already enrolled with another [facility] device/service? (If no, will need to "push the button") No Does the patient have a physical address? (If no, provide physical address if requesting device) Yes Requested Devices/IVR: Requested Device(s): Scale Please specify if patient needs tray or patient is over 300 lbs: Yes Does the patient need a tray? (Used is patient does not have hard surface for scale) No Heart Failure IVR (Interactive Voice Response) Frequency (Default: Weekly-M/W/F) Time: Anytime Device triggered (default) OR Specific Time: N/A Requested Device(s): Blood pressure Cuff Size: medium Target goal BP (eg less than 130/80): 130/80 High and Low Limits for Systolic AND Diastolic readings: Systolic Low 90 Systolic High 180 Diastolic Low 50 Diastolic High 100 Frequency of BP checks (eg, BID, daily, etc): Daily Begin Date: 08/22/2023 End Date (must be reevaluated at 8 weeks): 08/22/2023 + 8 weeks Requested Device(s): Pulse Oximeter Target range that will be used in Advanced Monitored Caregiving as default is 95-100. This means the patient will trigger if the pulse oximeter result is less than 95% Frequency of pulse oximeter checks (eg, BID, daily, etc): Daily Start Date: 08/22/2023 Stop Date: 08/22/2023 + 8 weeks Reason for Visit * Reason Comments [facility]: Enrollment Encounter Details Date Type Department Care Team (Late st Contact Info) Description 08/20/2023 10:30 AM EST Telemedicine [facility], [facility] [address] [place] [address] Tatyana Lawson CRNP [address] [place] [address] Celia Weems, [facility] Photovoltaic Panel Installer [address] [place] [address] Chronic diastolic CHF (congestive heart failure) (HCC)*; History of stroke; HTN, goal below 130/80; Heterozygous factor V Leiden mutation (HCC); Type 2 diabetes mellitus with hemoglobin A1c goal of less than 7.0% ([facility]); QUENTIN on CPAP; Moderate persistent asthma without complication; Primary osteoarthritis of both knees; Mixed dyslipidemia Allergies No known active allergiesdocumented as of this encounter (statuses as of 08/22/2023) Medications Medication Sig Dispensed Refills Start Date [...] Tablet. 0 3 Active FreeStyle Abdulkadir 2 [place] DeviceIndications: Type 2 diabetes mellitus without complication, [...] BEFORE BEDTIME 90 Tablet 2 4 Active Furosemide 40 MG Oral Tablet (Lasix) TAKE ONE TABLET BY MOUTH TWICE A DAY IN THE MORNING AND AT BEDTIME 180 Tablet 2 4 Active FreeStyle Abdulkadir 2 SensorIndications: Type 2 diabetes mellitus without complication, without long-term current use of insulin ([facility]) Use as directed. 3 Each 3 4 Active Fenofibrate 48 MG Oral Tablet (Tricor)Indication s:Hypertriglycerid emia Take 1 Tablet by mouth in the morning. 90 Tablet 2 4 Active Empagliflozin 25 MG Oral Tablet (Jardiance)Indicat ions:Type 2 diabetes mellitus without complication, without long-term current use of insulin ([facility]) Take 1 Tablet by mouth in the morning. 90 Tablet 2 4 Active Apixaban 5 MG Oral Tablet (Eliquis) Take 1 Tablet by mouth in the morning and 1 Tablet before bedtime. 180 Tablet 2 4 Active Potassium Chloride ER 10 MEQ Oral Capsule Extended Release Take 1 Capsule by mouth in the morning and 1 Capsule before bedtime. 60 Capsule 5 4 Active Ozempic (1 MG/DOSE) 4 MG/3ML Subcutaneous Solution Pen-injector (Semaglutide (1 MG/DOSE))Indicatio ns:Type 2 diabetes mellitus without complication, without long-term current use of insulin ([facility]) Inject 1 mg under the skin once [...] managing provider. 1 Each 0 4 Active Acetaminophen 325 MG Oral Tablet Take 2 Tablets by mouth every 6 hours as needed for Pain (Do not exceed 3 gm of Tylenol in 24 hours). 0 01/26/2 024 Discontinued(Re fill) DIURETIC TITRATION PLAN If no improvement on day 3, contact heart failure managing provider. 1 Each 0 3 024 Discontinued(Me dication List Clean Up) rOPINIRole HCl 0.5 MG Oral Tablet (Requip) TAKe 4 tablets BY 8 PM NIGHTLY FOR RLS. Continue slow taper as instructed. 120 Tablet 2 3 024 Discontinued Trulicity 3 MG/0.5ML Subcutaneous Solution Pen-injector (Dulaglutide)Indic ations:Type 2 diabetes mellitus without complication, without long-term current use of insulin (HCC) Inject 3 mg under the skin once a week. 6 mL 0 3 024 Discontinued(Me dication List Clean Up) Celecoxib 200 MG Oral Capsule (CeleBREX) TAKE 1 CAPSULE BY MOUTH EVERY DAY FOR PAIN 90 Capsule 2 4 024 Discontinued(Me dication/Dose Changed) documented as of this encounter (statuses as of 08/22/2023) Active Problems Problem Noted Date Diagnosed Date [...] empagliflozin (ex. Jardiance) Remote Patient Monitoring Vendor: [facility] Device(s): Connected Scale Connected Pulse Ox Connected BP Cuff Self - Management Plan Add metolazone (Zaroxolyn) 2.5-5mg for 1 days. If using a potassium supplement, double the dose of the supplement will be given on the day of and on the day after the metolazone Exacerbation Plan BMP Additional Comments: Euvolemic today [facility] ordered Rewiewed red flag reportable symptoms. History of stroke 08/22/2023 Last Assessment & Plan: No residuals BP at goal Hgba1c at goal Following wt mgmt/nutrition for wt loss Continue [place] atorvastatin and apixaban Type 2 diabetes mellitus [...] kit in the past. Advised to call [facility] immediately for eval if he feels [...] as of this encounter (statuses as of 08/22/2023) Resolved Problems Problem Noted Date Diagnosed Date [...] as of this encounter (statuses as of 08/22/2023) Immunizations Name Administration Dates Next Due COVID-19 [...] Sign Reading Time Taken Comments Blood Pressure 130/80 08/20/2023 10:36 AM EST Pulse 88 08/20/2023 10:36 AM EST Temperature 36.2 C (97.2 F) 08/20/2023 1 0:36 AM EST Respiratory Rate - - Oxygen Saturation 96% 08/20/2023 10: 36 AM EST Inhaled Oxygen Concentration - - Weight 174.8 kg (385 lb 4.8 oz) 024 10:36 AM EST Height - - Body Mass Index 59.9 08/13/2023 1:51 PM EST documented in this [...] Progress Notes * Celia Weems, [facility] Photovoltaic Panel Installer - 08/20/2023 2:34 PM EST Telemedicine visit: Yes Patient location: HOME. I was in a hospital or clinic location. After connecting through televideo,patient was verified with two unique identifiers. Patient (or authorized legal territory representative) was then informed that this was a Telemedicine visit and being conducted confidentially over secure lines. Methods to assure confidentiality were taken. Patient acknowledged consent and understanding of pr ivacy and security of the Telemedicine visit. The patient agreed to participate. [facility] Photovoltaic Panel Installer ([employer]) documentation: [employer] facilitated telehealth visit with provider Tatyana Lawson. [employer] trouble shot [employer] scale and got it working and patient did stand on scale and weighed was sent. [employer] informed Claudia Duff of this and also informed her that patient was instructed to contact [employer] tomorrow, 1/25 if .continues to give himtrouble and not send weights. [employer]ARIO suggested that patient apply for [employer] and to get on a payment plan for electric bill. Also gave them [employer] [place] [employer] number for possibly assistance with back rent, they are behind a month $1800. Lease is up in January and they are hoping to be able to move to another home that is more affordable for family. Patient has applied for disability and is in the appeal process currently. Has a meat stocker assisting with this process. They receive food stamps and utilize the food bank for food. SOLITARIO suggested shopping at other places than [facility] that take food stamps like [employer] and other discount grocery stores. Suggested applying for HUD or section 8 as well. Celia Weems- [employer] Support Services/[facility] [employer] Health Plan [email or web address] * Tatyana Lawson CRNP - 08/20/2023 10:30 AM EST Images from the original note were not included. [facility] Problem Oriented Charting Provider Visit Date: 08/20/2023 Time: 10:56 AM [facility] Sub-Program: Focused Care Management (3-9 months) [facility] Episode Start Date: No linked episodes Assessment and Plan #1 Chronic diastolic CHF (congestive heart failure) (HCC) (Primary) Assessment & Plan: "RED FLAG" HF Symptoms: Leg Swelling (Examples: "I can't wear certain socks or shoes", "My pants feel tight") Increased dyspnea on exertion (Example: "I can't walk to the kitchen or up the stairs") Medication Regimen: Beta Ming Therapy: No beta-ming JO Inhibitor/ARB Therapy: Lisinopril Diuretic therapy: Lasix SGLT2 Inhibitor: empagliflozin (ex. Jardiance) Remote Patient Monitoring Vendor: [facility] Device(s): Connected Scale Connected Pulse Ox Connected BP Cuff Self - Management Plan Add metolazone (Zaroxolyn) 2.5-5mg for 1 days. If using a potassium supplement, double the dose of the supplement will be given on the day of and on the day after the metolazone Exacerbation Plan BMP Additional Comments: Euvolemic today [facility] ordered Rewiewed red flag reportable symptoms. Orders: - Remote Patient Monitoring Referral - Home Phlebotomy Referral OP - DIURETIC TITRATION PLAN; If no improvement on day 3, contact heart failure managing provider. Dispense: 1 Each; Refill: 0 #2 History of stroke Assessment & Plan: No residuals BP at goal Hgba1c at goal Following wt mgmt/nutrition for wt loss Continue eliquis, atorvastatin and apixaban Orders: - Remote Patient Monitoring Referral #3 HTN, goal below 130/80 Assessment & Plan: BP at goal on lisinopril #4 Heterozygous factor V Leiden mutation (HCC) Assessment & Plan: Continues apixaban #5 Type 2 diabetes mellitus with hemoglobin A1c goal of less than 7.0% ([facility]) Assessment & Plan: "RED FLAG" Diabetic symptoms: Generalized Weakness Goal HgbA1c <7 Diabetic Complications Vascular (examples: PVD, PAD, CAD, CVA) Medication Regimen Metformin GLP-1 Agonist (ex: Victoza, Trulicity, Ozempic) SGLT (ex: Jardiance) DM Secondary Prevention JO Inhibitor / ARB Moderate-High Intensity Statin Additional Comments Hgba1c 7.0 #6 QUENTIN on CPAP #7 Moderate persistent asthma without complication Assessment & Plan: No recent PFTs--last done in 2017. Consider updating test in future. Has rescue inhaler to use prn. Had pred rescue kit in the past. Advised to call [facility] immediately foreval if he feels he is having exac. Consider maintenance inhaler in future if needed. #8 Primary osteoarthritis of both knees Assessment & Plan: Discussed risk vs benefit celebrex (CHF and on AC) Willing to try topical diclofenac to knees and tylenol 650mg q8hrs. Stop celebrex for now. Will have nurse follow up. Orders: - Diclofenac Sodium; Apply 4 g topically to affected area 4 times a day as needed (pain). To knees as needed Dispense: 350 g; Refill: 1 - Acetaminophen; Take 2 Tablets by mouth in the morning and 2 Tablets at noon and 2 Tablets before bedtime. #9 Mixed dyslipidemia Assessment & Plan: Atorvastatin 40mg daily and fenofibrate Due for lipid recheck--ordered Orders: - Lipid Panel with Direct LDL if TG is High; Future; Expected date: 08/22/2023 Other orders - rOPINIRole HCl; Take 1 Tablet by mouth every night at bedtime. Additional Medical Decision Making: Stable today and feeling much better. Followed by cardiology case management as well. Educated on CHF exacerbation symptoms as well as asthma exacerbation symptoms. Advised to call [facility] immediately with any shortness of breath, weight gain, swelling,fevers, chills. RN scheduled to check next week. Given [facility] number to call in meantime with any questions or concerns. Mobile lab order to recheck labs next week. Check-out note: [facility] scheduling--please schedule one month telemedicine recheck Scheduled appointments in the next 60 days: Future Appointments-next 60 days Date/Time Provider Specialty Dept Phone 08/20/2023 10:15 AM CoordinatorMeek [facility] [phone] 08/20/2023 10:30 AM Celia Weems, Community [facility] Photovoltaic Panel Installer; Tatyana Lawson CRNP [facility] [phone] 08/21/2023 2:30 PM Lynette Carpenter LCSW Psychology [phone] 09/01/2023 11:00 AM (Arrive by 10:45 AM) Lauren Song CRNP Cardiology [phone] 09/01/2023 2:00 PM Liya Jc RN [facility] [phone] 09/02/2023 12:40 PM (Arrive by 12:25 PM) Marycruz Smith PA-C Gastroenterology [phone] 09/02/2023 1:30 PM (Arrive by 1:15 PM) Malathi Robb 2 [facility] Gastroenterology [phone] 09/17/2023 7:00 AM (Arrive by 6:45 AM) Kelly Moore CRNP Sleep Disorders [phone] 12/03/2023 9:00 AM Berenice Chiu MD Endoscopy [phone] A total of 60 minutes was spent face to face (via video-based telemedicine if designated as a telemedicine visit) Subjective Subjective Is this a Telemedicine Visit? Yes, Patient location: HOME. I was not in a hospital or clinic location. After connecting through televideo, patient was verified with two unique identifiers. Patient (or authorized legal territory representative) was then informed that this was a Telemedicine visit and being conducted confidentially over secure lines. Methods to assure confidentiality were taken. Patient acknowledged consent and understanding of privacy and security of the Telemedicine visit. The patient agreed to participate. Reason For [facility] Visit: Enrollment Current Concerns: Nicola Pineda is a 48 year old male seen today for a [facility] provider visit. PMH--morbid obesity, chronic diastolic CHF, LVEF 60-65%, Factor V Leiden on eliquis, h/o cerebral venous thrombosis, DM 2, QUENTIN on CPAP, mod persistent asthma Sent to ED yesterday by [facility] RN for chest pain and no urine outpt. WBC 7.28, hgb 15.1, sodium 132, potassium 3.3, cr 2.03, trop 6 then 6.6, resp viral panel neg. CXR, head CT neg. Given IV fluids and d/c. In ED 08/09/23-constipation Today's concerns are: Feeling much better. Admits it is very difficult to restrict his fluids. He feels horrible when he does not drink enough. He is watching food labels and monitoring sodium intake. He has not adding any salt to his food. Additional Objective Objective Vitals: 08/20/23 1036 Temp: 36.2 C (97.2 F) Pulse: 88 SpO2: 96% BP: 130/80 Last Weights: Wt Readings from Last 3 Encounters: 08/20/23 (!) 174.8 kg (385 lb 4.8 oz) 08/19/23 (!) 181 kg (399 lb) 08/13/23 (!) 183.3 kg (404 lb 3.2 oz) Last BPs: BP Readings from Last 4 Encounters: 08/20/23 130/80 08/19/23 102/60 08/13/23 136/66 04/14/23 126/70 Physical Exam Vitals reviewed. Constitutional: Appearance: He is morbidly obese. HENT: Head: Normocephalic. Cardiovascular: Comments: Unable to auscultate heart sounds Pulmonary: Effort: Pulmonary effort is normal. No respiratory distress. Breath sounds: Normal breath sounds. Musculoskeletal: General: Normal range of motion. Right lower leg: No edema. Left lower leg: No edema. Skin: Coloration: Skin is not pale. Neurological: General: No focal deficit present. Mental Status: He is alert and oriented to person, place, and time. Psychiatric: Mood and Affect: Mood normal. Behavior: Behavior normal. Thought Content: Thought content normal. Judgment: [...] BUN - [facility] mg/dL 38* 18 28* Lipid panel results Recent Labs Units 07/16/22 0919 09/05/21 0942 CHOLESTEROL - [facility] mg/dL 210* 205* HDL CHOLESTEROL - [facility] mg/dL 38* 34* TRIGLYCERIDES - [facility] mg/dL 509* 434* CBC results Recent Labs Units 07/16/22 0919 HGB - [facility] g/dL 14.6 HbA1c results Recent Labs Units 03/05/23 0844 07/16/22 0919 09/05/21 0942 HEMOGLOBIN A1C - [facility] % 7.0* 5.8* 6.4* TSH results No results for input(s): "TSH" in the last 56797 hours. Vitamin D results No results for input(s): "25OHVITAMIND" in the last 87870 hours. Hepatic panel results Recent Labs Units 07/16/22 0919 09/05/21 0942 PROTEIN - [facility] g/dL 7.4 7.2 BILIRUBIN, TOTAL - [facility] mg/dL 0.3 0.3 ALKALINE PHOSPHATASE - [facility] U/L 94 99 AST - [facility] U/L 24 22 ALT - [facility] U/L 49 52* Protein/cr ratio results No results for input(s): "PROCRRATIO" in the last 19262 hours. Medication Review "Bottles Out" medication review performed today and medication list in EMR updated Mobility Evaluation: MAHC10 Assessment: Assistive Devices Used in the Home: NONE SDoH: NO SOCIAL DETERMINATE NEEDS IDENTIFIED Advance Care Planning Advance Care Planning Chaudhary Information: Aligning Care With What Matters Most: After reviewing the preceding "Discerning What Matters Most" conversation, the following decisions were discussed: Source: Content from Respecting Choices Program SALLY Cade 8:35 AM *Communication sent to PCP (via autofax if [facility]), [facility] Health Care Team members,relevant Specialty Care Physicians* documented in this encounter Miscellaneous Notes * Assessment & Plan Note - Tatyana Lawson CRNP - 08/22/2023 12:21 PM EST Associated Problem(s): Mixed dyslipidemia Atorvastatin 40mg daily and fenofibrate Due for lipid recheck--ordered * Assessment & Plan Note - Tatyana Lawson CRNP - 08/22/2023 12:20 PM EST Associated Problem(s): HTN, goal below 130/80 BP at goal on lisinopril * Assessment & Plan Note - Tatyana Lawson CRNP - 08/22/2023 12:20 PM EST Associated Problem(s): Moderate persistent asthma without complication No recent PFTs--last done in 2017. Consider updating test in future. Has rescue inhaler to use prn. Had pred rescue kit in the past. Advised to call [facility] immediately foreval if he feels he is having exac. Consider maintenance inhaler in future if needed. * Assessment & Plan Note - Tatyana Lawson CRNP - 08/22/2023 12:18 PM EST Associated Problem(s): Heterozygous factor V Leiden mutation (HCC) Continues apixaban * Assessment & Plan Note - Tatyana Lawson CRNP - 08/22/2023 12:18 PM EST Associated Problem(s): History of stroke No residuals BP at goal Hgba1c at goal Following wt mgmt/nutrition for wt loss Continue eliquis, atorvastatin and apixaban * Assessment & Plan Note - Tatyana Lawson CRNP - 08/22/2023 12:17 PM EST Associated Problem(s): Osteoarthritis of both knees Discussed risk vs benefit celebrex (CHF and on AC) Willing to try topical diclofenac to knees and tylenol 650mg q8hrs. Stop celebrex for now. Will have nurse follow up. * Assessment & Plan Note - Tatyana Lawson CRNP - 08/22/2023 12:16 PM EST Associated Problem(s): Type 2 diabetes mellitus with hemoglobin A1c goal of less than 7.0% (HCC) "RED FLAG" Diabetic symptoms: Generalized Weakness Goal HgbA1c <7 Diabetic Complications Vascular (examples: PVD, PAD, CAD, CVA) Medication Regimen Metformin GLP-1 Agonist (ex: Victoza, Trulicity, Ozempic) SGLT (ex: Jardiance) DM Secondary Prevention JO Inhibitor / ARB Moderate-High Intensity Statin Additional Comments Hgba1c 7.0 * Assessment & Plan Note - Tatyana Lawson CRNP - 08/22/2023 12:12 PM EST Associated Problem(s): Chronic diastolic CHF [...] empagliflozin (ex. Jardiance) Remote Patient Monitoring Vendor: [facility] Device(s): Connected Scale Connected Pulse Ox Connected BP Cuff Self - Management Plan Add metolazone (Zaroxolyn) 2.5-5mg for 1 days. If using a potassium supplement, double the dose of the supplement will be given on the day of and on the day after the metolazone Exacerbation Plan BMP Additional Comments: Euvolemic today [facility] ordered Rewiewed red flag reportable symptoms. documented in this encounter Plan of Treatment Upcoming Encounters Date Type Department Care Team (Late st Contact Info) Description 08/26/2023 9:20 AM EST Laboratory Lab Mobile Phlebotomy [facility] [address] [place] [address] [facility] Mobile Home Draw [address] [place] [address] 09/01/2023 11:00 AM EST Office Visit Cardiology, [facility] [address] [address] Lauren Song CRNP [address] [address] 09/01/2023 2:00 PM EST [facility] Visit [facility] [address] [address] Liya Jc, RN [address] [address] 09/02/2023 12:40 PM EST Telemedicine Nutrition & Weight Management, [facility] [address] [address] Marycruz Smith PA-C [address] [address] 09/02/2023 1:30 PM EST Telemedicine Nutrition & Weight Management, [facility] [address] [facility] [place] [address] [facility] 2 [facility] [address] [facility] [place] [address] 09/05/2023 2:30 PM EST Telemedicine Psychology, [place] [address] [place] [address] Lynette Carpenter, VIDEO SPECIALIST [address], [place] [id number] 09/17/2023 7:00 AM EST Telemedicine Sleep Disorders Ctr [facility] [address] [facility] [place] [phone] Kelly Moore CRNP [address] [facility] [place] [address] 12/03/2023 9:00 AM EDT Procedure Only Endoscopy, [place] [address] [facility] [place] [address] Berenice Chiu MD [address] [place] [address] [place] [address] Scheduled Orders Name Type Priority Associated Diagnoses Orde r Schedule LIPID PANEL WITH DIRECT LDL IF TG IS HIGH Lab Routine Mixed dyslipidemia Expected: 08/22/2023, Expires: 08/22/2024 Scheduled Referrals Name Type Priority Associated Diagnoses Orde r Schedule REMOTE PATIENT MONITORING REFERRAL Referral Within 3 days (urgent) Chronic diastolic CHF (congestive heart failure) (HCC) History of stroke Ordered: 08/22/2023 HOME PHLEBOTOMY REFERRAL OP Referral Within 3 days (urgent) Chronic diastolic CHF (congestive heart failure) (HCC) Ordered: 08/22/2023 Health Maintenance Due Date Last Done Comments [...] Exam 12/20/2023 12/19/2022, 12/21/2021 GFR 08/11/2024 08/11/2023, 08/0 03/2023, 07/16/2022, Additional history exists Depression Screening 08/15/2024 08/15/2023 O2 ASSESSMENT COMPLETED IN PAST YEAR FOR COPD 08/20/2024 08/20/2023 Lipid Panel 07/16/2027 07/16/2022, 02/0 03/2022, 10/24/2020, Additional history exists GARDASIL-HPV IMMUNIZATION SERIES Aged Out No longer eligible based on patient's age to complete this topic MENINGOCOCCAL (MENACTRA/MENVEO) Aged Out No longer eligible based on patient's age to complete this topic documented as of this encounter Medical Devices Not on filedocumented as of this encounter Visit Diagnoses Diagnosis Chronic diastolic CHF (congestive heart failure) (HCC)- Primary Chronic diastolic heart failure History of stroke Transient ischemic attack (TIA), and cerebral infarction without residual deficits HTN, goal below 130/80 Unspecified essential hypertension Heterozygous factor V Leiden mutation (HCC) Primary hypercoagulable state Type 2 diabetes mellitus with hemoglobin A1c goal of less than 7.0% ([facility]) QUENTIN on CPAP Obstructive sleep apnea (adult) (pediatric) Moderate persistent asthma without complication Unspecified asthma Primary osteoarthritis of both knees Primary localized osteoarthrosis, lower leg Mixed dyslipidemia Mixed hyperlipidemia documented in this encounter Advance Directives Latest [...] the patient have Health Care Power of Carton Repairer? No Code Status History Code Status Date Activated Date Inactivated Comments Full Code 02/05/2017 7:44 PM 02/19/2017 10:16 PM This order reflects the patients wishes and were consensually agreed upon. Question Answer Comments Discussion of Advance Directives occurred with: Not Discussed Care Teams Reservation Clerk Relationship Specialty Start Date End Date Tyrone October CELENA Soriano [address] [place] [address] PCP - General Physician Photovoltaic Panel Installer 04/03/22 documented as of this encounter
--- OUTSIDE RECORDS SUMMARY | 2023-10-12 19:00 | External Medical Summary | Summary of Care ---
Author Name Unknown Organization [facility] Address [address] [place] [address] Phone [phone] Care Team Providers Care Patrol Officer Name Role Phone Massiel Hansen CELENA Primary Care Provider [phone] Encounter Details Date Type Department Care Team (Late st Contact Info) Description 08/27/2023 Telephone Care Coordination and Integration [address] [place], [place] [id number] Claudia Duff, JOSE ANGEL [address] [place] [address] Allergies No known active allergiesdocumented [...] 0 10/09/2022 Acti ve FreeStyle Abdulkadir 2 [place] DeviceIndications:Ty pe 2 diabetes mellitus without complication, [...] 2 diabetes mellitus without complication, unspecified whether nursing home insulin use (HCC) TAKE 1 TABLET [...] before bedtime. 0 08/22/2023 Active DIURETIC TITRATION PLANIndications:Linemarker ethan diastolic CHF (congestive heart failure) (HCC) [...] the past. Advised to call [facility] immediately for eval if he feels [...] as of this encounter Miscellaneous Notes * Addendum Note - Tatyana Laswon CRNP - 08/27/2023 1:28 PM ESTAddended by: [...] ox that I ordered? Liya--you are seeing 2/--can you let me know how is feeling on med? [facility] scheduling--please schedule me one month telemedicine follow up * Telephone Encounter - Claudia Duff, JOSE ANGEL - 08/27/2023 12:46 PM EST Tatyana Since stopping celebrex pt has started w/ stabbing pain in both knees and feels "luz like bugs running around on my feet and occasionally like some is pinching." He report topical cream and [id number] Q 12 hrs for now. CM did [...] 09/01/2023 11:00 AM EST Office Visit Cardiology, [facility] [address] [address] Lauren Song CRNP [address] [address] 09/01/2023 2:00 PM EST Home Visit [facility] [address] [address] Liya Jc RN [address] [place] [address] 09/02/2023 12:40 PM EST Telemedicine Nutrition & Weight Management, [facility] [address] [place] [address] Marycruz Smith PA-C 132 [facility] [place] [address] 09/02/2023 1:30 PM EST Telemedicine Nutrition & Weight Management, [facility] 132 [facility] [place] [address] [facility], Behavior Class 2 [facility] [place] [address] 09/05/2023 2:30 PM EST Telemedicine Psychology, [place] [address] [place] [address] Lynette Carpenter, [facility] [address] [place] [address] 09/17/2023 7:00 AM EST Telemedicine Sleep Disorders [facility] 132 [facility] [place] [phone] Kelly Moore CRNP 132 [facility] [place] [address] 12/03/2023 9:00 AM EDT Procedure Only Endoscopy, [facility] 132 [facility] [place] [address] Berenice Chiu MD [address] [place] [address] [place] [id number] Health Maintenance Due Date Last Done Comments [...] the patient have Health Care Power of Freight Weigher? No Code Status History Code Status Date Activated Date Inactivated Comments Full Code 02/05/2017 7:44 PM 02/19/2017 10:16 PM This order reflects the patients wishes and were consensually agreed upon. Question Answer Comments Discussion of Advance Directives occurred with: Not Discussed Care Teams Patrol Officer Relationship Specialty Start Date End Date TyroneOctober Bo, CELENA [address] [place], [place] [address] [place] [address] PCP - General Physician Heater Operator 04/03/22 documented as of this encounter
--- OUTSIDE RECORDS SUMMARY | 2023-10-12 19:00 | External Medical Summary | Summary of Care ---
Author Name Unknown Organization [facility] Address [address] [place] [address] Phone [phone] Care Team Providers Care Director Financial Planning Name Role Phone Massiel Hansen PAAnilC Primary Care Provider [phone] Reason for Visit * Reason Onset Date Comments [facility]: Acute 08/19/2023 Encounter Details Date Type Department Care Team (Late st Contact Info) Description 08/19/2023 Telephone [facility], [facility] [place] [address] Liya Jc, RN [facility] [address] [facility]: Acute Allergies No known active allergiesdocumented as of this encounter (statuses as of 08/19/2023) Medications Medication Sig Dispensed Refills Start Date [...] Tablet. 0 10/09/2022 Active FreeStyle Abdulkadir 2 [place] DeviceIndications:T ype 2 diabetes mellitus without complication, without long-term current use of insulin ([facility]) Use as directed. 1 Each 0 03/05/2023 [...] complication, without long-term current use of insulin ([facility]) Inject 3 mg under the skin once a week. 6 mL 0 07/24/2023 Active metFORMIN HCl 500 MG Oral Tablet (Glucophage)Indicat ions:Type 2 diabetes mellitus without complication, unspecified whether terminal computer operator insulin use (HCC) TAKE 1 TABLET [...] complication, without long-term current use of insulin ([facility]) Inject 1 mg under the skin once a week. 9 mL 1 08/13/2023 Active Atorvastatin Calcium 40 MG Oral Tablet (Lipitor) Take 1 Tablet by mouth in the morning. 30 Tablet 8 08/18/2023 Active documented as of this encounter (statuses as of 08/19/2023) Active Problems Problem Noted Date Diagnosed Date Fatty (change of) liver, not elsewhere classifie d 07/29/2023 Major depressive disorder, recurrent episode, mo derate 07/29/2023 Major depressive disorder with single episode Stroke (cerebrum) 03/05/2023 Heart failure 03/05/2023 Right heart failure, unspecified 12/21/2021 Hereditary deficiency of other clotting factors 12/21/2021 Type 2 diabetes mellitus without complication 05 / Mixed dyslipidemia 11/17/2020 Body mass index (BMI) [...] as of this encounter (statuses as of 08/19/2023) Resolved Problems Problem Noted Date Diagnosed Date [...] as of this encounter (statuses as of 08/19/2023) Immunizations Name Administration Dates Next Due COVID-19 [...] Miscellaneous Notes * Telephone Encounter - Massiel Hansen PA-C - 08/19/2023 6:48 PM EST Agree , ER recommended. * Telephone Encounter - Tatyana Lawson CRNP - 08/19/2023 12:15 PM EST Pt reporting chest, no urine outpt. Again, highly recommend ED eval/call 911. TT from RNCM and pt willing to go for evaluation-they will call 911 * Telephone Encounter - Liya Jc RN - 08/19/2023 12:11 PM EST Communication Note Name: Nicola Pineda Situation: Pt seen for acute visit/enrollment to [facility] Started this am with increased weakness, headache, nausea, diarrhea x 1 episode this am Extreme thirst yesterday and drank over 100 oz. Drank 480ml so far this am. Took home covid test this am and was negative On 08/15 had wt gain, increased edema - took DTP x 3 days and was effective (Metolazone 2.5mg daily x 3 days - Friday was last day) Dropped from 400 lbs to 388 Wt 390lbs this am Background: 48 y/o male with CHF, COPD, QUENTIN with CPAP, DM type 2, Obesity, Major depressive disorder Assessment: Pt sitting in recliner upon arrival. Weak and tired. Denies increased SOB Reports headache now - did not take anything for it Mild edema of LE - improved since taking DTP Unable to eat today but drinking well Wears oxygen at 2 l/min via CPAP at night VS - 96.8 - 80 - 20 - 97% - 108/62 sitting, 102/60 standing Blood sugar 114 Denies dizziness Lungs clear bilaterally + Chills Reports occasional dry cough - not new Denies sore throat, head congestions, sinus issues Reports chest pain - constant- started this morning about an hour ago - describes a "crushing pain"- had had before and states he was told at hospital it is from heart failure Unable to urinate since last evening - only a few concentrated, dark drops this am Low back pain bilaterally - started 2 days ago - son reports it started when they started followingfluid restriction Recommendation: TT/TE sent to Tatyana Lawson, MAILROOM PERSONNEL TE routed to PCP, Cardio also documented in this encounter Plan of Treatment Upcoming Encounters Date Type Department Care Team (Late st Contact Info) Description 08/20/2023 10:15 AM EST Scheduled Telephone [facility], [facility] [address] [place] [address] Coordinator, [facility] 132 [facility] [place] [address] 08/20/2023 10:30 AM EST Telemedicine [facility] [place], [facility] [address] [place] [address] Tatyana Lawson CRNP 132 [facility] [place] [address] Celia Weems, [facility] Yarn Conditioner [facility] [place] [address] 08/21/2023 2:30 PM EST Telemedicine [facility], [place] [address] [place], [place] [id number] Pauline Ols[place], HONING MACHINE OPERATOR SEMIAUTOMATIC [address] [place] [address] 09/01/2023 11:00 AM EST Office Visit Cardiology, [facility] 132 [facility] [place] [address] Lauren Song CRNP 132 [facility] [place] [address] 09/01/2023 2:00 PM EST Home Visit [facility], [facility] 132 [facility] [place] [address] Liya Jc RN 132 [facility] [place] [address] 09/02/2023 12:40 PM EST Telemedicine Nutrition & Weight Management, [facility] 132 [facility] [place] [address] Marycruz Smith PA-C 132 [facility] [place] [address] 09/02/2023 1:30 PM EST Telemedicine Nutrition & Weight Management, [facility] 132 [facility] [place] [address] [place], Behavior Class 2 [facility] 132 [facility] [place] [address] 09/17/2023 7:00 AM EST Telemedicine Sleep Disorders Ctr [facility] 132 [facility] [place] [phone] Kelly Moore CRNP [address] [place] [address] 12/03/2023 9:00 AM EDT Procedure Only Endoscopy, [facility] [address] [facility] [place] [address] Berenice Chiu MD [address] [place] [...] the patient have Health Care Power of Aircraft Armorer? No Code Status History Code Status Date Activated Date Inactivated Comments Full Code 02/05/2017 7:44 PM 02/19/2017 10:16 PM This order reflects the patients wishes and were consensually agreed upon. Question Answer Comments Discussion of Advance Directives occurred with: Not Discussed Care Teams Director Financial Planning Relationship Specialty Start Date End Date Tyrone October CELENA Soriano [address] [place] [address] PCP - General Physician Yarn Conditioner 04/03/22 documented as of this encounter
--- OUTSIDE RECORDS SUMMARY | 2023-10-12 19:00 | External Medical Summary | Summary of Care ---
Author Name Unknown Organization [facility] Address [address] [place] [address] Phone [phone] Care Team Providers Care Director Plans Name Role Phone Tyrone October PAAnilC Primary Care Provider [phone] Encounter Details Date Type Department Care Team (Late st Contact Info) Description 08/26/2023 Population Health External Data Unspecified Department Allergies No known active allergiesdocumented as of this encounter (statuses as of 08/26/2023) Medications Medication Sig Dispensed Refills Start Date [...] 0 10/09/2022 Acti ve FreeStyle Abdulkadir 2 [place] DeviceIndications:Ty pe 2 diabetes mellitus without complication, without long-term current use of insulin ([facility]) Use as directed. 1 Each 0 03/05/2023 [...] long-term current use of insulin ([facility]) Use as directed. 3 Each 3 08/06/2023 [...] before bedtime. 0 08/22/2023 Active DIURETIC TITRATION PLANIndications:Endocrinologist ethan diastolic CHF (congestive heart failure) (HCC) If no improvement on day 3, contact heart failure managing provider. 1 Each 0 08/22/2023 Active documented as of this encounter (statuses as of 08/26/2023) Active Problems Problem Noted Date Diagnosed Date [...] empagliflozin (ex. Jardiance) Remote Patient Monitoring Vendor: [facility] Device(s): Connected Scale Connected Pulse Ox Connected BP Cuff Self - Management Plan Add metolazone (Zaroxolyn) 2.5-5mg for 1 days. If using a potassium supplement, double the dose of the supplement will be given on the day of and on the day after the metolazone Exacerbation Plan BMP Additional Comments: Euvolemic today [facility] ordered Rewiewed red flag reportable symptoms. History [...] in the past. Advised to call [facility] immediately for eval if he feels [...] as of this encounter (statuses as of 08/26/2023) Resolved Problems Problem Noted Date Diagnosed Date [...] as of this encounter (statuses as of 08/26/2023) Immunizations Name Administration Dates Next Due COVID-19 [...] 9:20 AM EST Laboratory Lab Mobile Phlebotomy [facility] [address] [place] [address] [facility], [facility] Draw [address] [place] [address] Chronic heart failure with preserved ejection fraction (HCC); Type 2 diabetes mellitus with diabetic mononeuropathy, unspecified whether adjunct faculty for medical terminology insulin use (HCC); Type 2 diabetes mellitus without complication, without long-term current use of insulin (HCC); Mixed dyslipidemia 09/01/2023 11:00 AM EST Office Visit Cardiology, [facility] [address] [address] Lauren Song CRNP [address] [address] 09/01/2023 2:00 PM EST Home Visit [facility] [address] [address] Liya Jc RN [address] [place] [address] 09/02/2023 12:40 PM EST Telemedicine Nutrition & Weight Management, [facility] [address] [place] [address] Marycruz Smith PA-C 132 [facility] [place] [address] 09/02/2023 1:30 PM EST Telemedicine Nutrition & Weight Management, [facility] 132 [facility] [place] [address] [facility], Behavior Class 2 [facility] [place] [address] 09/05/2023 2:30 PM EST Telemedicine Psychology, [place] [address] [place] [address] Lynette Carpenter [facility] [address] [place] [address] 09/17/2023 7:00 AM EST Telemedicine Sleep Disorders [facility] 132 [facility] [place] [phone] Kelly Moore CRNP 132 [facility] [place] [address] 12/03/2023 9:00 AM EDT Procedure Only Endoscopy, [facility] 132 [facility] [place] [address] Berenice Chiu MD [address] [place], [place] [address] [phone] Health Maintenance Due Date Last Done Comments [...] the patient have Health Care Power of Manager Document Control? No Code Status History Code Status Date Activated Date Inactivated Comments Full Code 02/05/2017 7:44 PM 02/19/2017 10:16 PM This order reflects the patients wishes and were consensually agreed upon. Question Answer Comments Discussion of Advance Directives occurred with: Not Discussed Care Teams Director Plans Relationship Specialty Start Date End Date TyroneOctober Bo, CELENA [address] [place] [address] PCP - General Physician Cargo Service Agent 04/03/22 documented as of this encounter
--- OUTSIDE RECORDS SUMMARY | 2023-10-12 19:00 | External Medical Summary | Summary of Care ---
Author Name Unknown Organization [facility] Address [address] [place] [address] Phone [phone] Care Team Providers Care Warrant Server Name Role Phone Massiel Hansen CELENA Primary Care Provider [phone] Encounter Details Date Type Department Care Team (Late st Contact Info) Description 08/27/2023 Telephone Care Coordination and Integration [address] [place], [place] [address] Claudia Duff, JOSE ANGEL [address] [place] [address] Allergies No known active allergiesdocumented [...] 0 10/09/2022 Acti ve FreeStyle Abdulkadir 2 [place] DeviceIndications:Ty pe 2 diabetes mellitus without complication, [...] before bedtime. 0 08/22/2023 Active DIURETIC TITRATION PLANIndications:Conveyor Installer ethan diastolic CHF (congestive heart failure) (HCC) [...] empagliflozin (ex. Jardiance) Remote Patient Monitoring Vendor: [facility] Device(s): Connected Scale Connected Pulse Ox Connected BP Cuff Self - Management Plan Add metolazone (Zaroxolyn) 2.5-5mg for 1 days. If using a potassium supplement, double the dose of the supplement will be given on the day of and on the day after the metolazone Exacerbation Plan BMP Additional Comments: Euvolemic today [facility] ordered Rewiewed red flag reportable symptoms. History [...] kit in the past. Advised to call [facility] immediately for eval if he [...] is pinching." He report topical cream and [id number] Q 12 hrs for now. CM did [...] 09/01/2023 11:00 AM EST Office Visit Cardiology, [facility] [address] [place] [address] Lauren Song CRNP [address] [address] 09/01/2023 2:00 PM EST [facility], [facility] [address] [address] Liya Jc RN [address] [place] [address] 09/02/2023 12:40 PM EST Telemedicine Nutrition & Weight Management, [facility] [address] [address] Marycruz Smith PA-C [address] [place] [address] 09/02/2023 1:30 PM EST Telemedicine Nutrition & Weight Management, [facility] [place] [address] [facility], Behavior Class 2 [facility] [place] [address] 09/05/2023 2:30 PM EST Telemedicine Psychology, [place] [address] [place] [address] Lynette Carpenter, [facility] [address] [place] [address] 09/17/2023 7:00 AM EST Telemedicine Sleep Disorders [facility] [place] [phone] Kelly Moore CRNP [address] [address] 12/03/2023 9:00 AM EDT Procedure Only Endoscopy, [facility] [address] [address] Berenice Chiu MD [address] [place] [address] Health Maintenance Due Date Last Done Comments [...] the patient have Health Care Power of Rebrander? No Code Status History Code Status Date Activated Date Inactivated Comments Full Code 02/05/2017 7:44 PM 02/19/2017 10:16 PM This order reflects the patients wishes and were consensually agreed upon. Question Answer Comments Discussion of Advance Directives occurred with: Not Discussed Care Teams Warrant Server Relationship Specialty Start Date End Date Danielleoctober CELENA Soriano [address] [facility] [place] [address] PCP - General Physician Aircraft Dispatcher 04/03/22 documented as of this encounter
--- OUTSIDE RECORDS SUMMARY | 2023-10-12 19:00 | External Medical Summary | Summary of Care ---
Author Name Unknown Organization [facility] Address [address] [place] [address] Phone [phone] Care Team Providers Care Draw End Hand Name Role Phone Massiel Hansen CELENA Primary Care Provider [phone] Encounter Details Date Type Department Care Team (Late st Contact Info) Description 08/22/2023 Telephone [facility], [facility] [address] [place] [address] Tatyana Lawson CRNP [address] [facility] [place] [address] Allergies No known active allergiesdocumented as of [...] Tablet. 0 10/09/2022 Active FreeStyle Abdulkadir 2 [place] DeviceIndications:T ype 2 diabetes mellitus without complication, [...] 2 diabetes mellitus without complication, unspecified whether salvage determiner insulin use (HCC) TAKE 1 TABLET BY [...] every night at bedtime. 0 08/20/2023 Active documented as of this encounter (statuses [...] mRNA, LNP-s, No Pre serve, 2-Dose Series (mytrax) 11/30/2020,11/06/2020 Pneumococcal Polysaccharide PPV23 (Pneumovax) 05/22/2021 Seasonal [...] 9:20 AM EST Laboratory Lab Mobile Phlebotomy [facility] [address] [place] [address] [facility], [facility] Mobile Home Draw [address] [place] [address] 09/01/2023 11:00 AM EST Office Visit Cardiology, [facility] [address] [place] [address] Lauren Song CRNP [address] [place] [address] 09/01/2023 2:00 PM EST [facility] Visit [facility] [address] [address] Liya Jc, RN [address] [place] [address] 09/02/2023 12:40 PM EST Telemedicine Nutrition & Weight Management, [facility] [address] [address] Marycruz Smith PA-C [address] [place] [address] 09/02/2023 1:30 PM EST Telemedicine Nutrition & Weight Management, [facility] [address] [address] [facility], Behavior Class 2 [facility] [address] [place] [address] 09/05/2023 2:30 PM EST Telemedicine Psychology, [place] [address] [place] [address] PaulineLynette whalen, MANAGER GOLF [address] [place] [address] 09/17/2023 7:00 AM EST Telemedicine Sleep Disorders Ctr [facility] [address] [facility] [phone] Kelly Moore CRNP 132 [facility] [address] 12/03/2023 9:00 AM EDT Procedure Only Endoscopy, [facility] 132 [facility] [place] [address] Berenice Chiu MD [address] [place] [address] Scheduled Orders Name Type Priority Associated Diagnoses Orde r Schedule HEMOGLOBIN A1C Lab Routine Type 2 diabetes mellitus without complication, without long-term current use of insulin (HCC) Expected: 08/22/2023 (Approximate), Expires: 08/21/2024 CBC WITH WBC DIFFERENTIAL Lab Routine Type 2 diabetes mellitus without complication, without long-term current use of insulin (HCC) Expected: 08/22/2023 (Approximate), Expires: 08/22/2024 COMPREHENSIVE METABOLIC PANEL Lab Routine Type 2 diabetes mellitus without complication, without long-term current use of insulin (HCC) Expected: 08/22/2023 (Approximate), Expires: 08/21/2024 Health Maintenance Due Date Last Done Comments [...] IN PAST YEAR FOR COPD 08/20/2024 08/20/2023 GARDASIL-HPV IMMUNIZATION SERIES Aged Out No longer eligible based on patient's age to complete this topic MENINGOCOCCAL (MENACTRA/MENVEO) Aged Out No longer eligible based on patient's age to complete this topic documented as of this encounter Medical Devices Not on filedocumented as of this encounter Visit Diagnoses Diagnosis Type 2 diabetes mellitus without complication, without long-term current use of insulin (HCC)- Primary documented in this encounter Advance Directives Latest [...] the patient have Health Care Power of Nuclear Weapons Specialist? No Code Status History Code Status Date Activated Date Inactivated Comments Full Code 02/05/2017 7:44 PM 02/19/2017 10:16 PM This order reflects the patients wishes and were consensually agreed upon. Question Answer Comments Discussion of Advance Directives occurred with: Not Discussed Care Teams Draw End Hand Relationship Specialty Start Date End Date Massiel Hansne PA-C [address] [place] [address] PCP - General Physician Fashion Adviser 04/03/22 documented as of this encounter
--- OUTSIDE RECORDS SUMMARY | 2023-10-12 19:00 | External Medical Summary | Summary of Care ---
Author Name Unknown Organization [facility] Address [address] [place] [address] Phone [phone] Care Team Providers Care Plasma Processing Centrifuge Operator Name Role Phone Tyrone October PAAnilC Primary Care Provider Encounter Details Date Type Department Care Team (Late st Contact Info) Description 08/27/2023 Population Health External Data Unspecified Department Allergies [...] 0 10/09/2022 Acti ve FreeStyle Abdulkadir 2 [place]ont DeviceIndications:Ty pe 2 diabetes mellitus without complication, [...] 2 diabetes mellitus without complication, unspecified whether cloth shearer insulin use (HCC) TAKE 1 TABLET BY [...] CENTER) Use as directed. 3 Each 3 08/06/2023 [...] before bedtime. 0 08/22/2023 Active DIURETIC TITRATION PLANIndications:Referral Manager ethan diastolic CHF (congestive heart failure) [...] (ex. Jardiance) Remote Patient Monitoring Vendor: [facility] Device(s): Connected Scale Connected Pulse Ox Connected BP Cuff Self - Management Plan Add metolazone (Zaroxolyn) 2.5-5mg for 1 days. If using a potassium supplement, double the dose of the supplement will be given on the day of and on the day after the metolazone Exacerbation Plan BMP Additional Comments: Euvolemic today [facility] ordered Rewiewed red flag reportable [...] kit in the past. Advised to call [facility] immediately for eval if he feels [...] 09/01/2023 11:00 AM EST Office Visit Cardiology, [facility] [address] [address] Lauren Song CRNP [address] [place] [address] 09/01/2023 2:00 PM EST [facility] [address] [address] Liya Jc RN [address] [address] 09/02/2023 12:40 PM EST Telemedicine Nutrition & Weight Management, [facility] [address] [address] Marycruz Smith PA-C [address] [place] [address] 09/02/2023 1:30 PM EST Telemedicine Nutrition & Weight Management, [facility] 132 [facility] [place] [address] [facility] Behavior Class 2 [facility] [place] [address] 09/05/2023 2:30 PM EST Telemedicine Psychology, [place] [address] [place] [address] Lynette Carpenter, HEALTH ECONOMIST [address] [place] [address] 09/17/2023 7:00 AM EST Telemedicine Sleep Disorders Ctr [facility] 132 [facility] [place] [phone] Kelly Moore CRNP 132 [facility] [place] [address] 12/03/2023 9:00 AM EDT Procedure Only Endoscopy, [facility] 132 [facility] [place] [address] Berenice Chiu MD [address] [place] [address] [place] [address] Health Maintenance Due Date Last Done Comments [...] Screening 08/15/2024 08/15/2023 Lipid Panel 07/16/2027 07/16/2022, 0203/2022, 10/24/2020, Additional history exists GARDASIL-HPV IMMUNIZATION SERIES [...] the patient have Health Care Power of University Teacher? No Code Status History Code Status Date Activated Date Inactivated Comments Full Code 02/05/2017 7:44 PM 02/19/2017 10:16 PM This order reflects the patients wishes and were consensually agreed upon. Question Answer Comments Discussion of Advance Directives occurred with: Not Discussed Care Teams Plasma Processing Centrifuge Operator Relationship Specialty Start Date End Date Tyrone Massiel CELENA Soriano [address] [place] [address] PCP - General Physician Merry Go Round Attendant 04/03/22 documented as of this encounter
--- OUTSIDE RECORDS SUMMARY | 2023-10-12 19:00 | External Medical Summary | Summary of Care ---
Author Name Unknown Organization [facility] Address [address] [place] [address] Phone [phone] Care Team Providers Care Faculty Research Assistant Name Role Phone Tyrone October CELENA Primary Care Provider [phone] Reason for Visit * Reason Comments Follow Up * - Authorized Specialty Diagnoses / Procedures Referred By Susie garvey Referred To Contact Referral ID Status Reason Start Date Expiration Date V isits Requested Visits Authorized [id number] Authorized 03/18/2023 03/16/2024 [id number] Encounter Details Date Type Department Care Team (Late st Contact Info) Description 08/21/2023 2:30 PM EST [facility], [place] [address], [place] [id number] Lynette Carpenter, [facility] [address] [place] [address] Major depressive disorder, recurrent episode, moderate (HCC)*; COMFORT (generalized anxiety disorder) Allergies No known active allergiesdocumented as of this encounter (statuses as of 08/24/2023) Medications Medication Sig Dispensed Refills Start Date [...] 0 10/09/2022 Acti ve FreeStyle Abdulkadir 2 [place] DeviceIndications:Ty pe 2 diabetes mellitus without complication, [...] 2 diabetes mellitus without complication, unspecified whether snf insulin use (HCC) TAKE 1 TABLET BY [...] long-term current use of insulin ([facility]) Inject 1 mg under the [...] before bedtime. 0 08/22/2023 Active DIURETIC TITRATION PLANIndications:Car Repairer Apprentice ethan diastolic CHF (congestive heart failure) (HCC) If no improvement on day 3, contact heart failure managing provider. 1 Each 0 08/22/2023 Active documented as of this encounter (statuses as of 08/24/2023) Active Problems Problem Noted Date Diagnosed Date [...] empagliflozin (ex. Jardiance) Remote Patient Monitoring Vendor: [facility] Device(s): Connected Scale Connected Pulse Ox Connected BP Cuff Self - Management Plan Add metolazone (Zaroxolyn) 2.5-5mg for 1 days. If using a potassium supplement, double the dose of the supplement will be given on the day of and on the day after the metolazone Exacerbation Plan BMP Additional Comments: Euvolemic today [facility] ordered Rewiewed red flag reportable symptoms. History [...] as of this encounter (statuses as of 08/24/2023) Resolved Problems Problem Noted Date Diagnosed Date [...] as of this encounter (statuses as of 08/24/2023) Immunizations Name Administration Dates Next Due COVID-19 [...] this encounter Progress Notes * Lynette Carpenter, ASHOK - 08/21/2023 2:34 PM EST Patient location: HOME. I was not in a hospital or clinic location. After connecting through televideo, patient was verified with two unique identifiers. Patient (or authorized legal door to door sales representative) was then informed that this was [...] that I have reviewed their record in [facility] and presented the opportunity for them to ask any questions regarding the visit today. The patient agreed to participate. Provider reviewed elements of Outpatient Services Description including limits of confidentiality, how to contact the department, risks and benefits of treatment and consent for treatment. Start Time: 2:30PM Stop Time: 2:57PM Total direct time: 37 BEHAVIORAL MEDICINE RETURN VISIT PROGRESS NOTE Jael, [address] [address] 08/21/2023 TYPE OF VISIT: Individual DIAGNOSIS: Major depressive disorder, recurrent episode, moderate (HCC) (Primary) COMFORT (generalized anxiety disorder) REASON FOR SESSION: Individual therapy Session #: 7 SESSION FOCUS: Symptom review, planning NOTES: Pt [...] next steps. Pt responds well and agrees. MENTAL STATUS AND BEHAVIORAL OBSERVATIONS: Appearance: within [...] happen COMFORT-7 TOTAL SCORE 8 Suicide/Homicidal Assessment [place] Suicide Severity Rating Scale Results 08/21/2023 20:52 [...] further details) Safety Plan: INTERVENTION: CBT, TFCBT, NE, Psychoeducation TREATMENT PLAN: Outpatient Adult Therapy Treatment [...] in life, Has hobbies, Good support system, Cultural/spiritual/advent and community involvement, Access to housing, Steady [...] be obtained at the time or before [facility] bulletin extension expires. Patient has access to [facility] [place] sessions approximately every 2-4 weeks Patient [...] clinical assessment: PHQ-9 Adult Data COMFORT-7 Data [place] Suicide Screen Data Discharge Discussed with patient: Patient continues to need treatment Collaboration of Care: Yes, provider [facility], information is shared automatically in medical record Is this the patients' initial treatment plan? Yes FOLLOW-UP PLAN: Return: 1 weeks Action Plan: 1. Continue Cognitive Behavioral Therapy 2. Reassess mood in two weeks Treatment plan reviewed with the patient. Patient voices understanding and concurs with plan. PATIENT EDUCATION: Verbal & written Lynette Pauline, TIGHT BARREL INSPECTOR Division of Psychiatry & Behavioral Medicine [facility] [phone] National Suicide Prevention Lifeline : 988 Crisis Textline : Text "HOME" to 343453 to connect with a crisis counselor Crisis Numbers by County: [facility] - Emergency Services [place] (328-9-YOU CAN) resolve Crisis Network Tami . [facility] - Crisis Intervention [place] [facility] Crisis Help-Line [facility] - Crisis Intervention Services [facility] Service Access [employer]. - Crisis Intervention [place] Choose option [address] [place] [address] of Furnace Operator John Beck & Alphonso Crisis Intervention [facility] - Mental Health Crisis [facility] - Crisis Intervention [place] [facility] - Crisis Intervention Mahsa Ocampo [place] - Crisis Line [place] - Mental Health Crisis Hotline [facility] - Crisis Services [place] [facility] Crisis Center [place] Service Access [employer]. - Crisis Intervention [place] - Mental Health Crisis Intervention Services [facility] [place] MH/ID Program Serenity Baig [place], [place] - Crisis System [facility] Human Services - Crisis Hotline Bullitt & Silvino (4-820-989-HELP) [facility] - Crisis Intervention [facility] - Crisis Intervention Services [place] [facility] - Crisis Services [facility] Behavioral Health - Crisis Center Julio [phone] [facility] - Crisis Hotline Katja (8:30 am-5:00 pm) OR (after 5:00 pm, weekends & holidays) Sara [facility] Crisis Intervention Program [facility] - Mental Health Crisis Line Lola Quiroga and Katelin - [facility] Crisis [place] & [place] [facility] - Crisis Intervention [place] [facility] - Mental Health Crisis Service [place] [facility] - Crisis Intervention [place] [facility] - Crisis Intervention [place] [facility] - Help Line [facility] [place] MH/ID Program [facility] - Crisis Intervention [place] - Crisis Intervention [facility], [facility] - Crisis Intervention [place] [facility] Behavioral Health - Emergency Services [place] [facility] - Crisis Line [place] - DBHIDS - Suicide and Crisis Intervention [facility] - Crisis/ Emergency Services [place] [facility] - Emergency Contact Line [place] [facility] - Crisis Line Claude ext. 1 [facility] Human Services [facility] Action - Crisis Intervention Hotline [facility] Crisis Intervention Services documented in this encounter Plan of Treatment Upcoming Encounters Date Type Department Care Team (Late st Contact Info) Description 08/26/2023 9:20 AM EST Laboratory Lab Mobile Phlebotomy [facility] [address] [place] [address] [facility] Mobile Home Draw [address] [place] [address] 09/01/2023 11:00 AM EST Office Visit Cardiology, [facility] [address] [address] Lauren Song CRNP [address] [address] 09/01/2023 2:00 PM EST [facility] [place] [address] [address] Liya Jc, RN [address] [place] [address] 09/02/2023 12:40 PM EST Telemedicine Nutrition & Weight Management, [facility] [address] [address] Marycruz Smith PA-C [address] [address] 09/02/2023 1:30 PM EST Telemedicine Nutrition & Weight Management, [facility] [address] [address] [place], Behavior Class 2 [facility] [address] [place] [address] 09/05/2023 2:30 PM EST Telemedicine Psychology, [place] [address] [place] [address] Pauline Lynette, TIGHT BARREL INSPECTOR [address] [place] [address] 09/17/2023 7:00 AM EST Telemedicine [facility] 132 [facility] [place] [phone] Kelly Moore CRNP 132 [facility] [place] [address] 12/03/2023 9:00 AM EDT Procedure Only Endoscopy, [facility] [address] [facility] [place] [address] Berenice Chiu MD [address] [place], [place] [address] [address] Health Maintenance Due Date Last Done Comments [...] Screening 08/15/2024 08/15/2023 Lipid Panel 07/16/2027 07/16/2022, 020 03/2022, 10/24/2020, Additional history exists GARDASIL-HPV IMMUNIZATION [...] the patient have Health Care Power of Sawsmith? No Code Status History Code Status Date Activated Date Inactivated Comments Full Code 02/05/2017 7:44 PM 02/19/2017 10:16 PM This order reflects the patients wishes and were consensually agreed upon. Question Answer Comments Discussion of Advance Directives occurred with: Not Discussed Care Teams Faculty Research Assistant Relationship Specialty Start Date End Date Massiel Hansen PA-C [address] [place] [address] PCP - General Physician Ski Guide 04/03/22 documented as of this encounter
--- OUTSIDE RECORDS SUMMARY | 2023-10-12 19:00 | External Medical Summary | Summary of Care ---
Author Name Unknown Organization [facility] Address [address] [place] [address] Phone [phone] Care Team Providers Care Dev Manager Name Role Phone Massiel Hansen PAAnilC Primary Care Provider [phone] Reason for Visit * Reason Comments [facility]: Enrollment Encounter Details Date Type Department Care Team (Late st Contact Info) Description 08/19/2023 2:30 PM EST Home Visit [facility], [facility] [address] [facility] [place] [address] Liya Jc, RN 132 [facility] [place] [address] Allergies No known active allergiesdocumented as of this encounter (statuses as of 08/19/2023) Medications Medication Sig Dispensed Refills Start Date End Date Status Acetaminophen 325 MG Oral Tablet Take 2 Tablets by mouth every 6 hours as needed for Pain (Do not exceed 3 gm of Tylenol in 24 hours). 0 Active Aspirin-Acetaminop hen-Caffeine 250-250-65 MG Oral Tablet Take [...] of Breath. 54 g 1 10/20/2022 Active Ipratropium-Albute rol 0.5-2.5 (3) MG/3ML Inhalation Solution (Duoneb) 3 mL. 0 10/11/2022 Active Multivitamin Adult Oral Tablet Chewable 1 Tablet. 0 10/09/2022 Active FreeStyle Abdulkadir 2 [place] DeviceIndications: Type 2 diabetes mellitus without complication, without long-term current use of insulin ([facility]) Use as directed. 1 Each 0 03/05/2023 [...] 06/17/2023 Active metOLazone 2.5 MG Oral Tablet (Zaroxolyn)Indicat ions:Chronic heart failure with preserved ejection fraction (HCC) Take 1 Tablet by mouth in the morning. As needed for weight gain protocol. 90 Tablet 5 06/17/2023 Active Trulicity 3 MG/0.5ML Subcutaneous Solution Pen-injector (Dulaglutide)Indic ations:Type 2 diabetes mellitus without complication, without long-term current use of insulin ([facility]) Inject 3 mg under the skin once a week. 6 mL 0 07/24/2023 Active metFORMIN HCl 500 MG Oral Tablet (Glucophage)Indica tions:Type 2 diabetes mellitus without complication, unspecified whether oysterman insulin use (HCC) TAKE 1 TABLET BY MOUTH TWICE A DAY WITH MORNING AND EVENING MEALS 180 Tablet 2 08/06/2023 Active Lisinopril 2.5 MG Oral Tablet (Prinivil)Indicati ons:Systolic heart failure, unspecified HF chronicity (HCC) TAKE 1 TABLET BY MOUTH EVERY DAY BEFORE BEDTIME 90 Tablet 2 08/06/2023 Active Furosemide 40 MG Oral Tablet (Lasix) TAKE ONE TABLET BY MOUTH TWICE A DAY IN THE MORNING AND AT BEDTIME 180 Tablet 2 08/06/2023 Active FreeStyle Abdulkadir 2 SensorIndications: Type 2 diabetes mellitus without complication, without long-term current use of insulin (HCC) Use as directed. 3 Each 3 08/06/2023 Active Fenofibrate 48 MG Oral Tablet (Tricor)Indication s:Hypertriglycerid emia Take 1 Tablet by mouth in the morning. 90 Tablet 2 08/06/2023 Active Empagliflozin 25 MG Oral Tablet (Jardiance)Indicat ions:Type 2 diabetes mellitus without complication, without long-term current use of insulin ([facility]) Take 1 Tablet by mouth in the [...] without long-term current use of insulin ([facility]) Inject 1 mg under the skin once a week. 9 mL 1 08/13/2023 Active Atorvastatin Calcium 40 MG Oral Tablet (Lipitor) Take 1 Tablet by mouth in the morning. 30 Tablet 8 08/18/2023 Active Albuterol Sulfate 0.63 MG/3ML Inhalation Nebulization Solution (Accuneb)Indicatio ns:Moderate persistent asthma with exacerbation INHALE 1 VIAL VIA NEBULIZER EVERY 4 HOURS NEEDED FOR WHEEZING OR SHORTNESS OF BREATH 1620 mL 1 03/20/2021 4 Discontinue d(Medicatio n List Clean Up) buPROPion HCl ER (XL) 300 MG Oral Tablet Extended Release 24 Hour (Wellbutrin XL) Take 1 Tablet by mouth in the morning. 0 4 Discontinue d(Medicatio n List Clean Up) buPROPion HCl ER (XL) 150 MG Oral Tablet Extended Release 24 Hour (Wellbutrin XL) Take 1 Tablet by mouth in the morning. 0 Discontinue d(Medicatio n List Clean Up) documented as of this [...] mRNA, LNP-s, No Pre serve, 2-Dose Series (Intelligroup) 11/30/2020,11/06/2020 Pneumococcal Polysaccharide PPV23 (Pneumovax) 05/22/2021 Seasonal [...] Sign Reading Time Taken Comments Blood Pressure 102/60 08/19/2023 11:53 AM EST right arm standing Pulse 80 08/19/2023 11:52 AM EST Temperature 36 C (96.8 F) 08/19/2023 11: 52 AM EST Respiratory Rate 20 08/19/2023 11:5 2 AM EST Oxygen Saturation 97% 08/19/2023 11: 52 AM EST Inhaled Oxygen Concentration - - Weight 181 kg (399 lb) 08/19/2023 11:52 AM EST Height - - Body Mass Index 62.03 08/13/2023 1:51 PM EST documented in this [...] Progress Notes * Liya Jc RN - 08/19/2023 11:37 AM EST [facility] Acute Care Nurse/Acute Visit Date: 08/19/2023 Time: 11:37 AM Name: Nicola Pineda : 1975 Current Concerns: Communication Note Name: Nicola Pineda Situation: Pt seen for acute visit/enrollment to [facility] Started this am with increased weakness, headache, [...] followingfluid restriction Recommendation: TT/TE sent to Tatyana Lawson NP TE routed to PCP, Cardio also After further discussion and recommendations by Tatyana Lawson NP - pt has agreed to go to ED for further evaluation Physical Exam: BP 102/60 Comment: right arm standing | Pulse 80 | Temp 36 C (96.8 F) | Resp 20 | Wt (!) 181 kg(399 lb) | SpO2 97% | BMI 62.03 kg/m | BSA 2.93 m Pain 9 Physical Exam Constitutional: Appearance: He is obese. He is ill-appearing. Cardiovascular: Rate and Rhythm: Normal rate and [...] and time. Problems/Symptoms: Review of Systems Constitutional: Positive for activity change (decreased), appetite change (decreased), chills and fatigue. Respiratory: Positive for cough (occasional, dry, chronic) and shortness of breath (DAY - at baseline). Cardiovascular: Positive for chest pain ("crushing") and leg swelling. Gastrointestinal: Positive for diarrhea and nausea. Genitourinary: Positive for difficulty urinating. Musculoskeletal: Positive for gait problem. Neurological: Positive for weakness. Psychiatric/Behavioral: Negative. Medication Reconciliation: (See medication list) Does patient take medications as ordered: Yes Patient Well Being: PHQ2/9: No questionnaires available. Lives in split level home with , son and dtr in law Has 3 cats and 1 dog Has Wifi No recent falls Uses cane to ambulate [place] [id number] Completed this Visit: Yes. [facility]-: Reason Completed: Enrollment [facility]- Interventions: Fall education provided, reviewed/provided Fall brochure Advanced Care Planning: No documentation, in process. Reinforcement/Education: Reviewed HF symptom monitoring: -Weigh self daily [...] if at night -increased fatigue or vertigo Educated on home safety: Create a fall [...] exercises that will be right for you. Reinforced safety education and fall prevention. and Reinforced medication regimen. Timing., Dosing., and Purspose. Treatment/Plan: Pt sent to [facility] ED per provider instruction Report called to charge nurseYolanda Pt transported via ambulance On for f/u call tomorrow Home Interventions Provided: Home Intervention: Other; eval Consulted PCP/Specialist Arranged Next Level of Care: Emergency Department Was the Transfer Center contacted? Yes Patient Needs to Remember: Call [facility] at with any new or worsening health concerns or problems, red flag symptoms. Referrals Needed: Other none Follow Up: Is there cellular connectivity/connectivity in the home? Yes Does the patient have internet in the home? Yes Patient encouraged to call the intake phone number for all urgent but not emergent issues. Is the patient new to [facility] at Home within the last 30 days? Yes, Is this a Transitions of Care visit? No Provider is in agreement with Plan of Care: Yes Scheduled to follow up with patient in 24 HRS. Liya Jc RN 08/19/2023 11:37 AM documented in this encounter Plan of Treatment Upcoming Encounters Date Type Department Care Team (Late st Contact Info) Description 08/19/2023 1:00 PM EST Office Visit [facility] [place] [address] [facility] [place], [place] [address] Massiel Hansen PA-C [address] [place] [address] 08/20/2023 10:15 AM EST Scheduled Telephone [facility], [facility] 132 [facility] [place] [address] Coordinator, [facility] 132 [facility] [place] [address] 08/20/2023 10:30 AM EST Telemedicine [facility], [facility] [address] [facility] [place] [address] Tatyana Lawson CRNP [facility] [place] [address] Celia Weems, Community Health Store Worker [address] [place] [address] 08/21/2023 2:30 PM EST Telemedicine Psychology, [place] [address] [place] [address] Lynette Carpenter LCSW [address] [place] [address] 09/01/2023 11:00 AM EST Office Visit Cardiology, [facility] [address] [facility] [place] [address] Lauren Song CRNP 132 [facility] [place] [address] 09/01/2023 2:00 PM EST Home Visit [facility], [facility] 132 [facility] [place] [address] Liya Jc, RN 132 [facility] [place] [address] 09/02/2023 12:40 PM EST Telemedicine Nutrition & Weight Management, [facility] [address] [facility] [place] [address] Marycruz Smith PA-C 132 [facility] [place] [address] 09/02/2023 1:30 PM EST Telemedicine Nutrition & Weight Management, [facility] 132 [facility] [place] [address] [facility], Behavior Class [address] [place] [address] 09/17/2023 7:00 AM EST Telemedicine Sleep Disorders Ctr [facility] 132 [facility] [place] [phone] Kelly Moore CRNP 132 [facility] [place] [address] 12/03/2023 9:00 AM EDT Procedure Only Endoscopy, [place] 132 [facility] [place] [address] Berenice Chiu MD [address] [place] [address] Health Maintenance Due Date Last Done Comments [...] 08/11/2023, 08/0 03/2023, 07/16/2022, Additional history exists O2 ASSESSMENT COMPLETED IN PAST YEAR FOR COPD 08/13/2024 08/13/2023 Depression Screening 08/15/2024 08/15/2023 GARDASIL-HPV IMMUNIZATION SERIES Aged Out No longer [...] the patient have Health Care Power of Electronics Specialist? No Code Status History Code Status Date Activated Date Inactivated Comments Full Code 02/05/2017 7:44 PM 02/19/2017 10:16 PM This order reflects the patients wishes and were consensually agreed upon. Question Answer Comments Discussion of Advance Directives occurred with: Not Discussed Care Teams Dev Manager Relationship Specialty Start Date End Date Massiel Hansen PA-C [address] [place] [address] PCP - General Physician Store Worker 04/03/22 documented as of this encounter
--- OUTSIDE RECORDS SUMMARY | 2023-10-12 19:01 | External Medical Summary | Summary of Care ---
Author Name Unknown Organization [facility] Address [address] [place] [address] Phone [phone] Care Team Providers Care Customer Solutions Representative Name Role Phone Massiel Hansen PAAnilC Primary Care Provider [phone] Reason for Visit * Reason Onset Date Comments [facility]: Acute 08/19/2023 Encounter Details Date Type Department Care Team (Late st Contact Info) Description 08/19/2023 Telephone [facility], [facility] [place] [address] Liya Jc, RN [facility] [address] [facility]: Acute Allergies No known [...] Tablet. 0 10/09/2022 Active FreeStyle Abdulkadir 2 [place] DeviceIndications:T ype 2 diabetes mellitus without complication, without long-term current use of insulin ([facility]) Use as directed. 1 Each 0 03/05/2023 [...] complication, without long-term current use of insulin ([facility]) Inject 3 mg under the skin once [...] complication, without long-term current use of insulin ([facility]) Inject 1 mg under the skin once [...] highly recommend ED eval/call 911. TT from [facility] and pt willing to go for evaluation-they will call 911 * Telephone Encounter - Liya Jc RN - 08/19/2023 12:11 PM EST Communication Note Name: Nicola Pineda Situation: Pt seen for acute visit/enrollment to [facility] Started this am with increased weakness, [...] NP TE routed to PCP, Cardio also documented in this encounter Plan of Treatment Upcoming Encounters Date Type Department Care Team (Late st Contact Info) Description 08/19/2023 1:00 PM EST Office Visit Family [facility] 200 [facility] [place] [address] Massiel Hansen PA-C 200 [facility] [place] [address] 08/19/2023 2:30 PM EST Home Visit [facility] [place], [facility] [address] [place] [address] Liya Jc, RN 132 [place] [address] 08/20/2023 10:15 AM EST Scheduled Telephone [facility], [facility] [address] [place] [address] Coordinator, [facility] [address] [place] [address] 08/20/2023 10:30 AM EST Telemedicine [facility] [place], [facility] [address] [place] [address] Tatyana Lawson CRNP [address] [place] [address] Celia Weems, Community Health Senior Software Developer [address] [place] [address] 08/21/2023 2:30 PM EST Telemedicine Psychology, [place] [address] [place] [address] Lynette Carpenter, CATERING CHEF [address], [place] [id number] 09/01/2023 11:00 AM EST Office Visit Cardiology, [facility] [place] [address] Lauren Song CRNP [address] [place] [address] 09/01/2023 2:00 PM EST Home Visit [facility], [facility] [place] [address] Liya Jc RN [address] [place] [address] 09/02/2023 12:40 PM EST Telemedicine Nutrition & Weight Management, [facility] [address] [place] [address] Marycruz Smith PA-C [address] [place] [address] 09/02/2023 1:30 PM EST Telemedicine Nutrition & Weight Management, [facility] [address] [place] [address] [place] [facility] Class 2 [facility] [place] [address] 09/17/2023 7:00 AM EST Telemedicine Sleep Disorders [facility]tr [facility] [address] [place] [phone] Kelly Moore CRNP [address] [place] [address] 12/03/2023 9:00 AM EDT Procedure Only Endoscopy, Ruperto Andrade [address] [place] [address] Berenice Chiu MD [address] [place] [address] Health Maintenance Due Date Last Done Comments [...] the patient have Health Care Power of Property Custodian? No Code Status History Code Status Date Activated Date Inactivated Comments Full Code 02/05/2017 7:44 PM 02/19/2017 10:16 PM This order reflects the patients wishes and were consensually agreed upon. Question Answer Comments Discussion of Advance Directives occurred with: Not Discussed Care Teams Customer Solutions Representative Relationship Specialty Start Date End Date Tyrone October CELENA Soriano [address] [place], [place] [address] PCP - General Physician Senior Software Developer 04/03/22 documented as of this encounter
[2023-10-12 19:52] LABS: Basophils # (auto) 0.08 K/uL (0.00-0.20); Basophils % (auto) 0.9 %; Eosinophils # (auto) 0.26 K/uL (0.00-0.50); Hematocrit (blood only) 43.2 % (42.0-52.0); Hemoglobin 14.4 g/dl (14.0-18.0); Immature Granulocytes # (auto) 0.16 K/uL (0.01-0.20); Immature Granulocytes % (auto) 1.8 %; Lymphocytes # (auto) 1.59 K/uL (1.20-3.40); Lymphocytes % (auto) 18.4 %; Mean Corpuscular Hemoglobin 32.2 pg (25.0-34.0); Mean Corpuscular Hgb Conc 33.3 g/dL (32.0-36.0); Mean Corpuscular Volume 96.6 fL (80.0-100.0); Mean Platelet Volume 10.7 fL (9.4-12.4); Monocytes # (auto) 0.79 K/uL (0.11-0.59); Monocytes % (auto) 9.1 %; Neutrophils # (auto) 5.77 K/uL (1.40-6.50); Neutrophils % (auto) 66.8 %; Platelet Count 250 K/uL (130-400); RDW Coefficient of Variation 17.4 % (11.5-14.5); RDW Standard Deviation 61.5 fL (36.4-46.3); Red Blood Count 4.47 M/uL (4.70-6.10); White Blood Count 8.65 K/ul (4.8-10.8)
[2023-10-12 20:09] LABS: Albumin Globulin Ratio 1.4 (0.9-2); Albumin Level 4.4 gm/dl (3.4-5.0); BUN Creatinine Ratio 14.7 (10-20); Bilirubin,Total 0.4 mg/dl (0.2-1.0); Calcium 9.2 mg/dl (8.6-10.3); Est GFR (African American) 70.8 ml/min; Est GFR (Non-African American) 61.1 ml/min; Globulin 3.1 gm/dl (2.5-4.0); Potassium 3.7 mmol/L (3.5-5.1); Total Protein 7.5 gm/dl (6.0-8.3)
[2023-10-12 20:15] LABS: Troponin I High Sensitivity 17.5 pg/ml (0-20)
[2023-10-12 20:30] LABS: Partial Thromboplastin Time 28 Seconds (21-31); Prothrombin Time 10.7 Seconds (9.0-12.0)
--- NOTE | 2023-10-12 20:45 | Emergency Department Note ---
History of Present Illness General Chief complaint: Shortness of Breath/Dyspnea Stated complaint: FLUID IN CHEST, FEET - DIFFICULTY BREATHING Time Seen by Provider: 10/12/23 20:06 Source: patient, family ( was at the bedside), RN notes reviewed and old records reviewed (02/27/23-discharge summary for when the patient was in the hospital for heart failure) Mode of arrival: ambulatory Limitations: no limitations History of Present Illness This patient is a 48-year-old male with history of diastolic heart failure, comes in after gaining 5 pounds overnight. He weighs himself daily and is typically very stable he noticed that he has increased lower extremity edema throughout the day and dyspnea on exertion. He is seen at [facility] at home care and they recommend he come to the ER. He does take 40 mg Lasix twice daily and has not had any recent change in the medication or missed medications. No chest pain . no fever . no cough beyond his chronic cough. No recent illness. no nausea vomiting or diarrhea. Home Medications Medication Instructions Recorded Confirmed Type albuterol sulfate 90 mcg/actuation 2 puff inhalation BID PRN 02/25/23 10/12/23 History aerosol inhaler Shortness Of Breath Or Wheezing apixaban 5 mg tablet (Eliquis) 5 mg PO BID 02/25/23 10/12/23 History furosemide 40 mg tablet 40 mg PO BID 02/25/23 10/12/23 History lisinopril 2.5 mg tablet 2.5 mg PO HS 02/25/23 10/12/23 History metformin 500 mg tablet 500 mg PO BID 02/25/23 10/12/23 History empagliflozin 25 mg tablet 25 mg PO QAM 03/10/23 10/12/23 History (Jardiance) atorvastatin 40 mg tablet 40 mg PO DAILY 08/19/23 10/12/23 History fenofibrate nanocrystallized 48 mg 48 mg PO QAM 08/19/23 10/12/23 History tablet (Tricor) metolazone 2.5 mg tablet 2.5 mg PO DIRECTED PRN 08/19/23 10/12/23 History NEEDED PER PT potassium chloride 10 mEq 10 meq PO BID 08/19/23 10/12/23 History capsule,extended release vitamin B complex 1 tab PO QAM 08/19/23 10/12/23 History cholecalciferol (vitamin D3) 1,250 50,000 unit PO WK 10/12/23 10/12/23 History mcg (50,000 unit) capsule gabapentin 100 mg capsule 100 mg PO TID 10/12/23 10/12/23 History ropinirole 0.25 mg tablet 0.25 mg PO DIRECTED 10/12/23 10/12/23 History ropinirole 3 mg tablet 3 mg PO HS 10/12/23 10/12/23 History Allergies Allergy/AdvReac Type Severity Reaction Status Date / Time No Known Allergies Allergy Verified 10/12/23 21:14 Past Med/Surg History Medical History Depression DM type 2 (diabetes mellitus, type 2) Diastolic CHF Morbid obesity with BMI of 50.0-59.9, adult Osteoarthritis QUENTIN on CPAP Hx of cerebral thrombosis Factor V Leiden Palpitation Chest pain at rest Surgical History Hx of eye surgery Left eyelid surgery Family History Other Asthma COPD (chronic obstructive pulmonary disease) Heart disease Hypertension Social History Smoking Status: Never smoker Tobacco Type: Cigarettes Age Started Using Tobacco: 17; Age Quit Using Tobacco: 25; packs per day: 1; Second Hand Exposure: No; Do You Dip or Chew Tobacco: No; Hx Alcohol Use: No Hx Substance Use: No Preferred Language: Lao Communication Ability: Effective 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 Headlight Assembler Required: No Beliefs That Will Affect Care: None Current Living Situation: Spouse and Family Feels Safe at Home: Yes Assistive Devices: Cane, CPAP and Oxygen - at Night Review of Systems A total of 10 systems reviewed and were otherwise negative Physical Exam Vital Signs Vital Signs - 24 hr 10/12/23 19:12 10/12/23 22:06 10/12/23 22:09 Temperature 36.4 C L Temperature Source Temporal Artery Scan Pulse Rate 101 H 85 Pulse Rate [Right Finger] 93 H Respiratory Rate 20 20 20 Respiratory Effort / Characteristics Short of Breath Respiratory Pattern Regular Blood Pressure 180/95 H Blood Pressure [Right Arm] 147/84 H Blood Pressure Mean 123 Blood Pressure Mean [Right Arm] 105 Pulse Oximetry 96 95 96 Oxygen Delivery Method Room Air Room Air Room Air Sepsis Recent Fever Within 48 Hours No Sepsis New/Unexplained Change in Mental Status No Sepsis Action Taken by Nursing No Action Required 10/12/23 22:10 10/12/23 22:10 Temperature Temperature Source Pulse Rate 91 H Pulse Rate [Right Finger] Respiratory Rate Respiratory Effort / Characteristics Respiratory Pattern Blood Pressure Blood Pressure [Right Arm] Blood Pressure Mean Blood Pressure Mean [Right Arm] Pulse Oximetry 96 Oxygen Delivery Method Room Air Sepsis Recent Fever Within 48 Hours Sepsis New/Unexplained Change in Mental Status Sepsis Action Taken by Nursing General: Well developed well nourished obese middle-age male in no acute distress, breathing comfortably on room air. Normal speech HEENT: Normal cephalic atraumatic. Pupils are equal round and reactive to light. Extraocular movements are intact. Oropharynx is pink with moist mucous membranes. No swelling of the mouth lips or tongue. Neck: Supple with a midline trachea. No meningeal signs or stiffness, no JVD or bruits. No Stridor. Chest: Clear to auscultation bilaterally. No wheezes or rhonchi. No increased work of breathing. Heart: Regular rate and rhythm without murmurs or gallops. Abdomen: Soft nontender, nondistended without rebound guarding or rigidity. Extremities: No cyanosis clubbing. He does have chronic vascular changes but he does have 1+ bilateral lower extremity edema which he says is significantly worse than baseline. No calf tenderness or assymetry Spine/Back. Non tender to palpation. No CVA tenderness Skin: Good turgor without rashes. Neurologic exam: Cranial nerves two through 12 are intact. Motor and sensation are intact and symmetrical throughout. Course Administered Medications Discontinued Medications Furosemide (Furosemide 40 Mg/4 Ml Vial) 40 mg IV ONE ONE Stop: 10/12/23 20:36 Last Admin: 10/12/23 21:01 Dose: 40 mg Documented By: CPB Medical Decision Making Differential Diagnosis CHF, acute coronary syndrome, arrhythmia, infection, anemia, electrolyte or metabolic abnormality, pulmonary disease Medical Records Attestation: I reviewed the patient's medical records. Home Medications Current Medication List: was personally reviewed by me Laboratory Data Attestation: I reviewed the patient's lab results. 10/12/23 19:38 10/12/23 19:38 Lab Results 10/12/23 Range/Units 19:38 WBC 8.65 (4.8-10.8) K/ul RBC 4.47 L (4.70-6.10) M/uL Hgb 14.4 (14.0-18.0) g/dl Hct 43.2 (42.0-52.0) % MCV 96.6 (80.0-100.0) fL MCH 32.2 (25.0-34.0) pg MCHC 33.3 (32.0-36.0) g/dL RDW Std Deviation 61.5 H (36.4-46.3) fL RDW Coeff of Nba 17.4 H (11.5-14.5) % Plt Count 250 (130-400) K/uL MPV 10.7 (9.4-12.4) fL Immature Gran % (Auto) 1.8 % Neut % (Auto) 66.8 % Lymph % (Auto) 18.4 % [place] % (Auto) 9.1 % Eos % (Auto) 3.0 % Baso % (Auto) 0.9 % Neut # (Auto) 5.77 (1.40-6.50) K/uL Lymph # (Auto) 1.59 (1.20-3.40) K/uL [place] # (Auto) 0.79 H (0.11-0.59) K/uL Eos # (Auto) 0.26 (0.00-0.50) K/uL Baso # (Auto) 0.08 (0.00-0.20) K/uL Immature Gran # (Auto) 0.16 (0.01-0.20) K/uL PT 10.7 (9.0-12.0) Seconds INR 1.0 (0.9-1.1) APTT 28 (21-31) Seconds PTT Ratio 1.0 Sodium 137 (136-145) mmol/L Potassium 3.7 (3.5-5.1) mmol/L Chloride 102 (98-107) mmol/L Carbon Dioxide 25 (21-32) mmol/L Anion Gap 10 (3-11) BUN 20 (6-23) mg/dl Creatinine 1.36 (0.6-1.4) mg/dl Est Cr Clr Drug Dosing 103.0 ml/min Est GFR ( Amer) 70.8 ml/min Est GFR (Non-Af Amer) 61.1 ml/min BUN/Creatinine Ratio 14.7 (10-20) Glucose 154 H (70-99(Fasting)) mg/dl Calcium 9.2 (8.6-10.3) mg/dl Total Bilirubin 0.4 (0.2-1.0) mg/dl AST 31 (13-39) U/L ALT 58 H (7-52) U/L Alkaline Phosphatase 75 (34-104) U/L Troponin I High Sens 17.5 (0-20) pg/ml B-Natriuretic Peptide 20 (0-100) pg/ml Total Protein 7.5 (6.0-8.3) gm/dl Albumin 4.4 (3.4-5.0) gm/dl Globulin 3.1 (2.5-4.0) gm/dl Albumin/Globulin Ratio 1.4 (0.9-2) Imaging Data Attestation: I personally reviewed and interpreted this imaging study as follows: My Impression: Chest x-raycardiomegaly. No overt CHF there may be some very mild interstitial edema but I think is most likely from body habitus ECG Data Attestation: I personally reviewed and interpreted this ECG as follows: Indication: + SOB/dyspnea Rate (beats per minute): 103 Rhythm: + sinus tachycardia ECG Intervals/blocks: + Normal QRS and + Normal QT ECG [place]: + Left axis deviation ECG ST segments: + Normal ST segments ECG Findings: no PACs or no PVCs Comparison ECG Date: from (08/19/23) Change: no significant change MDM Narrative This patient comes in as described above. He was seen in room C1. I did observe him walking to the room and he got very short of breath. He says this is much worse than baseline. He was fine once he sat down. He has increasing lower extremity edema and weight gain he has history of diastolic dysfunction. He has not missed any Lasix. EKG shows no ischemic changes or ectopy, he has no chest pain. Troponin is not elevated either. He has no significant electrolyte or metabolic abnormalities. Chest x-ray does not show any definite congestive heart failure, pneumonia, pneumothorax. He was given Lasix 40 mg IV. Given his history and his symptoms I do think he needs to be admitted/observed for further inpatient evaluation and diuresis for his CHF with diastolic dysfunction. I have discussed the case at length in consultation with , he will see the patient in the ER for further inpatient treatment and evaluation. 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 Discharge Plan Visit Data Chief Complaint: Shortness of Breath/Dyspnea Stated Complaint: FLUID IN CHEST, FEET - DIFFICULTY BREATHING ED Provider: Francisco Shaw Discharge Problem: Diastolic CHF, Morbid obesity with BMI of 50.0-59.9, adult, DAY (dyspnea on exertion), Fluid overload, Edema of lower extremity, 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
[2023-10-12] MEDS: FUROSEMIDE 40 MG/4 ML VIAL IV ONE (21:01)
--- NOTE | 2023-10-12 23:31 | History & Physical Report ---
Date of Service October 12, 2023 Assessment & Plan (1) Acute on chronic diastolic (congestive) heart failure: Plan: 48-year-old male with past medical history significant for type 2 diabetes, mixed dyslipidemia, obstructive sleep apnea on CPAP, abnormal PFT, chronic nonspecific lung disease, moderate persistent asthma, chronic diastolic CHF, hypertension, right-sided heart failure, cerebral vein thrombosis, history of stroke, morbid obesity, restless leg syndrome, osteoarthritis of both knees, heterogeneous factor V Leyden mutation, vertigo, depression, comes because of shortness of breath and weight gain. Patient states he woke up today morning with short of breath. And when he checked his weight he gained 5 pounds since yesterday. As the day progressed he noticed that he was getting more edematous. He called [facility] home and advised to come to the ER. Currently resting comfortably and hemodynamically stable. Denies any headache. No runny nose. No sore throat. States always has some cough. Denies any chest pain. Feeling somewhat short of breath. No nausea. No abdominal pain. Normal bowel and bladder movements. Ambulating okay. Somewhat hard of hearing. Shortness of breath Acute on chronic diastolic CHF Acute right-sided heart failure Received IV Lasix 40 mg in the ER Will continue with IV Lasix 40 mg twice daily Daily weights and I's and O's Monitor the response Will follow echo Telemetry monitoring Consult cardiology in a.m. Obstructive sleep apnea On CPAP nightly with 2 L oxygen History of moderate persistent asthma Continue home inhalers History of stroke History of cerebral vein thrombosis Heterozygous factor V Leiden mutation On Eliquis Hyperlipidemia On statin and fenofibrate Hypertension On lisinopril and diuretics We will monitor Diabetes Holding Jardiance and metformin Sliding scale We will monitor Morbid obesity Patient could not tolerate Ozempic Plan for bariatric surgery as per patient Restless leg syndrome On ropinirole DVT prophylaxis On Eliquis Disposition Telemetry Full code History of Present Illness Chief Complaint: Shortness of breath Primary Care Provider: Massiel Hansen PA-C 48-year-old male with past medical history significant for type 2 diabetes, mixed dyslipidemia, obstructive sleep apnea on CPAP, abnormal PFT, chronic nonspecific lung disease, moderate persistent asthma, chronic diastolic CHF, hypertension, right-sided heart failure, cerebral vein thrombosis, history of stroke, morbid obesity, restless leg syndrome, osteoarthritis of both knees, heterogeneous factor V Leyden mutation, vertigo, depression, comes because of shortness of breath and weight gain. Patient states he woke up today morning with short of breath. And when he checked his weight he gained 5 pounds since yesterday. As the day progressed he noticed that he was getting more edematous. He called [facility] home and advised to come to the ER. Currently resting comfortably and hemodynamically stable. Denies any headache. No runny nose. No sore throat. States always has some cough. Denies any chest pain. Feeling somewhat short of breath. No nausea. No abdominal pain. Normal bowel and bladder movements. Ambulating okay. Somewhat hard of hearing. Past medical history. As mentioned above Past surgical history. Left eyelid reconstruction Social history. . Quit smoking at age of 24. No alcohol use. No drug use. Family history. Father had arthritis. COPD. Diabetes. Eye problems. Heart disorder. Mental disorder. Obesity. Stroke. Mother has diabetes, hypertension, thyroid disease, diabetes, ear problems. Son has asthma. Allergies Allergy/AdvReac Type Severity Reaction Status Date / Time No Known Allergies Allergy Verified 10/12/23 21:14 Home Medications Medication Instructions Recorded Confirmed Type albuterol sulfate 90 mcg/actuation 2 puff inhalation BID PRN 02/25/23 10/12/23 History aerosol inhaler Shortness Of Breath Or Wheezing apixaban 5 mg tablet (Eliquis) 5 mg PO BID 02/25/23 10/12/23 History furosemide 40 mg tablet 40 mg PO BID 02/25/23 10/12/23 History lisinopril 2.5 mg tablet 2.5 mg PO HS 02/25/23 10/12/23 History metformin 500 mg tablet 500 mg PO BID 02/25/23 10/12/23 History empagliflozin 25 mg tablet 25 mg PO QAM 03/10/23 10/12/23 History (Jardiance) atorvastatin 40 mg tablet 40 mg PO DAILY 08/19/23 10/12/23 History fenofibrate nanocrystallized 48 mg 48 mg PO QAM 08/19/23 10/12/23 History tablet (Tricor) metolazone 2.5 mg tablet 2.5 mg PO DIRECTED PRN 08/19/23 10/12/23 History NEEDED PER PT potassium chloride 10 mEq 10 meq PO BID 08/19/23 10/12/23 History capsule,extended release vitamin B complex 1 tab PO QAM 08/19/23 10/12/23 History cholecalciferol (vitamin D3) 1,250 50,000 unit PO WK 10/12/23 10/12/23 History mcg (50,000 unit) capsule gabapentin 100 mg capsule 100 mg PO TID 10/12/23 10/12/23 History ropinirole 0.25 mg tablet 0.25 mg PO DIRECTED 10/12/23 10/12/23 History ropinirole 3 mg tablet 3 mg PO HS 10/12/23 10/12/23 History Past Med/Surg History Medical History Depression DM type 2 (diabetes mellitus, type 2) Diastolic CHF Morbid obesity with BMI of 50.0-59.9, adult Osteoarthritis QUENTIN on CPAP Hx of cerebral thrombosis Factor V Leiden Palpitation Chest pain at rest Surgical History Hx of eye surgery Left eyelid surgery Family History Other Asthma COPD (chronic obstructive pulmonary disease) Heart disease Hypertension Social History Smoking Status: Former smoker Tobacco Type: Cigarettes Age Started Using Tobacco: 17; Age Quit Using Tobacco: 25; packs per day: 1; Smoking End Date: "about 20 years ago"; Second Hand Exposure: No; Do You Dip or Chew Tobacco: No; Hx Alcohol Use: No Hx Substance Use: No Preferred Language: Lithuanian Communication Ability: Effective Billing And Insurance Coordinator Required: No Beliefs That Will Affect Care: None Current Living Situation: Spouse Other Information That Helps Us Care for You: No Feels Safe at Home: Yes Safety Concerns: Feels Safe At This Time Assistive Devices: Cane Review of Systems Review of Systems: All systems reviewed & are unremarkable except as noted in HPI & below Physical Exam Physical Exam: General- Not in distress Head- atraumatic Eyes- PERRL. ENT- oropharynx clear Neck- supple, no JVD. Lungs- clear to auscultation no wheezing or crackles. Heart- regular rhythm; no murmur, no gallop. Abdomen- normal bowel sounds, soft, nontender, no distension. Extremities- b/l lower extremity edema present, no erythema seen. Neuro- alert, oriented ; PERRL, no facial palsy; no dysarthria; moves extremities. Skin- warm & dry Results & Data Results & Data Vital Signs (Past 12 Hours) Vital Signs Temp Pulse Pulse Resp BP BP Pulse Ox 10/12/23 22:10 91 H 10/12/23 22:10 96 10/12/23 22:09 93 H 20 147/84 H 96 10/12/23 22:06 85 20 95 10/12/23 19:12 36.4 C L 101 H 20 180/95 H 96 O2 Del Method 10/12/23 22:10 10/12/23 22:10 Room Air 10/12/23 22:09 Room Air 10/12/23 22:06 Room Air 10/12/23 19:12 Room Air Diagnostic Findings Laboratory Results WBC 8.65 K/ul (4.8-10.8) 10/12/23 19:38 RBC 4.47 M/uL (4.70-6.10) L 10/12/23 19:38 Hgb 14.4 g/dl (14.0-18.0) 10/12/23 19:38 Hct 43.2 % (42.0-52.0) 10/12/23 19:38 MCV 96.6 fL (80.0-100.0) 10/12/23 19:38 MCH 32.2 pg (25.0-34.0) 10/12/23 19:38 MCHC 33.3 g/dL (32.0-36.0) 10/12/23 19:38 RDW Std Deviation 61.5 fL (36.4-46.3) H 10/12/23 19:38 RDW Coeff of Nba 17.4 % (11.5-14.5) H 10/12/23 19:38 Plt Count 250 K/uL (130-400) 10/12/23 19:38 MPV 10.7 fL (9.4-12.4) 10/12/23 19:38 Immature Gran % (Auto) 1.8 % 10/12/23 19:38 Neut % (Auto) 66.8 % 10/12/23 19:38 Lymph % (Auto) 18.4 % 10/12/23 19:38 [place] % (Auto) 9.1 % 10/12/23 19:38 Eos % (Auto) 3.0 % 10/12/23 19:38 Baso % (Auto) 0.9 % 10/12/23 19:38 Neut # (Auto) 5.77 K/uL (1.40-6.50) 10/12/23 19:38 Lymph # (Auto) 1.59 K/uL (1.20-3.40) 10/12/23 19:38 [place] # (Auto) 0.79 K/uL (0.11-0.59) H 10/12/23 19:38 Eos # (Auto) 0.26 K/uL (0.00-0.50) 10/12/23 19:38 Baso # (Auto) 0.08 K/uL (0.00-0.20) 10/12/23 19:38 Immature Gran # (Auto) 0.16 K/uL (0.01-0.20) 10/12/23 19:38 PT 10.7 Seconds (9.0-12.0) 10/12/23 19:38 INR 1.0 (0.9-1.1) 10/12/23 19:38 APTT 28 Seconds (21-31) 10/12/23 19:38 PTT Ratio 1.0 10/12/23 19:38 Sodium 137 mmol/L (136-145) 10/12/23 19:38 Potassium 3.7 mmol/L (3.5-5.1) 10/12/23 19:38 Chloride 102 mmol/L (98-107) 10/12/23 19:38 Carbon Dioxide 25 mmol/L (21-32) 10/12/23 19:38 Anion Gap 10 (3-11) 10/12/23 19:38 BUN 20 mg/dl (6-23) 10/12/23 19:38 Creatinine 1.36 mg/dl (0.6-1.4) 10/12/23 19:38 Est Cr Clr Drug Dosing 103.0 ml/min 10/12/23 19:38 Est GFR ( Amer) 70.8 ml/min 10/12/23 19:38 Est GFR (Non-Af Amer) 61.1 ml/min 10/12/23 19:38 BUN/Creatinine Ratio 14.7 (10-20) 10/12/23 19:38 Glucose 154 mg/dl (70-99(Fasting)) H 10/12/23 19:38 Calcium 9.2 mg/dl (8.6-10.3) 10/12/23 19:38 Total Bilirubin 0.4 mg/dl (0.2-1.0) 10/12/23 19:38 AST 31 U/L (13-39) 10/12/23 19:38 ALT 58 U/L (7-52) H 10/12/23 19:38 Alkaline Phosphatase 75 U/L (34-104) 10/12/23 19:38 Troponin I High Sens 17.5 pg/ml (0-20) 10/12/23 19:38 B-Natriuretic Peptide 20 pg/ml (0-100) 10/12/23 19:38 Total Protein 7.5 gm/dl (6.0-8.3) 10/12/23 19:38 Albumin 4.4 gm/dl (3.4-5.0) 10/12/23 19:38 Globulin 3.1 gm/dl (2.5-4.0) 10/12/23 19:38 Albumin/Globulin Ratio 1.4 (0.9-2) 10/12/23 19:38 ECG Additional Comments: ECG. Sinus tachycardia rate of 103. Left axis deviation. No significant change was found. Code Status & VTE Plan VTE Prophylaxis Plan VTE Prophylaxis will be ordered: Yes
[2023-10-13] MEDS ORDERED: rOPINIRole HCL 0.25 MG TABLET PO PRN (00:24)
[2023-10-13] MEDS ORDERED: ALBUTEROL HFA 8 GM INHALER INH PRN (00:24)
[2023-10-13] MEDS ORDERED: GLUCOSE 10 TAB/TUBE PO PRN (00:24)
[2023-10-13] MEDS ORDERED: GLUCAGON FOR INJ 1 MG VIAL SQ PRN (00:24)
[2023-10-13] MEDS ORDERED: CARBOHYDRATES FOR HYPOGLYCEMIA PO PRN (00:24)
[2023-10-13] MEDS ORDERED: POLYETHYLENE (MIRALAX) 17 GM PACK PO PRN (00:24)
[2023-10-13] MEDS ORDERED: DEXTROSE 50% 50 ML SYRINGE IV PRN (00:24)
[2023-10-13] MEDS ORDERED: GLUCOSE 40% GEL 15 GM TUBE PO PRN (00:24)
[2023-10-13] MEDS ORDERED: NITROGLYCERIN SL 0.4 MG/TAB TAB SL PRN (00:24)
[2023-10-13] MEDS: rOPINIRole HCL 1 MG TABLET PO SCH (01:26)
[2023-10-13] MEDS: ACETAMINOPHEN 325 MG TAB PO PRN (02:53)
[2023-10-13 06:21] LABS: Basophils % (auto) 1.2 %; Eosinophils # (auto) 0.25 K/uL (0.00-0.50); Hematocrit (blood only) 40.9 % (42.0-52.0); Hemoglobin 13.4 g/dl (14.0-18.0); Immature Granulocytes % (auto) 1.2 %; Lymphocytes # (auto) 1.34 K/uL (1.20-3.40); Lymphocytes % (auto) 16.2 %; Mean Corpuscular Hgb Conc 32.8 g/dL (32.0-36.0); Mean Corpuscular Volume 97.6 fL (80.0-100.0); Mean Platelet Volume 10.9 fL (9.4-12.4); Monocytes # (auto) 0.85 K/uL (0.11-0.59); Monocytes % (auto) 10.3 %; Neutrophils # (auto) 5.65 K/uL (1.40-6.50); Neutrophils % (auto) 68.1 %; Platelet Count 232 K/uL (130-400); RDW Coefficient of Variation 17.6 % (11.5-14.5); RDW Standard Deviation 62.7 fL (36.4-46.3); Red Blood Count 4.19 M/uL (4.70-6.10); White Blood Count 8.29 K/ul (4.8-10.8)
[2023-10-13 06:25] LABS: BUN Creatinine Ratio 16.1 (10-20); Creatinine Clr Calc Pharmacy 112.6 ml/min; Est GFR (African American) 79.2 ml/min; Est GFR (Non-African American) 68.3 ml/min; Magnesium 2.1 mg/dl (1.7-2.4); Potassium 3.8 mmol/L (3.5-5.1)
[2023-10-13 06:35] LABS: Troponin I High Sensitivity 5.5 pg/ml (0-20)
[2023-10-13 07:35] LABS: Estimated Average Glucose 111 mg/dl; Hemoglobin A1C 5.5 % (4.5-5.6)
--- NOTE | 2023-10-13 07:36 | XRay Report ---
XR chest 1V not portable HISTORY: Chest pain, nonspecific COMPARISON: Chest 08/19/2023. FINDINGS: No pneumothorax. No pleural effusions. The lungs are clear. No evidence for pulmonary edema . The heart is top normal in size. No acute fractures. IMPRESSION: No acute process. ACT 112: Negative or not required by law. Electronically signed by: Arsenio Torres M.D. 10/13/2023 7:35 AM
[2023-10-13] MEDS: GABAPENTIN 100 MG CAP PO SCH (08:09)
[2023-10-13] MEDS: ATORVASTATIN 40 MG TAB PO SCH (08:09)
[2023-10-13] MEDS: FENOFIBRATE NANOCRYSTALLIZED 48 MG TABLET PO SCH (08:09)
[2023-10-13] MEDS: POTASSIUM CHLORIDE 10 MEQ TABCR PO SCH (08:09)
[2023-10-13] MEDS: VITAMIN B COMPLEX TAB PO SCH (08:10)
[2023-10-13] MEDS: APIXABAN 5 MG TABLET PO SCH (08:10)
[2023-10-13] MEDS: FUROSEMIDE 40 MG/4 ML VIAL IV SCH (08:18)
--- NOTE | 2023-10-13 08:52 | Electrocardiogram Report ---
Test Reason : Blood Pressure : / mmHG Vent. Rate : 103 BPM Atrial Rate : 103 BPM P-R Int : 132 ms QRS Dur : 092 ms QT Int : 350 ms P-R-T Axes : 032 -38 017 degrees QTc Int : 458 ms Sinus tachycardia Left axis deviation Poor R wave progression, consider anterior MA vs. lead placement vs. LVH Abnormal ECG When compared with ECG of 19-AUG-2023 13:29, No significant change was found Confirmed by Hayden Lawrence ([id number] on 10/13/2023 8:52:21 AM Referred By: REFERRED SELF Confirmed By:Ld Lawrence
[2023-10-13] MEDS: INSULIN ASPART PER UNIT CHARGE SC SCH (08:59)
--- NOTE | 2023-10-13 10:03 | Cardiology Consultation ---
Date of Consultation October 13, 2023 Assessment & Plan (1) Acute on chronic heart failure with preserved ejection fraction (HFpEF): (2) Morbid obesity with BMI of 50.0-59.9, adult: (3) QUENTIN on CPAP: (4) skilled nursing (current) use of anticoagulants: Plan 48-year-old male admitted with acute on chronic heart failure with preserved ejection fraction and primarily right-sided signs/symptoms. Repeat echocardiogram demonstrating mild right ventricular enlargement with preserved biventricular systolic function and no significant valvular pathology. Continue IV furosemide 40 mg twice daily. Monitor daily weight, fluid balance, GFR, and electrolytes. Supplement potassium and magnesium as indicated. Maintain serum potassium greater than 4.0 and serum magnesium greater than 2.0. Encourage compliance with CPAP and sodium restriction. Consider transition of furosemide to torsemide 20 mg twice daily at discharge. Continue lisinopril, apixaban, and atorvastatin as ordered. Will continue to follow patient during hospitalization. Thank you for allowing me to participate in the care of your patient. History of Present Illness Reason for Consultation: CHF Requesting Physician: Dr. Cherry Attending Physician: Shanique Lacey MD History of Present Illness 48-year-old male with history of chronic diastolic heart failure with primarily right-sided signs/symptoms, obesity with obstructive sleep apnea on CPAP, asthma, cerebral vein thrombosis on chronic anticoagulation presented to the emergency department with abrupt onset of shortness of breath and weight gain. Patient in his usual state of health until approximately 48 hours ago when he woke up in the morning feeling short of breath. Weight up approximately 5 pounds per home scale. Denies any noncompliance with diuretic therapy. No recent excessive sodium or fluid intake. Denies chest pain or heaviness. No orthopnea or PND. Reports edema of his feet and lower extremities as well as abdominal bloating. Treated with 40 mg IV furosemide in the emergency department last evening and additional 40 mg IV at approximately 8 AM today. 1300 cc diuresis recorded. Patient reports minimal subjective improvement. Telemetry reveals sinus rhythm. No dysrhythmias. Patient notes occasional palpitations. Allergies Allergy/AdvReac Type Severity Reaction Status Date / Time No Known Allergies Allergy Verified 10/12/23 21:14 Home Medications Medication Instructions Recorded Confirmed Type albuterol sulfate 90 mcg/actuation 2 puff inhalation BID PRN 02/25/23 10/12/23 History aerosol inhaler Shortness Of Breath Or Wheezing apixaban 5 mg tablet (Eliquis) 5 mg PO BID 02/25/23 10/12/23 History furosemide 40 mg tablet 40 mg PO BID 02/25/23 10/12/23 History lisinopril 2.5 mg tablet 2.5 mg PO HS 02/25/23 10/12/23 History metformin 500 mg tablet 500 mg PO BID 02/25/23 10/12/23 History empagliflozin 25 mg tablet 25 mg PO QAM 03/10/23 10/12/23 History (Jardiance) atorvastatin 40 mg tablet 40 mg PO DAILY 08/19/23 10/12/23 History fenofibrate nanocrystallized 48 mg 48 mg PO QAM 08/19/23 10/12/23 History tablet (Tricor) metolazone 2.5 mg tablet 2.5 mg PO DIRECTED PRN 08/19/23 10/12/23 History NEEDED PER PT potassium chloride 10 mEq 10 meq PO BID 08/19/23 10/12/23 History capsule,extended release vitamin B complex 1 tab PO QAM 08/19/23 10/12/23 History cholecalciferol (vitamin D3) 1,250 50,000 unit PO WK 10/12/23 10/12/23 History mcg (50,000 unit) capsule gabapentin 100 mg capsule 100 mg PO TID 10/12/23 10/12/23 History ropinirole 0.25 mg tablet 0.25 mg PO DIRECTED 10/12/23 10/12/23 History ropinirole 3 mg tablet 3 mg PO HS 10/12/23 10/12/23 History Patient History Medical History Depression DM type 2 (diabetes mellitus, type 2) Diastolic CHF Morbid obesity with BMI of 50.0-59.9, adult Osteoarthritis QUENTIN on CPAP Hx of cerebral thrombosis Factor V Leiden Palpitation Chest pain at rest Surgical History Hx of eye surgery Left eyelid surgery Family History Other Asthma COPD (chronic obstructive pulmonary disease) Heart disease Hypertension Social History (Reviewed 10/13/23 @ 09:57 by CHRISTIANO Fuentes Smoking Status: Former smoker Tobacco Type: Cigarettes Age Started Using Tobacco: 17; Age Quit Using Tobacco: 25; packs per day: 1; Smoking End Date: "about 20 years ago"; Second Hand Exposure: No; Do You Dip or Chew Tobacco: No; Hx Alcohol Use: No Hx Substance Use: No Preferred Language: Serbian Communication Ability: Effective [employer] Required: No Beliefs That Will Affect Care: None Current Living Situation: Spouse Other Information That Helps Us Care for You: No Feels Safe at Home: Yes Safety Concerns: Feels Safe At This Time Assistive Devices: Cane Review of Systems Review of Systems: All systems reviewed & are unremarkable except as noted in Subjective Physical Exam Constitutional: + morbidly obese Respiratory: no respiratory distress, no labored breathing and no retractions Auscultation: + diminished lung sounds (Bilateral); no crackles, no rales, no rhonchi and no wheezes Cardiovascular: Rate/Rhythm: regular rate and regular rhythm Heart Sounds: normal S1 and normal S2; no murmur Vessels: no JVD (Difficult to assess due to body) and no carotid bruit Extremities: + edema (1+ lower extremity pedal, ankle, pretibial edema) Gastrointestinal (Abdomen): Inspection/Auscultation: abdomen normal to inspection and normal bowel sounds; abdomen not distended Percussion/Palpation: abdomen soft; abdomen nontender, no guarding and abdomen not rigid Neurologic: CN's II-XI intact bilaterally and moves all extremities; no focal motor deficits Results & Data Vital Signs (Past 12 Hours) Vital Signs Temp Pulse Pulse Pulse Resp BP Pulse Ox 10/13/23 08:01 36.9 C 93 H 18 139/80 95 10/13/23 03:45 36.7 C 101 H 17 89/64 L 93 10/13/23 02:29 36.8 C 87 18 139/94 96 10/13/23 00:24 10/13/23 00:24 10/13/23 00:23 91 H 10/13/23 00:02 93 H 20 95 10/12/23 23:20 98 H 20 106/58 L 94 10/12/23 22:10 91 H 10/12/23 22:10 96 10/12/23 22:09 93 H 20 147/84 H 96 10/12/23 22:06 85 20 95 Pulse Ox O2 Del Method O2 Del Method 10/13/23 08:01 Room Air 10/13/23 03:45 Room Air 10/13/23 02:29 Room Air 10/13/23 00:24 95 Room Air 10/13/23 00:24 Room Air 10/13/23 00:23 10/13/23 00:02 Room Air 10/12/23 23:20 Room Air 10/12/23 22:10 10/12/23 22:10 Room Air 10/12/23 22:09 Room Air 10/12/23 22:06 Room Air Laboratory Results Cardiac Enzymes 10/12/23 10/13/23 Range/Units 19:38 05:28 AST 31 (13-39) U/L Troponin I High Sens 17.5 5.5 D (0-20) pg/ml B-Natriuretic Peptide 20 (0-100) pg/ml Coagulation 10/12/23 Range/Units 19:38 PT 10.7 (9.0-12.0) Seconds APTT 28 (21-31) Seconds B-Natriuretic Peptide 20 (0-100) pg/ml CBC 10/12/23 10/13/23 Range/Units 19:38 05:28 WBC 8.65 8.29 (4.8-10.8) K/ul RBC 4.47 L 4.19 L (4.70-6.10) M/uL Hgb 14.4 13.4 L (14.0-18.0) g/dl Hct 43.2 40.9 L (42.0-52.0) % Plt Count 250 232 (130-400) K/uL Neut # (Auto) 5.77 5.65 (1.40-6.50) K/uL Lymph # (Auto) 1.59 1.34 (1.20-3.40) K/uL [place] # (Auto) 0.79 H 0.85 H (0.11-0.59) K/uL Eos # (Auto) 0.26 0.25 (0.00-0.50) K/uL Baso # (Auto) 0.08 0.10 (0.00-0.20) K/uL Comprehensive Metabolic Panel 10/12/23 10/13/23 Range/Units 19:38 05:28 Sodium 137 138 (136-145) mmol/L Potassium 3.7 3.8 (3.5-5.1) mmol/L Chloride 102 106 (98-107) mmol/L Carbon Dioxide 25 22 (21-32) mmol/L BUN 20 20 (6-23) mg/dl Creatinine 1.36 1.24 (0.6-1.4) mg/dl Glucose 154 H 96 (70-99(Fasting)) mg/dl Calcium 9.2 9.0 (8.6-10.3) mg/dl AST 31 (13-39) U/L ALT 58 H (7-52) U/L Alkaline Phosphatase 75 (34-104) U/L Total Protein 7.5 (6.0-8.3) gm/dl Albumin 4.4 (3.4-5.0) gm/dl Intake and Output 10/12/23 10/13/23 10/13/23 22:59 06:59 14:59 Output Total 1300 / 1300 Balance -1300 / -1300 Output: Urine 1300 / 1300 Other: Weight 174.9 kg 174.1 kg Weight Measurement Method Chair Scale Built in [facility] Diagnostic Findings Lexiscan nuclear stress test report 04/10/2022: Myocardial perfusion imaging is normal. Overall left ventricular systolic function was normal without regional wall motion abnormalities. The left ventricular ejection fraction was 64%. There are no prior studies available for comparison.
--- NOTE | 2023-10-13 10:28 | Hospitalist Progress Note ---
Date of Service October 13, 2023 Assessment & Plan (1) Acute on chronic diastolic (congestive) heart failure: Plan: 48-year-old male with past medical history significant for type 2 diabetes, mixed dyslipidemia, obstructive sleep apnea on CPAP, abnormal PFT, chronic nonspecific lung disease, moderate persistent asthma, chronic diastolic CHF, hypertension, right-sided heart failure, cerebral vein thrombosis, history of stroke, morbid obesity, restless leg syndrome, osteoarthritis of both knees, heterogeneous factor V Leyden mutation, vertigo, depression, comes because of shortness of breath and weight gain. Shortness of breath Acute on chronic diastolic CHF Continue IV Lasix 40 mg BID Daily weights and I's and O's Cardiology evaluation ntoed TTE reviewed. EF of 60 to 65%, mild concentric LVH, normal left ventricular wall motion, grade 1 diastolic dysfunction, mildly dilated RV, right ventricular systolic function is normal Obstructive sleep apnea Continue CPAP nightly with 2 L oxygen History of moderate persistent asthma Continue home inhalers History of stroke History of cerebral vein thrombosis Heterozygous factor V Leiden mutation On Eliquis Hyperlipidemia On statin and fenofibrate Hypertension Continue lisinopril Diabetes Holding Jardiance and metformin Sliding scale Monitor Morbid obesity BMI of 60. Reported that he had been up to 450 pounds a year ago. He follows with weight management and has been losing weight intentionally over the past year Patient could not tolerate Ozempic Plan for bariatric surgery as per patient Restless leg syndrome On ropinirole DVT prophylaxis On Eliquis Disposition Telemetry Full code I spent a total of 50 minutes coordinating, documenting and providing care for this patient excluding time spent in performance of separately billed services Admission and Anticipated Discharge Date Admission Date: October 12, 2023 Subjective Patient seen and examined. Reported chronic dyspnea on exertion and chronic leg swelling which worsened recently. Reports that weight had increased overnight from 379 pounds to 384 pounds morning of presentation. Reports chronic mild dry cough. Denies any chest pain, nausea, vomiting, fevers, chills, dysuria, frequency urgency, hematuria Physical Exam Constitutional: + well hydrated and + morbidly obese; no acute distress Eyes: PERRL, conjunctivae normal, anicteric sclerae ENMT: external ear and nose normal, oropharynx normal Respiratory: normal respiratory effort; no respiratory distress Auscultation: lungs clear to auscultation bilaterally; no crackles and no wheezes Cardiovascular: Rate/Rhythm: regular rate and regular rhythm S1-S2 Gastrointestinal (Abdomen): normal bowel sounds, soft, nontender, no hepatosplenomegaly Musculoskeletal: Bilateral lower extremity edema Neurologic: PERRL, EOMI, accommodation nl, no face palsy, no dysarthria Psychiatric: A+Ox3, euthymic affect Results & Data Results & Data Vital Signs (Past 12 Hours) Vital Signs Temp Pulse Pulse Resp BP Pulse Ox Pulse Ox 10/13/23 08:01 36.9 C 93 H 18 139/80 95 10/13/23 03:45 36.7 C 101 H 17 89/64 L 93 10/13/23 02:29 36.8 C 87 18 139/94 96 10/13/23 00:24 95 10/13/23 00:24 10/13/23 00:23 91 H 10/13/23 00:02 93 H 20 95 10/12/23 23:20 98 H 20 106/58 L 94 O2 Del Method O2 Del Method 10/13/23 08:01 Room Air 10/13/23 03:45 Room Air 10/13/23 02:29 Room Air 10/13/23 00:24 Room Air 10/13/23 00:24 Room Air 10/13/23 00:23 10/13/23 00:02 Room Air 10/12/23 23:20 Room Air Laboratory Results Abnormal lab results 10/12/23 10/13/23 Range/Units 19:38 05:28 RBC 4.47 L 4.19 L (4.70-6.10) M/uL Hgb 13.4 L (14.0-18.0) g/dl Hct 40.9 L (42.0-52.0) % RDW Std Deviation 61.5 H 62.7 H (36.4-46.3) fL RDW Coeff of Nba 17.4 H 17.6 H (11.5-14.5) % [place] # (Auto) 0.79 H 0.85 H (0.11-0.59) K/uL Glucose 154 H (70-99(Fasting)) mg/dl ALT 58 H (7-52) U/L
[2023-10-13] MEDS: INFLUENZA VIRUS QUADRIVALENT VACCINE (IIV4) 0.5 ML SYR IM ONE (18:26)
[2023-10-13] MEDS: lisinopril 2.5 MG TAB PO SCH (20:33)
[2023-10-14 07:41] LABS: BUN Creatinine Ratio 17.4 (10-20); Calcium 9.1 mg/dl (8.6-10.3); Creatinine Clr Calc Pharmacy 121.4 ml/min; Est GFR (African American) 86.7 ml/min; Est GFR (Non-African American) 74.8 ml/min; Magnesium 2.2 mg/dl (1.7-2.4); Potassium 3.7 mmol/L (3.5-5.1)
--- NOTE | 2023-10-14 12:51 | Cardiology Progress Note ---
Date of Service October 14, 2023 Assessment & Plan (1) Acute on chronic heart failure with preserved ejection fraction (HFpEF): (2) Morbid obesity with BMI of 50.0-59.9, adult: (3) QUENTIN on CPAP: (4) group home (current) use of anticoagulants: Plan 48-year-old male admitted with acute on chronic heart failure with preserved ejection fraction and primarily right-sided signs/symptoms. Repeat echocardiogram demonstrating mild right ventricular enlargement with preserved biventricular systolic function and no significant valvular pathology. Discontinue IV Lasix. Patient may resume oral Lasix 40 mg twice daily with potassium supplementation. Diuretic protocol reviewed: Patient may take an additional 40 mg of Lasix if weight increases more than 2 pounds in a 48 hour period, or 5 pounds in 1 week. Instructed to monitor daily weight at home. Continue lisinopril, apixaban, and atorvastatin as ordered. Outpatient cardiology follow-up in 1 week. Thank you for allow me to participate in the care of your patient. Cardiology will sign off. Please call with additional concerns/questions. Admission and Anticipated Discharge Date Admission Date: October 12, 2023 Subjective Patient seen and examined at the bedside. Feeling much better today. Shortness of breath and chest pressure has resolved. Requesting discharge. Edema improved. Review of Systems Review of Systems: All systems reviewed & are unremarkable except as noted in Subjective Physical Exam Constitutional: + morbidly obese Respiratory: no respiratory distress, no labored breathing and no retractions Auscultation: + diminished lung sounds (Bilateral); no crackles, no rales, no rhonchi and no wheezes Cardiovascular: Rate/Rhythm: regular rate and regular rhythm Heart Sounds: normal S1 and normal S2; no murmur Vessels: no JVD (Difficult to assess due to body) and no carotid bruit Extremities: + edema (1+ lower extremity pedal edema) Gastrointestinal (Abdomen): Inspection/Auscultation: abdomen normal to inspection and normal bowel sounds; abdomen not distended Percussion/Palpation: abdomen soft; abdomen nontender, no guarding and abdomen not rigid Neurologic: CN's II-XI intact bilaterally and moves all extremities; no focal motor deficits Results & Data Vital Signs (Past 12 Hours) Vital Signs Temp Pulse Pulse Resp BP Pulse Ox O2 Del Method 10/14/23 10:40 37.2 C 91 H 20 96/68 L 97 CPAP 10/14/23 08:01 36.4 C L 99 H 18 126/80 96 Room Air 10/14/23 08:00 Room Air 10/14/23 07:27 97 H 10/14/23 03:51 36.4 C L 85 18 113/76 95 CPAP O2 Flow Rate 10/14/23 10:40 2 10/14/23 08:01 10/14/23 08:00 10/14/23 07:27 10/14/23 03:51 Laboratory Results Cardiac Enzymes 10/13/23 Range/Units 10:52 Troponin I High Sens 5.7 (0-20) pg/ml Comprehensive Metabolic Panel 10/14/23 Range/Units 06:25 Sodium 138 (136-145) mmol/L Potassium 3.7 (3.5-5.1) mmol/L Chloride 104 (98-107) mmol/L Carbon Dioxide 25 (21-32) mmol/L BUN 20 (6-23) mg/dl Creatinine 1.15 (0.6-1.4) mg/dl Glucose 93 (70-99(Fasting)) mg/dl Calcium 9.1 (8.6-10.3) mg/dl Intake and Output 10/13/23 10/14/23 10/14/23 22:59 06:59 14:59 Output Total 2049 Balance -900 / -1810 Output: Urine 2049 Other: # Unmeasured Voids 1 3 Weight 174.1 kg 171.6 kg Weight Measurement Method Standing Scale Patient Weight 10/15/23 06:59 Weight 171.6 kg
--- NOTE | 2023-10-14 13:51 | Discharge Summary ---
Date of Service October 14, 2023 Admission HPI Per Admitting Provider 48-year-old male with past medical history significant for type 2 diabetes, mixed dyslipidemia, obstructive sleep apnea on CPAP, abnormal PFT, chronic nonspecific lung disease, moderate persistent asthma, chronic diastolic CHF, hypertension, right-sided heart failure, cerebral vein thrombosis, history of stroke, morbid obesity, restless leg syndrome, osteoarthritis of both knees, heterogeneous factor V Leyden mutation, vertigo, depression, comes because of shortness of breath and weight gain. Patient states he woke up today morning with short of breath. And when he checked his weight he gained 5 pounds since . As the day progressed he noticed that he was getting more edematous. [facility] to come [facility]. Currently resting comfortably and hemodynamically stable. Denies any headache. No runny nose. No sore throat. States always has some cough. Denies any chest pain. Feeling somewhat short of breath. No nausea. No abdominal pain. Normal bowel and bladder movements. Ambulating okay. Somewhat hard of hearing. Past medical history. As mentioned above Past surgical history. Left eyelid reconstruction Social history. . Quit smoking at age of 24. No alcohol use. No drug use. Family history. Father had arthritis. COPD. Diabetes. Eye problems. Heart disorder. Mental disorder. Obesity. Stroke. Mother has diabetes, hypertension, thyroid disease, diabetes, ear problems. Son has asthma. Admission Exam Per Admitting Provider General- Not in distress Head- atraumatic Eyes- PERRL. ENT- oropharynx clear Neck- supple, no JVD. Lungs- clear to auscultation no wheezing or crackles. Heart- regular rhythm; no murmur, no gallop. Abdomen- normal bowel sounds, soft, nontender, no distension. Extremities- b/l lower extremity edema present, no erythema seen. Neuro- alert, oriented ; PERRL, no facial palsy; no dysarthria; moves extremities. Skin- warm & dry Principal Diagnosis Acute on chronic diastolic heart failure Discharge Exam Constitutional + well hydrated and + morbidly obese; no acute distress Eyes PERRL, conjunctivae normal, anicteric sclerae ENMT external ear and nose normal, oropharynx normal Respiratory normal respiratory effort; no respiratory distress Auscultation: lungs clear to auscultation bilaterally; no crackles and no wh eezes Cardiovascular Rate/Rhythm: regular rate and regular rhythm S1 S2 Gastrointestinal (Abdomen) normal bowel sounds, soft, nontender, no hepatosplenomegaly Musculoskeletal +Leg edema Neurologic PERRL, EOMI, accommodation nl, no face palsy, no dysarthria Psychiatric A+Ox3, euthymic affect Discharge Data Allergies Allergy/AdvReac Type Severity Reaction Status Date / Time No Known Allergies Allergy Verified 10/12/23 21:14 Consultations 10/12/23 20:56 ED Decision to Admit Stat 10/13/23 08:00 Consult Cardiology Routine Hospital Course (1) Acute on chronic diastolic (congestive) heart failure: 48-year-old male with past medical history significant for type 2 diabetes, mixed dyslipidemia, obstructive sleep apnea on CPAP, abnormal PFT, chronic nonspecific lung disease, moderate persistent asthma, chronic diastolic CHF, hypertension, right-sided heart failure, cerebral vein thrombosis, history of stroke, morbid obesity, restless leg syndrome, osteoarthritis of both knees, heterogeneous factor V Leyden mutation, vertigo, depression, comes because of shortness of breath and weight gain. Shortness of breath Acute on chronic diastolic CHF Was managed with IV Lasix 40 mg BID TTE reviewed. EF of 60 to 65%, mild concentric LVH, normal left ventricular wall motion, grade 1 diastolic dysfunction, mildly dilated RV, right ventricular systolic function is normal Weight improved from 174.9Kg on admission to 171.6Kg today Was evaluated by [employer] Programmer Analyst Recommends patient to continue home po lasix 40mg BID and may take additional 40mg lasix if weight increases by more than 2 pounds in 48hr or 5 pounds in a week Outpatient follow-up with cardiology Obstructive sleep apnea Continue CPAP nightly with 2 L oxygen History of moderate persistent asthma Continue home inhalers History of stroke History of cerebral vein thrombosis Heterozygous factor V Leiden mutation On Eliquis Hyperlipidemia On statin and fenofibrate Hypertension Continue lisinopril Diabetes Continue home Jardiance and metformin Morbid obesity BMI of 60. Reported that he had been up to 450 pounds a year ago. He follows with weight management and has been losing weight intentionally over the past year Patient could not tolerate Ozempic Plan for bariatric surgery as per patient Restless leg syndrome On ropinirole Total Time Total Time Spent Total Time Spent (In Minutes): 40 Total Time Includes: Examination of the Patient, Discharge Planning, Medication Reconciliation and Communication With Other Providers Discharge Plan Discharge Items Patient Disposition: Home - Self-Care Reason For Visit: Weight gain, Shortness of breath Discharge Diagnosis: Acute on chronic diastolic heart failure Activity: Resume your previous activity Non-emergency contact: Primary Care Provider and [employer] Programmer Analyst Call non-emergency contact if: you have any medication questions Follow-up/Referrals: Panchito Grey DO [[employer] Programmer Analyst] - (The Cardiology office will contact you for a follow up appointment.) Massiel Hansen PA-C [Primary Care Provider] - ( Date & Time 10/21/2023 5:00 PM Provider Massiel Hansen PA-C Department [facility]) Diet: Carb Consistent or DM2 and Heart Healthy Addtl Attending Provider Instructions: Mr. Pineda. You came to the hospital due to weight gain and shortness of breath. You were evaluated in manage for the diagnosis above with IV diuretics. You are being discharged home. Please continue your home Lasix and home medications. Ensure follow-up with your family doctor and cardiology. It was a pleasure taking care of you Pending Studies at Discharge: No Stand-Alone Forms: [facility] HaveMyShift, Smoking Cessation Medications and DC Order Prescriptions: Continued furosemide 40 mg tablet 40 mg PO BID metformin 500 mg tablet 500 mg PO BID albuterol sulfate 90 mcg/actuation HFA aerosol inhaler 2 puff INHALATION BID PRN (Reason: Shortness Of Breath Or Wheezing) lisinopril 2.5 mg tablet 2.5 mg PO HS Eliquis 5 mg tablet 5 mg PO BID Jardiance 25 mg tablet 25 mg PO QAM metolazone 2.5 mg tablet 2.5 mg PO DIRECTED PRN (Reason: NEEDED PER PT) atorvastatin 40 mg tablet 40 mg PO DAILY potassium chloride 10 mEq capsule, extended release 10 meq PO BID vitamin B complex Tablet 1 tab PO QAM fenofibrate nanocrystallized [Tricor] 48 mg Tablet 48 mg PO QAM ropinirole 3 mg tablet 3 mg PO HS ropinirole 0.25 mg tablet 0.25 mg PO DIRECTED Rx Instructions: q hs prn gabapentin 100 mg capsule 100 mg PO TID cholecalciferol (vitamin D3) 1,250 mcg (50,000 unit) capsule 50,000 unit PO WK Discharge Orders: Discharge Order- CHF (Routine); Ordered 10/14/23 Ordered By: Shanique Lacey Admission Data Admit Date/Time: 10/12/23 23:20 Attending Provider: Shanique Lacey I. Admit Provider: Mir Cherry Primary Care Provider: Massiel Hansen Other Providers: Mir Cherry; Panchito Grey Other Interventions: Discharge Summary Assessment (RN) Last Done: 10/14/23 14:03
== END 2023-10-14 16:55 | disposition home or self-care (01) | DRG 291 ==
LOC: ED 18:53 → 2E 23:20

== ENCOUNTER 2024-01-27 23:39 | Observation (INO) ==
--- NOTE | 2024-01-27 23:44 | Emergency Department Note ---
Impression & Plan Acute confusion, Stroke-like symptoms, Acute left-sided weakness ED Provider Note HISTORY OF PRESENT ILLNESS: Patient is a 48-year-old male presenting with strokelike symptoms. Patient presents from home with EMS. EMS reports that the patient developed acute onset of symptoms at 1999 on 01/27/2024. He developed left-sided weakness and some confusion. He is complaining of a headache at this time. Patient is on Eliquis. He is alert to self only at this time. Denies any chest pain or shortness of breath. Patient's presents to bedside after and provides more history. Reports that patient's symptoms actually started at 2200 this evening. He states that he has been lethargic and wanting to sleep all day today. At 2200, she had to assist him significantly off the commode because he was very wobbly and weak. States that he had some left-sided weakness and he was unable to communicate. Reports he is normally alert and oriented. States that he did not know who she was or where he was. He is on Eliquis for history of blood clots. ROS: as above PHYSICAL EXAM: Constitutional: Patient appears in no acute distress. Morbidly obese HENT: Head: Normocephalic and atraumatic. Eyes: EOMI, PERRL Mouth/Throat: Mucous membranes moist. Neck: Trachea midline. Neck supple. Cardiovascular: RRR, No murmurs, rubs or gallops. Intact distal pulses. Pulmonary/Chest: No respiratory distress. Breath sounds clear and equal bilaterally. No wheezes or rales. Abdominal: Abdomen soft, no tenderness, rebound or guarding. Musculoskeletal: No edema, tenderness or deformity noted. Skin: Warm and dry. No rash, erythema, pallor or cyanosis Neurological: Alert but confused. Facies symmetric. Able to raise eyebrows, close eyes, smile, puff mouth, stick out tongue, move tongue left and right and raise palate symmetrically. Able to shrug shoulders. PERRLA. SILT to forehead below eye and at jawline. Can hear soft noise bilaterally. Strength 4/5 in left upper extremity and left lower extremity. Patient has significant drift in left upper extremity and left lower extremity. Patient is aphasic and unable to answer any questions. MDM: - Vitals signs showed hypertension. - History obtained via patient's family, given patient's speech deficits. History as above. - Patient was alerted as a prehospital stroke alert. On arrival, he is actually within the TNK window. However, he is not a TNK candidate secondary to his Eliquis. Last known well at 2200 on 01/27/2024. - Chronic conditions affecting care: HLD; Factor V Leiden; QUENTIN; morbid obesity; diastolic CHF; DM-2 - Differential diagnoses include, but are not limited to: intracranial hemorrhage; CVA; ACS; electrolyte abnormality; dysrhythmia; pneumonia - Order placed for continuous cardiac monitoring. At this time, monitor showed rate of 87 bpm with normal sinus rhythm, per my interpretation. - External medical records reviewed. Discharge summary dated 10/13 through 2023 was reviewed. Patient was admitted at that time for acute on chronic CHF - EKG interpreted by myself showed normal sinus rhythm. Rate 90 bpm. QT 366. No acute ischemic changes - CT head wo contrast negative for intracranial hemorrhage, per my interpretation - Discussed case with [facility] tele-neurologist emissions engineer, Dr. Vazquez, at 00:24 on 01/28/2024. He is working on logging into telestroke cart. - CTA head/neck negative for acute pathology, per stat rad radiologist, Dr. Wall, who called to report negative findings at 00:33. - Tele-neurologist, Dr. Vazquez, called back at 00:54. Agrees that patient is not a TNK candidate. He is going with the last known well 2029, when the patient went to bed. then saw him at 2200. Recommends getting an MRI of the brain. He is unsure if this is truly of stroke at this time. Recommended keeping blood pressure less than 160. He is unsure why the patient is on Eliquis at this time. Recommend admission for further workup - Laboratory workup interpreted by myself showed normal WBC; normal PT/INR; stable electrolytes; normal lactate; slightly elevated ALT (79) - UA negative for infection. Noted to have glucosuria. - UDS negative - VBG normal - Viral respiratory panel negative - MRI brain wo contrast ordered. - Discussion was had with family caseworker about patient's case and need for admission - Hospitalist, Dr. Boyd, consulted for admission - Patient admitted to [facility] service for further evaluation and management. 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 (Acute) Edema of lower extremity (Acute) DAY (dyspnea on exertion) (Acute) Urinary retention Pedal edema (Acute) Fluid overload (Acute) Exertional dyspnea (Acute) SOB (shortness of breath) (Acute) Depression DM type 2 (diabetes mellitus, type 2) (Acute) Diastolic CHF (Acute) COVID-19 Morbid obesity with BMI of 50.0-59.9, adult (Acute) Osteoarthritis QUENTIN on CPAP Factor V Leiden AMS (altered mental status) (Acute) Dyslipidemia Family history of ischemic heart disease Medical History Depression DM type 2 (diabetes mellitus, type 2) Diastolic CHF Morbid obesity with BMI of 50.0-59.9, adult Osteoarthritis QUENTIN on CPAP Hx of cerebral thrombosis Factor V Leiden Palpitation Chest pain at rest Surgical History Hx of eye surgery Left eyelid surgery Family History Other Asthma COPD (chronic obstructive pulmonary disease) Heart disease Hypertension Social History Smoking Status: Former smoker Tobacco Type: Cigarettes Age Started Using Tobacco: 17; Age Quit Using Tobacco: 25; packs per day: 1; Second Hand Exposure: No; Do You Dip or Chew Tobacco: No; Hx Alcohol Use: No Hx Substance Use: No Preferred Language: Spanish Communication Ability: Effective Criminal Investigative Agent Required: No Beliefs That Will Affect Care: None Current Living Situation: Spouse Feels Safe at Home: Yes Assistive Devices: None Allergies Allergies Allergy/AdvReac Type Severity Reaction Status Date / Time No Known Allergies Allergy Verified 10/12/23 21:14 Home Meds Home Medications Medication Instructions Recorded Confirmed albuterol sulfate 90 mcg/actuation 2 puff inhalation BID PRN 02/25/23 01/28/24 aerosol inhaler Shortness Of Breath Or Wheezing apixaban 5 mg tablet (Eliquis) 5 mg PO AMHS 02/25/23 01/28/24 furosemide 40 mg tablet 40 mg PO AMHS 02/25/23 01/28/24 lisinopril 2.5 mg tablet 2.5 mg PO 02/25/23 01/28/24 metformin 500 mg tablet 500 mg PO BID 02/25/23 01/28/24 empagliflozin 25 mg tablet 25 mg PO QAM 03/10/23 01/28/24 (Jardiance) atorvastatin 40 mg tablet 40 mg PO DAILY 08/19/23 10/12/23 fenofibrate nanocrystallized 48 mg 48 mg PO QAM 08/19/23 01/28/24 tablet (Tricor) metolazone 2.5 mg tablet 2.5 mg PO DIRECTED PRN 08/19/23 10/12/23 NEEDED PER PT potassium chloride 10 mEq 10 meq PO BID 08/19/23 10/12/23 capsule,extended release cholecalciferol (vitamin D3) 1,250 50,000 unit PO WK 10/12/23 10/12/23 mcg (50,000 unit) capsule gabapentin 100 mg capsule 100 mg PO TID 10/12/23 10/12/23 duloxetine 30 mg capsule,delayed 30 mg PO QAM 01/28/24 01/28/24 release ropinirole 4 mg tablet 4 mg PO HS 01/28/24 01/28/24 Results & Data (ED) Vital Signs Vital Signs - 24 hr 01/27/24 23:45 01/28/24 00:15 01/28/24 00:30 Temperature 36.9 C Temperature Source Oral Pulse Rate 88 87 Pulse Rate [Apical] Pulse Rhythm Regular Pulse Rhythm [Apical] Pulse Strength Normal Pulse Strength [Apical] Respiratory Rate 16 Respiratory Effort / Characteristics Non-Labored Spontaneous Respiratory Depth Normal Respiratory Pattern Regular Blood Pressure 167/97 H Blood Pressure [Left Arm] Blood Pressure Mean 120 Blood Pressure Mean [Left Arm] Blood Pressure Position Lying Blood Pressure Position [Left Arm] Pulse Oximetry 96 95 Oxygen Delivery Method Room Air Room Air Oxygen Flow Rate 0 Sepsis Recent Fever Within 48 Hours No Sepsis New/Unexplained Change in Mental Status No Sepsis Action Taken by Nursing No Action Required 01/28/24 00:40 Temperature 36.9 C Temperature Source Oral Pulse Rate Pulse Rate [Apical] 89 Pulse Rhythm Pulse Rhythm [Apical] Regular Pulse Strength Pulse Strength [Apical] Normal Respiratory Rate 18 Respiratory Effort / Characteristics Non-Labored Spontaneous Respiratory Depth Normal Respiratory Pattern Regular Blood Pressure Blood Pressure [Left Arm] 163/95 H Blood Pressure Mean Blood Pressure Mean [Left Arm] 117 Blood Pressure Position Blood Pressure Position [Left Arm] Semi-fowlers Pulse Oximetry 96 Oxygen Delivery Method Room Air Oxygen Flow Rate Sepsis Recent Fever Within 48 Hours Sepsis New/Unexplained Change in Mental Status Sepsis Action Taken by Nursing Laboratory Data 01/27/24 23:47 01/27/24 23:47 Lab Results 01/27/24 01/27/24 01/27/24 Range/Units 23:47 23:51 23:52 WBC 7.98 (4.8-10.8) K/ul RBC 4.81 (4.70-6.10) M/uL Hgb 15.3 (14.0-18.0) g/dl POC Hgb 16.3 (14.0-18.0) g/dl Hct 45.6 (42.0-52.0) % POC Hct 48 (42-52) % MCV 94.8 (80.0-100.0) fL MCH 31.8 (25.0-34.0) pg MCHC 33.6 (32.0-36.0) g/dL RDW Std Deviation 58.8 H (36.4-46.3) fL RDW Coeff of Nba 16.9 H (11.5-14.5) % Plt Count 255 (130-400) K/uL MPV 10.6 (9.4-12.4) fL Immature Gran % (Auto) 1.5 % Neut % (Auto) 63.1 % Lymph % (Auto) 20.6 % [place] % (Auto) 8.9 % Eos % (Auto) 4.9 % Baso % (Auto) 1.0 % Neut # (Auto) 5.04 (1.40-6.50) K/uL Lymph # (Auto) 1.64 (1.20-3.40) K/uL [place] # (Auto) 0.71 H (0.11-0.59) K/uL Eos # (Auto) 0.39 (0.00-0.50) K/uL Baso # (Auto) 0.08 (0.00-0.20) K/uL Immature Gran # (Auto) 0.12 (0.01-0.20) K/uL PT 10.0 (9.0-12.0) Seconds INR 0.9 (0.9-1.1) APTT 27 (21-31) Seconds PTT Ratio 1.0 VBG pH (7.36-7.41) VBG pCO2 (38-50) mmHg VBG pO2 mmHg VBG HCO3 mmol/L VBG O2 Saturation % VBG Base Excess mEq/L POC Sodium 139 (135-144) mmol/L Sodium 136 (136-145) mmol/L POC Potassium 3.9 (3.3-5.0) mmol/L Potassium 3.9 (3.5-5.1) mmol/L POC Chloride 102 (101-112) mmol/L Chloride 102 (98-107) mmol/L Carbon Dioxide 25 (21-32) mmol/L POC Total CO2 22 L (24-31) mmol/L Anion Gap 9 (3-11) POC Anion Gap 20.0 (16-25) mmol/L POC BUN 19 H (7-18) mg/dl BUN 20 (6-23) mg/dl Creatinine 1.28 (0.6-1.4) mg/dl POC Creatinine 1.4 H (0.6-1.3) mg/dl Est Cr Clr Drug Dosing Not Reportable Est GFR ( Amer) 76.2 ml/min Est GFR (Non-Af Amer) 65.7 ml/min BUN/Creatinine Ratio 15.6 (10-20) Glucose 163 H (70-99(Fasting)) mg/dl POC Glucose 150 H (70-99) mg/dl POC Glucose (other) 164 H (70-99) mg/dl Lactate (0.4-2.0) mmol/L Calcium 9.1 (8.6-10.3) mg/dl POC Ioniz Calcium Conrado 1.18 (1.12-1.32) mmol/l Magnesium 1.9 (1.7-2.4) mg/dl Total Bilirubin 0.3 (0.2-1.0) mg/dl AST 39 (13-39) U/L ALT 79 H (7-52) U/L Alkaline Phosphatase 87 (34-104) U/L Troponin I High Sens 5.6 (0-20) pg/ml Total Protein 7.5 (6.0-8.3) gm/dl Albumin 4.2 (3.4-5.0) gm/dl Globulin 3.3 (2.5-4.0) gm/dl Albumin/Globulin Ratio 1.3 (0.9-2) Urine Color Urine Appearance (Clear) Urine pH (4.5-7.5) Ur Specific [place] (1.000-1.030) Urine Protein (Negative) Urine Glucose (UA) (Negative) Urine Ketones (Negative) Urine Blood (Negative) Urine Nitrite (Negative) Urine Bilirubin (Negative) Urine Urobilinogen (Negative) Ur Leukocyte Esterase (Negative) Urine Opiates Screen (Neg) Ur Methadone, Qual (Neg) Urine Fentanyl Screen (Neg) Urine Barbiturates (Neg) Ur Phencyclidine (PCP) (Neg) U Amphetamin/Meth Scrn (Neg) MDMA (Ecstasy) Screen (Neg) U Benzodiazepines Scrn (Neg) Ur Cocaine Metabolite (Neg) U Marijuana (THC) Screen (Neg) Adenovirus (PCR) (NotDetected) B. pertussis DNA (PCR) (NotDetected) B.parapertussis DNA PCR (NotDetected) C. pneumoniae DNA (PCR) (NotDetected) Coronavirus OC43 (PCR) (NotDetected) Coronavirus HKU1 (PCR) (NotDetected) Coronavirus 229E (PCR) (NotDetected) SARS-CoV-2 (PCR) (NotDetected) Coronavirus NL63 (PCR) (NotDetected) Human Metapneumovir PCR (NotDetected) Influenza Type A (PCR) (NotDetected) Influenza Type B (PCR) (NotDetected) M. pneumoniae (PCR) (NotDetected) Parainfluenza 1 (PCR) (NotDetected) Parainfluenza 2 (PCR) (NotDetected) Parainfluenza 3 (PCR) (NotDetected) Parainfluenza 4 (PCR) (NotDetected) RSV (PCR) (NotDetected) Entero/Rhino (PCR) (NotDetected) Blood Type A Positive Antibody Screen NEGATIVE 01/28/24 01/28/24 01/28/24 Range/Units 00:10 00:20 00:22 WBC (4.8-10.8) K/ul RBC (4.70-6.10) M/uL Hgb (14.0-18.0) g/dl POC Hgb (14.0-18.0) g/dl Hct (42.0-52.0) % POC Hct (42-52) % MCV (80.0-100.0) fL MCH (25.0-34.0) pg MCHC (32.0-36.0) g/dL RDW Std Deviation (36.4-46.3) fL RDW Coeff of Nba (11.5-14.5) % Plt Count (130-400) K/uL MPV (9.4-12.4) fL Immature Gran % (Auto) % Neut % (Auto) % Lymph % (Auto) % [place] % (Auto) % Eos % (Auto) % Baso % (Auto) % Neut # (Auto) (1.40-6.50) K/uL Lymph # (Auto) (1.20-3.40) K/uL [place] # (Auto) (0.11-0.59) K/uL Eos # (Auto) (0.00-0.50) K/uL Baso # (Auto) (0.00-0.20) K/uL Immature Gran # (Auto) (0.01-0.20) K/uL PT (9.0-12.0) Seconds INR (0.9-1.1) APTT (21-31) Seconds PTT Ratio VBG pH (7.36-7.41) VBG pCO2 (38-50) mmHg VBG pO2 mmHg VBG HCO3 mmol/L VBG O2 Saturation % VBG Base Excess mEq/L POC Sodium (135-144) mmol/L Sodium (136-145) mmol/L POC Potassium (3.3-5.0) mmol/L Potassium (3.5-5.1) mmol/L POC Chloride (101-112) mmol/L Chloride (98-107) mmol/L Carbon Dioxide (21-32) mmol/L POC Total CO2 (24-31) mmol/L Anion Gap (3-11) POC Anion Gap (16-25) mmol/L POC BUN (7-18) mg/dl BUN (6-23) mg/dl Creatinine (0.6-1.4) mg/dl POC Creatinine (0.6-1.3) mg/dl Est Cr Clr Drug Dosing Est GFR ( Amer) ml/min Est GFR (Non-Af Amer) ml/min BUN/Creatinine Ratio (10-20) Glucose (70-99(Fasting)) mg/dl POC Glucose (70-99) mg/dl POC Glucose (other) (70-99) mg/dl Lactate 2.0 (0.4-2.0) mmol/L Calcium (8.6-10.3) mg/dl POC Ioniz Calcium Conrado (1.12-1.32) mmol/l Magnesium (1.7-2.4) mg/dl Total Bilirubin (0.2-1.0) mg/dl AST (13-39) U/L ALT (7-52) U/L Alkaline Phosphatase (34-104) U/L Troponin I High Sens (0-20) pg/ml Total Protein (6.0-8.3) gm/dl Albumin (3.4-5.0) gm/dl Globulin (2.5-4.0) gm/dl Albumin/Globulin Ratio (0.9-2) Urine Color Yellow Urine Appearance Clear (Clear) Urine pH 6.5 (4.5-7.5) Ur Specific [place] 1.045 H (1.000-1.030) Urine Protein Negative (Negative) Urine Glucose (UA) 3+ H (Negative) Urine Ketones Negative (Negative) Urine Blood Negative (Negative) Urine Nitrite Negative (Negative) Urine Bilirubin Negative (Negative) Urine Urobilinogen Negative (Negative) Ur Leukocyte Esterase Negative (Negative) Urine Opiates Screen Neg (Neg) Ur Methadone, Qual Neg (Neg) Urine Fentanyl Screen Neg (Neg) Urine Barbiturates Neg (Neg) Ur Phencyclidine (PCP) Neg (Neg) U Amphetamin/Meth Scrn Neg (Neg) MDMA (Ecstasy) Screen Neg (Neg) U Benzodiazepines Scrn Neg (Neg) Ur Cocaine Metabolite Neg (Neg) U Marijuana (THC) Screen Neg (Neg) Adenovirus (PCR) Not Detected (NotDetected) B. pertussis DNA (PCR) Not Detected (NotDetected) B.parapertussis DNA PCR Not Detected (NotDetected) C. pneumoniae DNA (PCR) Not Detected (NotDetected) Coronavirus OC43 (PCR) Not Detected (NotDetected) Coronavirus HKU1 (PCR) Not Detected (NotDetected) Coronavirus 229E (PCR) Not Detected (NotDetected) SARS-CoV-2 (PCR) Not Detected (NotDetected) Coronavirus NL63 (PCR) Not Detected (NotDetected) Human Metapneumovir PCR Not Detected (NotDetected) Influenza Type A (PCR) Not Detected (NotDetected) Influenza Type B (PCR) Not Detected (NotDetected) M. pneumoniae (PCR) Not Detected (NotDetected) Parainfluenza 1 (PCR) Not Detected (NotDetected) Parainfluenza 2 (PCR) Not Detected (NotDetected) Parainfluenza 3 (PCR) Not Detected (NotDetected) Parainfluenza 4 (PCR) Not Detected (NotDetected) RSV (PCR) Not Detected (NotDetected) Entero/Rhino (PCR) Not Detected (NotDetected) Blood Type Antibody Screen 01/28/24 Range/Units 00:42 WBC (4.8-10.8) K/ul RBC (4.70-6.10) M/uL Hgb (14.0-18.0) g/dl POC Hgb (14.0-18.0) g/dl Hct (42.0-52.0) % POC Hct (42-52) % MCV (80.0-100.0) fL MCH (25.0-34.0) pg MCHC (32.0-36.0) g/dL RDW Std Deviation (36.4-46.3) fL RDW Coeff of Nba (11.5-14.5) % Plt Count (130-400) K/uL MPV (9.4-12.4) fL Immature Gran % (Auto) % Neut % (Auto) % Lymph % (Auto) % [place] % (Auto) % Eos % (Auto) % Baso % (Auto) % Neut # (Auto) (1.40-6.50) K/uL Lymph # (Auto) (1.20-3.40) K/uL [place] # (Auto) (0.11-0.59) K/uL Eos # (Auto) (0.00-0.50) K/uL Baso # (Auto) (0.00-0.20) K/uL Immature Gran # (Auto) (0.01-0.20) K/uL PT (9.0-12.0) Seconds INR (0.9-1.1) APTT (21-31) Seconds PTT Ratio VBG pH 7.38 (7.36-7.41) VBG pCO2 40 (38-50) mmHg VBG pO2 49 mmHg VBG HCO3 24 mmol/L VBG O2 Saturation 80.3 % VBG Base Excess -1.3 mEq/L POC Sodium (135-144) mmol/L Sodium (136-145) mmol/L POC Potassium (3.3-5.0) mmol/L Potassium (3.5-5.1) mmol/L POC Chloride (101-112) mmol/L Chloride (98-107) mmol/L Carbon Dioxide (21-32) mmol/L POC Total CO2 (24-31) mmol/L Anion Gap (3-11) POC Anion Gap (16-25) mmol/L POC BUN (7-18) mg/dl BUN (6-23) mg/dl Creatinine (0.6-1.4) mg/dl POC Creatinine (0.6-1.3) mg/dl Est Cr Clr Drug Dosing Est GFR ( Amer) ml/min Est GFR (Non-Af Amer) ml/min BUN/Creatinine Ratio (10-20) Glucose (70-99(Fasting)) mg/dl POC Glucose (70-99) mg/dl POC Glucose (other) (70-99) mg/dl Lactate (0.4-2.0) mmol/L Calcium (8.6-10.3) mg/dl POC Ioniz Calcium Conrado (1.12-1.32) mmol/l Magnesium (1.7-2.4) mg/dl Total Bilirubin (0.2-1.0) mg/dl AST (13-39) U/L ALT (7-52) U/L Alkaline Phosphatase (34-104) U/L Troponin I High Sens (0-20) pg/ml Total Protein (6.0-8.3) gm/dl Albumin (3.4-5.0) gm/dl Globulin (2.5-4.0) gm/dl Albumin/Globulin Ratio (0.9-2) Urine Color Urine Appearance (Clear) Urine pH (4.5-7.5) Ur Specific [place] (1.000-1.030) Urine Protein (Negative) Urine Glucose (UA) (Negative) Urine Ketones (Negative) Urine Blood (Negative) Urine Nitrite (Negative) Urine Bilirubin (Negative) Urine Urobilinogen (Negative) Ur Leukocyte Esterase (Negative) Urine Opiates Screen (Neg) Ur Methadone, Qual (Neg) Urine Fentanyl Screen (Neg) Urine Barbiturates (Neg) Ur Phencyclidine (PCP) (Neg) U Amphetamin/Meth Scrn (Neg) MDMA (Ecstasy) Screen (Neg) U Benzodiazepines Scrn (Neg) Ur Cocaine Metabolite (Neg) U Marijuana (THC) Screen (Neg) Adenovirus (PCR) (NotDetected) B. pertussis DNA (PCR) (NotDetected) B.parapertussis DNA PCR (NotDetected) C. pneumoniae DNA (PCR) (NotDetected) Coronavirus OC43 (PCR) (NotDetected) Coronavirus HKU1 (PCR) (NotDetected) Coronavirus 229E (PCR) (NotDetected) SARS-CoV-2 (PCR) (NotDetected) Coronavirus NL63 (PCR) (NotDetected) Human Metapneumovir PCR (NotDetected) Influenza Type A (PCR) (NotDetected) Influenza Type B (PCR) (NotDetected) M. pneumoniae (PCR) (NotDetected) Parainfluenza 1 (PCR) (NotDetected) Parainfluenza 2 (PCR) (NotDetected) Parainfluenza 3 (PCR) (NotDetected) Parainfluenza 4 (PCR) (NotDetected) RSV (PCR) (NotDetected) Entero/Rhino (PCR) (NotDetected) Blood Type Antibody Screen Administered Medications Discontinued Medications Ioversol (Optiray 320 125ml) 125 ml IV ONCE ONE Stop: 01/28/24 00:13 Last Admin: 01/28/24 00:13 Dose: 118 ml Documented By: [facility] Imaging Data Radiologist's Impression: Head CT 01/27/24 23:41 CR Exam(s): CT HEAD Without Contrast EXAM: CT Head Without Intravenous Contrast CLINICAL HISTORY: Neuro deficit, acute stroke suspected. TECHNIQUE: Axial computed tomography images of the head/brain without intravenous contrast. CTDI is 93 mGy and DLP is 874 mGy-cm. Automated exposure control was utilized for the study. A dose lowering technique was utilized adhering to the principles of ALARA. COMPARISON: No relevant prior studies available. FINDINGS: Brain: No intracranial hemorrhage, mass-effect or midline shift. No abnormal extra axial fluid. No evidence of acute infarct. Mild periventricular white matter hypodensities are most consistent with chronic microangiopathy. Ventricles: Unremarkable. No ventriculomegaly. Bones/joints: Unremarkable. No acute fracture. Soft tissues: Unremarkable. Sinuses: Unremarkable as visualized. No acute sinusitis. Mastoid air cells: Unremarkable as visualized. No mastoid effusion. IMPRESSION: No acute intracranial finding. Communications: Call Doctor Stroke Electronically signed by: Marine Wall MD 01/28/24 00:27 AM Head CTA 01/27/24 23:41 CR Exam(s): CTA HEAD With Contrast IV Amt: 117 ML OPTIRAY 320 EXAM: CT Angiography Head With Intravenous Contrast CLINICAL HISTORY: Stroke. TECHNIQUE: Axial computed tomographic angiography images of the head with intravenous contrast. 3D and MIPS images were created and reviewed. CTDI is 93 mGy and DLP is 874 mGy-cm. Automated exposure control was utilized for the study. A dose lowering technique was utilized adhering to the principles of ALARA. MIP reconstructed images were created and reviewed. CONTRAST: Patient received 117 ML OPTIRAY 320 of IV contrast COMPARISON: No relevant prior studies available. FINDINGS: Right internal carotid artery: No acute findings. Intracranial segment is patent with no significant stenosis. No aneurysm. Right anterior cerebral artery: Unremarkable. No occlusion or significant stenosis. No aneurysm. Right middle cerebral artery: Unremarkable. No occlusion or significant stenosis. No aneurysm. Right posterior cerebral artery: Unremarkable. No occlusion or significant stenosis. No aneurysm. Right vertebral artery: Unremarkable as visualized. Left internal carotid artery: No acute findings. Intracranial segment is patent with no significant stenosis. No aneurysm. Left anterior cerebral artery: Unremarkable. No occlusion or significant stenosis. No aneurysm. Left middle cerebral artery: Unremarkable. No occlusion or significant stenosis. No aneurysm. Left posterior cerebral artery: Unremarkable. No occlusion or significant stenosis. No aneurysm. Left vertebral artery: Unremarkable as visualized. Basilar artery: Unremarkable. No occlusion or significant stenosis. No aneurysm. IMPRESSION: No acute finding of the arteries of the head. Communications: Call Doctor Stroke Electronically signed by: Marine Wall MD 01/28/24 00:31 AM Neck CTA 01/27/24 23:41 CR Exam(s): CTA NECK With Contrast IV Amt: 117 ML OPTIRAY 320 EXAM: CT Angiography Neck With Intravenous Contrast CLINICAL HISTORY: Stroke. TECHNIQUE: Routine carotid CT angiography protocol was performed with intravenous contrast. NASCET criteria using the distal ICAs for comparison were used for evaluation of stenoses. MIPS images were created and reviewed. CTDI is 93 mGy and DLP is 874 mGy-cm. Automated exposure control was utilized for the study. A dose lowering technique was utilized adhering to the principles of ALARA. MIP reconstructed images were created and reviewed. CONTRAST: Patient received 117 ML OPTIRAY 320 of IV contrast COMPARISON: CTA neck 10/09/2022 FINDINGS: VASCULATURE: Right common carotid artery: Unremarkable. No occlusion or significant stenosis. No dissection. Right internal carotid artery: Unremarkable. Extracranial segment is patent with no occlusion or significant stenosis. No dissection. Right external carotid artery: Unremarkable. No occlusion. Right vertebral artery: Unremarkable. No occlusion or significant stenosis. No dissection. Left common carotid artery: Unremarkable. No occlusion or significant stenosis. No dissection. Left internal carotid artery: Unremarkable. Extracranial segment is patent with no occlusion or significant stenosis. No dissection. Left external carotid artery: Unremarkable. No occlusion. Left vertebral artery: Unremarkable. No occlusion or significant stenosis. No dissection. NECK: Bones/joints: There are degenerative changes of the spine. No acute fracture. Soft tissues: Unremarkable. Lung apices: Clear. CAROTID STENOSIS REFERENCE USING NASCET CRITERIA: % ICA stenosis = (1 - narrowest ICA diameter/diameter of distal cervical ICA) x 100. Mild - <50% stenosis. Moderate - 50-69% stenosis. Severe - 70-94% stenosis. Near occlusion - 95-99% stenosis. Occluded - 100% stenosis. IMPRESSION: No acute finding of the arteries of the neck. Communications: Call Doctor Stroke Electronically signed by: Marine Wall MD 01/28/24 00:32 AM Discharge Plan Visit Data Chief Complaint: Altered Mental Status Stated Complaint: ALTERED MENTAL STATUS, CONFUSED, WEAKNESS ED Provider: Carley Roberto Discharge Problem: Acute confusion, Stroke-like symptoms, Acute left-sided weakness Forms Stand Alone Forms: [facility] Prescriptions Prescriptions: No Action furosemide 40 mg tablet 40 mg PO AMHS metformin 500 mg tablet 500 mg PO BID albuterol sulfate 90 mcg/actuation HFA aerosol inhaler 2 puff INHALATION BID PRN (Reason: Shortness Of Breath Or Wheezing) lisinopril 2.5 mg tablet 2.5 mg PO HS Eliquis 5 mg tablet 5 mg PO AMHS Jardiance 25 mg tablet 25 mg PO QAM metolazone 2.5 mg tablet 2.5 mg PO DIRECTED PRN (Reason: NEEDED PER PT) atorvastatin 40 mg tablet 40 mg PO DAILY potassium chloride 10 mEq capsule, extended release 10 meq PO BID fenofibrate nanocrystallized [Tricor] 48 mg Tablet 48 mg PO QAM gabapentin 100 mg capsule 100 mg PO TID cholecalciferol (vitamin D3) 1,250 mcg (50,000 unit) capsule 50,000 unit PO WK duloxetine 30 mg capsule,delayed release(DR/EC) 30 mg PO QAM ropinirole 4 mg Tablet 4 mg PO HS Rx Instructions: administer 1-3 hours before bedtime per family takes 4 mg at bedtime Referrals Referrals: Massiel Hansen PA-C [Primary Care Provider] -
[2024-01-28 00:05] LABS: iSTAT Creatinine 1.4 mg/dl (0.6-1.3); iSTAT Hemoglobin 16.3 g/dl (14.0-18.0); iSTAT Ionized Calcium 1.18 mmol/l (1.12-1.32); iSTAT Potassium 3.9 mmol/L (3.3-5.0)
[2024-01-28 00:12] LABS: Basophils # (auto) 0.08 K/uL (0.00-0.20); Eosinophils # (auto) 0.39 K/uL (0.00-0.50); Eosinophils % (auto) 4.9 %; Hematocrit (blood only) 45.6 % (42.0-52.0); Hemoglobin 15.3 g/dl (14.0-18.0); Immature Granulocytes # (auto) 0.12 K/uL (0.01-0.20); Immature Granulocytes % (auto) 1.5 %; Lymphocytes # (auto) 1.64 K/uL (1.20-3.40); Lymphocytes % (auto) 20.6 %; Mean Corpuscular Hemoglobin 31.8 pg (25.0-34.0); Mean Corpuscular Hgb Conc 33.6 g/dL (32.0-36.0); Mean Corpuscular Volume 94.8 fL (80.0-100.0); Mean Platelet Volume 10.6 fL (9.4-12.4); Monocytes # (auto) 0.71 K/uL (0.11-0.59); Monocytes % (auto) 8.9 %; Neutrophils # (auto) 5.04 K/uL (1.40-6.50); Neutrophils % (auto) 63.1 %; Platelet Count 255 K/uL (130-400); RDW Coefficient of Variation 16.9 % (11.5-14.5); RDW Standard Deviation 58.8 fL (36.4-46.3); Red Blood Count 4.81 M/uL (4.70-6.10); White Blood Count 7.98 K/ul (4.8-10.8)
[2024-01-28] MEDS: OPTIRAY 320 125ml IV ONE (00:13)
[2024-01-28 00:22] LABS: Alanine Aminotransferase 79 U/L (7-52); Albumin Globulin Ratio 1.3 (0.9-2); Albumin Level 4.2 gm/dl (3.4-5.0); Alkaline Phosphatase 87 U/L (34-104); Anion Gap 9 (3-11); Aspartate Aminotransferase 39 U/L (13-39); BUN Creatinine Ratio 15.6 (10-20); Bilirubin,Total 0.3 mg/dl (0.2-1.0); Blood Urea Nitrogen 20 mg/dl (6-23); Calcium 9.1 mg/dl (8.6-10.3); Carbon Dioxide 25 mmol/L (21-32); Chloride 102 mmol/L (98-107); Est GFR (African American) 76.2 ml/min; Est GFR (Non-African American) 65.7 ml/min; Globulin 3.3 gm/dl (2.5-4.0); Glucose 163 mg/dl (70-99(Fasting)); Magnesium 1.9 mg/dl (1.7-2.4); Potassium 3.9 mmol/L (3.5-5.1); Sodium 136 mmol/L (136-145); Total Protein 7.5 gm/dl (6.0-8.3)
--- NOTE | 2024-01-28 00:28 | CT Scan Report ---
Exam(s): CT HEAD Without Contrast EXAM: CT Head Without Intravenous Contrast CLINICAL HISTORY: Neuro deficit, acute stroke suspected. TECHNIQUE: Axial computed tomography images of the head/brain without intravenous contrast. CTDI is 93 mGy and DLP is 874 mGy-cm. Automated exposure control was utilized for the study. A dose lowering technique was utilized adhering to the principles of ALARA. COMPARISON: No relevant prior studies available. FINDINGS: Brain: No intracranial hemorrhage, mass-effect or midline shift. No abnormal extra axial fluid. No evidence of acute infarct. Mild periventricular white matter hypodensities are most consistent with chronic microangiopathy. Ventricles: Unremarkable. No ventriculomegaly. Bones/joints: Unremarkable. No acute fracture. Soft tissues: Unremarkable. Sinuses: Unremarkable as visualized. No acute sinusitis. Mastoid air cells: Unremarkable as visualized. No mastoid effusion. IMPRESSION: No acute intracranial finding. Communications: Call Doctor Stroke Electronically signed by: Marine Wall MD 01/28/24 00:27 AM
[2024-01-28 00:29] LABS: Troponin I High Sensitivity 5.6 pg/ml (0-20)
--- NOTE | 2024-01-28 00:32 | CT Scan Report ---
Exam(s): CTA HEAD With Contrast IV Amt: 117 ML OPTIRAY 320 EXAM: CT Angiography Head With Intravenous Contrast CLINICAL HISTORY: Stroke. TECHNIQUE: Axial computed tomographic angiography images of the head with intravenous contrast. 3D and MIPS images were created and reviewed. CTDI is 93 mGy and DLP is 874 mGy-cm. Automated exposure control was utilized for the study. A dose lowering technique was utilized adhering to the principles of ALARA. MIP reconstructed images were created and reviewed. CONTRAST: Patient received 117 ML OPTIRAY 320 of IV contrast COMPARISON: No relevant prior studies available. FINDINGS: Right internal carotid artery: No acute findings. Intracranial segment is patent with no significant stenosis. No aneurysm. Right anterior cerebral artery: Unremarkable. No occlusion or significant stenosis. No aneurysm. Right middle cerebral artery: Unremarkable. No occlusion or significant stenosis. No aneurysm. Right posterior cerebral artery: Unremarkable. No occlusion or significant stenosis. No aneurysm. Right vertebral artery: Unremarkable as visualized. Left internal carotid artery: No acute findings. Intracranial segment is patent with no significant stenosis. No aneurysm. Left anterior cerebral artery: Unremarkable. No occlusion or significant stenosis. No aneurysm. Left middle cerebral artery: Unremarkable. No occlusion or significant stenosis. No aneurysm. Left posterior cerebral artery: Unremarkable. No occlusion or significant stenosis. No aneurysm. Left vertebral artery: Unremarkable as visualized. Basilar artery: Unremarkable. No occlusion or significant stenosis. No aneurysm. IMPRESSION: No acute finding of the arteries of the head. Communications: Call Doctor Stroke Electronically signed by: Mairne Wall MD 01/28/24 00:31 AM
--- NOTE | 2024-01-28 00:33 | CT Scan Report ---
Exam(s): CTA NECK With Contrast IV Amt: 117 ML OPTIRAY 320 EXAM: CT Angiography Neck With Intravenous Contrast CLINICAL HISTORY: Stroke. TECHNIQUE: Routine carotid CT angiography protocol was performed with intravenous contrast. NASCET criteria using the distal ICAs for comparison were used for evaluation of stenoses. MIPS images were created and reviewed. CTDI is 93 mGy and DLP is 874 mGy-cm. Automated exposure control was utilized for the study. A dose lowering technique was utilized adhering to the principles of ALARA. MIP reconstructed images were created and reviewed. CONTRAST: Patient received 117 ML OPTIRAY 320 of IV contrast COMPARISON: CTA neck 10/09/2022 FINDINGS: VASCULATURE: Right common carotid artery: Unremarkable. No occlusion or significant stenosis. No dissection. Right internal carotid artery: Unremarkable. Extracranial segment is patent with no occlusion or significant stenosis. No dissection. Right external carotid artery: Unremarkable. No occlusion. Right vertebral artery: Unremarkable. No occlusion or significant stenosis. No dissection. Left common carotid artery: Unremarkable. No occlusion or significant stenosis. No dissection. Left internal carotid artery: Unremarkable. Extracranial segment is patent with no occlusion or significant stenosis. No dissection. Left external carotid artery: Unremarkable. No occlusion. Left vertebral artery: Unremarkable. No occlusion or significant stenosis. No dissection. NECK: Bones/joints: There are degenerative changes of the spine. No acute fracture. Soft tissues: Unremarkable. Lung apices: Clear. CAROTID STENOSIS REFERENCE USING NASCET CRITERIA: % ICA stenosis = (1 - narrowest ICA diameter/diameter of distal cervical ICA) x 100. Mild - <50% stenosis. Moderate - 50-69% stenosis. Severe - 70-94% stenosis. Near occlusion - 95-99% stenosis. Occluded - 100% stenosis. IMPRESSION: No acute finding of the arteries of the neck. Communications: Call Doctor Stroke Electronically signed by: Marine Wall MD 01/28/24 00:32 AM
[2024-01-28 00:40] LABS: Appearance Urine Clear (Clear); Bilirubin Urine Negative (Negative); Blood Urine Negative (Negative); Color Urine Yellow; Glucose Urine UA 3+ (Negative); Ketones Urine Negative (Negative); Leukocyte Esterase Urine Negative (Negative); Nitrite Urine Negative (Negative); Protein Urine Negative (Negative); Specific Gravity Urine 1.045 (1.000-1.030); Urobilinogen Urine Negative (Negative); pH Urine 6.5 (4.5-7.5)
[2024-01-28 00:50] LABS: INR 0.9 (0.9-1.1); Partial Thromboplastin Time 27 Seconds (21-31)
[2024-01-28 01:04] LABS: Base Excess VBG -1.3 mEq/L; HCO3 VBG 24 mmol/L; Oxygen Saturation VBG 80.3 %; PCO2 VBG 40 mmHg (38-50); PO2 VBG 49 mmHg; pH VBG 7.38 (7.36-7.41)
[2024-01-28 01:11] LABS: Amphetamines+Metham, Urine Neg (Neg); Barbiturates, Urine Neg (Neg); Benzodiazepine, Urine Neg (Neg); Cocaine, Urine Neg (Neg); Fentanyl, Urine Neg (Neg); MDMA (Ecstacy), Urine Neg (Neg); Marijuana, Urine Neg (Neg); Methadone, Urine Neg (Neg); Opiate, Urine Neg (Neg); Phencyclidine, Urine Neg (Neg)
[2024-01-28 01:18] LABS: Adenovirus PCR Not Detected (NotDetected); Bordetella parapertussis PCR Not Detected (NotDetected); Bordetella pertussis PCR Not Detected (NotDetected); Chlamydia pneumoniae PCR Not Detected (NotDetected); Coronavirus 229E PCR Not Detected (NotDetected); Coronavirus CoV-2 (COVID19)PCR Not Detected (NotDetected); Coronavirus HKU1 PCR Not Detected (NotDetected); Coronavirus NL63 PCR Not Detected (NotDetected); Coronavirus OC43PCR Not Detected (NotDetected); Human Metapneumovirus PCR Not Detected (NotDetected); Influenza A PCR Not Detected (NotDetected); Influenza B PCR Not Detected (NotDetected); Mycoplasma pneumoniae PCR Not Detected (NotDetected); Parainfluenza Virus 1 PCR Not Detected (NotDetected); Parainfluenza Virus 2 PCR Not Detected (NotDetected); Parainfluenza Virus 3 PCR Not Detected (NotDetected); Parainfluenza Virus 4 PCR Not Detected (NotDetected); Respiratory Syncytial VirusPCR Not Detected (NotDetected); Rhinovirus/Enterovirus PCR Not Detected (NotDetected)
[2024-01-28] MEDS: NSS + 20MEQ KCL 20 MEQ/1,000 ML BAG IV ONE (02:12)
--- NOTE | 2024-01-28 02:13 | Magnetic Resonance Report ---
Exam(s): MRI HEAD Without Contrast EXAM: MR Head Without Intravenous Contrast CLINICAL HISTORY: Confusion and left-sided weakness. TECHNIQUE: Magnetic resonance images of the head/brain without intravenous contrast in multiple planes. COMPARISON: CT head 01/27/2024 FINDINGS: Brain: Unremarkable. No mass. No hemorrhage. No acute infarct. Ventricles: Unremarkable. No ventriculomegaly. Bones/joints: Unremarkable. No acute fracture. Sinuses: Unremarkable as visualized. No acute sinusitis. Mastoid air cells: Unremarkable as visualized. No mastoid effusion. Orbits: Unremarkable as visualized. IMPRESSION: No acute finding of the brain. Electronically signed by: Marine Wall MD 01/28/24 02:12 AM
[2024-01-28] MEDS: MAGNESIUM SULFATE / D5W 1 GM/100 ML BAG IV ONE (02:15)
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
[2024-01-28] MEDS ORDERED: PHARMACIST DISCHARGE MED REC CONSULT PRN (02:48)
[2024-01-28] MEDS ORDERED: ACETAMINOPHEN 500 MG TAB PO PRN (02:51)
[2024-01-28] MEDS ORDERED: PROMETHAZINE HCL 12.5 MG in SODIUM CHLORIDE 0.9% 50 ML IV PRN (02:51)
[2024-01-28] MEDS: ASPIRIN 81 MG CHEW PO ONE (02:59)
[2024-01-28] MEDS: ACETAMINOPHEN 1,000 MG/100 ML VIAL IV STA (03:01)
[2024-01-28 03:37] LABS: Basophils # (auto) 0.08 K/uL (0.00-0.20); Basophils % (auto) 0.9 %; Eosinophils # (auto) 0.41 K/uL (0.00-0.50); Eosinophils % (auto) 4.8 %; Hematocrit (blood only) 42.2 % (42.0-52.0); Immature Granulocytes # (auto) 0.13 K/uL (0.01-0.20); Immature Granulocytes % (auto) 1.5 %; Lymphocytes # (auto) 1.67 K/uL (1.20-3.40); Lymphocytes % (auto) 19.6 %; Mean Corpuscular Hemoglobin 31.3 pg (25.0-34.0); Mean Corpuscular Hgb Conc 33.2 g/dL (32.0-36.0); Mean Corpuscular Volume 94.2 fL (80.0-100.0); Mean Platelet Volume 10.8 fL (9.4-12.4); Monocytes # (auto) 0.99 K/uL (0.11-0.59); Monocytes % (auto) 11.6 %; Neutrophils # (auto) 5.22 K/uL (1.40-6.50); Neutrophils % (auto) 61.6 %; Platelet Count 252 K/uL (130-400); RDW Coefficient of Variation 16.8 % (11.5-14.5); RDW Standard Deviation 58.2 fL (36.4-46.3); Red Blood Count 4.48 M/uL (4.70-6.10)
[2024-01-28 03:54] LABS: BUN Creatinine Ratio 18.6 (10-20); Calcium 8.7 mg/dl (8.6-10.3); Chol HDL Ratio 3.5 (0-5); Creatinine Clr Calc Pharmacy 125.7 ml/min; Est GFR (African American) 88.6 ml/min; Est GFR (Non-African American) 76.4 ml/min; Potassium 3.9 mmol/L (3.5-5.1)
[2024-01-28] MEDS ORDERED: GLUCAGON FOR INJ 1 MG VIAL SQ PRN (04:44)
[2024-01-28] MEDS ORDERED: CARBOHYDRATES FOR HYPOGLYCEMIA PO PRN (04:44)
[2024-01-28] MEDS ORDERED: GLUCOSE 10 TAB/TUBE PO PRN (04:44)
[2024-01-28] MEDS ORDERED: DEXTROSE 50% 50 ML SYRINGE IV PRN (04:44)
[2024-01-28] MEDS ORDERED: GLUCOSE 40% GEL 15 GM TUBE PO PRN (04:44)
--- NOTE | 2024-01-28 09:05 | Neurology Consultation ---
Date of Consultation January 28, 2024 Assessment & Plan (1) Acute confusion: Acute confusion in a 48M with a PMH of CVST on Eliquis and prior venous stroke. Currently his exam is at his baseline. CT, CTA and MRI showed no evidence of abnormality. The cause of the confusion is unclear, he has been confused in the setting of systemic disease in the past which could be the case this time. I would recommend obtaining an EEG for completion. Plan -- recommend EEG either inpatient or outpatient -- no further neurologic work up in patient Telehealth Consultation Telehealth Information Telehealth Information: I performed this visit using a real-time telehealth connection between my location and the patients location ([facility]). After conne cting through interactive tele-video, patient was identified by name and date of and/or wristband check.Patient (or authorized healthcare marketing sales representative) was informed that this was a telemedicine visit and it was being conducted confidentially over secure lines. My office door was closed and no one else was present in the room with me.Patient (or authorized healthcare marketing sales representative) provided consent to proceed with the visit, expressed an understanding of privacy and security of the telemedicine visit, and gave permission to have a hospital marketing sales representative in the room in order to assist with the visit and to conduct portions of the visit, as needed. I informed the patient (or authorized healthcare marketing sales representative) that I reviewed their record and presented the opportunity for them to ask any questions regarding the visit today. The patient agreed to participate. History of Present Illness Reason for Consultation: encephalopathy Attending Physician: Shanique Lacey MD History of Present Illness This is a 47-year-old male with PMHx of morbid obesity with a BMI of 57.7, Factor V Leiden on Eliquis, history of cerebral venous thrombosis ( bilateral thalamic and basal ganglia infarcts) in January 2017, CHF, obstructive sleep apnea with CPAP, restless leg syndrome, who presents to the hospital last night with AMS. He can provide no history as he doesn't remember the event, but does state that he was normal when he went to bed at 830pm and his woke him at at 1030 and he was confused so she brought him to the ED. The telestroke assessment only showed left sided drift but no aphasia. He has been admitted several times for confusion in the setting of COVID and CHF exacerbation. He denies fevers, chills, headache, nausea, vomiting, weakness, numbness, chest pain and SOB at this time. Allergies Allergy/AdvReac Type Severity Reaction Status Date / Time No Known Allergies Allergy Verified 10/12/23 21:14 Home Medications Medication Instructions Recorded Confirmed Type albuterol sulfate 90 mcg/actuation 2 puff inhalation BID PRN 02/25/23 01/28/24 History aerosol inhaler Shortness Of Breath Or Wheezing apixaban 5 mg tablet (Eliquis) 5 mg PO AMHS 02/25/23 01/28/24 History furosemide 40 mg tablet 40 mg PO AMHS 02/25/23 01/28/24 History lisinopril 2.5 mg tablet 2.5 mg PO HS 02/25/23 01/28/24 History empagliflozin 25 mg tablet 25 mg PO QAM 03/10/23 01/28/24 History (Jardiance) atorvastatin 40 mg tablet 40 mg PO DAILY 08/19/23 01/28/24 History fenofibrate nanocrystallized 48 mg 48 mg PO QAM 08/19/23 01/28/24 History tablet (Tricor) metolazone 2.5 mg tablet 2.5 mg PO QAM PRN weight gain 08/19/23 01/28/24 History protocol potassium chloride 10 mEq 10 meq PO BID 08/19/23 01/28/24 History capsule,extended release cholecalciferol (vitamin D3) 50 50 mcg PO QAM 01/28/24 01/28/24 History mcg (2,000 unit) tablet (Vitamin D3) duloxetine 30 mg capsule,delayed 30 mg PO QAM 01/28/24 01/28/24 History release metformin 500 mg tablet,extended 1,000 mg PO AMHS 01/28/24 01/28/24 History release 24 hr Patient History Medical History Depression DM type 2 (diabetes mellitus, type 2) Diastolic CHF Morbid obesity with BMI of 50.0-59.9, adult Osteoarthritis QUENTIN on CPAP Hx of cerebral thrombosis Factor V Leiden Palpitation Chest pain at rest Surgical History Hx of eye surgery Left eyelid surgery Family History Other Asthma COPD (chronic obstructive pulmonary disease) Heart disease Hypertension Social History Smoking Status: Former smoker Tobacco Type: Cigarettes Age Started Using Tobacco: 17; Age Quit Using Tobacco: 25; packs per day: 1; Second Hand Exposure: No; Do You Dip or Chew Tobacco: No; Hx Alcohol Use: No Hx Substance Use: No Preferred Language: Portuguese Communication Ability: Effective Case Managers Required: No Beliefs That Will Affect Care: None Current Living Situation: Spouse Feels Safe at Home: Yes Assistive Devices: None Physical Exam NEUROLOGIC EXAMINATION: Mental Status:alert, oriented to time, place, person, normal recent memory, normal remote memory, normal attention span, normal concentration, normal language, and normal fund of knowledge Cranial Nerves: CN 2 - no visual defect on confrontation and pupils round, equal, reactive to light CN 3, 4, 6 - extra-ocular movements intact and no nystagmus CN 5 - facial sensation intact CN 7 - no facial asymmetry CN 8 - intact hearing CN 9, 10 - palate symmetric, normal gag CN 11 - good shoulder shrug CN 12 - tongue midline MOTOR: Strength was at least antigravity throughout, Pronator drift was absent, and There were no abnormal movements SENSATION: intact and symmetric GAIT: deferred COORDINATION: no ataxia with finger to nose testing and heel to torres testing REFLEXES: cannot assess over telemedicine Results & Data Vital Signs (Past 12 Hours) Vital Signs Temp Pulse Pulse Resp BP BP BP 01/28/24 07:10 36.3 C L 88 16 141/75 H 01/28/24 04:40 01/28/24 04:40 36.3 C L 79 19 122/84 01/28/24 04:40 01/28/24 04:35 75 01/28/24 03:30 82 18 139/79 01/28/24 03:00 79 18 146/84 H 01/28/24 02:04 81 20 154/92 H 01/28/24 00:40 36.9 C 89 18 163/95 H 01/28/24 00:30 01/28/24 00:15 87 01/27/24 23:45 36.9 C 88 16 167/97 H Pulse Ox Pulse Ox O2 Del Method O2 Del Method O2 Flow Rate 01/28/24 07:10 92 Room Air 01/28/24 04:40 Room Air 01/28/24 04:40 Room Air 01/28/24 04:40 96 Room Air 01/28/24 04:35 01/28/24 03:30 97 01/28/24 03:00 97 01/28/24 02:04 96 Room Air 01/28/24 00:40 96 Room Air 01/28/24 00:30 95 Room Air 0 01/28/24 00:15 01/27/24 23:45 96 Room Air Laboratory Results Abnormal Lab Results 01/27/24 01/27/24 01/27/24 23:47 23:51 23:52 WBC 7.98 RBC 4.81 Hgb 15.3 POC Hgb 16.3 Hct 45.6 POC Hct 48 MCV 94.8 MCH 31.8 MCHC 33.6 RDW Std Deviation 58.8 H RDW Coeff of Nba 16.9 H Plt Count 255 MPV 10.6 Immature Gran % (Auto) 1.5 Neut % (Auto) 63.1 Lymph % (Auto) 20.6 [place] % (Auto) 8.9 Eos % (Auto) 4.9 Baso % (Auto) 1.0 Neut # (Auto) 5.04 Lymph # (Auto) 1.64 [place] # (Auto) 0.71 H Eos # (Auto) 0.39 Baso # (Auto) 0.08 Immature Gran # (Auto) 0.12 PT 10.0 INR 0.9 APTT 27 PTT Ratio 1.0 VBG pH VBG pCO2 VBG pO2 VBG HCO3 VBG O2 Saturation VBG Base Excess POC Sodium 139 Sodium 136 POC Potassium 3.9 Potassium 3.9 POC Chloride 102 Chloride 102 Carbon Dioxide 25 POC Total CO2 22 L Anion Gap 9 POC Anion Gap 20.0 POC BUN 19 H BUN 20 Creatinine 1.28 POC Creatinine 1.4 H Est Cr Clr Drug Dosing Not Reportable Est GFR ( Amer) 76.2 Est GFR (Non-Af Amer) 65.7 BUN/Creatinine Ratio 15.6 Glucose 163 H POC Glucose 150 H POC Glucose (other) 164 H Lactate Calcium 9.1 POC Ioniz Calcium Conrado 1.18 Magnesium 1.9 Total Bilirubin 0.3 AST 39 ALT 79 H Alkaline Phosphatase 87 Ammonia Troponin I High Sens 5.6 B-Natriuretic Peptide 8 Total Protein 7.5 Albumin 4.2 Globulin 3.3 Albumin/Globulin Ratio 1.3 Triglycerides Cholesterol LDL Cholesterol, Calc VLDL Cholesterol, Calc HDL Cholesterol Cholesterol/HDL Ratio Urine Color Urine Appearance Urine pH Ur Specific [place] Urine Protein Urine Glucose (UA) Urine Ketones Urine Blood Urine Nitrite Urine Bilirubin Urine Urobilinogen Ur Leukocyte Esterase Urine Opiates Screen Ur Methadone, Qual Urine Fentanyl Screen Urine Barbiturates Ur Phencyclidine (PCP) U Amphetamin/Meth Scrn MDMA (Ecstasy) Screen U Benzodiazepines Scrn Ur Cocaine Metabolite U Marijuana (THC) Screen Ethyl Alcohol mg/dL Adenovirus (PCR) B. pertussis DNA (PCR) B.parapertussis DNA PCR Lyme Disease Screen C. pneumoniae DNA (PCR) Coronavirus OC43 (PCR) Coronavirus HKU1 (PCR) Coronavirus 229E (PCR) SARS-CoV-2 (PCR) Coronavirus NL63 (PCR) Human Metapneumovir PCR Influenza Type A (PCR) Influenza Type B (PCR) M. pneumoniae (PCR) Parainfluenza 1 (PCR) Parainfluenza 2 (PCR) Parainfluenza 3 (PCR) Parainfluenza 4 (PCR) RSV (PCR) Entero/Rhino (PCR) Blood Type A Positive Antibody Screen NEGATIVE 01/28/24 01/28/24 01/28/24 00:10 00:20 00:22 WBC RBC Hgb POC Hgb Hct POC Hct MCV MCH MCHC RDW Std Deviation RDW Coeff of Nba Plt Count MPV Immature Gran % (Auto) Neut % (Auto) Lymph % (Auto) [place] % (Auto) Eos % (Auto) Baso % (Auto) Neut # (Auto) Lymph # (Auto) [place] # (Auto) Eos # (Auto) Baso # (Auto) Immature Gran # (Auto) PT INR APTT PTT Ratio VBG pH VBG pCO2 VBG pO2 VBG HCO3 VBG O2 Saturation VBG Base Excess POC Sodium Sodium POC Potassium Potassium POC Chloride Chloride Carbon Dioxide POC Total CO2 Anion Gap POC Anion Gap POC BUN BUN Creatinine POC Creatinine Est Cr Clr Drug Dosing Est GFR ( Amer) Est GFR (Non-Af Amer) BUN/Creatinine Ratio Glucose POC Glucose POC Glucose (other) Lactate 2.0 Calcium POC Ioniz Calcium Conrado Magnesium Total Bilirubin AST ALT Alkaline Phosphatase Ammonia Troponin I High Sens B-Natriuretic Peptide Total Protein Albumin Globulin Albumin/Globulin Ratio Triglycerides Cholesterol LDL Cholesterol, Calc VLDL Cholesterol, Calc HDL Cholesterol Cholesterol/HDL Ratio Urine Color Yellow Urine Appearance Clear Urine pH 6.5 Ur Specific [place] 1.045 H Urine Protein Negative Urine Glucose (UA) 3+ H Urine Ketones Negative Urine Blood Negative Urine Nitrite Negative Urine Bilirubin Negative Urine Urobilinogen Negative Ur Leukocyte Esterase Negative Urine Opiates Screen Neg Ur Methadone, Qual Neg Urine Fentanyl Screen Neg Urine Barbiturates Neg Ur Phencyclidine (PCP) Neg U Amphetamin/Meth Scrn Neg MDMA (Ecstasy) Screen Neg U Benzodiazepines Scrn Neg Ur Cocaine Metabolite Neg U Marijuana (THC) Screen Neg Ethyl Alcohol mg/dL Adenovirus (PCR) Not Detected B. pertussis DNA (PCR) Not Detected B.parapertussis DNA PCR Not Detected Lyme Disease Screen C. pneumoniae DNA (PCR) Not Detected Coronavirus OC43 (PCR) Not Detected Coronavirus HKU1 (PCR) Not Detected Coronavirus 229E (PCR) Not Detected SARS-CoV-2 (PCR) Not Detected Coronavirus NL63 (PCR) Not Detected Human Metapneumovir PCR Not Detected Influenza Type A (PCR) Not Detected Influenza Type B (PCR) Not Detected M. pneumoniae (PCR) Not Detected Parainfluenza 1 (PCR) Not Detected Parainfluenza 2 (PCR) Not Detected Parainfluenza 3 (PCR) Not Detected Parainfluenza 4 (PCR) Not Detected RSV (PCR) Not Detected Entero/Rhino (PCR) Not Detected Blood Type Antibody Screen 01/28/24 01/28/24 01/28/24 00:42 00:46 01:02 WBC RBC Hgb POC Hgb Hct POC Hct MCV MCH MCHC RDW Std Deviation RDW Coeff of Nba Plt Count MPV Immature Gran % (Auto) Neut % (Auto) Lymph % (Auto) [place] % (Auto) Eos % (Auto) Baso % (Auto) Neut # (Auto) Lymph # (Auto) [place] # (Auto) Eos # (Auto) Baso # (Auto) Immature Gran # (Auto) PT INR APTT PTT Ratio VBG pH 7.38 VBG pCO2 40 VBG pO2 49 VBG HCO3 24 VBG O2 Saturation 80.3 VBG Base Excess -1.3 POC Sodium Sodium POC Potassium Potassium POC Chloride Chloride Carbon Dioxide POC Total CO2 Anion Gap POC Anion Gap POC BUN BUN Creatinine POC Creatinine Est Cr Clr Drug Dosing Est GFR ( Amer) Est GFR (Non-Af Amer) BUN/Creatinine Ratio Glucose POC Glucose POC Glucose (other) Lactate Calcium POC Ioniz Calcium Conrado Magnesium Total Bilirubin AST ALT Alkaline Phosphatase Ammonia Troponin I High Sens B-Natriuretic Peptide Total Protein Albumin Globulin Albumin/Globulin Ratio Triglycerides Cholesterol LDL Cholesterol, Calc VLDL Cholesterol, Calc HDL Cholesterol Cholesterol/HDL Ratio Urine Color Urine Appearance Urine pH Ur Specific [place] Urine Protein Urine Glucose (UA) Urine Ketones Urine Blood Urine Nitrite Urine Bilirubin Urine Urobilinogen Ur Leukocyte Esterase Urine Opiates Screen Ur Methadone, Qual Urine Fentanyl Screen Urine Barbiturates Ur Phencyclidine (PCP) U Amphetamin/Meth Scrn MDMA (Ecstasy) Screen U Benzodiazepines Scrn Ur Cocaine Metabolite U Marijuana (THC) Screen Ethyl Alcohol mg/dL < 10.0 Adenovirus (PCR) B. pertussis DNA (PCR) B.parapertussis DNA PCR Lyme Disease Screen Negative C. pneumoniae DNA (PCR) Coronavirus OC43 (PCR) Coronavirus HKU1 (PCR) Coronavirus 229E (PCR) SARS-CoV-2 (PCR) Coronavirus NL63 (PCR) Human Metapneumovir PCR Influenza Type A (PCR) Influenza Type B (PCR) M. pneumoniae (PCR) Parainfluenza 1 (PCR) Parainfluenza 2 (PCR) Parainfluenza 3 (PCR) Parainfluenza 4 (PCR) RSV (PCR) Entero/Rhino (PCR) Blood Type Antibody Screen 01/28/24 01/28/24 01/28/24 03:15 04:49 05:48 WBC 8.50 RBC 4.48 L Hgb 14.0 POC Hgb Hct 42.2 POC Hct MCV 94.2 MCH 31.3 MCHC 33.2 RDW Std Deviation 58.2 H RDW Coeff of Nba 16.8 H Plt Count 252 MPV 10.8 Immature Gran % (Auto) 1.5 Neut % (Auto) 61.6 Lymph % (Auto) 19.6 [place] % (Auto) 11.6 Eos % (Auto) 4.8 Baso % (Auto) 0.9 Neut # (Auto) 5.22 Lymph # (Auto) 1.67 [place] # (Auto) 0.99 H Eos # (Auto) 0.41 Baso # (Auto) 0.08 Immature Gran # (Auto) 0.13 PT INR APTT PTT Ratio VBG pH VBG pCO2 VBG pO2 VBG HCO3 VBG O2 Saturation VBG Base Excess POC Sodium Sodium 135 L POC Potassium Potassium 3.9 POC Chloride Chloride 103 Carbon Dioxide 24 POC Total CO2 Anion Gap 8 POC Anion Gap POC BUN BUN 21 Creatinine 1.13 POC Creatinine Est Cr Clr Drug Dosing 125.7 Est GFR ( Amer) 88.6 Est GFR (Non-Af Amer) 76.4 BUN/Creatinine Ratio 18.6 Glucose 108 H POC Glucose 112 H POC Glucose (other) Lactate Calcium 8.7 POC Ioniz Calcium Conrado Magnesium Total Bilirubin AST ALT Alkaline Phosphatase Ammonia TNP 25.0 Troponin I High Sens B-Natriuretic Peptide Total Protein Albumin Globulin Albumin/Globulin Ratio Triglycerides 287 H Cholesterol 90 LDL Cholesterol, Calc 7 VLDL Cholesterol, Calc 57 H HDL Cholesterol 26 Cholesterol/HDL Ratio 3.5 Urine Color Urine Appearance Urine pH Ur Specific [place] Urine Protein Urine Glucose (UA) Urine Ketones Urine Blood Urine Nitrite Urine Bilirubin Urine Urobilinogen Ur Leukocyte Esterase Urine Opiates Screen Ur Methadone, Qual Urine Fentanyl Screen Urine Barbiturates Ur Phencyclidine (PCP) U Amphetamin/Meth Scrn MDMA (Ecstasy) Screen U Benzodiazepines Scrn Ur Cocaine Metabolite U Marijuana (THC) Screen Ethyl Alcohol mg/dL Adenovirus (PCR) B. pertussis DNA (PCR) B.parapertussis DNA PCR Lyme Disease Screen C. pneumoniae DNA (PCR) Coronavirus OC43 (PCR) Coronavirus HKU1 (PCR) Coronavirus 229E (PCR) SARS-CoV-2 (PCR) Coronavirus NL63 (PCR) Human Metapneumovir PCR Influenza Type A (PCR) Influenza Type B (PCR) M. pneumoniae (PCR) Parainfluenza 1 (PCR) Parainfluenza 2 (PCR) Parainfluenza 3 (PCR) Parainfluenza 4 (PCR) RSV (PCR) Entero/Rhino (PCR) Blood Type Antibody Screen 01/28/24 08:15 WBC RBC Hgb POC Hgb Hct POC Hct MCV MCH MCHC RDW Std Deviation RDW Coeff of Nba Plt Count MPV Immature Gran % (Auto) Neut % (Auto) Lymph % (Auto) [place] % (Auto) Eos % (Auto) Baso % (Auto) Neut # (Auto) Lymph # (Auto) [place] # (Auto) Eos # (Auto) Baso # (Auto) Immature Gran # (Auto) PT INR APTT PTT Ratio VBG pH VBG pCO2 VBG pO2 VBG HCO3 VBG O2 Saturation VBG Base Excess POC Sodium Sodium POC Potassium Potassium POC Chloride Chloride Carbon Dioxide POC Total CO2 Anion Gap POC Anion Gap POC BUN BUN Creatinine POC Creatinine Est Cr Clr Drug Dosing Est GFR ( Amer) Est GFR (Non-Af Amer) BUN/Creatinine Ratio Glucose POC Glucose 105 H POC Glucose (other) Lactate Calcium POC Ioniz Calcium Conrado Magnesium Total Bilirubin AST ALT Alkaline Phosphatase Ammonia Troponin I High Sens B-Natriuretic Peptide Total Protein Albumin Globulin Albumin/Globulin Ratio Triglycerides Cholesterol LDL Cholesterol, Calc VLDL Cholesterol, Calc HDL Cholesterol Cholesterol/HDL Ratio Urine Color Urine Appearance Urine pH Ur Specific [place] Urine Protein Urine Glucose (UA) Urine Ketones Urine Blood Urine Nitrite Urine Bilirubin Urine Urobilinogen Ur Leukocyte Esterase Urine Opiates Screen Ur Methadone, Qual Urine Fentanyl Screen Urine Barbiturates Ur Phencyclidine (PCP) U Amphetamin/Meth Scrn MDMA (Ecstasy) Screen U Benzodiazepines Scrn Ur Cocaine Metabolite U Marijuana (THC) Screen Ethyl Alcohol mg/dL Adenovirus (PCR) B. pertussis DNA (PCR) B.parapertussis DNA PCR Lyme Disease Screen C. pneumoniae DNA (PCR) Coronavirus OC43 (PCR) Coronavirus HKU1 (PCR) Coronavirus 229E (PCR) SARS-CoV-2 (PCR) Coronavirus NL63 (PCR) Human Metapneumovir PCR Influenza Type A (PCR) Influenza Type B (PCR) M. pneumoniae (PCR) Parainfluenza 1 (PCR) Parainfluenza 2 (PCR) Parainfluenza 3 (PCR) Parainfluenza 4 (PCR) RSV (PCR) Entero/Rhino (PCR) Blood Type Antibody Screen Diagnostic Findings Head CT 01/27/24 23:41 CR Exam(s): CT HEAD Without Contrast EXAM: CT Head Without Intravenous Contrast CLINICAL HISTORY: Neuro deficit, acute stroke suspected. TECHNIQUE: Axial computed tomography images of the head/brain without intravenous contrast. CTDI is 93 mGy and DLP is 874 mGy-cm. Automated exposure control was utilized for the study. A dose lowering technique was utilized adhering to the principles of ALARA. COMPARISON: No relevant prior studies available. FINDINGS: Brain: No intracranial hemorrhage, mass-effect or midline shift. No abnormal extra axial fluid. No evidence of acute infarct. Mild periventricular white matter hypodensities are most consistent with chronic microangiopathy. Ventricles: Unremarkable. No ventriculomegaly. Bones/joints: Unremarkable. No acute fracture. Soft tissues: Unremarkable. Sinuses: Unremarkable as visualized. No acute sinusitis. Mastoid air cells: Unremarkable as visualized. No mastoid effusion. IMPRESSION: No acute intracranial finding. Communications: Call Doctor Stroke Electronically signed by: Marine Wall MD 01/28/24 00:27 AM Head CTA 01/27/24 23:41 CR Exam(s): CTA HEAD With Contrast IV Amt: 117 ML OPTIRAY 320 EXAM: CT Angiography Head With Intravenous Contrast CLINICAL HISTORY: Stroke. TECHNIQUE: Axial computed tomographic angiography images of the head with intravenous contrast. 3D and MIPS images were created and reviewed. CTDI is 93 mGy and DLP is 874 mGy-cm. Automated exposure control was utilized for the study. A dose lowering technique was utilized adhering to the principles of ALARA. MIP reconstructed images were created and reviewed. CONTRAST: Patient received 117 ML OPTIRAY 320 of IV contrast COMPARISON: No relevant prior studies available. FINDINGS: Right internal carotid artery: No acute findings. Intracranial segment is patent with no significant stenosis. No aneurysm. Right anterior cerebral artery: Unremarkable. No occlusion or significant stenosis. No aneurysm. Right middle cerebral artery: Unremarkable. No occlusion or significant stenosis. No aneurysm. Right posterior cerebral artery: Unremarkable. No occlusion or significant stenosis. No aneurysm. Right vertebral artery: Unremarkable as visualized. Left internal carotid artery: No acute findings. Intracranial segment is patent with no significant stenosis. No aneurysm. Left anterior cerebral artery: Unremarkable. No occlusion or significant stenosis. No aneurysm. Left middle cerebral artery: Unremarkable. No occlusion or significant stenosis. No aneurysm. Left posterior cerebral artery: Unremarkable. No occlusion or significant stenosis. No aneurysm. Left vertebral artery: Unremarkable as visualized. Basilar artery: Unremarkable. No occlusion or significant stenosis. No aneurysm. IMPRESSION: No acute finding of the arteries of the head. Communications: Call Doctor Stroke Electronically signed by: Marine Wall MD 01/28/24 00:31 AM Neck CTA 01/27/24 23:41 CR Exam(s): CTA NECK With Contrast IV Amt: 117 ML OPTIRAY 320 EXAM: CT Angiography Neck With Intravenous Contrast CLINICAL HISTORY: Stroke. TECHNIQUE: Routine carotid CT angiography protocol was performed with intravenous contrast. NASCET criteria using the distal ICAs for comparison were used for evaluation of stenoses. MIPS images were created and reviewed. CTDI is 93 mGy and DLP is 874 mGy-cm. Automated exposure control was utilized for the study. A dose lowering technique was utilized adhering to the principles of ALARA. MIP reconstructed images were created and reviewed. CONTRAST: Patient received 117 ML OPTIRAY 320 of IV contrast COMPARISON: CTA neck 10/09/2022 FINDINGS: VASCULATURE: Right common carotid artery: Unremarkable. No occlusion or significant stenosis. No dissection. Right internal carotid artery: Unremarkable. Extracranial segment is patent with no occlusion or significant stenosis. No dissection. Right external carotid artery: Unremarkable. No occlusion. Right vertebral artery: Unremarkable. No occlusion or significant stenosis. No dissection. Left common carotid artery: Unremarkable. No occlusion or significant stenosis. No dissection. Left internal carotid artery: Unremarkable. Extracranial segment is patent with no occlusion or significant stenosis. No dissection. Left external carotid artery: Unremarkable. No occlusion. Left vertebral artery: Unremarkable. No occlusion or significant stenosis. No dissection. NECK: Bones/joints: There are degenerative changes of the spine. No acute fracture. Soft tissues: Unremarkable. Lung apices: Clear. CAROTID STENOSIS REFERENCE USING NASCET CRITERIA: % ICA stenosis = (1 - narrowest ICA diameter/diameter of distal cervical ICA) x 100. Mild - <50% stenosis. Moderate - 50-69% stenosis. Severe - 70-94% stenosis. Near occlusion - 95-99% stenosis. Occluded - 100% stenosis. IMPRESSION: No acute finding of the arteries of the neck. Communications: Call Doctor Stroke Electronically signed by: Marine Wall MD 01/28/24 00:32 AM Brain MRI 01/28/24 00:56 Exam(s): MRI HEAD Without Contrast EXAM: MR Head Without Intravenous Contrast CLINICAL HISTORY: Confusion and left-sided weakness. TECHNIQUE: Magnetic resonance images of the head/brain without intravenous contrast in multiple planes. COMPARISON: CT head 01/27/2024 FINDINGS: Brain: Unremarkable. No mass. No hemorrhage. No acute infarct. Ventricles: Unremarkable. No ventriculomegaly. Bones/joints: Unremarkable. No acute fracture. Sinuses: Unremarkable as visualized. No acute sinusitis. Mastoid air cells: Unremarkable as visualized. No mastoid effusion. Orbits: Unremarkable as visualized. IMPRESSION: No acute finding of the brain. Electronically signed by: Marine Wall MD 01/28/24 02:12 AM
[2024-01-28] MEDS: INSULIN ASPART PER UNIT CHARGE SC SCH (09:56)
[2024-01-28] MEDS: DULoxetine HCL 30 MG CAP PO SCH (09:57)
[2024-01-28] MEDS: FENOFIBRATE NANOCRYSTALLIZED 48 MG TABLET PO SCH (09:57)
[2024-01-28] MEDS: ATORVASTATIN 40 MG TAB PO SCH (09:57)
[2024-01-28] MEDS: APIXABAN 5 MG TABLET PO SCH (09:58)
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
--- OUTSIDE RECORDS SUMMARY | 2024-01-28 14:59 | External Medical Summary | Summary of Care ---
Author Name Unknown Organization [facility] Address [address] [place] [address] Phone [phone] Care Team Providers Care Manager Fraud Name Role Phone Massiel Hansen PA-C Primary Care Provider [phone] Reason for Visit * Reason Comments eRx-Medication Refill Encounter Details Date Type Department Care Team (Late st Contact Info) Description 01/24/2024 Refill Family Practice [facility] [address] [facility] [place] [address] Massiel Hansen PA-C [address] [facility] [place] [address] Systolic heart failure, unspecified HF chronicity (HCC) Allergies No known active allergiesdocumented as of this encounter (statuses as of 01/26/2024) Medications Medication Sig Dispensed Refills Start Date End Date Status Melatonin 5 MG Oral Tablet Take 2 Tablets by mouth at bedtime. Active oxygen IN GAS 2 LPM bled through CPAP during all hours of sleep 1 Each 05/03/2022 Active Albuterol Sulfate HFA 108 (90 Base) MCG/ACT Inhalation Aerosol SolutionIndications: Wheezing Inhale 2 Puffs by mouth 4 times a day as needed for Shortness of Breath. 54 g 1 10/20/2022 Active Ipratropium-Albutero l 0.5-2.5 (3) MG/3ML Inhalation Solution (Duoneb) Inhale 3 mL via nebulizer every 4 hours as needed for Shortness of Breath. 10/11/2022 Active FreeStyle Abdulkadir 2 [place] DeviceIndications:Ty pe 2 diabetes mellitus without complication, without long-term current use of insulin ([facility]) Use as directed. 1 Each 03/05/2023 Active predniSONE 20 MG Oral Tablet (Deltasone) NEEDED RESCUE KIT. Take 2 tabs by mouth for 5 days 10 Tablet 1 05/29/2023 Active FreeStyle Abdulkadir 2 SensorIndications:Ty pe 2 diabetes mellitus without complication, without long-term current use of insulin ([facility]) Use as directed. 3 Each 3 08/06/2023 Active Empagliflozin 25 MG Oral Tablet (Jardiance)Indicatio ns:Type 2 diabetes mellitus without complication, without long-term current use of insulin ([facility]) Take 1 Tablet by mouth in the morning. 90 Tablet 2 08/06/2023 Active Atorvastatin Calcium 40 MG Oral Tablet [...] at noon and 2 Tablets before bedtime. 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 1 Each 08/22/2023 Active CPAP every night at bedtime. Active rOPINIRole HCl 0.25 MG Oral Tablet (Requip) Take one tablet (0.25mg) nightly with 1.5 mg dose (to total 1.75 mg) 60-90 minutes prior to typical onset of RLS nightly. Take an additional 0.25mg tablet at night as needed. 120 Tablet 09/17/2023 Active Lisinopril 2.5 MG Oral Tablet (Prinivil)Indication s:Systolic heart failure, unspecified HF chronicity (HCC) TAKE 1 TABLET BY MOUTH EVERY DAY BEFORE BEDTIME 90 Tablet 2 11/12/2023 Active Furosemide 40 MG Oral Tablet (Lasix) TAKE ONE TABLET BY MOUTH TWICE A DAY IN THE MORNING AND AT BEDTIME 180 Tablet 2 11/12/2023 Active Fenofibrate 48 MG Oral Tablet (Tricor)Indications: Hypertriglyceridemia Take 1 Tablet by mouth in the morning. 90 Tablet 2 11/12/2023 Active Apixaban 5 MG Oral Tablet (Eliquis) Take 1 Tablet by mouth in the morning and 1 Tablet before bedtime. 180 Tablet 2 11/12/2023 Active metOLazone 2.5 MG Oral Tablet (Zaroxolyn)Indicatio ns:Chronic heart failure with preserved ejection fraction (HCC) Take 1 Tablet by mouth in the morning As needed for weight gain protocol. 90 Tablet 3 11/12/2023 Active Potassium Chloride ER 10 MEQ Oral Capsule Extended Release take 1 capsule by mouth twice a day in the morning and before bedtime 60 Capsule 4 11/10/2023 Active Vitamin D3 50 MCG (2000 UT) Oral CapsuleIndications:V itamin D deficiency Take 1 Capsule by mouth in the morning. 90 Capsule 3 11/25/2023 Active DULoxetine HCl 30 MG Oral Capsule Delayed Release Particles (Cymbalta)Indication s:DM type 2 with diabetic peripheral neuropathy (HCC) Take 1 Capsule by mouth in the morning. Do not cut, crush or chew. 30 Capsule 1 11/25/2023 Active metFORMIN HCl ER 500 MG Oral Tablet Extended Release 24 Hour (Glucophage XR) Take 2 Tablets by mouth in the morning and 2 Tablets before bedtime. 120 Tablet 3 12/10/2023 Active rOPINIRole HCl 2 MG Oral Tablet (Requip) Take 1 tablet by mouth by 8pm nightly for RLS. 90 Tablet 1 12/27/2023 Active documented as of this encounter (statuses as of 01/26/2024) Active Problems Problem Noted Date Diagnosed Date Vitamin D deficiency 11/25/2023 Last Assessment & Plan: He never picked up vitamin-D 50572 units weekly. At this time we will [...] reports getting out is difficult and the contract clerk automobile has been unsuccessful and vena puncture x2. [...] develops any redness or swelling to contact [facility] right away. Food insecurity 09/08/2023 Overview: [...] empagliflozin (ex. Jardiance) Remote Patient Monitoring Vendor: [facility] Device(s): Connected Scale [...] kit in the past. Advised to call [facility] immediately for eval if he [...] as of this encounter (statuses as of 01/26/2024) Resolved Problems Problem Noted Date Diagnosed Date [...] as of this encounter (statuses as of 01/26/2024) Immunizations Name Administration Dates Next Due COVID-19 mRNA, LNP-s, No Pre serve, 2-Dose Series (Software 2000) 11/30/2020,11/06/2020 Pneumococcal Polysaccharide PPV23 (Pneumovax) 05/22/2021 Seasonal [...] money to get more. Never true 03/2024 Childcare Answer Date Recorded Do you feel overwhelmed with taking care of a child, family member or friend? No 09/05/2023 Does your family need help f inding childcare? (Household - for ages 0-17 years) Not on file 09/05/2023 Clothing Answer Date Recorded Have you been unable to get clothing when it was really needed? No 09/05/2023 Is your family able to get c lothes or diapers when needed? (Household - for ages 0-17 years) Not on file 09/05/2023 Personal Safety Answer Date Recorded Do you feel unsafe or have concerns for your saf ety? No 09/05/2023 Do you have concerns for you r family's safety? (Household - for ages 0-17 years) Not on file 09/05/2023 Utilities Answer Date Recorded Do you have trouble paying y our heating, water, or electric bill? No 09/05/2023 Is your family able to pay t he heat, water, or electric bill? (Household - for ages 0-17 years) Not on file 09/05/2023 Does your family have access to good internet? (Household - for ages 0-17 years) Not on file 09/05/2023 Employment Status Answer Date Recorded Are you unemployed or without regular income? Ye s 09/05/2023 Does the household have a re gular source of income? (Household - for ages 0-17 years) Not on file 09/05/2023 Social Connections Answer Date Recorded How often do you feel lonely or isolated from th ose around you? Never 09/05/2023 Financial Resource Strain Answer Date R ecorded Do you have any trouble payi ng for your medications, or do you think you might in the future? No 09/05/2023 Does your family have troubl e paying for medicine? (Household - for ages 0-17 years) Not on file 09/05/2023 Transportation Needs Answer Date Record ed READ ONLY Do you have troubl e getting a ride to medical visits or work? Never True 09/05/2023 Does your family have a hard time getting a ride to doctors visits? (Household - for ages 0-17 years) Not on file 09/05/2023 Has lack of transportation k ept you from medical appointments, meetings, work, or from getting things needed for daily living? Check all that apply. (Adult - for ages 18 years and over) Not on file 09/05/2023 Do you (or your family) have trouble finding or paying for a ride (transportation)? (Household - for ages 0-17 years) Not on file 09/05/2023 Housing Stability Answer Date Recorded Do you currently live in a s helter or have no steady place to sleep at night? No 09/05/2023 READ ONLY Do you think you a re at risk of becoming homeless? No 09/05/2023 Does your family worry about paying for your home or becoming homeless? (Household - for ages 0-17 years) Not on file 0 09/05/2023 Are you homeless or worried that you might be in the future? (Adult - for ages 18 years and over) Not on file Are you (or your family) maya eless or worried that you might be in the future? (Household - for ages 0-17 years) Not on file Food Insecurity Answer Date Recorded Do you need food for this week? No 09/05/2023 Are you able to get enough f ood for your family? (Household - for ages 0-17 years) Not on file 09/05/2023 Does your family need food t his week? (Household - for ages 0-17 years) Not on file 09/05/2023 Do you always have enough fo od for your family? (Household - for ages 0-17 years) Not on file 09/05/2023 Sex and Gender Information Value Date Recorded [...] encounter Miscellaneous Notes * Telephone Encounter - Ainsley Gupta RPh - 01/26/2024 9:35 AM EDT Refused Prescriptions: Disp Refills Lisinopril 2.5 MG Oral Tablet (Prinivil) 90 Tab*1 Sig: TAKE 1 TABLET BY MOUTH ONCE DAILY BEFORE BEDTIMERefused By: AINSLEY GUPTA for Refusal: Too soonReason for Refusal Comment: mail order -------- documented in this encounter Plan of Treatment Upcoming Encounters Date Type Department Care Team (Late st Contact Info) Description 02/24/2024 8:30 AM EDT Telemedicine [facility], [place] [address] [place] [address] Tatyana Lawson CRNP [address] [place] [address] Celia Weems, Community Health Line Construction Superintendent [address] [place] [address] Health Maintenance Due Date Last Done Comments [...] exists Diabetic Eye Exam 12/20/2023 12/19/2022, 12/21/2021 Influenza Vaccine (FLU shot) (#1) 2024 04/10/2022, 04/10/2022, 05/22/2021, Additional history exists GFR 08/11/2024 08/11/2023, 08/0 03/2023, 07/16/2022, Additional history exists Depression Monitoring 08/15/2024 08/15/2023 Lipid Panel 07/16/2027 07/16/2022, 02/0 [...] Systolic heart failure, unspecified HF chronicity (HCC) documented in this encounter Advance Directives * [...] Directives occurred with: Not Discussed Care Teams Manager Fraud Relationship Specialty Start Date End Date Massiel Hansen PA-C [address] [place] [address] PCP - General Physician Line Construction Superintendent 04/03/22 documented as of this encounter
--- OUTSIDE RECORDS SUMMARY | 2024-01-28 15:00 | External Medical Summary | Summary of Care ---
Author Name Unknown Organization [facility] Address [address] [place] [address] Phone [phone] Care Team Providers Care Cloth Grader Supervisor Name Role Phone Tyrone October ANMOLC Primary Care Provider [phone] Reason for Visit * Reason Onset Date Comments [facility]: Maintenance 12/24/2023 Encounter Details Date Type Department Care Team (Late st Contact Info) Description 12/24/2023 Telephone [facility], [facility] [address] [facility] [place] [id number] [facility], Nurse [facility] [address] [facility] [place] [phone] [facility]: Maintenance Allergies No known active allergiesdocumented as of this encounter (statuses as of 12/24/2023) Medications Medication Sig Dispensed Refills Start Date [...] of Breath. 10/11/2022 Active FreeStyle Abdulkadir 2 [place] DeviceIndications:Ty pe 2 diabetes mellitus without complication, without long-term current use of insulin ([facility]) Use as directed. 1 Each 03/05/2023 Active predniSONE 20 MG Oral Tablet (Deltasone) NEEDED RESCUE KIT. Take 2 tabs by mouth for 5 days 10 Tablet 1 05/29/2023 Active FreeStyle Abdulkadir 2 SensorIndications:Ty pe 2 diabetes mellitus without complication, without long-term current use of insulin ([facility]) Use as directed. 3 Each 3 08/06/2023 Active Empagliflozin 25 MG Oral Tablet (Jardiance)Indicatio ns:Type 2 diabetes mellitus without complication, without long-term current use of insulin ([facility]) Take 1 Tablet by [...] Tablets before bedtime. 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 120 Tablet 09/17/2023 Active rOPINIRole HCl 2 MG Oral Tablet (Requip) Take 1 tablet by mouth by 8pm nightly for RLS. 90 Tablet 1 10/17/2023 Active Lisinopril 2.5 MG Oral Tablet (Prinivil)Indication [...] before bedtime. 120 Tablet 3 12/10/2023 Active documented as of this encounter (statuses as of 12/24/2023) Active Problems Problem Noted Date Diagnosed Date Vitamin D deficiency 11/25/2023 Last Assessment & Plan: He never picked up vitamin-D 22470 units weekly. At this time we will [...] getting out is difficult and the mobile device engineer has been unsuccessful and vena puncture x2. [...] develops any redness or swelling to contact [facility] right away. Food insecurity 09/08/2023 Overview: [...] empagliflozin (ex. Jardiance) Remote Patient Monitoring Vendor: [facility] Device(s): Connected Scale Connected Pulse Ox Connected [...] kit in the past. Advised to call [facility] immediately for eval if he feels [...] as of this encounter (statuses as of 12/24/2023) Resolved Problems Problem Noted Date Diagnosed Date [...] as of this encounter (statuses as of 12/24/2023) Immunizations Name Administration Dates Next Due COVID-19 [...] encounter Miscellaneous Notes * Telephone Encounter - Dorota Vitale LPN - 12/24/2023 11:30 AM EDT Images from the original note were not included. [facility] Remote Patient Monitoring Unable to contact patient: Trigger type: Abnormal reading(s): Device(s) Triggered: AMC (Advanced Monitored Caregiving): Pulse Rate: Pulse: 108 LM on voice mail to please call back documented in this encounter Plan of Treatment Upcoming Encounters Date Type Department Care Team (Late st Contact Info) Description 01/15/2024 8:30 AM EDT Home Visit [facility], [facility] [address] [place] [address] Liya Jc RN [address] [place] [address] 02/24/2024 8:30 AM EDT Telemedicine [facility] [place], [facility] [address] [place] [address] Tatyana Lawson CRNP [address] [facility] [place] [address] Celia Weems, Community Health Shucker [facility] [place] [address] Health Maintenance Due Date Last Done Comments [...] 05/22/2021, Additional history exists GFR 08/11/2024 08/11/2023, 080 03/2023, 07/16/2022, Additional history exists Lipid Panel 07/16/2027 07/16/2022, 03/2022, 10/24/2020, Additional history exists GARDASIL-HPV IMMUNIZATION SERIES Aged Out No longer eligible based on patient's age to complete this topic MENINGOCOCCAL (MENACTRA/MENVEO) Aged Out No longer eligible based on patient's age to complete this topic documented as of this encounter Medical Devices Not on filedocumented as of this encounter Advance Directives * Full Code [...] Directives occurred with: Not Discussed Care Teams Cloth Grader Supervisor Relationship Specialty Start Date End Date Tyrone Massiel CELENA Soriano [facility] Leilani [facility] [place] [address] PCP - General Physician Shucker 04/03/22 documented as of this encounter
--- OUTSIDE RECORDS SUMMARY | 2024-01-28 15:00 | External Medical Summary | Summary of Care ---
Author Name Unknown Organization [facility] Address [address] [place] [address] Phone [phone] Care Team Providers Care Women'S Studies Professor Name Role Phone Tyrone Massiel Bo COREAC Primary Care Provider Reason for Visit * Reason Onset Date Comments [facility]: Maintenance 12/30/2023 Encounter Details Date Type Department Care Team (Late st Contact Info) Description 12/30/2023 Telephone [facility], [facility] [address] [facility] [place] [phone] [facility], Nurse [facility] [address] [facility] [place] [phone] [facility]: Maintenance Allergies No known active allergiesdocumented as of this encounter (statuses as of 12/30/2023) Medications Medication Sig Dispensed Refills Start Date [...] of Breath. 10/11/2022 Active FreeStyle Abdulkadir 2 [place] DeviceIndications:Ty pe 2 diabetes mellitus without complication, without long-term current use of insulin ([facility]) Use as directed. 1 Each 03/05/2023 Active predniSONE 20 MG Oral Tablet (Deltasone) NEEDED RESCUE KIT. Take 2 tabs by mouth for 5 days 10 Tablet 1 05/29/2023 Active FreeStyle Abdulkadir 2 SensorIndications:Ty pe 2 diabetes mellitus without complication, without long-term current use of insulin ([facility]) Use as directed. 3 Each 3 08/06/2023 Active Empagliflozin 25 MG Oral Tablet (Jardiance)Indicatio ns:Type 2 diabetes mellitus without complication, without long-term current use of insulin ([facility]) Take 1 Tablet by mouth in [...] Tablets before bedtime. 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 At this time we will [...] getting out is difficult and the mobile equipment mechanic has been unsuccessful and vena puncture x2. [...] develops any redness or swelling to contact [facility] right away. Food insecurity 09/08/2023 [...] as of this encounter (statuses as of 12/30/2023) Resolved Problems Problem Noted Date Diagnosed Date [...] as of this encounter (statuses as of 12/30/2023) Immunizations Name Administration Dates Next Due COVID-19 [...] Telephone Encounter - Dorota Vitale LPN - 12/30/2023 9:30 AM EDT Images from the original note were not included. [facility] Remote Patient Monitoring Able to contact patient: Trigger type: Abnormal reading(s): AMC (Advanced Monitored Caregiving): Scale: Trigger priority per AMC: 374.2 Symptom review: none Diet Reviewed: Yes. Patient has had any foods high in sodium: Yes, describe: had lunch meat sandwich and potatoes yesterday Fluid Intake Reviewed: No, Self-Management Plan Reviewed: Lasix 40 mg twice daily Risk assignment recommendation: Moderate risk findings (check as applicable): [x] Moderate trigger priority on [facility] [] Confirmed tympanic equivalent temperature 100.4-101.9 F onehour post administration of antipyretic [x] Weight gain of 2.1-4.9 lbs over 1-2 [...] as applicable): [] High trigger priority on [facility] [] Confirmed tympanic equivalent temperature greater than [...] 90 WITH symptoms Additional risk selection justification: Nicola states he feels fine taking his lasix 40mg 2 times daily denies any SOB, increased swelling etc at this time. Nicola stated he think he just over did yesterday with eating, had lunch meat sandwich and potatoes Overall risk and identified plan: Moderate risk: Route to RNCM (Registered Nurse Associate Professor Of Library Science) and Advance Practitioner documented in this encounter Plan of Treatment Upcoming Encounters Date Type Department Care Team (Late st Contact Info) Description 01/15/2024 8:30 AM EDT Home Visit [facility] [place], [facility] [address] [facility] [place] [address] Liya Jc RN [address] [facility] [place] [address] 02/24/2024 8:30 AM EDT Telemedicine [facility], [facility] [address] [facility] [place] [address] Tatyana Lawson CRNP [address] [facility] [place] [address] Celia Weems, Community Health Wallpaper Inspector [address] [place] [address] Health Maintenance Due Date Last Done Comments [...] Additional history exists Lipid Panel 07/16/2027 07/16/2022, 020 03/2022, 10/24/2020, [...] Directives occurred with: Not Discussed Care Teams Women'S Studies Professor Relationship Specialty Start Date End Date Massiel Hansen PA-C [facility] [address] [place] [address] PCP - General Physician Wallpaper Inspector 04/03/22 documented as of this encounter
--- OUTSIDE RECORDS SUMMARY | 2024-01-28 15:00 | External Medical Summary | Summary of Care ---
Author Name Unknown Organization [facility] Address [address] [place] [address] Phone [phone] Care Team Providers Care Building Services Engineer Name Role Phone Tyrone October ANMOLC Primary Care Provider [phone] Reason for Visit * Reason Comments eRx-Medication Refill Encounter Details Date Type Department Care Team (Late st Contact Info) Description 10/17/2023 Refill [facility] [address] [place] [phone] Ana David CRNP [address] [place] [address] Allergies No known active allergiesdocumented as of this encounter (statuses as of 12/27/2023) Medications Medication Sig Dispensed Refills Start Date [...] rol 0.5-2.5 (3) MG/3ML Inhalation Solution (Duoneb) Inhale 3 mL via nebulizer every 4 hours as needed for Shortness of Breath. 3 Active FreeStyle Abdulkadir 2 [place] DeviceIndications: Type 2 diabetes mellitus without complication, without long-term current use of insulin ([facility]) Use as directed. 1 Each 3 Active predniSONE 20 MG Oral Tablet (Deltasone) NEEDED RESCUE KIT. Take 2 tabs by mouth for 5 days 10 Tablet 1 3 Active FreeStyle Abdulkadir 2 SensorIndications: Type 2 diabetes mellitus without complication, without long-term current use of insulin ([facility]) Use as directed. 3 Each 3 4 Active Empagliflozin 25 MG Oral Tablet (Jardiance)Indicat ions:Type 2 diabetes mellitus without complication, without long-term current use of insulin (HCC) Take 1 Tablet by mouth in the morning. 90 Tablet 2 4 Active Atorvastatin Calcium 40 MG Oral [...] at noon and 2 Tablets before bedtime. 4 Active DIURETIC TITRATION PLANIndications:Ch ronic diastolic CHF (congestive heart failure) (HCC) If no improvement on day 3, contact heart failure managing provider. 1 Each 4 Active CPAP every night at bedtime. Active rOPINIRole HCl 0.25 MG Oral Tablet (Requip) Take one tablet (0.25mg) nightly with 1.5 mg dose (to total 1.75 mg) 60-90 minutes prior to typical onset of RLS nightly. Take an additional 0.25mg tablet at night as needed. 120 Tablet 4 Active rOPINIRole HCl 2 MG Oral Tablet (Requip) Take 1 tablet by mouth by 8pm nightly for RLS. 90 Tablet 1 4 Active B Complex Vitamins (VITAMIN B COMPLEX) Tablet Take 1 Tablet by mouth in the morning. Discontinued(Me dication List Clean Up) Multivitamin Adult Oral Tablet Chewable 1 Tablet. 3 Discontinued(Me dication List Clean Up) metOLazone 2.5 MG Oral Tablet (Zaroxolyn)Indicat ions:Chronic heart failure with preserved ejection fraction (HCC) Take 1 Tablet by mouth in the morning. As needed for weight gain protocol. 90 Tablet 5 3 024 Discontinued(Re fill) Ozempic (1 MG/DOSE) 4 MG/3ML Subcutaneous Solution Pen-injector (Semaglutide (1 MG/DOSE))Indicatio ns:Type 2 diabetes mellitus without complication, without long-term current use of insulin (HCC) Inject 1 mg under the skin once a week. 9 mL 1 4 Discontinued(Pa tient preference/disc ontinuation) Gabapentin 100 MG Oral Capsule (Neurontin) Take 1 Capsule by mouth in the morning and 1 Capsule at noon and 1 Capsule before bedtime. 90 Capsule 1 4 024 Discontinued(Re fill) Furosemide 40 MG Oral Tablet (Lasix) Take 1 tablet by mouth twice daily in the morning and at bedtime. 180 Tablet 1 4 024 Discontinued(Me dication List Clean Up) Eliquis 5 MG Oral Tablet (Apixaban) Take 1 tablet by mouth in the morning and 1 tablet before bedtime. 180 Tablet 1 4 024 Discontinued(Me dication List Clean Up) Lisinopril 2.5 MG Oral Tablet (Prinivil)Indicati ons:Systolic heart failure, unspecified HF chronicity (HCC) TAKE 1 TABLET BY MOUTH EVERY DAY BEFORE BEDTIME 90 Tablet 2 4 024 Discontinued(Me dication List Clean Up) Fenofibrate 48 MG Oral Tablet (Tricor)Indication s:Hypertriglycerid emia Take 1 Tablet by mouth in the morning. 90 Tablet 2 4 024 Discontinued(Me dication List Clean Up) Potassium Chloride ER 10 MEQ Oral Capsule Extended Release take 1 capsule by mouth twice a day in the morning and before bedtime 60 Capsule 4 4 024 Discontinued(Re fill) rOPINIRole HCl 3 MG Oral Tablet Take one-half tablet (1.5 mg) 60-90 minutes prior to typical onset of RLS nightly. Take with 0.25 mg dose as prescribed. 45 Tablet 1 4 024 Discontinued metFORMIN HCl ER 500 MG Oral Tablet Extended Release 24 Hour (Glucophage XR) Take 1 Tablet by mouth in the morning. 90 Tablet 1 4 024 Discontinued Vitamin D3 1.25 MG (86439 UT) Oral Capsule (Cholecalciferol) Take 1 Capsule by mouth once a week. 8 Capsule 4 024 Discontinued rOPINIRole HCl 2 MG Oral Tablet (Requip) Take 1 tablet by mouth by 8pm nightly for RLS. 90 Tablet 1 4 024 Discontinued(Glenn johns preference/disc ontinuation) documented as of this encounter (statuses as of 12/27/2023) Active Problems Problem Noted Date Diagnosed Date Vitamin D deficiency 11/25/2023 Last Assessment & Plan: He never picked up vitamin-D 03055 units weekly. At this time we will [...] reports getting out is difficult and the automobile sales consultant has been unsuccessful and vena puncture x2. [...] develops any redness or swelling to contact [facility] right away. Food insecurity 09/08/2023 Overview: Per [...] empagliflozin (ex. Jardiance) Remote Patient Monitoring Vendor: [facility] Device(s): Connected Scale Connected Pulse Ox Connected [...] kit in the past. Advised to call [facility] immediately for eval if he feels he [...] as of this encounter (statuses as of 12/27/2023) Resolved Problems Problem Noted Date Diagnosed Date [...] as of this encounter (statuses as of 12/27/2023) Immunizations Name Administration Dates Next Due COVID-19 [...] Notes * Telephone Encounter - Ainsley Gupta [facility] - 12/27/2023 9:49 AM EDT Signed Prescriptions: Disp Refills rOPINIRole HCl 2 MG Oral Tablet (Requip) 90 Tab*1 Sig: Take 1 tablet by mouth by 8pm nightly for RLS.Authorizing Provider: ANA DAVID User: AINSLEY GUPTA * Addendum Note - Ainsley Gupta [facility] - 12/27/2023 9:49 AM EDTAddended by: AINSLEY GUPTA on: 12/27/2023 09:49 AM Modules accepted: Orders * Telephone Encounter - Ainsley Gupta [facility] - 12/27/2023 9:48 AM EDT Transferred as requested. Thank you, Ainsley Gupta, PharmD Clinical Pharmacist [facility] ([facility]) (formerly Telepharmacy) 12/27/23 9:48 AM [phone] * Addendum Note - Camila Resendez CPhT - 12/27/2023 9:36 AM EDTAddended by: CAMILA RESENDEZ on: 12/27/2023 09:36 AM Modules accepted: Orders * Telephone Encounter - Camila Resendez CPhT - 12/27/2023 9:35 AM EDT Please reroute Rx to [id number] [address] [facility]. Pending P rescriptions: Disp Refills rOPINIRole HCl 2 MG Oral Tablet (Requip) 90 Tab*1 Sig: Take 1 tablet by mouth by 8pm nightly for RLS. Signed Prescriptions: Disp Refills rOPINIRole HCl 2 MG Oral Tablet (Requip) 90 Tab*1 Sig: Take 1 tablet by mouth by 8pm nightly for RLS. Authorizing Provider: ANA DAVID Last Visit: 02/25/2023 (in office), 09/17/2023 (telemedicine) Visit date not found If no future appointments scheduled, and last appointment is greater than a year ago, please schedule patient for a follow-up appointment Last date the medication was ordered: 10/17/2023 Patient Phone Numbers Labs: Lab Results Component Value Date/Time CREAT 1.5 (H) 08/11/2023 08:51 AM CREAT 1.1 06/16/2020 04:11 PM POTASSIUM 3.9 08/11/2023 08:51 AM POTASSIUM 4.2 06/16/2020 04:11 PM TSH 1.74 09/30/2023 09:23 AM TSH 2.08 02/06/2017 02:50 AM LDLCALC 84 02/06/2017 02:50 AM LDLDIRECT 97 07/16/2022 09:19 AM ALT 49 07/16/2022 09:19 AM ALT 41 06/16/2020 04:11 PM HGBA1C 7.0 (H) 03/05/2023 08:44 AM HGBA1C 5.8 (H) 06/16/2020 04:11 PM * Telephone Encounter - Ana David CRNP - 10/17/2023 5:24 PM EDT Signed Prescriptions: Disp Refills rOPINIRole HCl 2 MG Oral Tablet (Requip) 90 Tab*1 Sig: Take 1 tablet by mouth by 8pm nightly for RLS.Authorizing Provider: ANA DAVID documented in this encounter Plan of Treatment Upcoming Encounters Date Type Department Care Team (Late st Contact Info) Description 01/15/2024 8:30 AM EDT [facility] [address] [place] [address] Liya Jc, RN [address] [place] [address] 02/24/2024 8:30 AM EDT [facility]icine [facility], [facility] [address] [place] [address] Tatyana Lawson CRNP [address] [place] [address] Celia Weems, Community Health Director Safety [address] [place] [address] Health Maintenance Due Date Last Done Comments [...] 05/22/2021, Additional history exists GFR 08/11/2024 08/11/2023, 0803/2023, 07/16/2022, Additional history exists Lipid Panel 07/16/2027 07/16/2022, 0203/2022, 10/24/2020, Additional [...] Directives occurred with: Not Discussed Care Teams Building Services Engineer Relationship Specialty Start Date End Date TyroneOctober CELENA Soriano [address] [place] [address] PCP - General Physician Director Safety 04/03/22 documented as of this encounter
--- OUTSIDE RECORDS SUMMARY | 2024-01-28 15:00 | External Medical Summary | Summary of Care ---
Author Name Unknown Organization [facility] Address [address] [place] [address] Phone [phone] Care Team Providers Care Carpenter Assembler Name Role Phone Tyrone October PAAnilC Primary Care Provider [phone] Reason for Visit * Reason Comments [facility]: Maintenance Encounter Details Date Type Department Care Team (Late st Contact Info) Description 12/10/2023 11:00 AM EDT [facility] Visit [facility], [facility] [address] [facility] [place] [address] Liya Jc RN [address] [facility] [place] [address] Allergies No known active allergiesdocumented as of this encounter (statuses as of 12/10/2023) Medications Medication Sig Dispensed Refills Start Date [...] ol 0.5-2.5 (3) MG/3ML Inhalation Solution (Duoneb) Inhale 3 mL via nebulizer every 4 hours as needed for Shortness of Breath. 0 10/11/2022 Active FreeStyle Abdulkadir 2 [place] DeviceIndications:T ype 2 diabetes mellitus without complication, without long-term current use of insulin ([facility]) Use as directed. 1 Each 0 03/05/2023 Active predniSONE 20 MG Oral Tablet (Deltasone) NEEDED RESCUE KIT. Take 2 tabs by mouth for 5 days 10 Tablet 1 05/29/2023 Active FreeStyle Abdulkadir 2 SensorIndications:T ype 2 diabetes mellitus without complication, without long-term current use of insulin ([facility]) Use as directed. 3 Each 3 08/06/2023 Active Empagliflozin 25 MG Oral Tablet (Jardiance)Indicati ons:Type 2 diabetes mellitus without complication, without long-term current use of insulin ([facility]) Take 1 Tablet by mouth [...] managing provider. 1 Each 0 08/22/2023 Active CPAP every night at bedtime. 0 Active rOPINIRole HCl 0.25 MG Oral Tablet (Requip) Take one tablet (0.25mg) nightly with 1.5 mg dose (to total 1.75 mg) 60-90 minutes prior to typical onset of RLS nightly. Take an additional 0.25mg tablet at night as needed. 120 Tablet 0 09/17/2023 Active rOPINIRole HCl 2 MG Oral Tablet (Requip) Take 1 tablet by mouth by 8pm nightly for RLS. 90 Tablet 1 10/17/2023 Active Lisinopril 2.5 MG Oral Tablet (Prinivil)Indicatio ns:Systolic heart failure, unspecified HF chronicity (HCC) TAKE 1 TABLET BY MOUTH EVERY DAY BEFORE BEDTIME 90 Tablet 2 11/12/2023 Active Furosemide 40 MG Oral Tablet (Lasix) TAKE ONE TABLET BY MOUTH TWICE A DAY IN THE MORNING AND AT BEDTIME 180 Tablet 2 11/12/2023 Active Fenofibrate 48 MG Oral Tablet (Tricor)Indications :Hypertriglyceridem ia Take 1 Tablet by mouth in the morning. 90 Tablet 2 11/12/2023 Active Apixaban 5 MG Oral Tablet (Eliquis) Take 1 Tablet by mouth in the morning and 1 Tablet before bedtime. 180 Tablet 2 11/12/2023 Active metOLazone 2.5 MG Oral Tablet (Zaroxolyn)Indicati ons:Chronic heart failure with preserved ejection fraction (HCC) Take 1 Tablet by mouth in the morning As needed for weight gain protocol. 90 Tablet 3 11/12/2023 Active Potassium Chloride ER 10 MEQ Oral Capsule Extended Release take 1 capsule by mouth twice a day in the morning and before bedtime 60 Capsule 4 11/10/2023 Active metFORMIN HCl ER 500 MG Oral Tablet Extended Release 24 Hour (Glucophage XR) Take 2 Tablets by mouth every afternoon. 180 Tablet 3 11/25/2023 Active Vitamin D3 50 MCG (1999 UT) Oral CapsuleIndications: Vitamin D deficiency Take 1 Capsule by mouth in the morning. 90 Capsule 3 11/25/2023 Active DULoxetine HCl 30 MG Oral Capsule Delayed Release Particles (Cymbalta)Indicatio ns:DM type 2 with diabetic peripheral neuropathy (HCC) Take 1 Capsule by mouth in the morning. Do not cut, crush or chew. 30 Capsule 1 11/25/2023 Active B Complex Vitamins (VITAMIN B COMPLEX) Tablet Take 1 Tablet by mouth in the morning. 0 4 Discontinu ed(Medicat ion List Clean Up) Multivitamin Adult Oral Tablet Chewable 1 Tablet. 0 10/09/2022 4 Discontinu ed(Medicat ion List Clean Up) Eliquis 5 MG Oral Tablet (Apixaban) Take 1 tablet by mouth in the morning and 1 tablet before bedtime. 180 Tablet 1 09/01/2023 4 Discontinu ed(Medicat ion List Clean Up) Fenofibrate 48 MG Oral Tablet (Tricor)Indications :Hypertriglyceridem ia Take 1 Tablet by mouth in the morning. 90 Tablet 2 09/11/2023 4 Discontinu ed(Medicat ion List Clean Up) documented as of this encounter (statuses as of 12/10/2023) Active Problems Problem Noted Date Diagnosed Date Vitamin D deficiency 11/25/2023 Last Assessment & Plan: He never picked up vitamin-D 50827 units weekly. At this time we will [...] getting out is difficult and the automobile mechanic assistant has been unsuccessful and vena puncture x2. [...] empagliflozin (ex. Jardiance) Remote Patient Monitoring Vendor: [facility] Device(s): Connected Scale Connected Pulse Ox Connected [...] kit in the past. Advised to call [facility] immediately for eval if he [...] as of this encounter (statuses as of 12/10/2023) Resolved Problems Problem Noted Date Diagnosed Date [...] as of this encounter (statuses as of 12/10/2023) Immunizations Name Administration Dates Next Due COVID-19 [...] Sign Reading Time Taken Comments Blood Pressure 128/68 12/10/2023 10:55 AM EDT Pulse 70 12/10/2023 10:55 AM EDT Temperature 35.7 C (96.2 F) 12/10/2023 10:55 AM E DT Respiratory Rate 20 12/10/2023 10:55 AM EDT Oxygen Saturation 98% 12/10/2023 10:55 AM EDT Inhaled Oxygen Concentration - - Weight 170 kg (374 lb 11.2 oz) 12/10/2023 10:55 AM EDT Height - - Body Mass Index 58.69 09/17/2023 6:48 AM EST documented in this [...] Progress Notes * Liya Jc RN - 12/10/2023 8:57 AM EDT Images from the original note were not included. [facility] Software Development Intern Visit Date: 12/10/2023 Time: 8:57 AM Name: Nicola Pineda : 1975 Current Concerns: Pt seen for return RNCM visit Started Cymbalta 2 weeks ago He states he is pleased with it Did switch to taking it in the am because he felt it was keeping him up at night States it is helping with his neuropathy pain Blood sugars have been good They have been averaging 123 Highest was 176 Has not had any issues with highs or lows BSG 149 during visit [employer] abdulkadir At last provider visit, metformin was increased to 1000 mg and it was discussed to possibly increase to 2000mg if tolerating - pt reports he is tolerating well, however he forgot to go have his labs/hgba1c drawn - msg sent to provider Weights have been stable Noted below Pt denies any concerns Mild non-pitting edema of BLE No increase in SOB from baseline Physical Exam: BP 128/68 | Pulse 70 | Temp 35.7 C (96.2 F) | Resp 20 | Wt (!) 170 kg (374 lb 11.2 oz) | SpO2 98% | BMI 58.69 kg/m | BSA 2.83 m Pain 0 Physical Exam Constitutional: General: He is not in acute distress. Appearance: He is obese. Cardiovascular: Rate and Rhythm: Normal rate and regular rhythm. Pulses: Normal pulses. Heart sounds: Normal heart sounds. Pulmonary: Effort: Pulmonary effort is normal. Breath sounds: Normal breath sounds. Abdominal: General: Bowel sounds are normal. Palpations: Abdomen is soft. Musculoskeletal: Right lower leg: Edema (mild, non-pitting) present. Left lower leg: Edema (mild, non-pitting) present. Skin: General: Skin is warm and dry. Neurological: Mental Status: He is alert and oriented to person, place, and time. Problems/Symptoms: Review of Systems Constitutional: Negative. HENT: Negative. Eyes: Negative. Respiratory: Positive for shortness of breath (DAY - at baseline). Cardiovascular: Positive for leg swelling. Gastrointestinal: Negative. Endocrine: Negative. Genitourinary: Negative. Musculoskeletal: Positive for arthralgias. Skin: Negative. Neurological: Negative. Psychiatric/Behavioral: Negative. Medication Reconciliation: (See medication list) Does patient take medications as ordered: Yes Patient Well Being: PHQ2/9: No questionnaires available. No change in living situation Denies falls [facility]-10 Completed this Visit: No. Routine visit and No falls since last visit Advanced Care Planning: No documentation, acp on file. Reinforcement/Education: Reviewed HF symptom monitoring: -Weigh self [...] wts, bp and pulse ox reading via [facility] Low Na diet Elevate LE as much as possible Keep all appts as scheduled Cardiology f/u Home Interventions Provided: Home Intervention: Other; eval Reinforced current Plan of Care, including self-management and medication regimen Patient's 'Red Flags': Increased SOB Wt gain of 3 lbs in 24 hrs or 5 lbs in one week Increased abd distention or edema Patient Needs to Remember: Call [facility] at with any new or worsening health concerns or problems, red flag symptoms. Referrals Needed: Other none Follow Up: Is there cellular connectivity/connectivity in the home? Yes Does the patient have internet in the home? Yes Patient encouraged to call the intake phone number for all urgent but not emergent issues. Is the patient new to [facility] within the last 30 days? No, Assess appropriateness for upcoming telehealth visits. Cancel telehealth visits & schedule home visit with care teamcenter consultant(s)as indicated. Provider is in agreement with Plan of Care: Yes Scheduled to follow up with patient in one month with RNCM and one month after with provider. Liya Jc RN 12/10/2023 8:57 AM documented in this encounter Plan of Treatment Upcoming Encounters Date Type Department Care Team (Late st Contact Info) Description 01/15/2024 8:30 AM EDT [facility], [facility] [address] [place] [address] Liya Jc RN [address] [place] [address] 02/24/2024 8:30 AM EDT [facility]icine [facility] [place], [facility] [address] [place] [address] Tatyana Lawson CRNP [address] [place] [address] Celia Weems, Community Health Sas Sql Developer [address] [place] [address] 03/02/2024 8:00 AM EDT Office Visit Cardiology, [facility] [address] [place] [address] Panchito Grey DO [address] [place] [address] Health Maintenance Due Date Last Done Comments [...] the patient have Health Care Power of Mobile Therapist? No Code Status History Code Status Date Activated Date Inactivated Comments Full Code 02/05/2017 7:44 PM 02/19/2017 10:16 PM This order reflects the patients wishes and were consensually agreed upon. Question Answer Comments Discussion of Advance Directives occurred with: Not Discussed Care Teams Carpenter Assembler Relationship Specialty Start Date End Date Massiel Hansen PA-C [address] [place] [address] [place] [address] PCP - General Physician Sas Sql Developer 04/03/22 documented as of this encounter
--- OUTSIDE RECORDS SUMMARY | 2024-01-28 15:00 | External Medical Summary | Summary of Care ---
Author Name Unknown Organization [facility] Address [address] [place] [address] Phone [phone] Care Team Providers Care Celery Packer Name Role Phone Tyrone Massiel Bo COREAC Primary Care Provider [phone] Reason for Visit * Reason Onset Date Comments [facility]: Maintenance 12/26/2023 Encounter Details Date Type Department Care Team (Late st Contact Info) Description 12/26/2023 Telephone [facility], [facility] [address] [facility] [place] [id number] [facility], Nurse [facility] [address] [facility] [place] [id number] [facility]: Maintenance Allergies No known active allergiesdocumented as of this encounter (statuses as of 12/26/2023) Medications Medication Sig Dispensed Refills Start Date [...] of Breath. 10/11/2022 Active FreeStyle Abdulkadir 2 [place] DeviceIndications:Ty pe 2 diabetes mellitus without complication, without long-term current use of insulin ([facility]) Use as directed. 1 Each 03/05/2023 Active predniSONE 20 MG Oral Tablet (Deltasone) NEEDED RESCUE KIT. Take 2 tabs by mouth for 5 days 10 Tablet 1 05/29/2023 Active FreeStyle Abdulkadir 2 SensorIndications:Ty pe 2 diabetes mellitus without complication, without long-term current use of insulin ([facility]) Use as directed. 3 Each 3 08/06/2023 Active Empagliflozin 25 MG Oral Tablet (Jardiance)Indicatio ns:Type 2 diabetes mellitus without complication, without long-term current use of insulin ([facility]) Take 1 Tablet by mouth in [...] Tablets before bedtime. 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 At this time we will [...] reports getting out is difficult and the molder automobile carpets has been unsuccessful and vena puncture x2. [...] develops any redness or swelling to contact [facility] right away. Food insecurity 09/08/2023 Overview: [...] empagliflozin (ex. Jardiance) Remote Patient Monitoring Vendor: [facility] Device(s): Connected Scale Connected [...] as of this encounter (statuses as of 12/26/2023) Resolved Problems Problem Noted Date Diagnosed Date [...] as of this encounter (statuses as of 12/26/2023) Immunizations Name Administration Dates Next Due COVID-19 [...] encounter Miscellaneous Notes * Telephone Encounter - Candice Pope LPN - 12/26/2023 8:37 AM EDT Images from the original note were not included. [facility] Remote Patient Monitoring Unable to contact patient: Trigger type: Abnormal reading(s): Device(s) Triggered: AMC (Advanced Monitored Caregiving): Scale: Trigger weight: 377.3 lbs; weight increased 8.4 lbs in 2 day(s) Called pt to f/u on wt, no answer LMOM to return call documented in this encounter Plan of Treatment Upcoming Encounters Date Type Department Care Team (Late st Contact Info) Description 01/15/2024 8:30 AM EDT [facility] Visit [facility], [facility] [address] [place] [address] Liya Jc RN [address] [place] [address] 02/24/2024 8:30 AM EDT Telemedicine [facility], [facility] [address] [place] [address] Tatyana Lawson CRNP [facility] [place] [address] Celia Weems, Community Health Software Quality Analyst [address] [place] [address] Health Maintenance Due Date Last Done Comments [...] COVID-19 Vaccine ( season) 2023 11/30/2020, 11/06/2020 Albumin/Creatinine Ratio 07/16/2023 07/16/2022 HbA1c 09/05/2023 03/05/2023, 06/28, 09/05/2021, Additional history exists Diabetic Eye Exam 12/20/2023 12/19/2022, , 12/21/2021 Influenza Vaccine (FLU shot) (Season Ended) 2024 04/10/2022, 04/10/2022, 05/22/2021, Additional history exists GFR 08/11/2024 08/11/2023, 03/2023, 07/16/2022, Additional history exists Lipid Panel [...] Directives occurred with: Not Discussed Care Teams Celery Packer Relationship Specialty Start Date End Date Massiel Hansen PA-C [address] [facility] [place] [address] PCP - General Physician Software Quality Analyst 04/03/22 documented as of this encounter
--- OUTSIDE RECORDS SUMMARY | 2024-01-28 15:00 | External Medical Summary | Summary of Care ---
Author Name Unknown Organization [facility] Address [address] [place] [address] Phone [phone] Care Team Providers Care Warehouse Loader Name Role Phone Tyrone October ANMOLC Primary Care Provider [phone] Reason for Visit * Reason Comments eRx-Medication Refill Encounter Details Date Type Department Care Team (Late st Contact Info) Description 10/17/2023 Refill [facility] [address] [place] [address] Ana David CRNP [address] [place] [address] Allergies No known active allergiesdocumented as of [...] of Breath. 3 Active FreeStyle Abdulkadir 2 [place] DeviceIndications: Type 2 diabetes mellitus without complication, without long-term current use of insulin ([facility]) Use as directed. 1 Each 3 Active predniSONE 20 MG Oral Tablet (Deltasone) NEEDED RESCUE KIT. Take 2 tabs by mouth for 5 days 10 Tablet 1 3 Active FreeStyle Abdulkadir 2 SensorIndications: Type 2 diabetes mellitus without complication, without long-term current use of insulin ([facility]) Use as directed. 3 Each [...] 4 024 Discontinued Vitamin D3 1.25 MG (85806 UT) Oral Capsule (Cholecalciferol) Take 1 Capsule by mouth once a week. 8 Capsule 4 024 Discontinued documented as of this encounter (statuses as of 12/27/2023) Active Problems Problem Noted Date Diagnosed Date Vitamin D deficiency 11/25/2023 Last Assessment & Plan: He never picked up vitamin-D 95855 units weekly. At this time we will [...] reports getting out is difficult and the senior mobile developer has been unsuccessful and vena puncture x2. [...] develops any redness or swelling to contact [facility] right away. Food insecurity 09/08/2023 Overview: Per [...] empagliflozin (ex. Jardiance) Remote Patient Monitoring Vendor: [facility] Device(s): Connected Scale Connected Pulse [...] kit in the past. Advised to call [facility] immediately for eval if he feels [...] encounter Miscellaneous Notes * Addendum Note - Camila Resendez CPhT - 12/27/2023 9:36 AM EDTAddended by: CMAILA RESENDEZ on: 12/27/2023 09:36 AM Modules accepted: Orders * Telephone Encounter - Camila Resendez CPhT - 12/27/2023 9:35 AM EDT Please reroute Rx to [id number]. Pending P rescriptions: Disp Refills rOPINIRole HCl [...] Description 01/15/2024 8:30 AM EDT Home Visit [facility] [place], [address] [place] [address] Liya Jc RN [address] [place] [address] 02/24/2024 8:30 AM EDT [facility]icine [facility], [facility] [address] [place] [address] Tatyana Lawson CRNP [address] [place] [address] Celia Weems, Community Health Engraver Apprentice Decorative [address] [place] [address] Health Maintenance Due Date Last Done Comments [...] 05/22/2021, Additional history exists GFR 08/11/2024 08/11/2023, 08/03/2023, 07/16/2022, Additional history exists Lipid Panel 07/16/2027 [...] Directives occurred with: Not Discussed Care Teams Warehouse Loader Relationship Specialty Start Date End Date Massiel Hansen PA-C [address] [place] [address] PCP - General Physician Engraver Apprentice Decorative 04/03/22 documented as of this encounter
--- OUTSIDE RECORDS SUMMARY | 2024-01-28 15:00 | External Medical Summary | Summary of Care ---
Author Name Unknown Organization [facility] Address [address] [place] [address] Phone [phone] Care Team Providers Care Software Engineer Name Role Phone Tyrone October ANMOLC Primary Care Provider [phone] Reason for Visit * Reason Onset Date Comments [facility]: Maintenance 12/23/2023 Encounter Details Date Type Department Care Team (Late st Contact Info) Description 12/23/2023 Telephone [facility], [facility] [address] [facility] [place] [id number] [facility], Nurse [facility] [address] [facility] [place] [id number] [facility]: Maintenance Allergies No known active allergiesdocumented as of this encounter (statuses as of 12/23/2023) Medications Medication Sig Dispensed Refills Start Date [...] of Breath. 10/11/2022 Active FreeStyle Abdulkadir 2 [place] DeviceIndications:Ty pe 2 diabetes mellitus without complication, without long-term current use of insulin ([facility]) Use as directed. 1 Each 03/05/2023 Active predniSONE 20 MG Oral Tablet (Deltasone) NEEDED RESCUE KIT. Take 2 tabs by mouth for 5 days 10 Tablet 1 05/29/2023 Active FreeStyle Abdulkadir 2 SensorIndications:Ty pe 2 diabetes mellitus without complication, without long-term current use of insulin ([facility]) Use as directed. 3 Each 3 08/06/2023 Active Empagliflozin 25 MG Oral Tablet (Jardiance)Indicatio ns:Type 2 diabetes mellitus without complication, without long-term current use of insulin ([facility]) Take 1 Tablet by mouth in [...] Tablets before bedtime. 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 At this time we will [...] out is difficult and the senior mobile application developer has been unsuccessful and vena puncture [...] develops any redness or swelling to contact [facility] right away. Food insecurity 09/08/2023 Overview: [...] empagliflozin (ex. Jardiance) Remote Patient Monitoring Vendor: [place] Device(s): Connected Scale Connected Pulse Ox Connected [...] kit in the past. Advised to call [facility] immediately for eval if he feels [...] as of this encounter (statuses as of 12/23/2023) Resolved Problems Problem Noted Date Diagnosed Date [...] as of this encounter (statuses as of 12/23/2023) Immunizations Name Administration Dates Next Due COVID-19 [...] Telephone Encounter - Candice Pope LPN - 12/23/2023 12:51 PM EDT Images from the original note were not included. [facility] Remote Patient Monitoring Able to contact patient: Trigger type: Abnormal reading(s): AMC (Advanced Monitored Caregiving): Pulse rate: Pulse: 111 Trigger priority per [...] risk selection justification: Spoke with pt denies any new/worsening symptoms. He took vitals this morning prior to taking medications. On recheck HR 88. He will call [facility] with any concerns Overall risk and identified plan: Moderate risk: Route to RNCM (Registered Nurse Creative Writer) and Advance Practitioner documented in this encounter Plan of Treatment Upcoming Encounters Date Type Department Care Team (Late st Contact Info) Description 01/15/2024 8:30 AM EDT [facility] Visit [facility] [place], [facility] [address] [place] [address] Liya Jc, RN [address] [place] [address] 02/24/2024 8:30 AM EDT Telemedicine [facility], [facility] [address] [place] [address] Tatyana Lawson CRNP [address] [place] [address] Celia Weems, Community Health Mailroom Messenger [address] [place] [address] 03/02/2024 8:00 AM EDT Office Visit Cardiology, [facility] [address] [place] [address] Panchito Grey DO [address] [place] [address] Health Maintenance Due Date Last Done Comments [...] Directives occurred with: Not Discussed Care Teams Software Engineer Relationship Specialty Start Date End Date Massiel Hansen PA-C [address] [facility] [address] PCP - General Physician Mailroom Messenger 04/03/22 documented as of this encounter
--- OUTSIDE RECORDS SUMMARY | 2024-01-28 15:00 | External Medical Summary | Summary of Care ---
Author Name Unknown Organization [facility] Address [address] [place] [address] Phone [phone] Care Team Providers Care Music Industry Internship Name Role Phone Tyrone October PAAnilC Primary Care Provider [phone] Reason for Visit * Reason Comments [facility]: Maintenance Encounter Details Date Type Department Care Team (Late st Contact Info) Description 12/10/2023 11:00 AM EDT Home Visit [facility], [facility] [address] [facility] [place] [address] Liya Jc RN 132 [facility] [place] [address] Allergies No known active allergiesdocumented as of [...] Breath. 0 10/11/2022 Active FreeStyle Abdulkadir 2 [place] DeviceIndications:T ype 2 diabetes mellitus without complication, without long-term current use of insulin ([facility]) Use as directed. 1 Each 0 03/05/2023 Active predniSONE 20 MG Oral Tablet (Deltasone) NEEDED RESCUE KIT. Take 2 tabs by mouth for 5 days 10 Tablet 1 05/29/2023 Active FreeStyle Abdulkadir 2 SensorIndications:T ype 2 diabetes mellitus without complication, without long-term current use of insulin ([facility]) Use as directed. 3 Each 3 08/06/2023 Active Empagliflozin 25 MG Oral Tablet (Jardiance)Indicati ons:Type 2 diabetes mellitus without complication, without long-term current use of insulin ([facility]) Take 1 Tablet by mouth in [...] 4 11/10/2023 Active Vitamin D3 50 MCG (1999 UT) [...] before bedtime. 120 Tablet 3 12/10/2023 Active B Complex Vitamins (VITAMIN B COMPLEX) [...] 4 Discontinu ed(Medicat ion List Clean Up) metFORMIN HCl ER 500 MG Oral Tablet Extended Release 24 Hour (Glucophage XR) Take 2 Tablets by mouth every afternoon. 180 Tablet 3 11/25/2023 4 Discontinu ed(Refill) documented as of this encounter (statuses as of 12/10/2023) Active Problems Problem Noted Date Diagnosed Date Vitamin D deficiency 11/25/2023 Last Assessment & Plan: He never picked up vitamin-D 30862 units weekly. At this time we will [...] reports getting out is difficult and the windows mobile developer has been unsuccessful and vena [...] (ex. 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 [facility] Thread Winder Automatic Visit Date: 12/10/2023 Time: 8:57 AM Name: [...] lows BSG 149 during visit Uses the [employer] abdulkadir At last provider visit, metformin was [...] No change in living situation Denies falls [facility]-10 Completed this Visit: No. Routine visit and [...] wts, bp and pulse ox reading via [facility] Low Na diet Elevate LE as much as possible Keep all appts as scheduled Cardiology f/u Home Interventions Provided: Home Intervention: Other; eval Reinforced current Plan of Care, including self-management and medication regimen Patient's 'Red Flags': Increased SOB Wt gain of 3 lbs in 24 hrs or 5 lbs in one week Increased abd distention or edema Patient Needs to Remember: Call [facility] at with any new or worsening health concerns or problems, red flag symptoms. Referrals Needed: Other none Follow Up: Is there cellular connectivity/connectivity in the home? Yes Does the patient have internet in the home? Yes Patient encouraged to call the intake phone number for all urgent but not emergent issues. Is the patient new to [facility] within the last 30 days? No, Assess appropriateness for upcoming telehealth visits. Cancel telehealth visits & schedule home visit with care body team member(s)as indicated. Provider is in agreement with Plan of Care: Yes Scheduled to follow up with patient in one month with RNCM and one month after with provider. Liya Jc RN 12/10/2023 8:57 AM documented in this encounter Miscellaneous Notes * Addendum Note - Tatyana Lawson CRNP - 12/10/2023 11:50 AM EDTAddended by: TATYANA LAWSON on: 12/10/2023 11:50 AM Modules accepted: Orders documented in this encounter Plan of Treatment Upcoming Encounters Date Type Department Care Team (Late st Contact Info) Description 01/15/2024 8:30 AM EDT Home Visit [facility], [facility] [address] [place] [address] Liya Jc RN [address] [place] [address] 02/24/2024 8:30 AM EDT Telemedicine [facility], [facility] [address] [place] [address] Tatyana Lawson CRNP [address] [place] [address] Celia Weems, Community Health Travel Information Center Supervisor [address] [place] [address] 03/02/2024 8:00 AM EDT Office Visit Cardiology, [facility] [address] [place] [address] Panchito Grey DO [address] [place] [address] Health Maintenance Due Date Last Done Comments [...] (3 - 2022- season) 2023 11/30/2020, 11/06/2020 Albumin/Creatinine Ratio 07/16/2023 [...] the patient have Health Care Power of Firearms Model Maker? No Code Status History Code Status Date Activated Date Inactivated Comments Full Code 02/05/2017 7:44 PM 02/19/2017 10:16 PM This order reflects the patients wishes and were consensually agreed upon. Question Answer Comments Discussion of Advance Directives occurred with: Not Discussed Care Teams Music Industry Internship Relationship Specialty Start Date End Date Tyrone Massiel CELENA Soriano [address] [place] [address] PCP - General Physician Travel Information Center Supervisor 04/03/22 documented as of this encounter
--- OUTSIDE RECORDS SUMMARY | 2024-01-28 15:00 | External Medical Summary | Summary of Care ---
Author Name Unknown Organization [facility] Address [address] [place] [address] Phone [phone] Care Team Providers Care Preschool Disability Teacher Name Role Phone Tyrone October PAAnilC Primary Care Provider [phone] Reason for Visit * Reason Comments [facility]: Maintenance Encounter Details Date Type Department Care Team (Late st Contact Info) Description 12/10/2023 11:00 AM EDT [facility] Visit [facility], [facility] [address] [facility] [place] [address] Liya Jc RN [address] [facility] [place] [address] Allergies No known active allergiesdocumented as of [...] Breath. 0 10/11/2022 Active FreeStyle Abdulkadir 2 [place] DeviceIndications:T ype 2 diabetes mellitus without complication, without long-term current use of insulin ([facility]) Use as directed. 1 Each 0 03/05/2023 Active predniSONE 20 MG Oral Tablet (Deltasone) NEEDED RESCUE KIT. Take 2 tabs by mouth for 5 days 10 Tablet 1 05/29/2023 Active FreeStyle Abdulkadir 2 SensorIndications:T ype 2 diabetes mellitus without complication, without long-term current use of insulin ([facility]) Use as directed. 3 Each 3 08/06/2023 Active Empagliflozin 25 MG Oral Tablet (Jardiance)Indicati ons:Type 2 diabetes mellitus without complication, without long-term current use of insulin ([facility]) Take 1 Tablet by mouth in [...] & Plan: He never picked up vitamin-D 15715 units weekly. At this time we will [...] getting out is difficult and the automobile rental clerk has been unsuccessful and vena puncture x2. [...] develops any redness or swelling to contact [facility] right away. Food insecurity 09/08/2023 [...] empagliflozin (ex. Jardiance) Remote Patient Monitoring Vendor: [facility] Device(s): Connected Scale Connected Pulse Ox Connected [...] kit in the past. Advised to call [facility] immediately for eval if he [...] as of this encounter Progress Notes * Ladan Rosenbaum, JOSE ANGEL - 12/10/2023 12:40 PM EDT Called patient, call went to voice mail Message left , aware Tatyana has ordered his Metformin to be increased to 1000 mg in AM, 1000 mg in PM Repeated instructions in message Requested callback to [facility] if have questions or concerns. 833# option #1 provided aPdmini Rosenbaum RN, BSN [facility] Intake Triage Coordinator [phone] * Liya Jc RN - 12/10/2023 8:57 AM EDT Images from the original note were not included. [facility] Decorating Kiln Operator Visit Date: 12/10/2023 Time: 8:57 AM Name: [...] lows BSG 149 during visit Uses the [place] [employer] At last provider visit, metformin was increased [...] No change in living situation Denies falls [facility] Completed this Visit: No. Routine visit [...] wts, bp and pulse ox reading via [facility] Low Na diet Elevate LE as much as possible Keep all appts as scheduled Cardiology f/u Home Interventions Provided: Home Intervention: Other; eval Reinforced current Plan of Care, including self-management and medication regimen Patient's 'Red Flags': Increased SOB Wt gain of 3 lbs in 24 hrs or 5 lbs in one week Increased abd distention or edema Patient Needs to Remember: Call [facility] at with any new or [...] visits & schedule home visit with care steam clothes press operator(s)as indicated. Provider is in agreement with Plan of Care: Yes Scheduled to follow up with patient in one month with RNCM and one month after with provider. Liya Jc RN 12/10/2023 8:57 AM documented in this encounter Miscellaneous Notes * Addendum Note - Ttayana Lawson CRNP - 12/10/2023 11:50 AM EDTAddended by: TATYANA LAWSON on: 12/10/2023 11:50 AM Modules accepted: Orders documented in this encounter Plan of Treatment Upcoming Encounters Date Type Department Care Team (Late st Contact Info) Description 01/15/2024 8:30 AM EDT Home Visit [facility], [facility] [address] [place] [address] Liya Jc RN [address] [place] [address] 02/24/2024 8:30 AM EDT [facility]icine [facility] [place], [facility] [address] [place] [address] Tatyana Lawson CRNP [address] [place] [address] Celia Weems, Community Health Cooler Deliverer [address] [place] [address] 03/02/2024 8:00 AM EDT Office Visit Cardiology, [facility] [address] [place] [address] Panchito Grey, [address] [place] [address] Health Maintenance Due Date Last Done Comments [...] the patient have Health Care Power of Special Events Assistant? No Code Status History Code Status Date Activated Date Inactivated Comments Full Code 02/05/2017 7:44 PM 02/19/2017 10:16 PM This order reflects the patients wishes and were consensually agreed upon. Question Answer Comments Discussion of Advance Directives occurred with: Not Discussed Care Teams Preschool Disability Teacher Relationship Specialty Start Date End Date Tyrone October CELENA Soriano [address] [place] [address] PCP - General Physician Cooler Deliverer 04/03/22 documented as of this encounter
--- OUTSIDE RECORDS SUMMARY | 2024-01-28 15:01 | External Medical Summary | Summary of Care ---
Author Name Unknown Organization [facility] Address [address] [place] [address] Phone [phone] Care Team Providers Care Professor Of Biostatistics Name Role Phone Massiel Hansen PA-C Primary Care Provider [phone] Reason for Visit * Reason Comments Medication Refill Encounter Details Date Type Department Care Team (Late st Contact Info) Description 11/10/2023 Refill Family Practice [facility] [address] [facility] [place] [address] Massiel Hansen PA-C [address] [facility] [place] [address] Allergies No known active allergiesdocumented as of this encounter (statuses as of 11/10/2023) Medications Medication Sig Dispensed Refills Start Date End Date Status B Complex Vitamins (VITAMIN B COMPLEX) Tablet [...] Tablet. 0 10/09/2022 Active FreeStyle Abdulkadir 2 [place] DeviceIndications:T ype 2 diabetes mellitus without complication, without long-term current use of insulin ([facility]) Use as directed. 1 Each 0 [...] PLANIndications:Chr onic diastolic CHF (congestive heart failure) ([facility]) If no improvement on day 3, contact heart failure managing provider. 1 Each 0 08/22/2023 Active Furosemide 40 MG Oral Tablet (Lasix) [...] the morning. 90 Tablet 2 09/11/2023 Active CPAP every night at bedtime. 0 [...] 1 09/24/2023 Active Vitamin D3 1.25 MG (38909 UT) Oral Capsule (Cholecalciferol) Take 1 Capsule by mouth once a week. 8 Capsule 0 10/05/2023 4 Active rOPINIRole HCl 2 MG Oral Tablet (Requip) Take 1 tablet by mouth by 8pm nightly for RLS. 90 Tablet 1 10/17/2023 Active Gabapentin 100 MG Oral Capsule (Neurontin) Take 1 Capsule by mouth in the morning and 1 Capsule at noon and 1 Capsule before bedtime. 90 Capsule 1 11/05/2023 Active Potassium Chloride ER 10 MEQ Oral Capsule Extended Release take 1 capsule by mouth twice a day in the morning and before bedtime 60 Capsule 4 11/10/2023 Active Potassium Chloride ER 10 MEQ Oral Capsule Extended Release take 1 capsule by mouth twice a day in the morning and before bedtime 60 Capsule 4 08/12/2023 4 Discontinu ed(Refill) documented as of this encounter (statuses as of 11/10/2023) Active Problems Problem Noted Date Diagnosed Date Body mass index (BMI) of 50.0 to 59.9 in adult 0 11/03/2023 Overview: Per Obesity protocol - Per Obesity protocol - Type 2 diabetes mellitus with diabetic mononeuro [...] (ex. Jardiance) Remote Patient Monitoring Vendor: [facility] Device(s): Connected Scale Connected Pulse Ox Connected [...] the past. Advised to call [facility] immediately for eval if he feels [...] as of this encounter (statuses as of 11/10/2023) Resolved Problems Problem Noted Date Diagnosed Date [...] as of this encounter (statuses as of 11/10/2023) Immunizations Name Administration Dates Next Due COVID-19 mRNA, LNP-s, No Pre serve, 2-Dose Series (ImmuMetrix) 11/30/2020,11/06/2020 Pneumococcal Polysaccharide PPV23 (Pneumovax) 05/22/2021 Seasonal [...] Telephone Encounter - Massiel Hansen PA-C - 11/10/2023 6:54 PM EDTSigned Prescriptions: Disp Refills Potassium Chloride ER 10 MEQ Oral Capsule *60 Cap*4 Sig: take 1 capsule by mouth twice a day in the morning and before bedtimeAuthorizing Provider: MASSIEL HANSEN---- documented in this encounter Plan of Treatment Upcoming Encounters Date Type Department Care Team (Late st Contact Info) Description 11/25/2023 1:00 PM EDT Telemedicine [facility] [address] [facility] [address] Tatyana Lawson CRNP [address] [facility] [place] [address] Celia Weems, Community Health Mix House Operator [address] [place] [address] 12/10/2023 11:00 AM EDT [facility], [facility] [place] [address] Liya Jc, RN 132 [facility] [place] [address] 03/02/2024 8:00 AM EDT Office Visit Cardiology, [facility] 132 [facility] [place] [address] Panchito Grey DO 132 [place] [address] Health Maintenance Due Date Last Done Comments [...] the patient have Health Care Power of Chief Operating Engineer? No Code Status History Code Status Date Activated Date Inactivated Comments Full Code 02/05/2017 7:44 PM 02/19/2017 10:16 PM This order reflects the patients wishes and were consensually agreed upon. Question Answer Comments Discussion of Advance Directives occurred with: Not Discussed Care Teams Professor Of Biostatistics Relationship Specialty Start Date End Date TyroneOctober CELENA Soriano [address] [place] [address] PCP - General Physician Mix House Operator 04/03/22 documented as of this encounter
--- OUTSIDE RECORDS SUMMARY | 2024-01-28 15:01 | External Medical Summary | Summary of Care ---
Author Name Unknown Organization [facility] Address [address] [place] [address] Phone [phone] Care Team Providers Care Hvac Controls Technician Name Role Phone Tyrone October Bo PA-C Primary Care Provider [phone] Reason for Visit * Reason Comments [facility]: Telehealth Encounter Details Date Type Department Care Team (Late st Contact Info) Description 11/25/2023 1:00 PM EDT Telemedicine [facility], [facility] [address] [place] [address] Tatyana Lawson CRNP [address] [place] [address] Celia Weems, [facility] [address], [place] [id number] Vitamin D deficiency*; DM type 2 with diabetic peripheral neuropathy (HCC); Chronic diastolic CHF (congestive heart failure) (HCC); Mixed dyslipidemia Allergies No known active allergiesdocumented as of this encounter (statuses as of 11/25/2023) Medications Medication Sig Dispensed Refills Start Date [...] Tablet. 0 3 Active FreeStyle Abdulkadir 2 [place] DeviceIndications: Type 2 diabetes mellitus without complication, without long-term current use of insulin ([facility]) Use as directed. 1 Each 0 3 Active predniSONE 20 MG Oral Tablet (Deltasone) NEEDED RESCUE KIT. Take 2 tabs by mouth for 5 days 10 Tablet 1 3 Active FreeStyle Abdulkadir 2 SensorIndications: Type 2 diabetes mellitus without complication, without long-term current use of insulin ([facility]) Use as directed. 3 Each 3 4 Active Empagliflozin 25 MG Oral Tablet (Jardiance)Indicat ions:Type 2 diabetes mellitus without complication, without long-term current use of insulin ([facility]) Take 1 Tablet by [...] managing provider. 1 Each 0 4 Active Eliquis 5 MG Oral Tablet (Apixaban) Take 1 tablet by mouth in the morning and 1 tablet before bedtime. 180 Tablet 1 4 Active Fenofibrate 48 MG Oral Tablet (Tricor)Indication s:Hypertriglycerid emia Take 1 Tablet by mouth in the morning. 90 Tablet 2 4 Active CPAP every night at bedtime. 0 Active rOPINIRole HCl 0.25 MG Oral Tablet (Requip) Take one tablet (0.25mg) nightly with 1.5 mg dose (to total 1.75 mg) 60-90 minutes prior to typical onset of RLS nightly. Take an additional 0.25mg tablet at night as needed. 120 Tablet 0 4 Active rOPINIRole HCl 2 MG Oral Tablet (Requip) Take 1 tablet by mouth by 8pm nightly for RLS. 90 Tablet 1 4 Active Lisinopril 2.5 MG Oral Tablet (Prinivil)Indicati ons:Systolic heart failure, unspecified HF chronicity (HCC) TAKE 1 TABLET BY MOUTH EVERY DAY BEFORE BEDTIME 90 Tablet 2 4 Active Furosemide 40 MG Oral Tablet (Lasix) TAKE ONE TABLET BY MOUTH TWICE A DAY IN THE MORNING AND AT BEDTIME 180 Tablet 2 4 Active Fenofibrate 48 MG Oral Tablet (Tricor)Indication s:Hypertriglycerid emia Take 1 Tablet by mouth in the morning. 90 Tablet 2 4 Active Apixaban 5 MG Oral Tablet (Eliquis) Take 1 Tablet by mouth in the morning and 1 Tablet before bedtime. 180 Tablet 2 4 Active metOLazone 2.5 MG Oral Tablet (Zaroxolyn)Indicat ions:Chronic heart failure with preserved ejection fraction (HCC) Take 1 Tablet by mouth in the morning As needed for weight gain protocol. 90 Tablet 3 4 Active Potassium Chloride ER 10 MEQ Oral Capsule Extended Release take 1 capsule by mouth twice a day in the morning and before bedtime 60 Capsule 4 4 Active metFORMIN HCl ER 500 MG Oral Tablet Extended Release 24 Hour (Glucophage XR) Take 2 Tablets by mouth every afternoon. 180 Tablet 3 4 Active Vitamin D3 50 MCG (2000 UT) Oral CapsuleIndications :Vitamin D deficiency Take 1 Capsule by mouth in the morning. 90 Capsule 3 4 Active DULoxetine HCl 30 MG Oral Capsule Delayed Release Particles (Cymbalta)Indicati ons:DM type 2 with diabetic peripheral neuropathy (HCC) Take 1 Capsule by mouth in the morning. Do not cut, crush or chew. 30 Capsule 1 4 Active Furosemide 40 MG [...] 4 024 Discontinued(Me dication List Clean Up) metFORMIN HCl ER 500 MG Oral Tablet Extended Release 24 Hour (Glucophage XR) Take 1 Tablet by mouth in the morning. 90 Tablet 1 4 024 Discontinued Vitamin D3 1.25 MG (58881 UT) Oral Capsule (Cholecalciferol) Take 1 Capsule by mouth once a week. 8 Capsule 0 4 024 Discontinued Gabapentin 100 MG Oral Capsule (Neurontin) Take 1 Capsule by mouth in the morning and 1 Capsule at noon and 1 Capsule before bedtime. 90 Capsule 1 4 024 Discontinued(Glenn johns preference/disc ontinuation) documented as of this encounter (statuses as of 11/25/2023) Active Problems Problem Noted Date Diagnosed Date Vitamin D deficiency 11/25/2023 Last Assessment & Plan: He never picked up vitamin-D 87737 units weekly. At this time we will [...] getting out is difficult and the automobile body repairer has been unsuccessful and vena puncture x2. [...] develops any redness or swelling to contact [facility] right away. Food insecurity 09/08/2023 Overview: Per [...] empagliflozin (ex. Jardiance) Remote Patient Monitoring Vendor: [facility] Device(s): Connected Scale Connected [...] kit in the past. Advised to call [facility] immediately for eval if he feels he [...] as of this encounter (statuses as of 11/25/2023) Resolved Problems Problem Noted Date Diagnosed Date [...] as of this encounter (statuses as of 11/25/2023) Immunizations Name Administration Dates Next Due COVID-19 mRNA, LNP-s, No Pre serve, 2-Dose Series (B-152) 11/30/2020,11/06/2020 Pneumococcal Polysaccharide PPV23 (Pneumovax) 05/22/2021 Seasonal [...] Sign Reading Time Taken Comments Blood Pressure 115/80 11/25/2023 1:01 PM EDT Pulse 87 11/25/2023 1:01 PM EDT Temperature 36.4 C (97.5 F) 11/25/2023 1:01 PM ED T Respiratory Rate - - Oxygen Saturation 96% 11/25/2023 1:01 PM EDT Inhaled Oxygen Concentration - - Weight - - Height - - Body Mass Index - - documented in [...] Progress Notes * Celia Weems, [facility] - 11/25/2023 1:00 PM EDT Telemedicine visit: Yes Patient location: HOME. I was not in a hospital or clinic location. After connecting through televideo, patient was verified with two unique identifiers. 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 Methods to assure confidentiality were taken. Patient acknowledged consent and understanding of privacy and security of the Telemedicine visit. The patient agreed to participate. [facility] ([facility]) documentation: CHW facilitated telehealth visit with provider Tatyana Weems- Community Health Worker 1 Support Services/[facility] [email or web address] Plan [email or web address] Tatyana Lawson CRNP - 11/25/2023 1:00 PM EDT Images from the original note were not included. [facility] Problem Oriented Charting Provider Visit Date: 11/25/2023 Time: 1:08 PM [facility] Sub-Program: Focused Care Management (3-9 months) Assessment and Plan #1 Vitamin D deficiency (Primary) Assessment & Plan: He never picked up vitamin-D 47409 units weekly. At this time we will send 2000 units daily to be sent from mail order pharmacy. Orders: - Vitamin D3; Take 1 Capsule by mouth in the morning. Dispense: 90 Capsule; Refill: 3 #2 DM type 2 with diabetic peripheral neuropathy (HCC) Assessment & Plan: "RED FLAG" Diabetic symptoms: Generalized Weakness Goal HgbA1c <7 Diabetic Complications Vascular (examples: PVD, PAD, CAD, CVA) Neurologic (example: Peripheral Neuropathy) Medication Regimen Metformin SGLT (ex: Jardiance) DM Secondary Prevention JO Inhibitor / ARB Moderate-High Intensity Statin Additional Comments He is overdue for hemoglobin A1c rechecked. Unfortunately he reports getting out is difficult and the automobile body repairer has been unsuccessful and vena puncture x2. [...] dose to 60 mg after 2-3 weeks. Orders: - DULoxetine HCl; Take 1 Capsule by mouth in the morning. Do not cut, crush or chew. Dispense: 30 Capsule; Refill: 1 - Basic Metabolic Panel; Future; Expected date: 11/25/2023 - Hemoglobin A1C; Future; Expected date: 11/25/2023 #3 Chronic diastolic CHF (congestive heart failure) (HCC) Assessment & Plan: "RED FLAG" HF Symptoms: Leg Swelling (Examples: "I can't wear certain socks or shoes", "My pants feel tight") Increased dyspnea on exertion (Example: "I can't walk to the kitchen or up the stairs") Medication Regimen: Beta Ming Therapy: No beta-ming JO Inhibitor/ARB Therapy: Lisinopril Diuretic therapy: Lasix SGLT2 Inhibitor: empagliflozin (ex. Jardiance) Remote Patient Monitoring Vendor: [facility] Device(s): Connected Scale Connected Pulse Ox Connected BP Cuff Self - Management Plan Add metolazone (Zaroxolyn) 2.5-5mg for 1 days. If using a potassium supplement, double the dose of the supplement will be given on the day of and on the day after the metolazone Exacerbation Plan BMP Additional Comments: Euvolemic today #4 Mixed dyslipidemia - Lipid Panel with Direct LDL if TG is High; Future; Expected date: 11/25/2023 Other orders - metFORMIN HCl ER; Take 2 Tablets by mouth every afternoon. Dispense: 180 Tablet; Refill: 3 Additional Medical Decision Making: Stable today. Plan as above. He is overdue for hemoglobin A1c, lipid panel check. Unfortunately he has been a hard stick. He will try to go to [facility] lab to have his labs drawn. If unsuccessful we will have to find another way to get his labs drawn. RN is scheduled in November and we will have her follow up how he is feeling on Cymbalta. Check-out note: [facility] scheduling--please schedule 6 week telemedicine recheck This dictation was verbally transcribed via Dictation system. Occasional Errors, spelling flaws andomissions are inherent in digital transcriptions. Please contact the undersigned for any clarification/correction in the dictated transcript as needed. Scheduled appointments in the next 60 days: Future Appointments-next 60 days Date/Time Provider Specialty Dept Phone 11/25/2023 1:00 PM Celia Weems, [facility]; Tatyana Lawson CRNP [facility] [phone] 12/10/2023 11:00 AM Liya Jc RN [facility] [phone] 03/02/2024 8:00 AM (Arrive by 7:45 AM) Panchito Grey, Cardiology [phone] A total of 33 minutes was spent face to face (via video-based telemedicine if designated as a telemedicine visit) Subjective Subjective Is this a Telemedicine Visit? Yes, Patient location: HOME. I was not in a hospital or clinic location. After connecting through televideo, patient was verified with two unique identifiers. 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 Methods to assure confidentiality were taken. Patient acknowledged consent and understanding of privacy and security of the Telemedicine visit. The patient agreed to participate. Reason For [facility] Visit: Follow-Up Current Concerns: Nicola Pineda is a 48 year old male seen today for a [facility] provider visit. PMH--morbid obesity, chronic diastolic CHF, LVEF 60-65%, Factor V Leiden on eliquis, h/o cerebral venous thrombosis, DM 2, QUENTIN on CPAP, mod persistent asthma Inpatient [facility] 10/11-10/14/23-presented to ED with shortness of breath and 5 lb weight gain. Diagnosed with acute on chronic diastolic heart failure and managed with IV Lasix 40 mg twice daily. Echo with EF 60-65%. His weight on admission was 174.9 kilos and on discharge 171.6 kilos. Cardiology eval old and recommended he would continue home Lasix 40 mg BI D and may take an additional 40 mg Lasix if weight increases more than 2 lb in 48 hours or 5 lb in a week. RN visit 10/31/2023. He reported not feeling well, tired low energy nauseated at times and felt symptoms were related to restarting Ozempic. He stopped Ozempic and to restart metformin ER daily. Waiton that visit was 380.6 lb Today's concerns are: no diarrhea since stopping ozempic. Taking metformin 500mg and tolerating well. Checking blood sugars and running low 100 in am, 2 hrs after eating he runs 150. No hypoglycemia. Checking wt daily, 378 He has not been taking gabapentin. He reports it was making his vision blurred. He is requesting something else for his leg neuropathy. Additional Review of Systems Constitutional: Negative for appetite change, chills and fever. Respiratory: Positive for shortness of breath. Negative for cough and wheezing. Cardiovascular: Negative for chest pain and leg swelling. Gastrointestinal: Negative for abdominal distention, constipation and diarrhea. Genitourinary: Negative for difficulty urinating. Neurological: Positive for dizziness (occasional but has had episodes since stroke. Not new). Objective Objective Vitals: 11/25/23 1301 Temp: 36.4 C (97.5 F) Pulse: 87 SpO2: 96% BP: 115/80 Last Weights: Wt Readings from Last 3 Encounters: 10/31/23 (!) 172.6 kg (380 lb 9.6 oz) 10/16/23 (!) 171.8 kg (378 lb 12.8 oz) 10/07/23 (!) 172.3 kg (379 lb 14.4 oz) Last BPs: BP Readings from Last 4 Encounters: 11/25/23 115/80 10/31/23 132/64 10/16/23 124/72 10/07/23 138/70 Physical Exam Constitutional: General: He is not in acute distress. Appearance: He is obese. He is not toxic-appearing. Cardiovascular: Comments: Unable to auscultate heart sounds Pulmonary: Effort: Pulmonary effort is normal. Breath sounds: Normal breath sounds. Skin: Coloration: Skin is not pale. Neurological: General: No focal deficit present. Mental Status: He is alert. Psychiatric: Mood and Affect: Mood normal. Behavior: Behavior normal. Thought Content: Thought content normal. Judgment: Judgment normal. Lab Review: I have reviewed the following results: [facility] 10/12/23: Cr 1.36, GFR 61.1, K 3.7, hgb 14.4, WBC 8.65, AST 31, ALT 58, Alb 4.4 BMP results Recent Labs Units 08/11/23 0851 [...] results Recent Labs Units 07/16/22 0919 HGB g/dL 14.6 HbA1c results Recent Labs Units 03/05/23 0844 07/16/22 0919 HEMOGLOBIN A1C - [facility] % 7.0* 5.8* TSH results Recent Labs Units 09/30/23 0923 TSH - [facility] uIU/mL 1.74 Vitamin D results Recent Labs Units 09/30/23 0923 25-HYDROXY VITAMIN D - [facility] ng/mL 12* Hepatic panel results Recent Labs Units 07/16/22 0919 PROTEIN - [facility] g/dL 7.4 BILIRUBIN, TOTAL - [facility] mg/dL 0.3 ALKALINE PHOSPHATASE - [facility] U/L 94 AST - [facility] U/L 24 ALT - [facility] U/L 49 Protein/cr ratio results No results for input(s): "PROCRRATIO" in the last 95912 hours. Medication Review "Bottles Out" medication review not performed today SALLY Cade 10:34 AM *Communication sent to PCP (via autofax if non-[facility]), [facility] Care Team members,relevant Specialty Care Physicians* documented in this encounter Miscellaneous Notes * Assessment & Plan Note - Tatyana Lawson CRNP - 11/25/2023 2:12 PM EDT Associated Problem(s): Vitamin D deficiency He never picked up vitamin-D 46413 units weekly. At this time we will send 2000 units daily to be sent from mail order pharmacy. * Assessment & Plan Note - Tatyana Lawson CRNP - 11/25/2023 2:04 PM EDT Associated Problem(s): DM type 2 with diabetic peripheral neuropathy (HCC) "RED FLAG" Diabetic symptoms: Generalized Weakness Goal HgbA1c <7 Diabetic Complications Vascular (examples: PVD, PAD, CAD, CVA) Neurologic (example: Peripheral Neuropathy) Medication Regimen Metformin SGLT (ex: Jardiance) DM Secondary Prevention JO Inhibitor / ARB Moderate-High Intensity Statin Additional Comments He is overdue for hemoglobin A1c rechecked. Unfortunately he reports getting out is difficult and the automobile body repairer has been unsuccessful and vena puncture x2. [...] dose to 60 mg after 2-3 weeks. * Assessment & Plan Note - Tatyana Lawson CRNP - 11/25/2023 2:02 PM EDT Associated Problem(s): Chronic diastolic CHF (congestive heart [...] empagliflozin (ex. Jardiance) Remote Patient Monitoring Vendor: [facility] Device(s): Connected Scale Connected Pulse Ox Connected BP Cuff Self - Management Plan Add metolazone (Zaroxolyn) 2.5-5mg for 1 days. If using a potassium supplement, double the dose of the supplement will be given on the day of and on the day after the metolazone Exacerbation Plan BMP Additional Comments: Euvolemic today documented in this encounter Plan of Treatment Upcoming Encounters Date Type Department Care Team (Late st Contact Info) Description 12/10/2023 11:00 AM EDT Home Visit [facility] [address] [place] [address] Liya Jc RN [address] [place] [phone] 03/02/2024 8:00 AM EDT Office Visit Cardiology, [facility] [address] [place] [id number] Panchito Grey DO [address] [place] [phone] Scheduled Orders Name Type Priority Associated Diagnoses Orde r Schedule LIPID PANEL WITH DIRECT LDL IF TG IS HIGH Lab Routine Mixed dyslipidemia Expected: 11/25/2023, Expires: 11/24/2024 BASIC METABOLIC PANEL Lab Routine DM type 2 with diabetic peripheral neuropathy (HCC) Expected: 11/25/2023 (Approximate), Expires: 11/24/2024 HEMOGLOBIN A1C Lab Routine DM type 2 with diabetic peripheral neuropathy (HCC) Expected: 11/25/2023 (Approximate), Expires: 11/24/2024 Health Maintenance Due Date Last Done Comments [...] or Tdap) 05/25/2022 05/25/2012 COVID-19 Vaccine ( - season) 2023 11/30/2020, 11/06/2020 Albumin/Creatinine Ratio [...] as of this encounter Visit Diagnoses Diagnosis Vitamin D deficiency- Primary Unspecified vitamin D deficiency DM type 2 with diabetic peripheral neuropathy (HCC) Type II or unspecified type diabetes mellitus with neurological manifestations, not stated as uncontrolled Chronic diastolic CHF (congestive heart failure) (HCC) Chronic diastolic heart failure Mixed dyslipidemia Mixed hyperlipidemia documented in this [...] the patient have Health Care Power of [place]? No Code Status History Code Status Date Activated Date Inactivated Comments Full Code 02/05/2017 7:44 PM 02/19/2017 10:16 PM This order reflects the patients wishes and were consensually agreed upon. Question Answer Comments Discussion of Advance Directives occurred with: Not Discussed Care Teams Hvac Controls Technician Relationship Specialty Start Date End Date TyroneOctober Bo, CELENA [address] [place] [address] PCP - General Physician [facility] 04/03/22 documented as of this encounter
--- OUTSIDE RECORDS SUMMARY | 2024-01-28 15:01 | External Medical Summary | Summary of Care ---
Author Name Unknown Organization [facility] Address [address] [place] [address] Phone [phone] Care Team Providers Care Robotic Weld Technician Name Role Phone Danielle October PA-C Primary Care Provider [phone] Reason for Visit * Reason Comments Medication Refill Encounter Details Date Type Department Care Team (Late st Contact Info) Description 11/10/2023 Refill Cardiology, [facility] [address] [place] [address] Anjelica Kemp, [address] [place] [address] Chronic heart failure with preserved ejection fraction (HCC) Allergies No known active allergiesdocumented as of this encounter (statuses as of 11/12/2023) Medications Medication Sig Dispensed Refills Start Date [...] Tablet. 0 10/09/2022 Active FreeStyle Abdulkadir 2 [place] DeviceIndications:T ype 2 diabetes mellitus without complication, without long-term current use of insulin ([facility]) Use as directed. 1 Each 0 03/05/2023 Active predniSONE 20 MG Oral Tablet (Deltasone) NEEDED RESCUE KIT. Take 2 tabs by mouth for 5 days 10 Tablet 1 05/29/2023 Active FreeStyle Abdulkadir 2 SensorIndications:T ype 2 diabetes mellitus without complication, without long-term current use of insulin ([facility]) Use as directed. 3 Each 3 08/06/2023 Active Empagliflozin 25 MG Oral Tablet (Jardiance)Indicati ons:Type 2 diabetes mellitus without complication, without long-term current use of insulin ([facility]) Take 1 Tablet by mouth [...] 1 09/24/2023 Active Vitamin D3 1.25 MG (70110 UT) Oral Capsule (Cholecalciferol) Take 1 Capsule [...] before bedtime. 90 Capsule 1 11/05/2023 Active metOLazone 2.5 MG Oral Tablet (Zaroxolyn)Indicati ons:Chronic heart failure with preserved ejection fraction (HCC) Take 1 Tablet by mouth in the morning. As needed for weight gain protocol. 90 Tablet 3 11/12/2023 Active Potassium Chloride ER 10 MEQ Oral Capsule Extended Release take 1 capsule by mouth twice a day in the morning and before bedtime 60 Capsule 4 11/10/2023 Active metOLazone 2.5 MG Oral Tablet (Zaroxolyn)Indicati ons:Chronic heart failure with preserved ejection fraction (HCC) Take 1 Tablet by mouth in the morning. As needed for weight gain protocol. 90 Tablet 5 06/17/2023 4 Discontinu ed(Refill) documented as of this encounter (statuses as of 11/12/2023) Active Problems Problem Noted Date Diagnosed Date [...] develops any redness or swelling to contact [facility] right away. Food insecurity 09/08/2023 Overview: [...] empagliflozin (ex. Jardiance) Remote Patient Monitoring Vendor: [facility] Device(s): Connected Scale Connected Pulse Ox Connected [...] kit in the past. Advised to call [facility] immediately for eval if he feels [...] as of this encounter (statuses as of 11/12/2023) Resolved Problems Problem Noted Date Diagnosed Date [...] as of this encounter (statuses as of 11/12/2023) Immunizations Name Administration Dates Next Due COVID-19 mRNA, LNP-s, No Pre serve, 2-Dose Series ([employer]) 11/30/2020,11/06/2020 Pneumococcal Polysaccharide PPV23 (Pneumovax) 05/22/2021 Seasonal [...] encounter Miscellaneous Notes * Telephone Encounter - Anjelica Kemp DO - 11/12/2023 7:20 AM EDT Signed Prescriptions: Disp Refills metOLazone 2.5 MG Oral Tablet (Zaroxolyn) 90 Tab*3 Sig: Take 1 Tablet by mouth in the morning. As needed for weight gain protocol. Authorizing Provider: ANJELICA KEMP * Telephone Encounter - Gay Lucia CMA - 11/11/2023 8:54 AM EDTPending Prescriptions: Disp Refills metOLazone 2.5 MG Oral Tablet (Zaroxolyn) 90 Tab*3 Sig: Take 1 Tablet by mouth in the morning. As needed for weight gain protocol. * Telephone Encounter - Gay Lucia CMA - 11/11/2023 8:54 AM EDT Did you pend patient's preferred pharmacy and medication before forwarding?yes Pharmacy: [facility] Pending Prescriptions: Disp Refills metOLazone 2.5 MG Oral Tablet (Zaroxolyn) 90 Tab*3 Sig: Take 1 Tablet by mouth in the morning. As needed for weight gain protocol. Last Visit: 03/27/2023 (in office), Visit date not found (telemedicine) Next Visit: 03/02/2024 If no future appointments scheduled, and last appointment is greater than a year ago, please schedule patient for a follow-up appointment Last date the medication was ordered: 06-17-2023 Is this request for a controlled substance?No [...] 1:00 PM EDT Telemedicine [facility], [facility] [address] [place] [address] Tatyana Lawson CRNP [address] [place] [address] Celia Weems, Community Health Quality Control Assessor [address] [place] [address] 12/10/2023 11:00 AM EDT [facility] [address] [place] [address] Liya Jc, RN [address] [facility] [place] [address] 03/02/2024 8:00 AM EDT Office Visit Cardiology, [facility] [address] [place] [address] Panchito Grey DO [address] [place] [address] Health Maintenance Due Date Last Done Comments [...] of this encounter Visit Diagnoses Diagnosis Chronic heart failure with preserved ejection fraction (HCC) documented in this encounter Advance Directives [...] the patient have Health Care Power of Enrichment Director? No Code Status History Code Status Date Activated Date Inactivated Comments Full Code 02/05/2017 7:44 PM 02/19/2017 10:16 PM This order reflects the patients wishes and were consensually agreed upon. Question Answer Comments Discussion of Advance Directives occurred with: Not Discussed Care Teams Robotic Weld Technician Relationship Specialty Start Date End Date TyroneOctober CELENA Soriano [address] [place] [address] PCP - General Physician Quality Control Assessor 04/03/22 documented as of this encounter
--- OUTSIDE RECORDS SUMMARY | 2024-01-28 15:01 | External Medical Summary | Summary of Care ---
Author Name Unknown Organization [facility] Address [address] [place] [address] Phone [phone] Care Team Providers Care Managing Broker Name Role Phone Tyrone October CELENA Primary Care Provider [phone] Reason for Visit * Reason Onset Date Comments Appointment 11/25/2023 Encounter Details Date Type Department Care Team (Late st Contact Info) Description 11/25/2023 Telephone [facility] [place] [address] [place], [place] [phone] Services, Scheduling [address] [place] [address] Appointment Allergies No known active allergiesdocumented as [...] 0 10/09/2022 Acti ve FreeStyle Abdulkadir 2 [place] DeviceIndications:Ty pe 2 diabetes mellitus without complication, without long-term current use of insulin ([facility]) Use as directed. 1 Each 0 03/05/2023 Active predniSONE 20 MG Oral Tablet (Deltasone) NEEDED RESCUE KIT. Take 2 tabs by mouth for 5 days 10 Tablet 1 05/29/2023 Active FreeStyle Abdulkadir 2 SensorIndications:Ty pe 2 diabetes mellitus without complication, without long-term current use of insulin ([facility]) Use as directed. 3 Each 3 08/06/2023 Active Empagliflozin 25 MG Oral Tablet (Jardiance)Indicatio ns:Type 2 diabetes mellitus without complication, without long-term current use of insulin ([facility]) Take 1 Tablet by mouth in the [...] before bedtime. 0 08/22/2023 Active DIURETIC TITRATION PLANIndications:Artist Suspect ethan diastolic CHF (congestive heart failure) (HCC) If no improvement on day 3, contact heart failure managing provider. 1 Each 0 08/22/2023 Active Eliquis 5 MG Oral Tablet (Apixaban) Take 1 tablet by mouth in the morning and 1 tablet before bedtime. 180 Tablet 1 09/01/2023 Active Fenofibrate 48 MG Oral Tablet (Tricor)Indications: [...] Vitamin D3 50 MCG (1999 UT) Oral CapsuleIndications:V itamin D deficiency Take 1 Capsule by mouth in the morning. 90 Capsule 3 11/25/2023 Active DULoxetine HCl 30 MG Oral Capsule Delayed Release Particles (Cymbalta)Indication s:DM type 2 with diabetic peripheral neuropathy (HCC) Take 1 Capsule by mouth in the morning. Do not cut, crush or chew. 30 Capsule 1 11/25/2023 Active documented as of this encounter (statuses as of 11/25/2023) Active Problems Problem Noted Date Diagnosed Date Vitamin D deficiency 11/25/2023 Last Assessment & Plan: He never picked up vitamin-D 05664 units weekly. At this time we will [...] out is difficult and the automobile mechanic helper has been unsuccessful and vena puncture x2. [...] develops any redness or swelling to contact [facility] right away. Food insecurity 09/08/2023 Overview: [...] kit in the past. Advised to call [facility] immediately for eval if he feels [...] mRNA, LNP-s, No Pre serve, 2-Dose Series (Inbilin) 11/30/2020,11/06/2020 Pneumococcal Polysaccharide PPV23 (Pneumovax) 05/22/2021 Seasonal [...] encounter Miscellaneous Notes * Telephone Encounter - Lyndsey Andrade OSA - 11/25/2023 2:48 PM EDT Request for a 12 wk fu, appt set for 02/16, reminder sent documented in this encounter Plan of Treatment Upcoming Encounters Date Type Department Care Team (Late st Contact Info) Description 12/10/2023 11:00 AM EDT [facility] [address] [place] [address] Liya Jc RN [address] [place] [address] 02/17/2024 8:30 AM EDT [facility]icine [facility] [address] [place] [address] Tatyana Lawson CRNP [address] [place] [address] Celia Weems, Community Health Final Cleaner [address] [place] [address] 03/02/2024 8:00 AM EDT Office Visit Cardiology, [facility] [address] [place] [address] Panchito Grey, [address] [place] [address] Health Maintenance Due Date Last Done Comments [...] the patient have Health Care Power of Hod Carrier? No Code Status History Code Status Date Activated Date Inactivated Comments Full Code 02/05/2017 7:44 PM 02/19/2017 10:16 PM This order reflects the patients wishes and were consensually agreed upon. Question Answer Comments Discussion of Advance Directives occurred with: Not Discussed Care Teams Managing Broker Relationship Specialty Start Date End Date Tyrone October Bo, PAAnilC [address] [place] [address] PCP - General Physician Final Cleaner 04/03/22 documented as of this encounter
--- OUTSIDE RECORDS SUMMARY | 2024-01-28 15:01 | External Medical Summary | Summary of Care ---
Author Name Unknown Organization [facility] Address [address] [place] [address] Phone [phone] Care Team Providers Care Insecticide Expert Name Role Phone Massiel Hansen PA-C Primary Care Provider [phone] Reason for Visit * Reason Comments Medication Refill Encounter Details Date Type Department Care Team (Late st Contact Info) Description 11/10/2023 Refill [facility] [address] [place] [place] [address] Massiel Hansen PA-C [address] [facility] [place] [address] Systolic heart failure, unspecified HF chronicity (HCC); [...] Tablet. 0 10/09/2022 Active FreeStyle Abdulkadir 2 [place] DeviceIndications:T ype 2 diabetes mellitus without complication, [...] PLANIndications:Chr onic diastolic CHF (congestive heart failure) ([facility]) If no improvement on day [...] 1 09/24/2023 Active Vitamin D3 1.25 MG (90362 UT) Oral Capsule (Cholecalciferol) Take 1 Capsule by mouth once a week. 8 Capsule 0 10/05/2023 Active rOPINIRole HCl 2 MG Oral Tablet [...] gain protocol. 90 Tablet 3 11/12/2023 Active Gabapentin 100 MG Oral Capsule (Neurontin) Take 1 Capsule by mouth in the morning and 1 Capsule at noon and 1 Capsule before bedtime. 90 Capsule 1 11/12/2023 Active Potassium Chloride ER 10 MEQ Oral Capsule Extended Release take 1 capsule by mouth twice a day in the morning and before bedtime 60 Capsule 4 11/10/2023 Active Gabapentin 100 MG Oral Capsule (Neurontin) Take 1 Capsule by mouth in the morning and 1 Capsule at noon and 1 Capsule before bedtime. 90 Capsule 1 11/05/2023 Discontinu ed(Refill) documented as of this encounter [...] develops any redness or swelling to contact [facility] right away. Food insecurity 09/08/2023 [...] (ex. Jardiance) Remote Patient Monitoring Vendor: [facility] Device(s): Connected Scale Connected [...] mRNA, LNP-s, No Pre serve, 2-Dose Series (Clacendix) 11/30/2020,11/06/2020 Pneumococcal Polysaccharide PPV23 (Pneumovax) 05/22/2021 Seasonal [...] Miscellaneous Notes * Telephone Encounter - Anjelica Chaudhry, [facility] - 11/12/2023 8:33 AM EDTSigned Prescriptions: Disp Refills Lisinopril 2.5 MG Oral Tablet (Prinivil) 90 Tab*2 Sig: TAKE 1 TABLET BY MOUTH EVERY DAY BEFORE BEDTIME Authorizing Provider: MASSIEL HANSEN Ordering User: ANJELICA BROWN Furosemide 40 MG Oral Tablet (Lasix) 180 Ta*2 Sig: TAKE ONE TABLET BY MOUTH TWICE A DAY IN THE MORNING AND AT BEDTIME Authorizing Provider: MASSIEL HANSEN Ordering User: ANJELICA BROWN Fenofibrate 48 MG Oral Tablet (Tricor) 90 Tab*2 Sig: Take 1 Tablet by mouth in the morning. Authorizing Provider: MASSIEL HANSEN Ordering User: ANJELICA BROWN Apixaban 5 MG Oral Tablet (Eliquis) 180 Ta*2 Sig: Take 1 Tablet by mouth in the morning and 1 Tablet before bedtime. Authorizing Provider: MASSIEL HASNEN Ordering User: Tereza BROWN Gabapentin 100 MG Oral Capsule (Neurontin) 90 Cap*1 Sig: Take 1 Capsule by mouth in the morning and 1 Capsule at noon and 1 Capsule before bedtime. Authorizing Provider: MASSIEL HANSEN Ordering User: ANJELICA BROWN * Telephone Encounter - Anjelica Chaudhry [facility] - 11/12/2023 8:31 AM EDT Balance of Rxs resent to GMO. * Telephone Encounter - Kim Cat CPhT - 11/10/2023 4:59 PM EDTPending Prescriptions: Disp Refills Lisinopril 2.5 MG Oral Tablet (Prinivil) 90 Tab*2 Sig: TAKE 1 TABLET BY MOUTH EVERY DAY BEFORE BEDTIME Furosemide 40 MG Oral Tablet (Lasix) 180 Ta*2 Sig: TAKE ONETABLET BY MOUTH TWICE A DAY IN THE MORNING AND AT BEDTIME Fenofibrate 48 MG Oral Tablet (Tricor) 90Tab*2 Sig: Take 1 Tablet by mouth in the morning. Eliquis 5 MG Oral Tablet (Apixaban) 180 Ta*2 Sig: Take 1 Tablet by mouth in the morning and 1 Tablet before bedtime. [id number] MG Oral Capsule (Neurontin) 90 Cap*1 Sig: Take 1 Capsule by mouth in the morning and 1 Capsule at noon and 1 Capsule before bedtime. documented in this encounter Plan of Treatment Upcoming Encounters Date Type Department Care Team (Late st Contact Info) Description 11/25/2023 1:00 PM EDT Telemedicine [facility] [address] [place] [address] Tatyana Lawson CRNP [address] [place] [address] Celia Weems, Community Health Warp Tier [address] [place] [address] 12/10/2023 11:00 AM EDT Home Visit [facility] at [facility] [address] [place] [address] Liya Jc, RN [address] [place] [address] 03/02/2024 8:00 AM EDT Office Visit Cardiology, [facility] [address] [place] [address] Panchito Grey DO [address] [place] [address] Health Maintenance Due Date Last Done Comments [...] the patient have Health Care Power of Pharmacy Picking Tech? No Code Status History Code Status Date Activated Date Inactivated Comments Full Code 02/05/2017 7:44 PM 02/19/2017 10:16 PM This order reflects the patients wishes and were consensually agreed upon. Question Answer Comments Discussion of Advance Directives occurred with: Not Discussed Care Teams Insecticide Expert Relationship Specialty Start Date End Date Tyrone Massiel CELENA Soriano [address] [place] [address] PCP - General Physician Warp Tier 04/03/22 documented as of this encounter
--- OUTSIDE RECORDS SUMMARY | 2024-01-28 15:01 | External Medical Summary | Summary of Care ---
Author Name Unknown Organization [facility] Address [address] [place] [address] Phone [phone] Care Team Providers Care Advisory Services Associate Name Role Phone Massiel Hansen PA-C Primary Care Provider [phone] Reason for Visit * Reason Comments Medication Refill Encounter Details Date Type Department Care Team (Late st Contact Info) Description 11/10/2023 Refill Family Practice [facility] [address] [facility] [address] Massiel Hansen PA-C [address] [facility] [place] [address] Systolic heart failure, unspecified HF chronicity (HCC); [...] Tablet. 0 10/09/2022 Active FreeStyle Abdulkadir 2 [place] DeviceIndications:T ype 2 diabetes mellitus without complication, without long-term current use of insulin ([facility]) Use as directed. 1 Each 0 03/05/2023 Active predniSONE 20 MG Oral Tablet (Deltasone) NEEDED RESCUE KIT. Take 2 tabs by mouth for 5 days 10 Tablet 1 05/29/2023 Active FreeStyle Abdulkadir 2 SensorIndications:T ype 2 diabetes mellitus without complication, without long-term current use of insulin ([facility]) Use as directed. 3 Each 3 08/06/2023 Active Empagliflozin 25 MG Oral Tablet (Jardiance)Indicati ons:Type 2 diabetes mellitus without complication, without long-term current use of insulin ([facility]) Take 1 Tablet by mouth in [...] PLANIndications:Chr onic diastolic CHF (congestive heart failure) ([facility] [...] 1 09/24/2023 Active Vitamin D3 1.25 MG (60154 UT) Oral Capsule (Cholecalciferol) Take 1 Capsule [...] develops any redness or swelling to contact [facility] right away. Food insecurity 09/08/2023 [...] empagliflozin (ex. Jardiance) Remote Patient Monitoring Vendor: [facility] Device(s): Connected Scale Connected Pulse Ox Connected [...] kit in the past. Advised to call [facility] immediately for eval if he [...] mRNA, LNP-s, No Pre serve, 2-Dose Series (Narvalous) 11/30/2020,11/06/2020 Pneumococcal Polysaccharide PPV23 (Pneumovax) 05/22/2021 Seasonal [...] encounter Miscellaneous Notes * Telephone Encounter - Cassandra Coffman PHARM Tech - 11/12/2023 10:24 AM EDT pharmacy called to request a 90 day supply for gabapentin 100 mg capsule. If agreeable [facility]. Thank You, Cassandra Coffman [facility] Outside Plant Supervisor III [facility] ([facility]) (Formerly Telepharmacy) 11/12/2023, 10:24 AM * Telephone Encounter - Anjelica Chaudhry [facility] - 11/12/2023 8:33 AM EDTSigned [...] 1 Tablet before bedtime. Authorizing Provider: MASSIEL HANSEN Ordering User: Tereza BROWN Gabapentin 100 MG Oral Capsule (Neurontin) 90 Cap*1 Sig: Take 1 Capsule by mouth in the morning and 1 Capsule at noon and 1 Capsule before bedtime. Authorizing Provider: MASSIEL HANSEN Ordering User: ANJELICA BROWN * Telephone Encounter - Anjelica Chaudhry [facility] - 11/12/2023 8:31 AM EDT [...] the morning and 1 Tablet before bedtime. [id number] MG Oral Capsule (Neurontin) 90 Cap*1 Sig: Take 1 Capsule by mouth in the morning and 1 Capsule at noon and 1 Capsule before bedtime. documented in this encounter Plan of Treatment Upcoming Encounters Date Type Department Care Team (Late st Contact Info) Description 11/25/2023 1:00 PM EDT [facility] [address] [place] [address] Tatyana Lawson CRNP [address] [place] [address] Celia Weems, Community Health Furniture Rental Consultant [facility] [address] [place] [address] 12/10/2023 11:00 AM EDT [facility] [address] [facility] [place] [address] Liya Jc RN [address] [place] [address] 03/02/2024 8:00 AM EDT Office Visit Cardiology, [facility] [address] [place] [address] Panchito Grey DO [address] [place] [address] Health Maintenance Due Date Last Done Comments [...] the patient have Health Care Power of Corporate Scheduler? No Code Status History Code Status Date Activated Date Inactivated Comments Full Code 02/05/2017 7:44 PM 02/19/2017 10:16 PM This order reflects the patients wishes and were consensually agreed upon. Question Answer Comments Discussion of Advance Directives occurred with: Not Discussed Care Teams Advisory Services Associate Relationship Specialty Start Date End Date TyroneOctober CELENA Soriano [address] [place] [address] PCP - General Physician Furniture Rental Consultant 04/03/22 documented as of this encounter
--- OUTSIDE RECORDS SUMMARY | 2024-01-28 15:01 | External Medical Summary | Summary of Care ---
Author Name Unknown Organization [facility] Address [address] [place] [address] Phone [phone] Care Team Providers Care Health And Safety Specialist Name Role Phone Massiel Hansen PA-C Primary Care Provider [phone] Reason for Visit * Reason Comments Medication Refill Encounter Details Date Type Department Care Team (Late st Contact Info) Description 11/10/[address] [facility] [address] [facility] [place] [id number] Massiel Hansen PA-C [address] [facility] [place] [id number] Systolic heart failure, unspecified HF chronicity (HCC); Hypertriglyceridemia Allergies No known active allergiesdocumented as of this encounter (statuses as of 11/14/2023) Medications Medication Sig Dispensed Refills Start Date [...] Tablet. 0 10/09/2022 Active FreeStyle Abdulkadir 2 [place] DeviceIndications:T ype 2 diabetes mellitus without complication, [...] [facility]) Use as directed. 3 Each 3 08/06/2023 Active Empagliflozin 25 MG Oral Tablet (Jardiance)Indicati ons:Type 2 diabetes mellitus without complication, without long-term current use of insulin ([facility]) Take 1 Tablet by mouth in the [...] onic diastolic CHF (congestive heart failure) ([facility]) If no improvement on day 3, contact [...] 1 09/24/2023 Active Vitamin D3 1.25 MG (27999 UT) Oral Capsule (Cholecalciferol) Take 1 Capsule [...] as of this encounter (statuses as of 11/14/2023) Active Problems Problem Noted Date Diagnosed Date [...] develops any redness or swelling to contact [facility] right away. Food insecurity 09/08/2023 Overview: Per [facility] Protocol Chronic diastolic CHF (congestive heart failure) 08/22/2023 Last Assessment & Plan: "RED FLAG" HF Symptoms: Leg Swelling (Examples: "I can't wear certain socks or shoes", "My pants feel tight") Increased dyspnea on exertion (Example: "I can't walk to the kitchen or up the stairs") Medication Regimen: Beta Ming Therapy: No beta-ming OJ Inhibitor/ARB Therapy: Lisinopril Diuretic therapy: Lasix SGLT2 Inhibitor: empagliflozin (ex. Jardiance) Remote Patient Monitoring Vendor: [facility] Device(s): Connected Scale Connected Pulse Ox Connected [...] kit in the past. Advised to call [facility] immediately for eval if he feels [...] as of this encounter (statuses as of 11/14/2023) Resolved Problems Problem Noted Date Diagnosed Date [...] as of this encounter (statuses as of 11/14/2023) Immunizations Name Administration Dates Next Due COVID-19 mRNA, LNP-s, No Pre serve, 2-Dose Series (Smile) 11/30/2020,11/06/2020 Pneumococcal Polysaccharide PPV23 (Pneumovax) 05/22/2021 Seasonal [...] Miscellaneous Notes * Telephone Encounter - Nessa Orellana, registered nurse cardiac telemetry - 11/14/2023 9:47 AM EDT Pt looking for qty of 270 on gabapentin .Send to [facility] mail order . [facility], [facility] Monologist II [facility]( formally Telepharmacy ) 11/14/2023, 9:48 AM * Telephone Encounter - Cassandra Coffman PHARM Tech - 11/12/2023 10:24 AM EDT pharmacy called to request a 90 day supply for gabapentin 100 mg capsule. If agreeable please send to [facility]. Thank You, Cassandra Coffman [facility] Technician Anatomic Pathology III Centralized Clinical Pharmacy Services (CCPS) (Formerly Telepharmacy) 11/12/2023, 10:24 AM * Telephone Encounter - Anjelica Chaudhry, [facility] - 11/12/2023 8:33 AM EDTSigned Prescriptions: Disp [...] bedtime. Authorizing Provider: MASSIEL HANSEN Ordering User: O'BRANT, ANJELICA M Electronically signed by Anjelica Chaudhry [facility] at 11/12/2023 8:33 AM EDT * Telephone Encounter - Anjelica Chaudhry [facility] - 11/12/2023 8:31 AM EDT Balance of Rxs resent to GMO. Electronically signed by Anjelica Chaudhry [facility] at 11/12/2023 8:33 AM EDT * Telephone Encounter - Kim Cat CPhT [...] the morning and 1 Tablet before bedtime. [id number] MG Oral Capsule (Neurontin) 90 Cap*1 Sig: Take 1 Capsule by mouth in the morning and 1 Capsule at noon and 1 Capsule before bedtime. documented in this encounter Plan of Treatment Upcoming Encounters Date Type Department Care Team (Late st Contact Info) Description 11/25/2023 1:00 PM EDT Telemedicine [facility] at [address] [place] [address] Tatyana Lawson CRNP [address] [place] [address] Celia Weems, Community Health Cloth Grader Supervisor [address] [place] [address] 12/10/2023 11:00 AM EDT [facility], [facility] [address] [place] [address] Liya Jc, RN [address] [place] [address] 03/02/2024 8:00 AM EDT Office Visit Cardiology, [facility] [address] [place] [address] Panchito Grey DO [address] [place] [address] Health Maintenance Due Date Last Done Comments [...] the patient have Health Care Power of Lens Fabricating Machine Tender? No Code Status History Code Status Date Activated Date Inactivated Comments Full Code 02/05/2017 7:44 PM 02/19/2017 10:16 PM This order reflects the patients wishes and were consensually agreed upon. Question Answer Comments Discussion of Advance Directives occurred with: Not Discussed Care Teams Health And Safety Specialist Relationship Specialty Start Date End Date Massiel Hansen PA-C [facility] Le[place] [facility] [place] [address] PCP - General Physician Cloth Grader Supervisor 04/03/22 documented as of this encounter
--- OUTSIDE RECORDS SUMMARY | 2024-01-28 15:01 | External Medical Summary | Summary of Care ---
Author Name Unknown Organization [facility] Address [address] [place] [address] Phone [phone] Care Team Providers Care Earth Boring Machine Operator Name Role Phone Tyrone October ANMOLC Primary Care Provider [phone] Reason for Visit * Reason Onset Date Comments [facility]: Maintenance 12/05/2023 Encounter Details Date Type Department Care Team (Late st Contact Info) Description 12/05/2023 Telephone [facility], [facility] [address] [facility] [place] [id number] [facility], Nurse [facility] [address] [facility] [place] [id number] [facility]: Maintenance Allergies No known active allergiesdocumented as of this encounter (statuses as of 12/05/2023) Medications Medication Sig Dispensed Refills Start Date [...] 0 10/09/2022 Acti ve FreeStyle Abdulkadir 2 [place] DeviceIndications:Ty pe 2 diabetes mellitus without complication, without long-term current use of insulin ([facility]) Use as directed. 1 Each 0 03/05/2023 Active predniSONE 20 MG Oral Tablet (Deltasone) NEEDED RESCUE KIT. Take 2 tabs by mouth for 5 days 10 Tablet 1 05/29/2023 Active FreeStyle Abdulkadir 2 SensorIndications:Ty pe 2 diabetes mellitus without complication, without long-term current use of insulin ([facility]) Use as directed. 3 Each 3 08/06/2023 Active Empagliflozin 25 MG Oral Tablet (Jardiance)Indicatio ns:Type 2 diabetes mellitus without complication, without long-term current use of insulin ([facility]) Take 1 Tablet by mouth in [...] before bedtime. 0 08/22/2023 Active DIURETIC TITRATION PLANIndications:Food Truck Caterer ethan diastolic CHF (congestive heart failure) ([facility]) If no improvement on day 3, [...] as of this encounter (statuses as of 12/05/2023) Active Problems Problem Noted Date Diagnosed Date Vitamin D deficiency 11/25/2023 Last Assessment & Plan: He never picked up vitamin-D 16444 units weekly. At this time we will [...] getting out is difficult and the automobile repair service estimator has been unsuccessful and vena puncture x2. [...] develops any redness or swelling to contact [facility] right away. Food insecurity 09/08/2023 Overview: [...] empagliflozin (ex. Jardiance) Remote Patient Monitoring Vendor: [facility] Device(s): Connected Scale Connected Pulse Ox Connected [...] kit in the past. Advised to call [facility] immediately for eval if he feels [...] as of this encounter (statuses as of 12/05/2023) Resolved Problems Problem Noted Date Diagnosed Date [...] as of this encounter (statuses as of 12/05/2023) Immunizations Name Administration Dates Next Due COVID-19 [...] Miscellaneous Notes * Telephone Encounter - Dorota Vitale, MANAGER RESOURCE - 12/05/2023 9:05 AM EDT Images from the original note were not included. [facility] Remote Patient Monitoring Able to contact patient: Trigger type: Abnormal reading(s): AMC (Advanced Monitored Caregiving): Pulse rate: Trigger priority per AMC: 105 Symptom review:none Diet Reviewed: Yes. Patient has had any foods high in sodium: No Fluid Intake Reviewed: N/A Self-Management Plan Reviewed: Risk assignment recommendation: Moderate risk findings (check [...] WITH symptoms Additional risk selection justification: spoke with Nicola states he feels fine denies any chest discomfort or any symptoms at this time. Nicola stated he took his pulse again and it was 81 will callwith any questions or concerns Overall risk and identified plan: documented in this encounter Plan of Treatment Upcoming Encounters Date Type Department Care Team (Late st Contact Info) Description 12/10/2023 11:00 AM EDT [facility] [address] [place] [address] Liya Jc, RN [address] [place] [address] 02/24/2024 8:30 AM EDT [facility]icine [facility] [address] [place] [address] Tatyana Lawson CRNP [address] [facility] [place] [address] Celia Weems, Community Health Senior Controls Analyst [address] [place] [address] 03/02/2024 8:00 AM EDT Office Visit Cardiology, [facility] [address] [place] [address] Panchito Grey DO [address] [place] [address] Health Maintenance Due Date Last Done Comments [...] the patient have Health Care Power of Power Nut Runner Operator? No Code Status History Code Status Date Activated Date Inactivated Comments Full Code 02/05/2017 7:44 PM 02/19/2017 10:16 PM This order reflects the patients wishes and were consensually agreed upon. Question Answer Comments Discussion of Advance Directives occurred with: Not Discussed Care Teams Earth Boring Machine Operator Relationship Specialty Start Date End Date Massiel Hansen PA-C [facility] [place] [address] PCP - General Physician Senior Controls Analyst 04/03/22 documented as of this encounter
--- OUTSIDE RECORDS SUMMARY | 2024-01-28 15:02 | External Medical Summary | Summary of Care ---
Author Name Unknown Organization [facility] Address [address] [place] [address] Phone [phone] Care Team Providers Care Patient Escort Name Role Phone Tyrone October ANMOLC Primary Care Provider [phone] Reason for Visit * Reason Onset Date Comments [facility]: Maintenance 10/31/2023 Encounter Details Date Type Department Care Team (Late st Contact Info) Description 10/31/2023 Telephone [facility], [facility] [place] [address] Liya Jc RN [address] [facility] [place] [address] [facility]: Maintenance Allergies No known active allergiesdocumented as of this encounter (statuses as of 10/31/2023) Medications Medication Sig Dispensed Refills Start Date [...] Tablet. 0 10/09/2022 Active FreeStyle Abdulkadir 2 [place] DeviceIndications:T ype 2 diabetes mellitus without complication, without long-term current use of insulin ([facility]) Use as directed. 1 Each [...] without long-term current use of insulin ([facility]) Use as directed. 3 Each 3 08/06/2023 Active Empagliflozin 25 MG Oral Tablet (Jardiance)Indicati ons:Type 2 diabetes mellitus without complication, without long-term current use of insulin ([facility]) Take 1 Tablet by mouth [...] taking.Reported on 10/07/2023 Vitamin D3 1.25 MG (57381 UT) Oral Capsule (Cholecalciferol) Take 1 Capsule by mouth once a week. 8 Capsule 0 10/05/2023 4 Active rOPINIRole HCl 2 MG Oral Tablet (Requip) Take 1 tablet by mouth by 8pm nightly for RLS. 90 Tablet 1 10/17/2023 Active Ozempic (1 MG/DOSE) 4 MG/3ML Subcutaneous Solution Pen-injector (Semaglutide (1 MG/DOSE))Indication s:Type 2 diabetes mellitus without complication, without long-term current use of insulin (HCC) Inject 1 mg under the skin once a week. 9 mL 1 08/13/2023 4 Discontinu ed(Patient preference /discontin uation) documented as of this encounter (statuses as of 10/31/2023) Active Problems Problem Noted Date Diagnosed Date [...] develops any redness or swelling to contact [facility] right away. Food insecurity 09/08/2023 Overview: [...] as of this encounter (statuses as of 10/31/2023) Resolved Problems Problem Noted Date Diagnosed Date [...] as of this encounter (statuses as of 10/31/2023) Immunizations Name Administration Dates Next Due COVID-19 mRNA, LNP-s, No Pre serve, 2-Dose Series (XGear) 11/30/2020,11/06/2020 Pneumococcal Polysaccharide PPV23 (Pneumovax) 05/22/2021 Seasonal [...] Telephone Encounter - Tatyana Lawson CRNP - 10/31/2023 2:49 PM EDT Ok, then stop ozempic and restart metformin, ensure he got the ER formulation. We can monitor. * Telephone Encounter - Liya Jc RN - 10/31/2023 2:43 PM EDT Cristhian Joe had stopped both ozempic and metformin when he was having the diarrhea and it had stopped. So he went back on the ozempic about two weeks ago and he has been having the diarrhea ever since. Do you want him to stop the ozempic and go back on the Metformin? He reports he has not really been feeling well these past two weeks and wondering if it is from theOzempic. Please advise. Thank you! documented in this encounter Plan of Treatment Upcoming Encounters Date Type Department Care Team (Late st Contact Info) Description 10/31/2023 4:00 PM EDT [facility] [place], [facility] [address] [place] [address] Liya Jc RN [address] [place] [address] 11/25/2023 1:00 PM EDT [facility]medicine [facility] [place], [facility] [address] [place] [address] Tatyana Lawson CRNP [address] [place] [address] Celia Weems, Community Health Printed Circuit Board Pcb Draftsman [address] [place] [address] 03/02/2024 8:00 AM EDT Office Visit Cardiology, [facility] [address] [place] [address] Panchito Grey DO [address] [place] [address] Health Maintenance Due Date Last Done Comments [...] the patient have Health Care Power of Healthcare Interpreter? No Code Status History Code Status Date Activated Date Inactivated Comments Full Code 02/05/2017 7:44 PM 02/19/2017 10:16 PM This order reflects the patients wishes and were consensually agreed upon. Question Answer Comments Discussion of Advance Directives occurred with: Not Discussed Care Teams Patient Escort Relationship Specialty Start Date End Date Massiel Hansen PA-C [address] [place] [address] [place] [address] PCP - General Physician Printed Circuit Board Pcb Draftsman 04/03/22 documented as of this encounter
--- OUTSIDE RECORDS SUMMARY | 2024-01-28 15:02 | External Medical Summary | Summary of Care ---
Author Name Unknown Organization [facility] Address [address] [place] [address] Phone [phone] Care Team Providers Care Hide Salter Name Role Phone Massiel Hansen PA-C Primary Care Provider [phone] Reason for Visit * Reason Onset Date Comments Med Request 11/01/2023 Encounter Details Date Type Department Care Team (Late st Contact Info) Description 11/01/2023 Telephone Family Practice [facility] [address] [place] [address] Massiel Hansen PA-C [address] [facility] [place] [address] Med Request Allergies No known active allergiesdocumented as of this encounter (statuses as of 11/05/2023) Medications Medication Sig Dispensed Refills Start Date [...] Tablet. 0 10/09/2022 Active FreeStyle Abdulkadir 2 [place] DeviceIndications:T ype 2 diabetes mellitus without complication, [...] long-term current use of insulin ([facility]) Use as directed. 3 Each 3 [...] 1 09/24/2023 Active Vitamin D3 1.25 MG (22182 UT) Oral Capsule (Cholecalciferol) Take 1 Capsule [...] before bedtime. 90 Capsule 1 11/05/2023 Active Gabapentin 100 MG Oral Capsule (Neurontin) Take 1 Capsule by mouth in the morning and 1 Capsule at noon and 1 Capsule before bedtime. 90 Capsule 1 08/27/2023 4 Discontinu ed(Refill) documented as of this encounter (statuses as of 11/05/2023) Active Problems Problem Noted Date Diagnosed Date [...] empagliflozin (ex. Jardiance) Remote Patient Monitoring Vendor: [facility] Device(s): Connected Scale Connected Pulse Ox Connected [...] kit in the past. Advised to call [facility] immediately for eval if he feels [...] as of this encounter (statuses as of 11/05/2023) Resolved Problems Problem Noted Date Diagnosed Date [...] as of this encounter (statuses as of 11/05/2023) Immunizations Name Administration Dates Next Due COVID-19 [...] Telephone Encounter - Massiel Hansen PA-C - 11/05/2023 7:17 PM EDT Script sent. * Telephone Encounter - Fadi Jacobs PHARM Tech - 11/05/2023 8:25 AM EDT Pt's EC requesting high priority due to being out of the medication. Pt's EC calling to check on status of Gabapentin 100 MG Oral Capsule (Neurontin) . Caller can be reached at [phone]. Thank you, Fadi Jacobs Senior Vice President And Chief Information Officer I Centralized Clinical Pharmacy Services (CCPS)(formerly Telepharmacy) 11/05/2023,8:25 AM * Telephone Encounter - Anastasia Lewis LPN - 11/01/2023 9:20 AM EDT Will forward to pcp office * Telephone Encounter - Pastora Mccormick PHARM Tech - 11/01/2023 9:16 AM EDT Pt's ec calling to request a refill on Gabapentin 100 MG Oral Capsul . Medication was last prescribed by Tatyana Lawson but patient is asking if PCP can take over the medication. Please advise if this is appropriate and send to [id number] [address] [facility] if agreeable. Thank you, [facility] Bean Viner II Centralized Clincal Pharmacy Services (CCPS) (formerly Telepharmacy) 11/01/2023,9:17 AM documented in this encounter Plan of Treatment Upcoming Encounters Date Type Department Care Team (Late st Contact Info) Description 11/25/2023 1:00 PM EDT [facility] [address] [place] [address] Tatyana Lawson CRNP [address] [place] [address] Celia Weems, Community Health Cheese Maker [address] [place] [address] 12/10/2023 11:00 AM EDT [facility] [address] [place] [address] Liya Jc, RN [address] [place] [address] 03/02/2024 8:00 AM EDT Office Visit Cardiology, [facility] [address] [place] [address] Panchito Grey, DO [address] [place] [address] Health Maintenance Due Date Last Done Comments [...] the patient have Health Care Power of Weaver Wire Loom? No Code Status History Code Status Date Activated Date Inactivated Comments Full Code 02/05/2017 7:44 PM 02/19/2017 10:16 PM This order reflects the patients wishes and were consensually agreed upon. Question Answer Comments Discussion of Advance Directives occurred with: Not Discussed Care Teams Hide Salter Relationship Specialty Start Date End Date Danielleoctober CELENA Soriano [facility] [address] [place] [address] PCP - General Physician Cheese Maker 04/03/22 documented as of this encounter
--- OUTSIDE RECORDS SUMMARY | 2024-01-28 15:02 | External Medical Summary | Summary of Care ---
Author Name Unknown Organization [facility] Address [address] [place] [address] Phone [phone] Care Team Providers Care Air Defense Artillery Senior Sergeant Name Role Phone Danielle October PAAnilC Primary Care Provider [phone] Reason for Visit * Reason Comments [facility]: Maintenance Encounter Details Date Type Department Care Team (Late st Contact Info) Description 10/16/2023 2:30 PM EDT [facility], [facility] [address] [facility] [place] [address] Liya Jc RN [address] [facility] [place] [address] Allergies No known active allergiesdocumented as of this encounter (statuses as of 10/16/2023) Medications Medication Sig Dispensed Refills Start Date [...] Tablet. 0 10/09/2022 Active FreeStyle Abdulkadir 2 [place] DeviceIndications:T ype 2 diabetes mellitus without complication, [...] use of insulin ([facility]) Inject 1 mg under the skin [...] taking.Reported on 10/07/2023 Vitamin D3 1.25 MG (85706 UT) Oral Capsule (Cholecalciferol) Take 1 Capsule by mouth once a week. 8 Capsule 0 10/05/2023 05/05/202 4 Active Aspirin-Acetaminoph en-Caffeine 250-250-65 MG Oral Tablet Take 2 Tablets by mouth daily as needed. Per 24 hours 0 4 Discontinu ed(Medicat ion List Clean Up) documented as of this encounter (statuses as of 10/16/2023) Active Problems Problem Noted Date Diagnosed Date [...] develops any redness or swelling to contact [facility] right away. Food insecurity 09/08/2023 Overview: Per [...] empagliflozin (ex. Jardiance) Remote Patient Monitoring Vendor: [facility] Device(s): Connected Scale Connected Pulse [...] kit in the past. Advised to call [facility] immediately for eval if he feels he [...] as of this encounter (statuses as of 10/16/2023) Resolved Problems Problem Noted Date Diagnosed Date [...] as of this encounter (statuses as of 10/16/2023) Immunizations Name Administration Dates Next Due COVID-19 mRNA, LNP-s, No Pre serve, 2-Dose Series ([employer]) 11/30/2020,11/06/2020 Pneumococcal Polysaccharide PPV23 (Pneumovax) 05/22/2021 Seasonal [...] Sign Reading Time Taken Comments Blood Pressure 124/72 10/16/2023 2:03 PM EDT Pulse 90 10/16/2023 2:03 PM EDT Temperature 35.8 C (96.4 F) 10/16/2023 2:03 PM ED T Respiratory Rate 20 10/16/2023 2:03 PM EDT Oxygen Saturation 98% 10/16/2023 2:03 PM EDT Inhaled Oxygen Concentration - - Weight 171.8 kg (378 lb 12.8 oz) 10/16/2023 2:03 PM EDT Height - - Body Mass Index 59.33 09/17/2023 6:48 AM EST documented in this [...] Progress Notes * Liya Jc, RN - 10/16/2023 11:54 AM EDT Images from the original note were not included. [facility] Well Drill Operator Helper Cable Tool ELZBIETA Visit Date: 10/16/2023 Time: 1:54 PM Name: Nicola Pineda : 1975 Current Concerns: Pt seen for return RNCM visit and ELZBIETA #1 Admitted to [facility] 10/11 - 10/14/23 for acute on chronic diastolic heart failure Was managed with IV Lasix 40mg BID and advised at discharge to continue PO 40mg Lasix BID and may take an additional 40mg tab for wt gain of 2 lbs in 48 hrs or 5 lbs in one week Pt reports when he woke up prior to going to the hospital, he had gained 5 lbs from the day prior and he was having SOB, but thought maybe it was from eating too much As the day went on he started to have abdominal bloating and swelling in legs - it became worse andfelt it was too late and he called in around 5-6 in the evening and he ended up going to the ED Discussed calling in immediately with red flags to take care of it before it progresses too far - [facility] can initiate DTP and even give IV Lasix in the home - pt is aware and will call earlier - says marías a better understanding now Weight is back down to his baseline LE edema is also at baseline He is not having any increased SOB Vitals are stable Lungs clear bilaterally No concerns at this time Has cardiology f/u next week Physical Exam: BP 124/72 | Pulse 90 | Temp 35.8 C (96.4 F) | Resp 20 | Wt (!) 171.8 kg (378 lb 12.8 oz) | IhI300% | BMI 59.33 kg/m | BSA 2.85 m Pain 0 Physical Exam Constitutional: General: He is not in acute distress. Appearance: He is obese. Cardiovascular: Rate and Rhythm: Normal rate and regular rhythm. Pulses: Normal pulses. Heart sounds: Normal heart sounds. Pulmonary: Effort: Pulmonary effort is normal. Musculoskeletal: Right lower leg: Edema (+1) present. Left lower leg: Edema (+1) present. Skin: General: Skin is warm and dry. Problems/Symptoms: Review of Systems Constitutional: Negative. HENT: [...] No change in living situation [facility] Completed this Visit: Yes. [facility]-10: Reason Completed: Status post ED visit/hospital admission [facility]-10 ([facility]) Fall Risk Assessment Tool Age 65+: No (10/16/231499) Diagnosis (3 or more co-existing): Yes (10/16/23 1500) Prior history of falls within 3 months: No (10/16/23 1500) Incontinence: No (10/16/23 1500) Visual impairment: No (10/16/23 1500) Impaired functional mobility: No (10/16/23 1500) Environmental hazards: Yes (10/16/23 1500) Poly Pharmacy (4 or more prescriptions - any type): Yes (10/16/23 1500) Pain affecting level of function: No (10/16/23 1500) Cognitive impairment: No (10/16/23 1500) Score - a score of 4 or more is considered at risk for fallin (10/16/23 1500) [facility]-10 Interventions: Fall education provided, reviewed/provided Fall brochure Advanced Care Planning: No documentation, acp on [...] wts, bp and pulse ox reading via [facility] Low Na diet Elevate LE as much as possible Keep all appts as scheduled Cardiology f/u next week Home Interventions Provided: Home Intervention: Other; eval Reinforced current Plan of Care, including self-management and medication regimen Patient's 'Red Flags': Increased SOB Wt gain of 3 lbs in 24 hrs or 5 lbs in one week Increased abd distention/edema Patient Needs to Remember: Call [facility] at with any new or worsening health concerns or problems, red flag symptoms. Referrals Needed: Other none Follow Up: Is there cellular connectivity/connectivity in the home? Yes Does the patient have internet in the home? Yes Patient encouraged to call the intake phone number for all urgent but not emergent issues. Is the patient new to [facility] within the last 30 days? No, Assess appropriateness for upcoming telehealth visits. Cancel telehealth visits & schedule home visit with care telesales team leader(s)as indicated. Provider is in agreement with Plan of Care: Yes Scheduled to follow up with patient in 2 weeks - next week with cardio and pcp. Liya Jc RN 10/16/2023 1:54 PM documented in this encounter Plan of Treatment Upcoming Encounters Date Type Department Care Team (Late st Contact Info) Description 10/22/2023 10:30 AM EDT Office Visit Cardiology, [facility] [address] [place] [address] Panchito Grey DO [address] [facility] [place] [address] 10/27/2023 12:00 PM EDT Office Visit Family Practice [facility] [address] [facility] [place] [address] Massiel Hansen PA-C [address] [facility] [place] [address] 10/31/2023 4:00 PM EDT [facility] Visit [facility], [facility] [address] [place] [address] Liya Jc RN [address] [facility] [place] [address] 11/25/2023 1:00 PM EDT Telemedicine [facility], [facility] [address] [place] [address] Tatyana Lawson CRNP [address] [facility] [place] [address] Celia Weems, Community Health Store Promoter [address] [place] [address] Health Maintenance Due Date Last Done Comments [...] Tdap) 05/25/2022 05/25/2012 COVID-19 Vaccine (3 - 2022-24 season) 2023 11/30/2020, 11/06/2020 Influenza Vaccine (FLU [...] the patient have Health Care Power of Patrol Inspector? No Code Status History Code Status Date Activated Date Inactivated Comments Full Code 02/05/2017 7:44 PM 02/19/2017 10:16 PM This order reflects the patients wishes and were consensually agreed upon. Question Answer Comments Discussion of Advance Directives occurred with: Not Discussed Care Teams Air Defense Artillery Senior Sergeant Relationship Specialty Start Date End Date Tyrone October Bo, PAAnilC [address] [place] [address] PCP - General Physician Store Promoter 04/03/22 documented as of this encounter
--- OUTSIDE RECORDS SUMMARY | 2024-01-28 15:02 | External Medical Summary | Summary of Care ---
Author Name Unknown Organization [facility] Address [address] [place] [address] Phone [phone] Care Team Providers Care Manager Hair Name Role Phone Danielle October PA-C Primary Care Provider [phone] Reason for Visit * Reason Onset Date Comments Follow Up 10/14/2023 Encounter Details Date Type Department Care Team (Late st Contact Info) Description 10/14/2023 Telephone Cardiology, [facility] [address] [place] [address] Panchito Grey O, DO [address] [place] [address] Follow Up Allergies No known active allergiesdocumented as of [...] 0 10/09/2022 Acti ve FreeStyle Abdulkadir 2 [place] DeviceIndications:Ty pe 2 diabetes mellitus without complication, [...] before bedtime. 0 08/22/2023 Active DIURETIC TITRATION PLANIndications:Behavioral Services Tech ethan diastolic CHF (congestive heart failure) (HCC) [...] 1 09/24/2023 Active Vitamin D3 1.25 MG (89929 UT) Oral Capsule (Cholecalciferol) Take 1 Capsule [...] develops any redness or swelling to contact [facility] right away. Food insecurity 09/08/2023 Overview: Per [...] empagliflozin (ex. Jardiance) Remote Patient Monitoring Vendor: [facility] Device(s): Connected Scale Connected Pulse Ox Connected [...] kit in the past. Advised to call [facility] immediately for eval if he feels he [...] encounter Miscellaneous Notes * Telephone Encounter - Panchito Grey DO - 10/14/2023 12:53 PM EDT Hospital discharge. Schedule cardiology follow up in one week. OK for appointment during imaging. documented in this encounter Plan of Treatment Upcoming Encounters Date Type Department Care Team (Late st Contact Info) Description 11/25/2023 1:00 PM EDT [facility]icine [facility] [address] [place] [address] Tatyana Lawson CRNP [address] [facility] [place] [address] Celia Weems, Community Health Chromosomal Disorders Counselor [address] [place] [address] 12/10/2023 11:00 AM EDT [facility] [address] [place] [address] Liya Jc RN [address] [place] [address] 03/02/2024 8:00 AM EDT Office Visit Cardiology, [facility] [address] [place] [address] Panchito Grey, [address] [place] [address] Health Maintenance Due Date Last Done Comments [...] the patient have Health Care Power of Rn Transitional Care? No Code Status History Code Status Date Activated Date Inactivated Comments Full Code 02/05/2017 7:44 PM 02/19/2017 10:16 PM This order reflects the patients wishes and were consensually agreed upon. Question Answer Comments Discussion of Advance Directives occurred with: Not Discussed Care Teams Manager Hair Relationship Specialty Start Date End Date Tyrone October CELENA Soriano [address] [place] [address] PCP - General Physician Chromosomal Disorders Counselor 04/03/22 documented as of this encounter
--- OUTSIDE RECORDS SUMMARY | 2024-01-28 15:02 | External Medical Summary | Summary of Care ---
Author Name Unknown Organization [facility] Address [address] [place] [address] Phone [phone] Care Team Providers Care Tower Hoist Operator Name Role Phone Danielleoctober PAAnilC Primary Care Provider [phone] Reason for Visit * Reason Comments eRx-Medication Refill Encounter Details Date Type Department Care Team (Late st Contact Info) Description 10/17/2023 Refill [facility] [address] [place] [phone] Ana David CRNP [address] [place] [address] Allergies No known active allergiesdocumented as of this encounter (statuses as of 10/17/2023) Medications Medication Sig Dispensed Refills Start Date [...] Tablet. 0 3 Active FreeStyle Abdulkadir 2 [place] DeviceIndications:T ype 2 diabetes mellitus without complication, [...] Tablet 5 3 Active FreeStyle Abdulkadir 2 SensorIndications:T ype 2 diabetes mellitus without complication, without long-term current use of insulin ([facility]) Use as directed. 3 Each 3 4 Active Empagliflozin 25 MG Oral Tablet (Jardiance)Indicati ons:Type 2 diabetes mellitus without complication, without long-term current use of insulin (HCC) Take 1 Tablet by mouth in the morning. 90 Tablet 2 4 Active Ozempic (1 MG/DOSE) 4 MG/3ML Subcutaneous Solution Pen-injector (Semaglutide (1 MG/DOSE))Indication s:Type 2 diabetes mellitus without complication, without long-term current use of insulin ([facility]) Inject 1 mg under the skin once [...] 120 Tablet 0 4 Active metFORMIN HCl ER 500 MG Oral Tablet Extended Release 24 Hour (Glucophage XR) Take 1 Tablet by mouth in the morning. 90 Tablet 1 4 Active Additional Information Patient not taking.Reported on 10/07/2023 Vitamin D3 1.25 MG (21258 UT) Oral Capsule (Cholecalciferol) Take 1 Capsule by mouth once a week. 8 Capsule 0 4 11/30/19 24 Active rOPINIRole HCl 2 MG Oral Tablet (Requip) Take 1 tablet by mouth by 8pm nightly for RLS. 90 Tablet 1 4 Active rOPINIRole HCl 3 MG Oral Tablet Take one-half tablet (1.5 mg) 60-90 minutes prior to typical onset of RLS nightly. Take with 0.25 mg dose as prescribed. 45 Tablet 1 4 10/17/19 24 Discontinued documented as of this encounter (statuses as of 10/17/2023) Active Problems Problem Noted Date Diagnosed Date [...] develops any redness or swelling to contact [facility] right away. Food insecurity 09/08/2023 Overview: Per [...] empagliflozin (ex. Jardiance) Remote Patient Monitoring Vendor: [facility] Device(s): Connected Scale Connected [...] as of this encounter (statuses as of 10/17/2023) Resolved Problems Problem Noted Date Diagnosed Date [...] as of this encounter (statuses as of 10/17/2023) Immunizations Name Administration Dates Next Due COVID-19 mRNA, LNP-s, No Pre serve, 2-Dose Series (Mbite) 11/30/2020,11/06/2020 Pneumococcal Polysaccharide PPV23 (Pneumovax) 05/22/2021 Seasonal [...] encounter Miscellaneous Notes * Telephone Encounter - Ana David CRNP [...] 10/22/2023 10:30 AM EDT Office Visit Cardiology, [facility] [address] [place] [address] Panchito Grey DO [address] [place] [address] 10/27/2023 12:00 PM EDT Office Visit Family Practice [facility] [address] [facility] [place] [address] Massiel Hansen PA-C [address] [facility] [place] [address] 10/31/2023 4:00 PM EDT [facility] [place] [address] Liya Jc RN [address] [place] [address] 11/25/2023 1:00 PM EDT [facility] [place] [place] [address] Tatyana Lawson CRNP [address] [facility] [place] [address] Celia Weems, Community Health Bingo Usher [address] [place] [address] Health Maintenance Due Date Last Done Comments [...] the patient have Health Care Power of Smash Fixer? No Code Status History Code Status Date Activated Date Inactivated Comments Full Code 02/05/2017 7:44 PM 02/19/2017 10:16 PM This order reflects the patients wishes and were consensually agreed upon. Question Answer Comments Discussion of Advance Directives occurred with: Not Discussed Care Teams Tower Hoist Operator Relationship Specialty Start Date End Date Rinoctober, PA-C [address] [place] [address] PCP - General Physician Bingo Usher 04/03/22 documented as of this encounter
--- OUTSIDE RECORDS SUMMARY | 2024-01-28 15:02 | External Medical Summary | Summary of Care ---
Author Name Unknown Organization [facility] Address [address] [place] [address] Phone [phone] Care Team Providers Care Core Driller Name Role Phone Danielleoctober PAAnilC Primary Care Provider [phone] Reason for Visit * Reason Onset Date Comments [facility]: Maintenance 10/15/2023 Encounter Details Date Type Department Care Team (Late st Contact Info) Description 10/15/2023 Telephone [facility], [facility] [address] [facility] [place] [address] [facility], Nurse [facility] [address] [facility] [place] [address] [facility]: Maintenance Allergies No known active allergiesdocumented as of this encounter (statuses as of 10/15/2023) Medications Medication Sig Dispensed Refills Start Date [...] 0 10/09/2022 Acti ve FreeStyle Abdulkadir 2 [place] DeviceIndications:Ty pe 2 diabetes mellitus without complication, [...] before bedtime. 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 8 Capsule 0 10/05/2023 4 Active documented as of this encounter (statuses as of 10/15/2023) Active Problems Problem Noted Date Diagnosed Date [...] (ex. Jardiance) Remote Patient Monitoring Vendor: [facility] Device(s): Connected Scale Connected Pulse Ox Connected [...] as of this encounter (statuses as of 10/15/2023) Resolved Problems Problem Noted Date Diagnosed Date [...] as of this encounter (statuses as of 10/15/2023) Immunizations Name Administration Dates Next Due COVID-19 mRNA, LNP-s, No Pre serve, 2-Dose Series ([email or web address]) 11/30/2020,11/06/2020 Pneumococcal Polysaccharide PPV23 (Pneumovax) 05/22/2021 Seasonal [...] encounter Miscellaneous Notes * Telephone Encounter - Leona Campos LPN - 10/15/2023 9:39 AM EDT Patient discharged from [facility] 10/13 TT to NILTON Jc regarding appointment Added to schedule tomorrow 10/15 at 2:30 pm Patient is aware and accepting of date/time Leona Campos LPN [facility] 10/15/2023,9:39 AM documented in this encounter Plan of Treatment Upcoming Encounters Date Type Department Care Team (Late st Contact Info) Description 10/16/2023 2:30 PM EDT [facility] Visit [facility], [facility] [address] [place] [address] Liya Jc, RN [facility] [place] [address] 10/21/2023 5:00 PM EDT Office Visit Family Practice [facility] [address] [facility] [place] [address] Massiel Hansen PA-C [address] [facility] [place] [address] 10/31/2023 4:00 PM EDT [facility] Visit [facility], [facility] [address] [facility] [place] [address] Liya Jc RN 132 [facility] [place] [address] 11/25/2023 1:00 PM EDT Telemedicine [facility], [facility] [address] [place] [address] Tatyana Lawson CRNP 132 [place] [address] Celia Weems, Community Health Leather Belt Shaper [address] [place] [address] Health Maintenance Due Date Last Done Comments [...] the patient have Health Care Power of Informatica Architect? No Code Status History Code Status Date Activated Date Inactivated Comments Full Code 02/05/2017 7:44 PM 02/19/2017 10:16 PM This order reflects the patients wishes and were consensually agreed upon. Question Answer Comments Discussion of Advance Directives occurred with: Not Discussed Care Teams Core Driller Relationship Specialty Start Date End Date Tyrone October CELENA Soriano [address] [place] [address] PCP - General Physician Leather Belt Shaper 04/03/22 documented as of this encounter
--- OUTSIDE RECORDS SUMMARY | 2024-01-28 15:02 | External Medical Summary | Summary of Care ---
Author Name Unknown Organization [facility] Address [address] [place] [address] Phone [phone] Care Team Providers Care Private Watchman Name Role Phone Danielle October PA-C Primary Care Provider [phone] Reason for Visit * Reason Comments [facility]: Maintenance Encounter Details Date Type Department Care Team (Late st Contact Info) Description 10/31/2023 4:00 PM EDT Home Visit [facility], [facility] [address] [facility] [place] [address] Liya Jc RN 132 [facility] [place] [address] Allergies No known active allergiesdocumented as of this encounter (statuses as of 11/03/2023) Medications Medication Sig Dispensed Refills Start Date [...] 0 10/09/2022 Acti ve FreeStyle Abdulkadir 2 [place] DeviceIndications:Ty pe 2 diabetes mellitus without complication, without long-term current use of insulin ([facility]) Use as directed. 1 Each 0 03/05/2023 [...] long-term current use of insulin ([facility]) Use as directed. 3 Each 3 08/06/2023 [...] before bedtime. 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 8 Capsule 0 10/05/2023 Active rOPINIRole HCl 2 MG Oral Tablet (Requip) Take 1 tablet by mouth by 8pm nightly for RLS. 90 Tablet 1 10/17/2023 Active documented as of this encounter (statuses as of 11/03/2023) Active Problems Problem Noted Date Diagnosed Date [...] develops any redness or swelling to contact [facility] right away. Food insecurity 09/08/2023 [...] as of this encounter (statuses as of 11/03/2023) Resolved Problems Problem Noted Date Diagnosed Date [...] Vasogenic cerebral edema 02/10/201704/2017 Encephalopathy acute 02/05/2017 08/10/2 017 Acute respiratory failure 02/05/2017 Major depressive disorder wi th single episode, in full remission 12/27/2015 03/06/2017 Morbid obesity due to excess calories 12/27/2015 04/17/2018 documented as of this encounter (statuses as of 11/03/2023) Immunizations Name Administration Dates Next Due COVID-19 [...] Sign Reading Time Taken Comments Blood Pressure 132/64 10/31/2023 2:56 PM EDT Pulse 80 10/31/2023 2:56 PM EDT Temperature 36.7 C (98 F) 10/31/2023 2:56 PM EDT Respiratory Rate 20 10/31/2023 2:56 PM EDT Oxygen Saturation 99% 10/31/2023 2:56 PM EDT Inhaled Oxygen Concentration - - Weight 172.6 kg (380 lb 9.6 oz) 10/31/2023 2:56 PM EDT Height - - Body Mass Index 59.61 09/17/2023 6:48 AM EST documented in this [...] Progress Notes * Liya Jc, RN - 10/31/2023 2:23 PM EDT Images from the original note were not included. [facility] Manager Web Visit Date: 10/31/2023 Time: 2:23 PM Name: Nicola Pineda : 1975 Current Concerns: Pt seen for return RN visit He reports his edema in his legs was a little worse earlier this week and he took an extra fluid pill but it is better now His weights have been staying stable SOB has been at baseline He does report he has been having diarrhea since restarting Ozempic He is not taking the Metformin since restarting the Ozempic Also states he hasn't really been feeling well - more tired, low energy, nauseated at times Is able to eat and drink normally but states sometimes he eats just because he knows he has to TE and TT sent to Tatyana Lawson NP Advised to stop Ozempic and restart Metformin ER daily - pt is aware Physical Exam: BP 132/64 | Pulse 80 | Temp 36.7 C (98 F) | Resp 20 | Wt (!) 172.6 kg (380 lb 9.6 oz) | SpO2 99% | BMI 59.61 kg/m | BSA 2.86 m Pain 0 Physical Exam Constitutional: General: [...] Review of Systems Constitutional: Negative. HENT: Negative. Respiratory: Positive for shortness of breath (DAY - at baseline). Cardiovascular: Positive for leg swelling. Gastrointestinal: Positive for diarrhea. Genitourinary: Negative. Musculoskeletal: Positive for arthralgias. Skin: Negative. Neurological: Negative. Psychiatric/Behavioral: Negative. Medication Reconciliation: (See medication list) Does patient take medications as ordered: Yes Patient Well Being: PHQ2/9: No questionnaires available. No change in living situation Denies falls [facility]-10 Completed this Visit: No. Routine visit [...] wts, bp and pulse ox reading via [facility] Low Na diet Elevate LE as much as possible Keep all appts as scheduled Cardiology f/u Stop Ozempic and start Metformin ER Home Interventions Provided: Home Intervention: Other; eval Consulted PCP/Specialist Reinforced current Plan of Care, including self-management and medication regimen Patient's 'Red Flags': Increased SOB Wt gain of 3 lbs in 24 hrs or 5 lbs in one week Increased abd distention or edema Patient Needs to Remember: Call [facility] at with any new or worsening [...] & schedule home visit with care steam box operator(s)as indicated. Provider is in agreement with Plan of Care: Yes Scheduled to follow up with patient in 3 weeks with provider, 3 weeks after with RNCM. Liya Jc RN 10/31/2023 2:23 PM documented in this encounter Plan of Treatment Upcoming Encounters Date Type Department Care Team (Late st Contact Info) Description 11/25/2023 1:00 PM EDT Telemedicine [facility], [facility] [address] [place] [address] Tatyana Lawson CRNP [address] [place] [address] Celia Weems, Community Health Nursery Manager [address] [place] [address] 12/10/2023 11:00 AM EDT Home Visit [facility], [facility] [address] [place] [address] Liya Jc RN [address] [place] [address] 03/02/2024 8:00 AM EDT Office Visit Cardiology, [facility] [address] [place] [address] Panchito Grey DO [address] [place] [address] Health Maintenance Due Date Last Done Comments [...] the patient have Health Care Power of Metal Finisher? No Code Status History Code Status Date Activated Date Inactivated Comments Full Code 02/05/2017 7:44 PM 02/19/2017 10:16 PM This order reflects the patients wishes and were consensually agreed upon. Question Answer Comments Discussion of Advance Directives occurred with: Not Discussed Care Teams Private Watchman Relationship Specialty Start Date End Date Massiel Hansen PA-C [address] [place] [address] PCP - General Physician Nursery Manager 04/03/22 documented as of this encounter
--- OUTSIDE RECORDS SUMMARY | 2024-01-28 15:02 | External Medical Summary | Summary of Care ---
Author Name Unknown Organization [facility] Address [address] [place] [address] Phone [phone] Care Team Providers Care Cvicu Rn Name Role Phone Danielle October ANMOLC Primary Care Provider [phone] Reason for Visit * Reason Onset Date Comments [facility]: Maintenance 10/24/2023 Encounter Details Date Type Department Care Team (Late st Contact Info) Description 10/24/2023 Telephone [facility], [facility] [address] [facility] [place] [id number] [facility], Nurse [facility] [address] [facility] [place] [id number] [facility]: Maintenance Allergies No known active allergiesdocumented as of this encounter (statuses as of 10/24/2023) Medications Medication Sig Dispensed Refills Start Date [...] 0 10/09/2022 Acti ve FreeStyle Abdulkadir 2 [place] DeviceIndications:Ty pe 2 diabetes mellitus without complication, without long-term current use of insulin ([facility]) Use as directed. 1 Each 0 03/05/2023 [...] long-term current use of insulin ([facility]) Inject 1 mg under the skin once [...] before bedtime. 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 8 Capsule 0 10/05/2023 Active rOPINIRole HCl 2 MG Oral Tablet (Requip) Take 1 tablet by mouth by 8pm nightly for RLS. 90 Tablet 1 10/17/2023 Active documented as of this encounter (statuses as of 10/24/2023) Active Problems Problem Noted Date Diagnosed Date [...] empagliflozin (ex. Jardiance) Remote Patient Monitoring Vendor: [facility] Device(s): Connected Scale Connected Pulse Ox Connected [...] as of this encounter (statuses as of 10/24/2023) Resolved Problems Problem Noted Date Diagnosed Date [...] as of this encounter (statuses as of 10/24/2023) Immunizations Name Administration Dates Next Due COVID-19 mRNA, LNP-s, No Pre serve, 2-Dose Series ([employer] 11/30/2020,11/06/2020 Pneumococcal Polysaccharide PPV23 (Pneumovax) 05/22/2021 Seasonal [...] Telephone Encounter - Candice Pope LPN - 10/24/2023 12:39 PM EDT Images from the original note were not included. [facility] Remote Patient Monitoring Unable to contact patient: Trigger type: Abnormal reading(s): Device(s) Triggered: [facility] ([facility]): Scale: Trigger weight: 381.9 lbs; weight increased 3.5 lbs in 1 day(s) Called pt to f/u on [facility] wt trigger LMOM to return call documented in this encounter Plan of Treatment Upcoming Encounters Date Type Department Care Team (Late st Contact Info) Description 10/27/2023 12:00 PM EDT Office Visit [facility] [place] [address] [place], [place] [address] Massiel Hansen PA-C [address] [place] [address] 10/31/2023 4:00 PM EDT [facility] Visit [facility] [place], [facility] [address] [place] [address] Liya Jc, RN [address] [place] [address] 11/25/2023 1:00 PM EDT Telemedicine [facility], [facility] [address] [facility] [place] [address] Tatyana Lawson CRNP [address] [place] [address] Celia Weems, Community Health Dementia Program Director [address] [place] [address] 03/02/2024 8:00 AM EDT Office Visit Cardiology, [facility] [address] [place] [address] Panchito Grey DO [address] [place] [address] Health Maintenance Due Date Last Done Comments [...] the patient have Health Care Power of Government Employee? No Code Status History Code Status Date Activated Date Inactivated Comments Full Code 02/05/2017 7:44 PM 02/19/2017 10:16 PM This order reflects the patients wishes and were consensually agreed upon. Question Answer Comments Discussion of Advance Directives occurred with: Not Discussed Care Teams Cvicu Rn Relationship Specialty Start Date End Date Massiel Hansen PA-C [address] [facility] [place] [address] PCP - General Physician Dementia Program Director 04/03/22 documented as of this encounter
--- NOTE | 2024-01-29 00:23 | Electrocardiogram Report ---
Test Reason : Blood Pressure : / mmHG Vent. Rate : 090 BPM Atrial Rate : 090 BPM P-R Int : 160 ms QRS Dur : 098 ms QT Int : 366 ms P-R-T Axes : 054 -33 016 degrees QTc Int : 447 ms Normal sinus rhythm Left axis deviation Abnormal ECG When compared with ECG of 12-OCT-2023 19:21, Borderline criteria for Anterior infarct are no longer Present Confirmed by Anuel Narvaez ([id number]) on 01/29/2024 12:23:11 AM Referred By: REFERRED SELF Confirmed By:Anuel Narvaez
[2024-01-29] MEDS ORDERED: ASPIRIN 81 MG ECTAB PO SCH (09:00)
--- NOTE | 2024-01-30 06:27 | Electroencephalogram ---
EEG Procedure Note Date of Service January 28, 2024 Start / End Times Start Time: 11:33 End Time: 11:[address] Deepthi Bay History A 48 year old jack with episode of confusion. EEG performed for evaluation of epileptiform activity. Home Medication List Medication Instructions Recorded Confirmed Type albuterol sulfate 90 mcg/actuation 2 puff inhalation BID PRN 02/25/23 01/28/24 History aerosol inhaler Shortness Of Breath Or Wheezing apixaban 5 mg tablet (Eliquis) 5 mg PO [facility] 02/25/23 01/28/24 History furosemide 40 mg tablet 40 mg PO [facility] 02/25/23 01/28/24 History lisinopril 2.5 mg tablet 2.5 mg PO HS 02/25/23 01/28/24 History empagliflozin 25 mg tablet 25 mg PO QAM 03/10/23 01/28/24 History (Jardiance) atorvastatin 40 mg tablet 40 mg PO DAILY 08/19/23 01/28/24 History fenofibrate nanocrystallized 48 mg 48 mg PO QAM 08/19/23 01/28/24 History tablet (Tricor) metolazone 2.5 mg tablet 2.5 mg PO QAM PRN weight gain 08/19/23 01/28/24 History protocol potassium chloride 10 mEq 10 meq PO BID 08/19/23 01/28/24 History capsule,extended release cholecalciferol (vitamin D3) 50 50 mcg PO QAM 01/28/24 01/28/24 History mcg (2,000 unit) tablet (Vitamin D3) duloxetine 30 mg capsule,delayed 30 mg PO QAM 01/28/24 01/28/24 History release metformin 500 mg tablet,extended 1,000 mg PO [facility] 01/28/24 01/28/24 History release 24 hr Inpatient Medication List Discontinued Medications Apixaban (Apixaban 5 Mg Tablet) 5 mg PO [facility] Stop: 02/27/24 08:59 Last Admin: 01/28/24 09:58 Dose: 5 mg Documented By: SALVADOR Aspirin (Aspirin 81 Mg Chew) 324 mg PO NOW ONE Stop: 01/28/24 02:49 Last Admin: 01/28/24 02:59 Dose: 324 mg Documented By: LOKI Atorvastatin Calcium (Atorvastatin 40 Mg Tab) 40 mg PO DAILY MIRIAM Stop: 02/27/24 08:59 Last Admin: 01/28/24 09:57 Dose: 40 mg Documented By: SALVADOR Duloxetine HCl (Duloxetine Hcl 30 Mg Cap) [facility] Stop: 02/27/24 08:59 Last Admin: 01/28/24 09:57 Dose: 30 mg Documented By: SALVADOR Fenofibrate (Fenofibrate Nanocrystallized 48 Mg Tablet) [address] [facility] Stop: 02/27/24 08:59 Last Admin: 01/28/24 09:57 Dose: 48 mg Documented By: SALVADOR Magnesium Sulfate/Dextrose (Magnesium Sulfate / D5w) 1 gm in 100 mls @ 50 mls/hr IV ONE ONE Stop: 01/28/24 03:13 Last Infusion: 01/28/24 04:15 Dose: Infused Documented By: Admin: 01/28/24 02:15 Dose: 50 mls/hr Documented By: JERRY Potassium Chloride/Sodium Chloride (Normal Saline W/20 Meq Kcl) 20 meq in 1,000 mls @ 50 mls/hr IV .Q20H ONE; Protocol Stop: 01/28/24 21:14 Last Admin: 01/28/24 02:12 Dose: 50 mls/hr Documented By: JERRY Acetaminophen (Ofirmev) 1,000 mg in 100 mls @ 400 mls/hr IV NOW STA Stop: 01/28/24 03:05 Last Infusion: 01/28/24 03:18 Dose: Infused Documented By: Admin: 01/28/24 03:01 Dose: 400 mls/hr Documented By: LOKI Insulin Aspart (Insulin Aspart Per Unit Charge) 0 units SC [facility] Stop: 02/27/24 07:29 Last Admin: 01/28/24 13:14 Dose: 1 units Documented By: SALVADOR Co-signed By: RANDY Admin: 01/28/24 09:56 Dose: Not Given Documented By: SALVADOR Ioversol (Optiray 320 125ml) 125 ml IV ONCE ONE Stop: 01/28/24 00:13 Last Admin: 01/28/24 00:13 Dose: 118 ml Documented By: EVNO Description This is a 21 electrode EEG with a single channel dedicated to limited EKG. The electrodes were placed in accordance with the International 10-20 system. REPORT: At the onset of the EEG, the patient is awake. The background activity consist of 10-11 Hz, persistent, posteriorly dominant, moderate amplitude, symmetric and rhythmic activity that is reactive to eye opening. Anteriorly, it consist of a mixture of low voltage indeterminate activity and 15-25 Hz, persistent, low amplitude, symmetric and rhythmic activity. Stepwise intermittent photic stimulation (1-21 Hz) and hyperventilation (3 minutes, good effort) do not induce any abnormalities. Drowsiness is characterized by low amplitude mixed frequency activity, roving eye movements, and decreased eye blinking and muscle artifact. Interpretation IMPRESSION: This is a normal awake and drowsy routine EEG. There is no evidence of focal slowing or epileptiform activity.
== END 2024-01-28 17:26 | disposition home or self-care (01) ==
LOC: ED 23:39 → 2N 23:39